=== PATIENT | female | born 1955 | race Caucasian/White ===

== ENCOUNTER → 2017-05-20 15:07 | Outpatient (CLI) | payer MEDICARE, MEDICAID, SELFPAY | PROVIDERS: PCP Family Medicine; Visit Provider Family Medicine | DX: R07.2 Precordial pain (principal) | CPT/HCPCS: 93005 ==

== ENCOUNTER → 2017-07-29 08:04 | Outpatient (CLI) | payer MEDICARE, SELFPAY ==
--- NOTE | 2017-07-29 10:20 | CT_ITS ---
CT abdomen pelvis w con CLINICAL INDICATION: Left flank pain with hematuria, burning with urination, history of right renal lesion ITS.REASON: HX RIGHT RENAL LESION, ACUTE CYSTITIS ORDERING PHYSICIAN: Petty Bass MD PATIENT AGE: 61 years COMPARISON: 12/30/2016 TECHNIQUE: Axial images obtained immediately and 10 minute delay following intravenous administration of IV contrast with sagittal and coronal reformats. All CT scans at the facility use one or more dose reduction, viz: automated exposure control; ma/kV adjustment per patient size (including targeted exams where dose is matched to indication; i.e. head); or iterative reconstruction technique. PROCEDURE: Oral Contrast: Redicat IV Contrast: 75 mL's of Isovue-370.. FINDINGS: The lung bases are clear. The liver has a somewhat nodular configuration consistent with cirrhosis. The spleen is enlarged at extending centimeters. The pancreas is unremarkable. The left adrenal gland is somewhat enlarged but maintains an adreniform shape and is not significantly changed dating back to 11/16/2014 There is an exophytic soft tissue and fat-containing lesion along the lower pole of the right kidney 2.7 cm. This contains some peripheral calcification superiorly. This is consistent with an angiomyolipoma and is not significantly changed. No evidence of acute hemorrhage into the lesion. There is a 2.8 x 2 cm left renal cyst. A nonobstructing 3 mm stone is present in the lower pole the left kidney. No hydronephrosis. Urinary bladder has an unremarkable appearance. There are a few retroperitoneal varices. The portal vein is prominent at 19 mm. There is a moderate amount retained colonic feces. No intestinal obstruction or free air is evident. No evidence of appendicitis or diverticulitis. There is been prior hysterectomy. No pelvic mass or focal inflammatory change evident. There is protrusion of the ventral abdominal wall with associated small hernia centrally containing fat area in No acute bony anomalies. IMPRESSION: 1. Cirrhosis with portal hypertension and splenomegaly with small retroperitoneal varices. 2. Right renal angiomyolipoma unchanged. 3. No change left renal cyst and nonobstructing 3 mm left renal stone 4. No new findings
== END ==
PROVIDERS: PCP Family Medicine; Visit Provider Family Medicine
DX: N30.00 Acute cystitis without hematuria (principal)
CPT/HCPCS: 74177; Q9967

== ENCOUNTER → 2017-12-14 15:07 | Outpatient (POV) | payer MEDICARE, MEDICAID, SELFPAY | PROVIDERS: Visit Provider Internal Medicine | DX: Z00.00 Encounter for general adult medical examination without abnormal findings (principal) ==

== ENCOUNTER → 2017-12-29 09:18 | Outpatient (CLI) | payer MEDICARE, MEDICAID, SELFPAY ==
[2017-12-29 09:57] LABS: Basophils % 0.3 % (0.1-2.0); Eosinophils # 0.2 K/mm3 (0.0-0.4); Eosinophils % 3.2 % (0.1-12.0); Hematocrit 42.1 % (37.0-47.0); Hemoglobin 12.7 g/dL (12.2-16.2); Lymphocytes % 18.2 K/mm3 (10-50); Mean Corpuscular HGB Conc 30.1 g/dL (31.8-35.4); Mean Corpuscular Hemoglobin 27.5 pg (27.0-31.2); Mean Corpuscular Volume 91.3 fl (81-99); Monocytes # 0.3 K/mm3 (0.1-1.0); Monocytes % 6.1 % (1.7-9.3); Neutrophils # 3.9 K/mm3 (1.8-7.8); Neutrophils % 72.3 % (37.0-80.0); Platelet Count 111 K/mm3 (142-424); Red Blood Count 4.61 M/mm3 (4.20-5.40); Red Cell Distribution Width 18.1 % (11.5-17.5); White Blood Count 5.4 K/mm3 (4.8-10.8)
[2017-12-29 10:59] LABS: Alanine Aminotransferase 12 U/L (12-78); Albumin/Globulin Ratio 0.9 (1.1-1.8); Alkaline Phosphatase 87 U/L (46-116); Aspartate Amino Transferase 11 U/L (15-37); Bilirubin,Total 0.3 mg/dL (0.2-1.0); Blood Urea Nitrogen 11 mg/dL (7-18); Calcium 9.1 mg/dL (8.5-10.1); Carbon Dioxide 37 mmol/L (21.0-32.0); Chloride 104 mmol/L (98-107); Creatinine,Serum 0.81 mg/dL (0.55-1.02); Estimated Glomerular Filt Rate 72 ml/min (>60); GFR (African American) 87 ML/MIN (>60); Globulin 3.2 gm/dl (1.3-3.2); Glucose 154 mg/dL (74-106); Sodium 144 mmol/L (136-145); Total Protein,Serum 6.2 gm/dL (6.4-8.2)
--- NOTE | 2017-12-29 10:59 | CT_ITS ---
CT chest wo con HISTORY: Emphysema, shortness of breath ITS.REASON: EMPHYSEMA, ABN WGT LOSS ORDERING PHYSICIAN: Ruiz Spears MD PATIENT AGE: 62 years COMPARISON: None Technique: Axial images obtained with sagittal and coronal reformats. All CT scans at the facility use one or more dose reduction, viz: automated exposure control, ma/kV adjustment per patient size (including targeted exams where dose is matched to indication, i.e. head), or iterative reconstruction technique. FINDINGS: There are a few small mediastinal lymph nodes. These are 1 cm or less in short axis. No mediastinal or hilar adenopathy or mass evident. There are coronary artery calcifications and/or stents are there some minimal thickening of the pericardium anteriorly nonspecific. No evidence of aortic aneurysm. There are mild centrilobular emphysematous changes. A 4 mm noncalcified nodule present in the region of the right minor fissure laterally. There is mild diffuse bronchial thickening perihilar regions and lung bases. No obvious bronchiectasis. Calcified nodes are present in the right hilum and there is calcified granuloma in the right lower lobe. There is an 7 mm nodule in the right upper lobe posteriorly. This is just anterior to the major fissure. The margins are somewhat irregular. This is noncalcified. No central lesions are evident. No lobar consolidation or collapse. No effusions. Upper abdominal images show mild splenomegaly at 15 cm. There is a partially calcified mass involving the right kidney posteriorly containing some fat and soft tissue density consistent with an angiomyolipoma. Calcification is present in the left kidney centrally at 3 mm and may be due to stone or arterial calcification. There is a left renal cyst and 2.4 cm. Small nodes are present in the retroperitoneum. Compressive changes have increased at L1 with loss of height anteriorly now of approximately 50% retropulsion of the posterior superior aspect of L1 x 7 mm greater on the right. Slight increased soft tissue density along the anterior aspect of the vertebral body at this region which was not present on the lumbar spine CT 10/27/2017. Gas is present within the disc space both above and below this level. IMPRESSION: 1. 7 mm right upper lobe nodule indeterminate. Six-month CT follow-up recommended 2. Centrilobular emphysema with mild bronchial thickening consistent with obstructive chronic bronchitis. 3. Increased wedge compression changes involving the L1 vertebral body now with retropulsion of the posterior superior aspect of L1 x 7 mm with lateral recess narrowing. There is some increased soft tissue density at the vertebral body anteriorly this level. The vertebral body itself has a heterogeneous appearance. There are decreased density centrally. One must consider the possibility of a pathologic fracture. Underlying osteomyelitis of the vertebral bodies considered. A metastatic lesion to L1 is also a consideration. MRI lumbar spine without and with contrast may be of further value. 4. No change partially calcified mass in the right kidney which contains fat and may be due to an angiomyolipoma
[2017-12-29 11:15] VITALS: BP 109/76; BP 122/79; PULSE 115; PULSE 97; RESP 18; RESP 23; O2SAT 86; O2SAT 97
[2017-12-29 11:18] VITALS: PULSE 101; PULSE 97
[2017-12-30 16:23] LABS: Alpha-1-Globulin 0.3 g/dL (0.0-0.4); Alpha-2-Globulin 0.8 g/dL (0.4-1.0); Gamma Globulin 1.1 g/dL (0.4-1.8); Protein, Total 6.1 g/dL (6.0-8.5)
[2018-01-03 15:16] LABS: Alpha-1-Antitrypsin 162 mg/dL (90-200)
== END ==
PROVIDERS: PCP Family Medicine; Visit Provider Internal Medicine
DX: J43.9 Emphysema, unspecified (principal); R63.4 Abnormal weight loss; R06.02 Shortness of breath
CPT/HCPCS: 36415; 71250; 80053; 82103; 82104; 84155; 84165; 85025; 94060; 94618; 94640; 94726; 94729

== ENCOUNTER → 2018-01-25 12:03 | Outpatient (POV) | payer MEDICARE, MEDICAID, SELFPAY | PROVIDERS: Visit Provider Internal Medicine | DX: Z00.00 Encounter for general adult medical examination without abnormal findings (principal) ==

== ENCOUNTER → 2018-01-27 13:42 | Outpatient (CLI) | payer MEDICARE, MEDICAID, SELFPAY ==
[2018-01-27 15:38] LABS: Anion Gap 8.1 mEq/L (5-15); Blood Urea Nitrogen 11 mg/dL (7-18); Calcium 9.1 mg/dL (8.5-10.1); Carbon Dioxide 37 mmol/L (21.0-32.0); Chloride 101 mmol/L (98-107); Creatinine,Serum 0.88 mg/dL (0.55-1.02); Estimated Glomerular Filt Rate 65 ml/min (>60); GFR (African American) 79 ML/MIN (>60); Glucose 177 mg/dL (74-106); Potassium 4.1 mmoL/L (3.5-5.1); Sodium 142 mmol/L (136-145)
== END ==
PROVIDERS: Visit Provider Internal Medicine
DX: S32.000A Wedge compression fracture of unspecified lumbar vertebra, initial encounter for closed fracture (principal); E11.40 Type 2 diabetes mellitus with diabetic neuropathy, unspecified
CPT/HCPCS: 36415; 80048

== ENCOUNTER → 2018-01-28 10:16 | Outpatient (CLI) | payer MEDICARE, MEDICAID, SELFPAY ==
--- NOTE | 2018-01-28 10:19 | MR_ITS ---
MR lumbar spine wo/w con, MR 3-d myelogram/MRCP HISTORY: Fell OCT 27 and has compression FX. LBP on LT side. HX kidney CA x7yrs. NO HX back surgery. ITS.REASON: FX LUMBAR VERTEBRA, COMPRESSION ORDERING PHYSICIAN: Ruiz Spears MD PATIENT AGE: 62 years Comparison: 10/27/2017, 12/29/2017 TECHNIQUE: Standard multiplanar multiecho sequences are performed without contrast. 3-D MIP and myelographic images are also rendered and reviewed FINDINGS: There is normal alignment. There is a compression fracture involving the L1 vertebral body with loss of height centrally of greater than 50%. There is disruption of the posterior vertebral body cortex superiorly with 6 mm retropulsion of the posterior superior aspect of L1 indicating a burst type compression fracture. The L1 vertebral body does not demonstrate any enhancement. The spinal cord ends at the L2 level. The retropulsed fragment does not cause any compression upon the lower aspect of the cord. The fracture shows some decrease signal on the T1-weighted images is increased intensity on T2-weighted images L2-L3: unremarkable appearance. L3-4: Minimal bulging disc L4-L5: Minimal bulging disc slightly eccentric towards the right with mild facet and ligamentous hypertrophy L5-S1: Mild facet hypertrophy. IMPRESSION: 1. Burst type compression fracture involves L1 as described above with 6 mm retropulsion of posterior vertebral body fragment superiorly without compression upon the cord. This does not appear pathologic. 2. Bulging disc at L3-L4 and L4-5 with mild facet hypertrophic change.
--- NOTE | 2018-01-28 11:30 | HMH.ITSHM ---
Current Home Medications as stated by this patient Cate Ramirez or accounting representative. []QUETIAPINE FUMARATE TRAZODONE POTASSIUM DILTIAZEM VENTAFAXINE ASPIRIN MYRBETRIQ AMLODIPINE ROSUVASTATIN CALCIUM CLOPIDOGREL FERROUS SULFATE DEXILANT ALPRAZOLAM HYDROCHLOROTHIAZIDE ISOSORBIDE NITROGLYCERIN HYDROCODONE LACTULOSE BASAGLAR NOVOLOG VICTOZA SYMBICORT
== END ==
PROVIDERS: PCP Family Medicine; Visit Provider Internal Medicine
DX: S32.000A Wedge compression fracture of unspecified lumbar vertebra, initial encounter for closed fracture (principal)
CPT/HCPCS: 72158; 76376; A9576

== ENCOUNTER 2018-02-16 13:45 | Inpatient (IN) ==
[2018-02-16 14:25] LABS: ABG Base Excess 13.2 mmol/L (-2.4-2.3); ABG HCO3 39.6 mmhg (22.0-26.0); ABG Oxygen Saturation 84 % (90-100); ABG PO2 50.2 mmhg (80-100); ABG TCO2 42.2 mmhg (23-27)
[2018-02-16 14:26] LABS: Oxygen 4L %
[2018-02-16 14:26] LABS: Basophils % 0.4 % (0.1-2.0); Eosinophils # 0.1 K/mm3 (0.0-0.4); Eosinophils % 1.3 % (0.1-12.0); Hematocrit 44.5 % (37.0-47.0); Hemoglobin 13.4 g/dL (12.2-16.2); Lymphocytes # 1.2 K/mm3 (0.7-4.5); Lymphocytes % 15.4 % (10-50); Mean Corpuscular HGB Conc 30.1 g/dL (31.8-35.4); Mean Corpuscular Hemoglobin 28.6 pg (27.0-31.2); Mean Corpuscular Volume 94.9 fl (81-99); Mean Platelet Volume 8.5 fl (7.4-10.4); Monocytes # 0.6 K/mm3 (0.1-1.0); Monocytes % 6.8 % (1.7-9.3); Neutrophils # 6.2 K/mm3 (1.8-7.8); Neutrophils % 76.1 % (37.0-80.0); Platelet Count 152 K/mm3 (142-424); Red Blood Count 4.69 M/mm3 (4.20-5.40); Red Cell Distribution Width 17.2 % (11.5-17.5); White Blood Count 8.1 K/mm3 (4.8-10.8)
[2018-02-16 14:27] LABS: Allen's Test Acceptable
[2018-02-16 14:28] LABS: ABG PCO2 82.4 mmhg (35.0-45.0)
--- NOTE | 2018-02-16 14:33 | Emergency Department Note ---
ED Disposition Clinical Impression: Acute respiratory failure with hypoxia and hypercapnia, COPD exacerbation Community acquired pneumonia Qualifiers: Laterality: left Lung location: lower lobe of lung Qualified Code(s): J18.1 - Lobar pneumonia, unspecified organism Disposition: Still a Patient Condition on Discharge: Serious - Critical Care Critical Care Time: Yes Attestation: On 02/16/18, the high probability of a clinically significant, sudden or life threatening deterioration of the following system(s) required my full and direct attention, intervention and personal management. The time I documented below is in addition to time spent performing reported procedures but includes the following listed in this critical care notation. Total Critical Care Time: 40 Vital system(s) involved:: Respiratory Failure My critical care processes included: Assessment & monitoring of V/S, Initial and Re-exams, Data Review/Interpretation, Coordinating Care, Medication Orders and management, Documentation Medical Decision Making - Zak Inquiry Pt receiving controlled substance: No Vital Signs: 02/16/18 13:57 02/16/18 14:40 02/16/18 14:41 Temperature 98.2 F Temperature Source Temporal Artery Scan Pulse Rate 104 H 106 H Pulse Rate [Right Brachial] 119 H Respiratory Rate 26 H Blood Pressure [Right Arm] 107/68 L Blood Pressure Mean [Right Arm] 81 Blood Pressure Source [Right Arm] Automatic Cuff Blood Pressure Position [Right Arm] Sitting 02 Sat by Pulse Oximetry 72 L Oxygen Delivery Method Room Air 02/16/18 14:49 02/16/18 16:35 Temperature Temperature Source Pulse Rate Pulse Rate [Right Brachial] 110 H 101 H Respiratory Rate Blood Pressure [Right Arm] 131/72 141/72 H Blood Pressure Mean [Right Arm] 91 95 Blood Pressure Source [Right Arm] Automatic Cuff Automatic Cuff Blood Pressure Position [Right Arm] Sitting Sitting 02 Sat by Pulse Oximetry 96 92 L Oxygen Delivery Method - Lab Data Lab Results 02/16/18 14:05: WBC 8.1, RBC 4.69, Hgb 13.4, Hct 44.5, MCV 94.9, MCH 28.6, MCHC 30.1 L, RDW 17.2, Plt Count 152, MPV 8.5, Neut % (Auto) 76.1, Lymph % (Auto) 15.4, Gregory % (Auto) 6.8, Eos % (Auto) 1.3, Baso % (Auto) 0.4, Neut # (Auto) 6.2, Lymph # (Auto) 1.2, Gregory # (Auto) 0.6, Eos # (Auto) 0.1, Baso # (Auto) 0.0 02/16/18 14:05: Sodium 141, Potassium 4.5, Chloride 96 L, Carbon Dioxide 43 H*, Anion Gap 6.5, BUN 14, Creatinine 0.95, Estimated Creat Clear 89, Estimated GFR 60, Est GFR ( Amer) 72, Glucose 256 H, Calcium 9.0, Total Bilirubin 0.4, AST 5 L, ALT 9 L, Alkaline Phosphatase 91, Total Protein 7.1, Albumin 2.6 L, Globulin 4.5 H, Albumin/Globulin Ratio 0.6 L 02/16/18 14:05: B-Natriuretic Peptide 101 H 02/16/18 14:05: Lactate 2.9 H 02/16/18 14:06: Specimen Source Right brachial, O2 % 4l, ABG pH 7.30 L, ABG pCO2 82.4 H, ABG pO2 50.2 L, ABG HCO3 39.6 H, ABG Total CO2 42.2 H, ABG O2 Saturation 84 L*, ABG Base Excess 13.2 H, Chandler Test Acceptable 02/16/18 14:55: Troponin I < 0.02 Result diagrams: 02/16/18 14:05 02/16/18 14:05 Orders (Tests/Meds): ED MEDICATIONS Generic Name Dose Route Start Last Admin Trade Name Freq PRN Reason Stop Dose Admin Albuterol/Ipratropium 3 ml 02/16/18 20:00 Duoneb 3ml Neb 03/18/18 19:59 QIDRT ARIANNE Alprazolam 0.25 mg 02/16/18 21:00 Xanax 0.25mg Tablet PO 03/18/18 20:59 TID ARIANNE Amlodipine Besylate 5 mg 02/16/18 17:32 Norvasc 5mg Tablet PO 03/18/18 17:31 ONCE ARIANNE Aspirin 81 mg 02/17/18 09:00 Aspirin 81mg Enteric Coated Tablet PO 03/19/18 08:59 DAILY [facility] Clopidogrel Bisulfate 75 mg 02/17/18 09:00 Plavix 75mg Tablet PO 03/19/18 08:59 DAILY [facility] Azithromycin 500 mg/ Sodium 250 mls @ 250 mls/hr 02/17/18 15:30 Chloride IV 03/02/18 15:29 Q24H ARIANNE Protocol Ceftriaxone Sodium 1 gm/ 50 mls @ 100 mls/hr 02/17/18 15:30 Sodium Chloride IV 03/02/18 15:29 Q24H ARIANNE Protocol Insulin Human Lispro 0 unit 02/16/18 21:00 Humalog 100 Units/Ml 3ml Vial (Ssi) SQ 03/18/18 20:59 ACHS ARIANNE Protocol Methylprednisolone Sodium Succinate 80 mg 02/16/18 17:32 Solu-Medrol 125mg/2ml Vial IV 03/18/18 17:31 Q8H ARIANNE Non-Formulary Medication 120 mg 02/17/18 09:00 Diltiazem Hcl [Tiazac] PO 03/19/18 08:59 DAILY ARIANNE Non-Formulary Medication 25 mg 02/17/18 09:00 Hydrochlorothiazide [Hydrochlorothiazide 50mg Tab] PO 03/19/18 08:59 DAILY ARIANNE Non-Formulary Medication 30 mg 02/16/18 17:32 Mirabegron [Myrbetriq] PO 03/18/18 17:31 Q24H ARIANNE Non-Formulary Medication 1,000 mg 02/16/18 17:32 [place]-3 Fatty Acids [Fish Oil Concentrate] PO 03/18/18 17:31 ONCE ARIANNE Non-Formulary Medication 30 meq 02/17/18 09:00 Potassium Chloride [Pot Chlor 20 Meq Packet] PO 03/19/18 08:59 DAILY ARIANNE Non-Formulary Medication 200 mg 02/16/18 17:32 Quetiapine Fumarate [Quetiapine Fumarate] PO 03/18/18 17:31 QHS ARIANNE Non-Formulary Medication 10 mg 02/16/18 17:32 Rosuvastatin Calcium [Rosuvastatin Calcium] PO 03/18/18 17:31 ONCE ARIANNE Non-Formulary Medication 100 mg 02/16/18 17:32 Trazodone Hcl [Trazodone Hcl] PO 03/18/18 17:31 QHS ARIANNE Non-Formulary Medication 50 mg 02/16/18 21:00 Venlafaxine Hcl [Venlafaxine Hcl] PO 03/18/18 20:59 BID ARIANNE Non-Formulary Medication 60 mg 02/17/18 09:00 Dexlansoprazole [Dexilant] PO 03/19/18 08:59 DAILY ARIANNE Tramadol/Acetaminophen 1 each 02/16/18 17:32 Ultracet 37.5/325mg Tablet PO 03/18/18 17:31 TID PRN Pain Discontinued Medications Generic Name Dose Route Start Last Admin Trade Name Nateq PRN Reason Stop Dose Admin Albuterol/Ipratropium 3 ml 02/16/18 14:05 Duoneb 3ml Neb 02/16/18 14:06 ONCE ONE Ceftriaxone Sodium 1 gm/ 50 mls @ 100 mls/hr 02/16/18 15:30 02/16/18 15:45 Sodium Chloride IV 03/02/18 15:29 100 mls/hr Q24H ARIANNE Administration Protocol Azithromycin 500 mg/ Sodium 250 mls @ 250 mls/hr 02/16/18 15:30 02/16/18 16:07 Chloride IV 03/02/18 15:29 250 mls/hr Q24H ARIANNE Administration Protocol Insulin Human Lispro 0 unit 02/16/18 21:00 Humalog 100 Units/Ml 3ml Vial (Ssi) SQ 03/18/18 20:59 ACHS ARIANNE Protocol Methylprednisolone Sodium Succinate 125 mg 02/16/18 14:05 02/16/18 14:15 Solu-Medrol 125mg/2ml Vial IV 02/16/18 14:06 125 mg ONCE ONE Administration Sodium Chloride 3 ml 02/16/18 14:44 Sodium Chloride 3% 15ml [facility] 03/18/18 14:43 ONCE PRN INDUCE SPUTUM COLLECTION ORDERS Category Date Time Status Blood Culture Stat Micro 02/16/18 14:05 Received Sputum Culture & Gram Stain Stat Micro 02/16/18 14:25 Ordered - Radiology Data #1 Image(s): Chest Image Reviewed: Yes I discussed the image results w/the radiologist Atelectasis versus infiltrate left base. Questionable congestive heart failure (patient's BNP is 101). - ECG Data Tracing #1 EKG interpreted by Mickey Stauffer MD: Rhythm: sinus tachycardia Rate: 109 [place]: normal Ectopy: none Conduction: normal ST Segment Changes: none T Wave Changes: none Q Waves: none No evidence of acute ischemia or injury Baseline artifact and wander present, but I consider the EKG adequate for accurate interpretation. Low voltage QRS - Physician Consults Physician Consulted: Kali Time: 15:20 Reason -: Admission Comment/Response: Agrees to admit the patient to the hospital. We discussed the patient's clinical information, including history, exam, laboratory and radiology results and ED course. Per hospital procedure, I will write temporary bridge inpatient orders on the patient. Specific orders requested by the admitting physician: Rocephin and Zithromax, Solu-Medrol, DuoNeb treatments, BiPAP General Adult HPI - General Chief complaint: Upper Respiratory Infection Stated complaint: SOA Time Seen by Provider: 02/16/18 14:33 Mode of Arrival: Ambulatory Limitations: No Limitations Description of Symptoms (Recalled from ER Triage Doc. by RN): pt went in to see her pcp dr gusman for medicine refills, and was sent immediately to ed once they saw her oxygen saturation at mid 60's; upon arrival to ed pt was found to continue to be hypoxic despite 4lpm per nc. pt further is extremely congested and coughing during triage. daughter states she has been building up to a pneumonia this past week, but refused to get evaluated since she had an appointment with dr gusman; pt continues to smoke 1 ppd - History of Present Illness HPI narrative: The patient is sent from Dr. Gusman's office. She has been sick for 1 week with productive cough and shortness of breath. Denies fever. Some slight chest pains. Also daughter thinks she probably has a urinary tract infection. Found to be hypoxic at Dr. Gusman's office. She is normally on 4 L nasal cannula oxygen. She uses nebulizer treatments at home, but has not had any today. She is not on steroids or antibiotics at this time. She does continue to smoke. She has a history of COPD and respiratory failure. - Related Data Home Medications Medication Instructions Recorded Confirmed albuterol sulfate HFA 90 1 puff INHALATION Q6H 06/14/17 02/16/18 mcg/actuation aerosol inhaler alprazolam 0.25 mg tablet 0.25 mg PO TID tab 06/14/17 02/16/18 budesonide-formoterol HFA 160 2 inh INHALATION Q12H 06/14/17 02/16/18 mcg-4.5 mcg/actuation aerosol inhaler dexlansoprazole 60 mg 60 mg PO DAILY cap 06/14/17 02/16/18 capsule,biphase delayed release insulin aspart U- 100 100 unit/mL 1 unit SUB-Q QPM ml 06/14/17 02/16/18 subcutaneous pen insulin glargine (U-100) 100 35 unit SUB-Q QHS ml 06/14/17 02/16/18 unit/mL (3 mL) subcutaneous pen liraglutide 0.6 mg/0.1 mL (18 mg/3 0.6 mg SUB-Q ONCE 06/14/17 02/16/18 mL) subcutaneous pen injector nitroglycerin 0.4 mg sublingual 0.4 mg SUBLINGUAL Q5M PRN 06/14/17 02/16/18 tablet omega-3 fatty acids 1,000 mg 1,000 mg PO ONCE 06/14/17 02/16/18 capsule rosuvastatin 10 mg tablet 10 mg PO ONCE 06/14/17 02/16/18 tramadol 37.5 mg-acetaminophen 325 1 tab PO TID PRN 20 Days #60 tab 08/31/17 02/16/18 mg tablet venlafaxine 50 mg tablet 50 mg PO BID 90 Days #180 tab 08/31/17 02/16/18 diltiazem ER 120 mg capsule,24 120 mg PO DAILY cap 09/14/17 02/16/18 hr,extended release mirabegron ER 50 mg 30 mg PO Q24H tab 09/14/17 02/16/18 tablet,extended release 24 hr potassium chloride 20 mEq oral 30 meq PO DAILY each 09/14/17 02/16/18 packet quetiapine 200 mg tablet 200 mg PO QHS tab 09/14/17 02/16/18 trazodone 100 mg tablet 100 mg PO QHS tab 09/14/17 02/16/18 Amlodipine Besylate [Norvasc 5mg 5 mg PO ONCE 10/27/17 02/16/18 tablet] Aspirin [Low Dose Aspirin EC] 81 mg PO DAILY 10/27/17 02/16/18 Clopidogrel Bisulfate [Plavix 75mg 75 mg PO DAILY 10/27/17 02/16/18 Tab] hydroCHLOROthiazide 25 mg PO DAILY 10/27/17 02/16/18 [Hydrochlorothiazide 50mg Tab] Clopidogrel Bisulfate [Plavix 75mg 75 mg PO QDAY 02/16/18 02/16/18 Tab] Allergies Allergy/AdvReac Type Severity Reaction Status Date / Time bacitracin Allergy Unknown Verified 10/27/17 07:56 [From NEOSPORIN ([id number])] doxycycline Allergy Unknown Verified 10/27/17 07:56 neomycin Allergy Unknown Verified 10/27/17 07:56 [From NEOSPORIN ([id number])] Penicillins Allergy Unknown Verified 10/27/17 07:56 polymyxin B Allergy Unknown Verified 10/27/17 07:56 [From NEOSPORIN ([id number])] prednisone [PREDNISONE] Allergy Unknown Verified 10/27/17 07:56 [facility] History I have reviewed the patient's past medical history: Yes Medical History: Reports:: Cancer (RIGHT KIDNEY CANCER), Congestive Heart Fa ilure, Chronic Obstructive Pulmonary Disease (COPD), Diabetes Mellitus Type 2, Gastroesophageal Reflux Disease(GERD), Hyperlipidemia, Hypertension Denies:: Diabetes Mellitus Type 1, MRSA Laterality Cases: Bilateral: Tonsillectomy Other Surgeries: Yes: Hysterectomy-Total, Other Amputation: No - Social History Educational Level: Completed High School Smoking Status: Current every day smoker Tobacco Type: cigarettes # Packs/Day (cigarettes): 1 Alcohol Intake: never Alcohol Intake Frequency:: other - Psychiatric History Expresses thoughts of harming self/others: None Suicide Plan Description: No Plan Family Hx:: Hypertension, Heart Attack, Diabetes, Hyperlipidemia, Kidney Disease ROS Obtained: Yes All systems reviewed & no additional complaints - Constitutional Constitutional: Denies fever(s) - Cardiovascular Cardiovascular: Reports chest pain - Respiratory Respiratory: Yes cough, Yes dyspnea, Yes excessive phlegm production - Gastrointestinal Gastrointestingal: Denies: diarrhea, vomiting - Genitourinary Female Genitourinary: Reports dysuria Physical Exam - General General appearance: alert, in distress - Head Head exam: atraumatic, normocephalic - Eye Eye exam: Present: normal appearance, PERRL, EOMI - ENT ENT exam: Present: mucous membranes moist - Neck Neck exam: Present: normal inspection, trachea midline - Respiratory Respiratory exam: Present: other (Crackles bilaterally) - Cardiovascular Cardiovascular exam: Present: normal rhythm, tachycardia, normal heart sounds - Abdominal Exam Abdominal exam: Present: soft. Absent: distention, tenderness - Extremities Exam Extremities exam: Present: other (Trace pitting edema of ankles) - Neurological Exam Neurological exam: Present: alert, oriented X3 - Psychiatric Psychiatric exam: Present: normal affect, normal mood - Skin Skin exam: Present: warm, dry
[2018-02-16 14:35] LABS: Albumin Level 2.6 gm/dL (3.4-5.0); Albumin/Globulin Ratio 0.6 (1.1-1.8); Anion Gap 6.5 mEq/L (5-15); Bilirubin,Total 0.4 mg/dL (0.2-1.0); Globulin 4.5 gm/dl (1.3-3.2); Potassium 4.5 mmoL/L (3.5-5.1); Total Protein,Serum 7.1 gm/dL (6.4-8.2)
--- NOTE | 2018-02-16 18:33 | History & Physical Report ---
*Admission Date: 02/16/18 *Chief complaint: Severe shortness of breath *History of present illness: This 62-year-old white female has severe respiratory disease. It has been worse over the past week. She presented in Dr. Bass's office today in respiratory distress. She was sent to the emergency room. You can see the report. She required BiPAP in the emergency room. She was started on antibiotics and steroids. She is admitted for further evaluation and treatment. At the time of exam this evening she is significant improved and breathing better. She is alert cogent and in no severe distress. She is off the BiPAP at the present time. Her arterial blood gases in the emergency room showed acidosis at 7.3 hypoxia and hypercapnia. The patient is a smoker. She has home oxygen. She is diabetic and is on insulin. [facility] History Medical History: Reports:: Cancer, Congestive Heart Failure, Chronic Obstructive Pulmonary Disease (COPD), Coronary Artery Disease (Cardiac stent January 26, 2017.), Diabetes Mellitus Type 2, Gastroesophageal Reflux Disease(GERD), Hyperlipidemia, Hypertension, Lung Disease, Peripheral Vascular Disease Denies:: Diabetes Mellitus Type 1, MRSA Laterality Cases: Right: Other (Right arm fracture), Bilateral: Tonsillectomy Other Surgeries: Yes: Cancer Surgery (Right kidney.), Cholecystectomy, Coronary Stent, Hysterectomy-Total, Other Amputation: No Fractures: Yes (fractured lt hip october 27 2017) - *Social History Educational Level: Attended College Smoking Status: Current every day smoker Tobacco Type: cigarettes # Packs/Day (cigarettes): 1 Alcohol Intake: never Alcohol Intake Frequency:: other Occupational Status: disabled Housing: house Household Members: family - Psychiatric History Expresses thoughts of harming self/others: None Suicide Plan Description: No Plan *Family Hx:: Hypertension, Heart Attack, Diabetes, Hyperlipidemia, Kidney Disease Review of Systems - Constitutional Denies body ache(s), Denies chills, Denies fever(s) - ENT Denies pain with swallowing Comments: Edentulous with dentures. - *Cardiovascular Reports shortness of breath, Reports shortness of breath with activity, Denies chest pain, Denies foot swelling - *Respiratory Reports chest congestion, Reports shortness of breath, Reports shortness of breath with activity, Reports wheezing - *Gastrointestinal Denies abdominal pain - *Genitourinary Reports dribbling after urination, Reports urinary incontinence, Reports urinary urgency - *Musculoskeletal Reports stiffness - Integumentary/Breasts Denies bleeding lesions, Denies lesions, Denies rash - *Neurologic Reports unsteadiness, Reports weakness Meds Home Medications Medication Instructions Recorded Confirmed Type albuterol sulfate HFA 90 1 puff INHALATION Q6H 06/14/17 02/16/18 History mcg/actuation aerosol inhaler alprazolam 0.25 mg tablet 0.25 mg PO TID tab 06/14/17 02/16/18 History budesonide-formoterol HFA 160 2 inh INHALATION Q12H 06/14/17 02/16/18 History mcg-4.5 mcg/actuation aerosol inhaler dexlansoprazole 60 mg 60 mg PO DAILY cap 06/14/17 02/16/18 History capsule,biphase delayed release insulin aspart U- 100 100 unit/mL 1 unit SUB-Q QPM ml 06/14/17 02/16/18 History subcutaneous pen insulin glargine (U-100) 100 35 unit SUB-Q QHS ml 06/14/17 02/16/18 History unit/mL (3 mL) subcutaneous pen liraglutide 0.6 mg/0.1 mL (18 mg/3 0.6 mg SUB-Q ONCE 06/14/17 02/16/18 History mL) subcutaneous pen injector nitroglycerin 0.4 mg sublingual 0.4 mg SUBLINGUAL Q5M PRN 06/14/17 02/16/18 History tablet omega-3 fatty acids 1,000 mg 1,000 mg PO ONCE 06/14/17 02/16/18 History capsule rosuvastatin 10 mg tablet 10 mg PO ONCE 06/14/17 02/16/18 History tramadol 37.5 mg-acetaminophen 325 1 tab PO TID PRN 20 Days #60 tab 08/31/17 02/16/18 History mg tablet venlafaxine 50 mg tablet 50 mg PO BID 90 Days #180 tab 08/31/17 02/16/18 History diltiazem ER 120 mg capsule,24 120 mg PO DAILY cap 09/14/17 02/16/18 History hr,extended release mirabegron ER 50 mg 30 mg PO Q24H tab 09/14/17 02/16/18 History tablet,extended release 24 hr potassium chloride 20 mEq oral 30 meq PO DAILY each 09/14/17 02/16/18 History packet quetiapine 200 mg tablet 200 mg PO QHS tab 09/14/17 02/16/18 History trazodone 100 mg tablet 100 mg PO QHS tab 09/14/17 02/16/18 History Amlodipine Besylate [Norvasc 5mg 5 mg PO ONCE 10/27/17 02/16/18 History tablet] Aspirin [Low Dose Aspirin EC] 81 mg PO DAILY 10/27/17 02/16/18 History Clopidogrel Bisulfate [Plavix 75mg 75 mg PO DAILY 10/27/17 02/16/18 History Tab] hydroCHLOROthiazide 25 mg PO DAILY 10/27/17 02/16/18 History [Hydrochlorothiazide 50mg Tab] Clopidogrel Bisulfate [Plavix 75mg 75 mg PO QDAY 02/16/18 02/16/18 History Tab] Allergies Allergy/AdvReac Type Severity Reaction Status Date / Time bacitracin Allergy Unknown Verified 10/27/17 07:56 [From NEOSPORIN ([id number])] doxycycline Allergy Unknown Verified 10/27/17 07:56 neomycin Allergy Unknown Verified 10/27/17 07:56 [From NEOSPORIN ([id number])] Penicillins Allergy Unknown Verified 10/27/17 07:56 polymyxin B Allergy Unknown Verified 10/27/17 07:56 [From NEOSPORIN ([id number])] prednisone [PREDNISONE] Allergy Unknown Verified 10/27/17 07:56 Exam Vital signs and Labs for Last 24 Hours: Temp Pulse Resp BP Pulse Ox 98.3 F 120 H 20 146/77 H 96 02/16/18 17:59 02/16/18 17:59 02/16/18 17:59 02/16/18 17:59 02/16/18 17:59 Laboratory Results - last 24 hr 02/16/18 14:05: WBC 8.1, RBC 4.69, Hgb 13.4, Hct 44.5, MCV 94.9, MCH 28.6, MCHC 30.1 L, RDW 17.2, Plt Count 152, MPV 8.5, Neut % (Auto) 76.1, Lymph % (Auto) 15.4, [place] % (Auto) 6.8, Eos % (Auto) 1.3, Baso % (Auto) 0.4, Neut # (Auto) 6.2, Lymph # (Auto) 1.2, [place] # (Auto) 0.6, Eos # (Auto) 0.1, Baso # (Auto) 0.0 02/16/18 14:05: Sodium 141, Potassium 4.5, Chloride 96 L, Carbon Dioxide 43 H*, Anion Gap 6.5, BUN 14, Creatinine 0.95, Estimated Creat Clear 89, Estimated GFR 60, Est GFR ( Amer) 72, Glucose 256 H, Calcium 9.0, Total Bilirubin 0.4, AST 5 L, ALT 9 L, Alkaline Phosphatase 91, Total Protein 7.1, Albumin 2.6 L, Globulin 4.5 H, Albumin/Globulin Ratio 0.6 L 02/16/18 14:05: B-Natriuretic Peptide 101 H 02/16/18 14:05: Lactate 2.9 H 02/16/18 14:06: Specimen Source Right brachial, O2 % 4l, ABG pH 7.30 L, ABG pCO2 82.4 H, ABG pO2 50.2 L, ABG HCO3 39.6 H, ABG Total CO2 42.2 H, ABG O2 Saturation 84 L*, ABG Base Excess 13.2 H, Chandler Test Acceptable 02/16/18 14:55: Troponin I < 0.02 I & O for Last 24 hours: Intake & Output 02/14/18 02/15/18 02/16/18 02/17/18 11:59 11:59 11:59 11:59 Intake Total 250 / 250 Balance 250 / 250 Weight 210 lb 8 oz Microbiology Reports for the Last 24 Hours: Microbiology 02/16/18 14:25 Sputum - Expectorated Sputum Gram Stain - Final - Constitutional severe distress, obese, chronically ill appearing - *Routine HEENT Exam Head: Present: normocephalic Eye: Present: PERRL. Absent: conjunctival icterus ENT: Present: mucous membranes moist. Absent: dentition normal - *Routine Neck Exam Present: supple. Absent: lymphadenopathy - Routine Chest/Breast/Axilla Exam Chest wall: Absent: tenderness - *Routine Respiratory Exam Present: accessory muscle use, decreased breath sounds, respiratory distress, wheezes, diminished air movement - *Routine Cardiovascular Exam Present: RRR Comments: Heart sounds are distant - *Routine Abdominal Exam Present: soft, normoactive bowel sounds. Absent: tenderness Comments: Obese - *Routine Extremities Exam Absent: cyanosis, clubbing, edema - Routine Back/Spine/Pelvis Exam Back/Spine: Present: kyphosis - *Routine Skin Exam Present: cyanosis, warm. Absent: rash - *Routine Neurological Exam Present: alert, oriented X3 Alert and oriented at the time of this exam. In the office she seemed somewhat obtunded, not alert. H&P: Result - Impressions Laboratory Tests 02/16/18 14:06 O2 % 4l ABG pH 7.30 L ABG pCO2 82.4 H ABG pO2 50.2 L ABG HCO3 39.6 H ABG Total CO2 42.2 H ABG O2 Saturation 84 L* ABG Base Excess 13.2 H - Imaging and Cardiology Chest x-ray Status: final report Assessment and Plan (1) Acute respiratory failure with hypoxia and hypercapnia Current visit: Yes Status: Acute Category: Medical Code(s): J96.01 - Acute respiratory failure with hypoxia; J96.02 - Acute respiratory failure with hypercapnia (2) COPD exacerbation Current visit: Yes Status: Acute Category: Medical Code(s): J44.1 - Chronic obstructive pulmonary disease with (acute) exacerbation (3) Diabetes mellitus Current visit: No Status: Chronic Qualifiers: Diabetes mellitus type: type 2 Diabetes mellitus correction insulin use: unspecified correction insulin use status Category: Medical Code(s): E11.9 - Type 2 diabetes mellitus without complications (4) HTN (hypertension) Current visit: No Status: Chronic Qualifiers: Hypertension type: essential hypertension Qualified Code(s): I10 - Essential (primary) hypertension Category: Medical Code(s): I10 - Essential (primary) hypertension (5) Stented coronary artery Current visit: No Status: Chronic Category: Surgical Code(s): Z95.5 - Presence of coronary angioplasty implant and graft (6) Tobacco abuse Current visit: Yes Status: Acute Category: Medical Code(s): Z72.0 - Tobacco use - Assessment and plan all Dx Assessment and Plan for all problems:: See orders. IV antibiotics, IV steroids, and BiPAP as needed.
--- NOTE | 2018-02-17 09:36 | Pharmacy Consult Notes ---
[facility] Pharmacy VTE Monitoring - Patient Demographics Admission date: 02/17/18 Report Date: 02/17/18 Time: 09:34 Allergies/Adverse Reactions: Patient Allergies bacitracin [From NEOSPORIN ([id number])] Allergy (Unknown, Verified 10/27/17 07:56) doxycycline Allergy (Unknown, Verified 10/27/17 07:56) neomycin [From NEOSPORIN (ACK-EXH-PWBMR)] Allergy (Unknown, Verified 10/27/17 07:56) Penicillins Allergy (Unknown, Verified 10/27/17 07:56) polymyxin B [From NEOSPORIN (CTW-[id number])] Allergy (Unknown, Verified 10/27/17 07:56) prednisone [PREDNISONE] Allergy (Unknown, Verified 10/27/17 07:56) Height: 1.68 m Weight: 95.481 kg Patient Problems: Current Active Problems COPD exacerbation (Acute) Community acquired pneumonia (Acute) Acute respiratory failure with hypoxia and hypercapnia (Acute) Tobacco abuse (Acute) - VTE Risk Labs: VTE Related Lab Results Hgb 13.4 g/dL (12.2-16.2) 02/16/18 14:05 Hct 44.5 % (37.0-47.0) 02/16/18 14:05 Plt Count 152 K/mm3 (142-424) 02/16/18 14:05 BUN 14 mg/dL (7-18) 02/16/18 14:05 Creatinine 0.95 mg/dL (0.55-1.02) 02/16/18 14:05 Estimated Creat Clear 89 mL/min (50-200) 02/16/18 14:05 Was VTE Risk Assessment Performed: Yes VTE Score: 4 VTE Risk Level: Low Risk Clinical Trial Participant: No - Prophylaxis Types of VTE Prophylaxis: TEDS Knee High Location of Applied Device: Bilateral Lower Extremeties
--- NOTE | 2018-02-17 09:46 | Progress Note ---
Internal Medicine - PN: Subj *Date: 02/17/18 *Time: 09:40 Interval history: The patient remained stable through the night. She did use BiPAP through the night. She is off BiPAP this morning and doing okay. She requests her hydrocodone which she takes regularly at home. She states the tramadol does not help her. Exam Vital signs and Labs for Last 24 Hours: Temp Pulse Resp BP Pulse Ox 98.1 F 106 H 28 H 129/75 89 L 02/17/18 08:00 02/17/18 08:00 02/17/18 08:00 02/17/18 08:00 02/17/18 08:00 Laboratory Results - last 24 hr 02/16/18 14:05: WBC 8.1, RBC 4.69, Hgb 13.4, Hct 44.5, MCV 94.9, MCH 28.6, MCHC 30.1 L, RDW 17.2, Plt Count 152, MPV 8.5, Neut % (Auto) 76.1, Lymph % (Auto) 15.4, [place] % (Auto) 6.8, Eos % (Auto) 1.3, Baso % (Auto) 0.4, Neut # (Auto) 6.2, Lymph # (Auto) 1.2, [place] # (Auto) 0.6, Eos # (Auto) 0.1, Baso # (Auto) 0.0 02/16/18 14:05: Sodium 141, Potassium 4.5, Chloride 96 L, Carbon Dioxide 43 H*, Anion Gap 6.5, BUN 14, Creatinine 0.95, Estimated Creat Clear 89, Estimated GFR 60, Est GFR ( Amer) 72, Glucose 256 H, Calcium 9.0, Total Bilirubin 0.4, AST 5 L, ALT 9 L, Alkaline Phosphatase 91, Total Protein 7.1, Albumin 2.6 L, Globulin 4.5 H, Albumin/Globulin Ratio 0.6 L 02/16/18 14:05: B-Natriuretic Peptide 101 H 02/16/18 14:05: Lactate 2.9 H 02/16/18 14:06: Specimen Source Right brachial, O2 % 4l, ABG pH 7.30 L, ABG pCO2 82.4 H, ABG pO2 50.2 L, ABG HCO3 39.6 H, ABG Total CO2 42.2 H, ABG O2 Saturation 84 L*, ABG Base Excess 13.2 H, Chandler Test Acceptable 02/16/18 14:55: Troponin I < 0.02 02/16/18 18:21: Lactate 1.0 02/16/18 20:40: POC Glucose 310 H* 02/17/18 05:41: POC Glucose 261 H I & O for Last 24 hours: Intake & Output 02/14/18 02/15/18 02/16/18 02/17/18 11:59 11:59 11:59 11:59 Intake Total 952 / 952 Output Total 700 / 700 Balance 252 / 252 Weight 210 lb 8 oz Microbiology Reports for the Last 24 Hours: Microbiology 02/16/18 14:25 Sputum - Expectorated Sputum Gram Stain - Final 02/16/18 14:25 Sputum - Expectorated Sputum Sputum Culture - Preliminary - Constitutional no acute distress - *Routine HEENT Exam Head: Present: normocephalic Eye: Present: EOMI, PERRL ENT: Present: mucous membranes moist - *Routine Respiratory Exam Present: decreased breath sounds, rhonchi, wheezes - *Routine Cardiovascular Exam Present: RRR, irregular rhythm - *Routine Abdominal Exam Present: soft, normoactive bowel sounds. Absent: tenderness - *Routine Extremities Exam Absent: cyanosis, clubbing, edema Comments: ANNELISE maier Assessment and Plan (1) Acute respiratory failure with hypoxia and hypercapnia Current visit: Yes Status: Acute Category: Medical Code(s): J96.01 - Acute respiratory failure with hypoxia; J96.02 - Acute respiratory failure with hypercapnia (2) COPD exacerbation Current visit: Yes Status: Acute Category: Medical Code(s): J44.1 - Chronic obstructive pulmonary disease with (acute) exacerbation (3) Diabetes mellitus Current visit: No Status: Chronic Qualifiers: Diabetes mellitus type: type 2 Diabetes mellitus longterm insulin use: unspecified longterm insulin use status Category: Medical Code(s): E11.9 - Type 2 diabetes mellitus without complications (4) HTN (hypertension) Current visit: No Status: Chronic Qualifiers: Hypertension type: essential hypertension Qualified Code(s): I10 - Essential (primary) hypertension Category: Medical Code(s): I10 - Essential (primary) hypertension (5) Stented coronary artery Current visit: No Status: Chronic Category: Surgical Code(s): Z95.5 - Presence of coronary angioplasty implant and graft (6) Tobacco abuse Current visit: Yes Status: Acute Category: Medical Code(s): Z72.0 - Tobacco use - Assessment and plan all Dx Assessment and Plan for all problems:: Continue care. Hydrocodone ordered.
[2018-02-18 05:54] LABS: Basophils % 0.2 % (0.1-2.0); Hemoglobin 11.7 g/dL (12.2-16.2); Lymphocytes # 0.5 K/mm3 (0.7-4.5); Lymphocytes % 6.4 % (10-50); Mean Corpuscular Hemoglobin 28.3 pg (27.0-31.2); Mean Corpuscular Volume 94.4 fl (81-99); Mean Platelet Volume 8.3 fl (7.4-10.4); Monocytes # 0.3 K/mm3 (0.1-1.0); Monocytes % 4.3 % (1.7-9.3); Neutrophils # 6.2 K/mm3 (1.8-7.8); Neutrophils % 89.1 % (37.0-80.0); Platelet Count 114 K/mm3 (142-424); Red Blood Count 4.13 M/mm3 (4.20-5.40); Red Cell Distribution Width 17.1 % (11.5-17.5); White Blood Count 6.9 K/mm3 (4.8-10.8)
[2018-02-18 06:00] LABS: Anion Gap 2.2 mEq/L (5-15); Calcium 8.5 mg/dL (8.5-10.1); Potassium 4.2 mmoL/L (3.5-5.1)
[2018-02-18 08:07] LABS: Lymphocytes % 4 % (10-50); Monocytes % 2 % (2-9); Neutrophils % 94 % (42-76); Total Cells Counted 100
--- NOTE | 2018-02-18 09:24 | Progress Note ---
Internal Medicine - PN: Subj *Date: 02/18/18 *Time: 08:35 Interval history: Pt is resting quietly in bed, arouses easily to voice. She is dyspneic with O2 in place per NC. She denies any pain, reports SOB is improving, has productive cough. Exam Vital signs and Labs for Last 24 Hours: Temp Pulse Resp BP Pulse Ox 97.6 F 71 22 127/76 95 02/18/18 04:00 02/18/18 05:47 02/18/18 04:00 02/18/18 04:00 02/18/18 04:00 Laboratory Results - last 24 hr 02/17/18 11:39: POC Glucose 443 H* 02/17/18 16:33: POC Glucose 418 H* 02/17/18 20:13: POC Glucose 369 H* 02/18/18 05:23: POC Glucose 367 H* 02/18/18 05:25: WBC 6.9, RBC 4.13 L, Hgb 11.7 L, Hct 39.0, MCV 94.4, MCH 28.3, MCHC 30.0 L, RDW 17.1, Plt Count 114 L, MPV 8.3, Neut % (Auto) 89.1 H, Lymph % (Auto) 6.4 L, [place] % (Auto) 4.3, Eos % (Auto) 0.0 L, Baso % (Auto) 0.2, Neut # (Auto) 6.2, Lymph # (Auto) 0.5 L, [place] # (Auto) 0.3, Eos # (Auto) 0.0, Baso # (Auto) 0.0, Total Counted 100, Neutrophils % (Manual) 94 H, Lymphocytes % (Manual) 4 L, Monocytes % (Manual) 2, Platelet Estimate Moderate decrease 02/18/18 05:25: Sodium 137, Potassium 4.2, Chloride 96 L, Carbon Dioxide 43 H*, Anion Gap 2.2 L, BUN 25 H D, Creatinine 0.90, Estimated Creat Clear 89, Estimated GFR 64, Est GFR ( Amer) 77, Glucose 390 H, Calcium 8.5 I & O for Last 24 hours: Intake & Output 02/15/18 02/16/18 02/17/18 02/18/18 11:59 11:59 11:59 11:59 Intake Total 952 / 952 1091 / 1091 Output Total 700 / 700 800 / 800 Balance 252 / 252 291 / 291 Weight 210 lb 8 oz Microbiology Reports for the Last 24 Hours: Microbiology 02/16/18 14:25 Sputum - Expectorated Sputum Gram Stain - Final 02/16/18 14:25 Sputum - Expectorated Sputum Sputum Culture - Preliminary Gram Negative Rods - Constitutional no acute distress Comments: dyspneic - *Routine HEENT Exam Head: Present: normocephalic, atraumatic ENT: Present: mucous membranes moist - *Routine Respiratory Exam Comments: generally diminished with rhonchi and wheezes throughout, no rales - *Routine Cardiovascular Exam Present: RRR - *Routine Abdominal Exam Present: soft, normoactive bowel sounds. Absent: tenderness, distended, rebound, guarding, rigid - *Routine Extremities Exam Present: full ROM, pulses intact. Absent: edema, calf tenderness - *Routine Neurological Exam Present: alert, oriented X3, moving all extremities, normal speech Assessment and Plan (1) Acute respiratory failure with hypoxia and hypercapnia Current visit: Yes Status: Acute Category: Medical Code(s): J96.01 - Acute respiratory failure with hypoxia; J96.02 - Acute respiratory failure with hypercapnia (2) COPD exacerbation Current visit: Yes Status: Acute Category: Medical Code(s): J44.1 - Chronic obstructive pulmonary disease with (acute) exacerbation (3) Diabetes mellitus Current visit: No Status: Chronic Qualifiers: Diabetes mellitus type: type 2 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 insulin use status Category: Medical Code(s): E11.9 - Type 2 diabetes mellitus without complications (4) HTN (hypertension) Current visit: No Status: Chronic Qualifiers: Hypertension type: essential hypertension Qualified Code(s): I10 - Essential (primary) hypertension Category: Medical Code(s): I10 - Essential (primary) hypertension (5) Stented coronary artery Current visit: No Status: Chronic Category: Surgical Code(s): Z95.5 - Presence of coronary angioplasty implant and graft (6) Tobacco abuse Current visit: Yes Status: Acute Category: Medical Code(s): Z72.0 - Tobacco use - Assessment and plan all Dx Assessment and Plan for all problems:: per Dr. Bass
--- NOTE | 2018-02-19 10:53 | Progress Note ---
Internal Medicine - PN: Subj *Date: 02/19/18 *Time: 10:51 Interval history: She is doing much better overall. She uses BiPAP at nighttime. She still has wheezing. Her color is really good. Exam Vital signs and Labs for Last 24 Hours: Temp Pulse Resp BP Pulse Ox 97.5 F L 91 H 16 121/70 90 L 02/19/18 08:00 02/19/18 09:35 02/19/18 08:00 02/19/18 08:00 02/19/18 08:00 Laboratory Results - last 24 hr 02/18/18 12:20: POC Glucose 483 H* 02/18/18 17:01: POC Glucose 503 H* 02/18/18 17:20: Random Glucose 502 H* 02/18/18 21:45: POC Glucose 344 H* 02/19/18 06:32: POC Glucose 432 H* I & O for Last 24 hours: Intake & Output 02/16/18 02/17/18 02/18/18 02/19/18 11:59 11:59 11:59 11:59 Intake Total 952 / 952 1571 / 1571 2400 / 2400 Output Total 700 / 700 800 / 800 Balance 252 / 252 771 / 771 2400 / 2400 Weight 210 lb 8 oz 210 lb 7.993 oz Microbiology Reports for the Last 24 Hours: Microbiology 02/16/18 14:25 Sputum - Expectorated Sputum Gram Stain - Final 02/16/18 14:25 Sputum - Expectorated Sputum Sputum Culture - Final Pseudomonas aeruginosa Haemophilus influenzae 02/16/18 14:05 Blood Blood Culture - Preliminary NO GROWTH AFTER 48 HOURS 02/16/18 14:05 Blood Blood Culture - Preliminary NO GROWTH AFTER 48 HOURS - Constitutional no acute distress - *Routine HEENT Exam Head: Present: normocephalic Eye: Present: PERRL ENT: Present: mucous membranes moist - *Routine Respiratory Exam Comments: Moving air okay. Bilateral rhonchi and wheezes. Not quite as clear as she was yesterday. - *Routine Cardiovascular Exam Comments: Controlled rate. - *Routine Abdominal Exam Present: soft. Absent: tenderness - *Routine Extremities Exam Absent: edema Assessment and Plan (1) Acute respiratory failure with hypoxia and hypercapnia Current visit: Yes Status: Acute Category: Medical Code(s): J96.01 - Acute respiratory failure with hypoxia; J96.02 - Acute respiratory failure with hypercapnia (2) COPD exacerbation Current visit: Yes Status: Acute Category: Medical Code(s): J44.1 - Chronic obstructive pulmonary disease with (acute) exacerbation (3) Diabetes mellitus Current visit: No Status: Chronic Qualifiers: Diabetes mellitus type: type 2 Diabetes mellitus intermediate project manager insulin use: unspecified care home insulin use status Category: Medical Code(s): E11.9 - Type 2 diabetes mellitus without complications (4) HTN (hypertension) Current visit: No Status: Chronic Qualifiers: Hypertension type: essential hypertension Qualified Code(s): I10 - Essential (primary) hypertension Category: Medical Code(s): I10 - Essential (primary) hypertension (5) Stented coronary artery Current visit: No Status: Chronic Category: Surgical Code(s): Z95.5 - Presence of coronary angioplasty implant and graft (6) Tobacco abuse Current visit: Yes Status: Acute Category: Medical Code(s): Z72.0 - Tobacco use - Assessment and plan all Dx Assessment and Plan for all problems:: Continue present regimen.
--- NOTE | 2018-02-20 12:47 | Progress Note ---
Internal Medicine - PN: Subj *Date: 02/20/18 *Time: 12:44 Interval history: She is much improved. She continues to use the BiPAP at nighttime. She is sitting up in her chair today when I enter the room. She is eating lunch. Her lungs are much clearer. She has bibasilar rales which improve after she coughs up some dark sputum. She has minimal leg edema. Exam Vital signs and Labs for Last 24 Hours: Temp Pulse Resp BP Pulse Ox 98.4 F 85 20 128/78 94 L 02/20/18 11:33 02/20/18 11:42 02/20/18 11:33 02/20/18 11:33 02/20/18 11:33 Laboratory Results - last 24 hr 02/19/18 16:08: POC Glucose 414 H* 02/19/18 21:37: POC Glucose 385 H* 02/20/18 06:26: POC Glucose 448 H* 02/20/18 11:37: POC Glucose 463 H* I & O for Last 24 hours: Intake & Output 02/18/18 02/19/18 02/20/18 02/21/18 11:59 11:59 11:59 11:59 Intake Total 1571 / 1571 2400 / 2400 1740 / 1740 Output Total 800 / 800 Balance 771 / 771 2400 / 2400 1740 / 1740 Weight 210 lb 7.993 oz Microbiology Reports for the Last 24 Hours: Microbiology 02/16/18 14:25 Sputum - Expectorated Sputum Gram Stain - Final 02/16/18 14:25 Sputum - Expectorated Sputum Sputum Culture - Final Pseudomonas aeruginosa Haemophilus influenzae - *Routine HEENT Exam Head: Present: normocephalic Eye: Present: PERRL ENT: Present: mucous membranes moist - *Routine Respiratory Exam Comments: Better air movement bilaterally. Bibasilar rales which improve after coughing up some dark sputum. - *Routine Cardiovascular Exam Present: RRR - *Routine Abdominal Exam Present: soft. Absent: tenderness - *Routine Extremities Exam Comments: Minimal edema - *Routine Neurological Exam Present: alert, oriented X3 Assessment and Plan (1) Acute respiratory failure with hypoxia and hypercapnia Current visit: Yes Status: Acute Category: Medical Code(s): J96.01 - Acute respiratory failure with hypoxia; J96.02 - Acute respiratory failure with hypercapnia (2) COPD exacerbation Current visit: Yes Status: Acute Category: Medical Code(s): J44.1 - Chronic obstructive pulmonary disease with (acute) exacerbation (3) Diabetes mellitus Current visit: No Status: Chronic Qualifiers: Diabetes mellitus type: type 2 Diabetes mellitus long-term insulin use: unspecified hand alterations seamstress insulin use status Category: Medical Code(s): E11.9 - Type 2 diabetes mellitus without complications (4) HTN (hypertension) Current visit: No Status: Chronic Qualifiers: Hypertension type: essential hypertension Qualified Code(s): I10 - Essential (primary) hypertension Category: Medical Code(s): I10 - Essential (primary) hypertension (5) Stented coronary artery Current visit: No Status: Chronic Category: Surgical Code(s): Z95.5 - Presence of coronary angioplasty implant and graft (6) Tobacco abuse Current visit: Yes Status: Acute Category: Medical Code(s): Z72.0 - Tobacco use - Assessment and plan all Dx Assessment and Plan for all problems:: Continue present regimen. I hope to discharge her tomorrow. She will need outpatient sleep apnea evaluation with the possibility of having CPAP for home use.
--- NOTE | 2018-02-20 15:33 | Progress Note ---
Internal Medicine - PN: Subj *Date: 02/20/18 *Time: 15:32 Exam Vital signs and Labs for Last 24 Hours: Temp Pulse Resp BP Pulse Ox 98.4 F 85 20 128/78 94 L 02/20/18 11:33 02/20/18 11:42 02/20/18 11:33 02/20/18 11:33 02/20/18 11:33 Laboratory Results - last 24 hr 02/19/18 16:08: POC Glucose 414 H* 02/19/18 21:37: POC Glucose 385 H* 02/20/18 06:26: POC Glucose 448 H* 02/20/18 11:37: POC Glucose 463 H* I & O for Last 24 hours: Intake & Output 02/17/18 02/18/18 02/19/18 02/20/18 23:59 23:59 23:59 23:59 Intake Total 1422 / 1422 2651 / 2651 1500 / 1500 720 / 720 Output Total 1500 / 1500 Balance -78 / -78 2651 / 2651 1500 / 1500 720 / 720 Weight 95.481 kg 95.481 kg Assessment and Plan (1) Acute respiratory failure with hypoxia and hypercapnia Current visit: Yes Status: Acute Category: Medical Code(s): J96.01 - Acute respiratory failure with hypoxia; J96.02 - Acute respiratory failure with hypercapnia (2) COPD exacerbation Current visit: Yes Status: Acute Category: Medical Code(s): J44.1 - Chronic obstructive pulmonary disease with (acute) exacerbation (3) Diabetes mellitus Current visit: No Status: Chronic Qualifiers: Diabetes mellitus type: 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 Category: Medical Code(s): E11.9 - Type 2 diabetes mellitus without com plications (4) HTN (hypertension) Current visit: No Status: Chronic Qualifiers: Hypertension type: essential hypertension Qualified Code(s): I10 - Essential (primary) hypertension Category: Medical Code(s): I10 - Essential (primary) hypertension (5) Stented coronary artery Current visit: No Status: Chronic Category: Surgical Code(s): Z95.5 - Presence of coronary angioplasty implant and graft (6) Tobacco abuse Current visit: Yes Status: Acute Category: Medical Code(s): Z72.0 - Tobacco use The patient's infection will respond to the chosen ABx?: Yes Is the patient receiving the right drug, dose, and route?: Yes Could a more targeted ABx be ordered?: No
--- NOTE | 2018-02-21 09:03 | Progress Note ---
Internal Medicine - PN: Subj *Date: 02/21/18 *Time: 09:00 Interval history: States she feels well and is ready to go home. She feels her breathing is doing fine. She denies chest pain. She is eating and drinking without difficulty. She has ambulated in the room without problems. Exam Vital signs and Labs for Last 24 Hours: Temp Pulse Resp BP Pulse Ox 97.0 F L 61 22 118/71 96 02/21/18 08:00 02/21/18 08:00 02/21/18 08:00 02/21/18 08:00 02/21/18 08:00 Laboratory Results - last 24 hr 02/20/18 11:37: POC Glucose 463 H* 02/20/18 16:52: POC Glucose 339 H* 02/20/18 20:00: POC Glucose 322 H* I & O for Last 24 hours: Intake & Output 02/18/18 02/19/18 02/20/18 02/21/18 11:59 11:59 11:59 11:59 Intake Total 1571 / 1571 2400 / 2400 1740 / 1740 1800 / 1800 Output Total 800 / 800 Balance 771 / 771 2400 / 2400 1740 / 1740 1800 / 1800 Weight 210 lb 7.993 oz - Constitutional no acute distress Comments: Appears comfortable and is breathing easily - *Routine Respiratory Exam Comments: Bilateral rhonchi anteriorly which clear with cough. Posteriorly she has a soft expiratory wheeze throughout. - *Routine Cardiovascular Exam Present: RRR - *Routine Abdominal Exam Present: soft, normoactive bowel sounds. Absent: tenderness - *Routine Extremities Exam Absent: edema - *Routine Neurological Exam Present: alert, oriented X3 Assessment and Plan (1) Acute respiratory failure with hypoxia and hypercapnia Current visit: Yes Status: Acute Category: Medical Code(s): J96.01 - Acute respiratory failure with hypoxia; J96.02 - Acute respiratory failure with hypercapnia (2) COPD exacerbation Current visit: Yes Status: Acute Category: Medical Code(s): J44.1 - Chronic obstructive pulmonary disease with (acute) exacerbation (3) Diabetes mellitus Current visit: No Status: Chronic Qualifiers: Diabetes mellitus type: type 2 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 insulin use status Category: Medical Code(s): E11.9 - Type 2 diabetes mellitus without complications (4) HTN (hypertension) Current visit: No Status: Chronic Qualifiers: Hypertension type: essential hypertension Qualified Code(s): I10 - Essential (primary) hypertension Category: Medical Code(s): I10 - Essential (primary) hypertension (5) Stented coronary artery Current visit: No Status: Chronic Category: Surgical Code(s): Z95.5 - Presence of coronary angioplasty implant and graft (6) Tobacco abuse Current visit: Yes Status: Acute Category: Medical Code(s): Z72.0 - Tobacco use - Assessment and plan all Dx Assessment and Plan for all problems:: Patient states she plans not to smoke. She is anxious for discharge. He does wear oxygen at 4 L continuously at home.
--- NOTE | 2018-02-21 22:06 | Discharge Summary ---
General - General Admission date:: 02/16/18 Discharge date: 02/21/18 HPI HPI: This 62-year-old white female has severe respiratory disease. It has been worse over the past week. She presented in Dr. Bass's office today in respiratory distress. She was sent to the emergency room. You can see the report. She required BiPAP in the emergency room. She was started on antibiotics and steroids. She is admitted for further evaluation and treatment. At the time of exam this evening she is significant improved and breathing better. She is alert cogent and in no severe distress. She is off the BiPAP at the present time. Her arterial blood gases in the emergency room showed acidosis at 7.3 hypoxia and hypercapnia. The patient is a smoker. She has home oxygen. She is diabetic and is on insulin. Hospital Course Hospital Course: She was started on IV abx, IV steroids, and BIPAP prn. She did improve and was able to be weaned off of the BIPAP except at night. She was able to get up and ambulate around the hallway. She normally wears 4L of oxygen at home and was stable on this in the hospital. She was stable to be discharged home. She will need an outpatient sleep apnea evaluation with the possibility of having CPAP for home use. Objective Vital signs: Temp Pulse Resp BP Pulse Ox 97.0 F L 77 22 118/71 98 02/21/18 08:00 02/21/18 09:57 02/21/18 08:00 02/21/18 08:00 02/21/18 08:00 Narrative: - Constitutional severe distress, obese, chronically ill appearing - *Routine HEENT Exam Head: Present: normocephalic Eye: Present: PERRL. Absent: conjunctival icterus ENT: Present: mucous membranes moist. Absent: dentition normal - *Routine Neck Exam Present: supple. Absent: lymphadenopathy - Routine Chest/Breast/Axilla Exam Chest wall: Absent: tenderness - *Routine Respiratory Exam Present: accessory muscle use, decreased breath sounds, respiratory distress, wheezes, diminished air movement - *Routine Cardiovascular Exam Present: RRR Comments: Heart sounds are distant - *Routine Abdominal Exam Present: soft, normoactive bowel sounds. Absent: tenderness Comments: Obese - *Routine Extremities Exam Absent: cyanosis, clubbing, edema - Routine Back/Spine/Pelvis Exam Back/Spine: Present: kyphosis - *Routine Skin Exam Present: cyanosis, warm. Absent: rash - *Routine Neurological Exam Present: alert, oriented X3 Alert and oriented at the time of this exam. In the office she seemed somewhat obtunded, not alert. Results Labs on day of discharge: Labs from last 24 hours 02/21/18 05:23 POC Glucose 392 H* DS: Diagnosis - Discharge Diagnosis (1) Acute respiratory failure with hypoxia and hypercapnia Status: Acute (2) COPD exacerbation Status: Acute (3) Diabetes mellitus Status: Chronic (4) HTN (hypertension) Status: Chronic (5) Stented coronary artery Status: Chronic (6) Tobacco abuse Status: Acute Discharge Plan - Patient Discharge Instructions ACTIVITY: Limited activity DIET: continue same diet Additional Instructions: Will arrange outpatient sleep apnea study. - Follow up Plan Follow up with: Petty Bass MD [Primary Care Provider] - 1 week Disposition: Home, Self-Snf Medications: Home Medications Medication Instructions Recorded Confirmed Type albuterol sulfate HFA 90 1 puff INHALATION Q6H 06/14/17 02/16/18 History mcg/actuation aerosol inhaler alprazolam 0.25 mg tablet 0.25 mg PO TID tab 06/14/17 02/16/18 History budesonide-formoterol HFA 160 2 inh INHALATION Q12H 06/14/17 02/16/18 History mcg-4.5 mcg/actuation aerosol inhaler insulin aspart U- 100 100 unit/mL 8 unit SUB-Q TID ml 06/14/17 02/17/18 History subcutaneous pen insulin glargine (U-100) 100 43 unit SUB-Q HS ml 06/14/17 02/17/18 History unit/mL (3 mL) subcutaneous pen liraglutide 0.6 mg/0.1 mL (18 mg/3 0.6 mg SUB-Q DAILY 06/14/17 02/17/18 History mL) subcutaneous pen injector nitroglycerin 0.4 mg sublingual 0.4 mg SUBLINGUAL Q5M PRN 06/14/17 02/16/18 History tablet omega-3 fatty acids 1,000 mg 1,000 mg PO DAILY 06/14/17 02/17/18 History capsule venlafaxine 50 mg tablet 50 mg PO BID 90 Days #180 tab 08/31/17 02/16/18 History diltiazem ER 120 mg capsule,24 120 mg PO DAILY cap 09/14/17 02/16/18 History hr,extended release mirabegron ER 50 mg 50 mg PO DAILY tab 09/14/17 02/17/18 History tablet,extended release 24 hr potassium chloride 20 mEq oral 20 meq PO DAILY each 09/14/17 02/17/18 History packet quetiapine 200 mg tablet 200 mg PO HS tab 09/14/17 02/17/18 History Amlodipine Besylate [Norvasc 5mg 5 mg PO DAILY 10/27/17 02/17/18 History tablet] Aspirin [Low Dose Aspirin EC] 81 mg PO DAILY 10/27/17 02/16/18 History Clopidogrel Bisulfate [Plavix 75mg 75 mg PO DAILY 10/27/17 02/16/18 History Tab] hydroCHLOROthiazide 25 mg PO DAILY 10/27/17 02/16/18 History [Hydrochlorothiazide 50mg Tab] Dexlansoprazole [Dexilant] 60 mg PO DAILY 02/17/18 02/17/18 History Ferrous Sulfate 325 mg PO BID 02/17/18 02/17/18 History Hydrocod/Acet 5/325 mg [[place] 1 tab PO TIDP PRN 02/17/18 02/17/18 History 5/325mg tablet] Insulin Glargine,Hum.rec.anlog 40 unit SQ DAILY 02/17/18 02/17/18 History [Basaglar Kwikpen U-100] Isosorbide Mononitrate [Imdur 30mg 30 mg PO DAILY 02/17/18 02/17/18 History ER tablet] Polyethylene Glycol 3350 [Miralax 17 gm PO DAILY 02/17/18 02/17/18 History 17gm Packet] Rosuvastatin Calcium 10 mg PO HS 02/17/18 02/17/18 History Trazodone HCl 100 mg PO HS 02/17/18 02/17/18 History Umeclidinium [place] [Incruse 1 puff IH DAILY 02/17/18 02/17/18 History Ellipta] Prescriptions/Medication Reconciliation: New predniSONE [Deltasone 10mg tablet] 10 mg PO DAILY 30 Days #30 tab Continue alprazolam 0.25 mg tablet 0.25 mg PO TID tab omega-3 fatty acids 1,000 mg capsule 1,000 mg PO DAILY insulin glargine (U-100) 100 unit/mL (3 mL) subcutaneous pen 43 unit SUB-Q HS ml insulin aspart U- 100 100 unit/mL subcutaneous pen 8 unit SUB-Q TID ml budesonide-formoterol HFA 160 mcg-4.5 mcg/actuation aerosol inhaler 2 inh INHALATION Q12H albuterol sulfate HFA 90 mcg/actuation aerosol inhaler 1 puff INHALATION Q6H liraglutide 0.6 mg/0.1 mL (18 mg/3 mL) subcutaneous pen injector 0.6 mg SUB-Q DAILY venlafaxine 50 mg tablet 50 mg PO BID 90 Days #180 tab quetiapine 200 mg tablet 200 mg PO HS tab potassium chloride 20 mEq oral packet 20 meq PO DAILY each mirabegron ER 50 mg tablet,extended release 24 hr 50 mg PO DAILY tab diltiazem ER 120 mg capsule,24 hr,extended release 120 mg PO DAILY cap nitroglycerin 0.4 mg sublingual tablet 0.4 mg SUBLINGUAL Q5M PRN PRN Reason: Chest Pain Aspirin [Low Dose Aspirin EC] 81 mg PO DAILY Clopidogrel Bisulfate [Plavix 75mg Tab] 75 mg PO DAILY hydroCHLOROthiazide [Hydrochlorothiazide 50mg Tab] 25 mg PO DAILY Rosuvastatin Calcium 10 mg PO HS Trazodone HCl 100 mg PO HS Insulin Glargine,Hum.rec.anlog [Basaglar Kwikpen U-100] 40 unit SQ DAILY Isosorbide Mononitrate [Imdur 30mg ER tablet] 30 mg PO DAILY Ferrous Sulfate 325 mg PO BID Umeclidinium [place] [Incruse Ellipta] 1 puff IH DAILY Hydrocod/Acet 5/325 mg [[place] 5/325mg tablet] 1 tab PO TIDP PRN PRN Reason: PAIN Amlodipine Besylate [Norvasc 5mg tablet] 5 mg PO DAILY Dexlansoprazole [Dexilant] 60 mg PO DAILY Polyethylene Glycol 3350 [Miralax 17gm Packet] 17 gm PO DAILY
== END 2018-02-21 12:27 | disposition home or self-care (01) ==
LOC: ER 13:45 → 2ND 15:46
PROVIDERS: ADMIT Family Medicine; ATTEND Family Medicine
CPT/HCPCS: 36415; 71010; 71045; 80048; 80053; 82803; 82947; 82962; 83605; 83880; 84484; 85007; 85025; 87040; 87070; 87077; 87184; 87186; 87205; 93005; 94640; 94660; 94761; 96365; 96367; 96375; 99285; J0456

== ENCOUNTER → 2018-02-25 09:11 | Outpatient (CLI) | payer SELFPAY ==
--- NOTE | 2018-02-25 09:19 | CT_ITS ---
CT abdomen pelvis wo/w con CLINICAL INDICATION: Follow-up right renal mass, left renal cyst ITS.REASON: LT RENAL CYST,RT RENAL MASS ORDERING PHYSICIAN: Eugenio Mcknight MD PATIENT AGE: 62 years COMPARISON: 07/29/2017, 12/30/2016 TECHNIQUE: Axial images obtained without and with contrast. Sagittal and coronal reformats. All CT scans at the facility use one or more dose reduction, viz: automated exposure control, ma/kV adjustment per patient size (including targeted exams where dose is matched to indication, i.e. head), or iterative reconstruction technique. PROCEDURE: Oral Contrast: None IV Contrast: 75 mL's of Isovue 370. FINDINGS: Lower thorax: There is a 4 mm noncalcified nodule in the right upper lobe anteriorly unchanged. Patchy density is present in the right lung base posteriorly consistent with an area of atelectasis or fibrosis. Irregularity of the surface of the liver is once again noted suggesting cirrhosis with mild prominence of the portal vein measuring up to 18 mm in AP dimension. On the immediate post enhanced images there is a subtle 7 mm isodensity in the posterior aspect of the spleen not significant changed. There is borderline splenomegaly at 14 cm. Small varices once again noted. These findings are consistent with cirrhosis and portal hypertension. There is a complex right renal nodule once again noted which measures 2.3 x 2.3 x 2.5 cm. This has some peripheral coarse calcification with mostly soft tissue density centrally and some fat density posteriorly and inferiorly. Overall, the size of the lesion has not significant changed since 11/16/2014. This is consistent with an angiomyolipoma. The soft tissue component may be slightly greater compared to the previous exams which could represent some internal hemorrhage. No retroperitoneal hemorrhage is evident. A 2.4 cm cyst is once again noted in the mid polar region of the left kidney. A nonobstructing 3 mm stone is present in the mid polar region and a 2 mm stone is present in the upper pole. No ureteral calculi. Unremarkable appendix. No intestinal obstruction or free air. There are postsurgical changes of the intra-abdominal wall with some minimal eventration in the supraumbilical region. There is a small umbilical hernia containing fat. No pelvic mass or abnormal fluid collection or focal inflammatory changes in the pelvis. There has been prior hysterectomy. There are wedge compression changes involving the L1 vertebral body which has developed since the previous exam with mild retropulsion of the posterior superior aspect of L1 by approximately 5 mm. This was present on previous MRI of 02-13. IMPRESSION: 1. 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 Some slight increased soft tissue density centrally which could be due to some mild hemorrhage. No acute retroperitoneal hemorrhage or perinephric hemorrhage evident. 2. No change left renal cyst. 3. There are findings consistent with cirrhosis/portal hypertension 4. New wedge compression changes of L1 with retropulsion of the posterior superior aspect of L1 as described on the previous MRI of 01-28-18
== END ==
PROVIDERS: PCP Family Medicine; Visit Provider Urology
DX: N28.1 Cyst of kidney, acquired (principal); N28.89 Other specified disorders of kidney and ureter
CPT/HCPCS: 74170; 74178; Q9967

== ENCOUNTER → 2018-03-08 15:38 | Outpatient (CLI) | payer MEDICARE, MEDICAID, SELFPAY ==
[2018-03-08 17:41] LABS: Anion Gap 6.8 mEq/L (5-15); Blood Urea Nitrogen 13 mg/dL (7-18); Calcium 8.9 mg/dL (8.5-10.1); Chloride 97 mmol/L (98-107); Creatinine,Serum 0.87 mg/dL (0.55-1.02); Estimated Glomerular Filt Rate 66 ml/min (>60); GFR (African American) 80 ML/MIN (>60); Glucose 375 mg/dL (74-106); Potassium 4.8 mmoL/L (3.5-5.1); Sodium 140 mmol/L (136-145)
[2018-03-08 17:51] LABS: Carbon Dioxide 41 mmol/L (21.0-32.0)
== END ==
PROVIDERS: Visit Provider Nurse Practitioner Acute Care
DX: R09.89 Other specified symptoms and signs involving the circulatory and respiratory systems (principal)
CPT/HCPCS: 36415; 80048

== ENCOUNTER → 2018-04-06 14:23 | Outpatient (POV) | payer MEDICARE, SELFPAY | DX: Z00.00 Encounter for general adult medical examination without abnormal findings (principal) ==

== ENCOUNTER → 2018-04-08 12:20 | Outpatient (CLI) | payer MEDICARE, SELFPAY ==
[2018-04-08 15:15] LABS: Anion Gap 9.8 mEq/L (5-15); Blood Urea Nitrogen 8 mg/dL (7-18); Calcium 8.7 mg/dL (8.5-10.1); Chloride 90 mmol/L (98-107); Creatinine,Serum 1.04 mg/dL (0.55-1.02); Estimated Glomerular Filt Rate 54 ml/min (>60); GFR (African American) 65 ML/MIN (>60); Glucose 298 mg/dL (74-106); Sodium 140 mmol/L (136-145)
[2018-04-08 15:31] LABS: Carbon Dioxide 43 mmol/L (21.0-32.0); Potassium 2.8 mmoL/L (3.5-5.1)
== END ==
PROVIDERS: Visit Provider Urology
DX: E78.5 Hyperlipidemia, unspecified (principal); F17.200 Nicotine dependence, unspecified, uncomplicated; I10 Essential (primary) hypertension; I25.10 Atherosclerotic heart disease of native coronary artery without angina pectoris; R06.00 Dyspnea, unspecified; R60.9 Edema, unspecified
CPT/HCPCS: 36415; 80048

== ENCOUNTER → 2018-04-13 15:17 | Outpatient (CLI) | payer MEDICARE, SELFPAY ==
[2018-04-13 18:34] LABS: Anion Gap 7.3 mEq/L (5-15); Blood Urea Nitrogen 11 mg/dL (7-18); Calcium 8.7 mg/dL (8.5-10.1); Chloride 96 mmol/L (98-107); Estimated Glomerular Filt Rate 73 ml/min (>60); GFR (African American) 88 ML/MIN (>60); Glucose 227 mg/dL (74-106); Potassium 4.3 mmoL/L (3.5-5.1); Sodium 140 mmol/L (136-145)
[2018-04-13 18:43] LABS: Carbon Dioxide 41 mmol/L (21.0-32.0)
== END ==
PROVIDERS: Visit Provider Nurse Practitioner Family
DX: E87.6 Hypokalemia (principal); I25.10 Atherosclerotic heart disease of native coronary artery without angina pectoris
CPT/HCPCS: 36415; 80048

== ENCOUNTER → 2018-05-03 09:45 | Outpatient (POV) | payer MEDICARE, SELFPAY | PROVIDERS: Visit Provider Internal Medicine | DX: Z00.00 Encounter for general adult medical examination without abnormal findings (principal) ==

== ENCOUNTER 2018-05-09 14:11 | Inpatient (IN) ==
[2018-05-09 17:48] LABS: Basophils % 0.7 % (0.1-2.0); Eosinophils # 0.1 K/mm3 (0.0-0.4); Eosinophils % 1.4 % (0.1-12.0); Hematocrit 39.6 % (37.0-47.0); Hemoglobin 12.3 g/dL (12.2-16.2); Lymphocytes # 0.9 K/mm3 (0.7-4.5); Lymphocytes % 18.9 % (10-50); Mean Corpuscular Hemoglobin 28.6 pg (27.0-31.2); Mean Corpuscular Volume 92.3 fl (81-99); Mean Platelet Volume 8.6 fl (7.4-10.4); Monocytes # 0.5 K/mm3 (0.1-1.0); Monocytes % 10.6 % (1.7-9.3); Neutrophils # 3.2 K/mm3 (1.8-7.8); Neutrophils % 68.4 % (37.0-80.0); Platelet Count 81 K/mm3 (142-424); Red Blood Count 4.29 M/mm3 (4.20-5.40); Red Cell Distribution Width 17.3 % (11.5-17.5); White Blood Count 4.7 K/mm3 (4.8-10.8)
--- NOTE | 2018-05-09 17:50 | Progress Note ---
Internal Medicine - PN: Subj *Date: 05/09/18 *Time: 17:49 Interval history: See H&P from [facility] Exam Vital signs and Labs for Last 24 Hours: Temp Pulse Resp BP Pulse Ox 98.1 F 106 H 24 120/73 84 L 05/09/18 14:36 05/09/18 17:12 05/09/18 14:36 05/09/18 14:36 05/09/18 17:12 I & O for Last 24 hours: Intake & Output 05/07/18 05/08/18 05/09/18 05/10/18 11:59 11:59 11:59 11:59 Weight 208 lb 1 oz
[2018-05-09 18:30] LABS: Albumin Level 2.8 gm/dL (3.4-5.0); Albumin/Globulin Ratio 0.8 (1.1-1.8); Anion Gap 3.2 mEq/L (5-15); Bilirubin,Total 0.4 mg/dL (0.2-1.0); Calcium 8.5 mg/dL (8.5-10.1); Globulin 3.5 gm/dl (1.3-3.2); Potassium 4.2 mmoL/L (3.5-5.1); Total Protein,Serum 6.3 gm/dL (6.4-8.2)
--- NOTE | 2018-05-09 20:50 | Pharmacy Consult Notes ---
[facility] Pharmacy VTE Monitoring - Patient Demographics Admission date: 05/09/18 Report Date: 05/09/18 Time: 20:50 Allergies/Adverse Reactions: Patient Allergies bacitracin [From NEOSPORIN ([id number])] Allergy (Intermediate, Verified 05/09/18 14:40) Rash doxycycline Allergy (Mild, Verified 05/09/18 14:40) Rash neomycin [From NEOSPORIN ([id number])] Allergy (Mild, Verified 05/09/18 14:40) Rash Penicillins Allergy (Mild, Verified 05/09/18 14:40) Rash polymyxin B [From NEOSPORIN ([id number])] Allergy (Mild, Verified 05/09/18 14:40) Rash sertraline [From Zoloft] Adverse Reaction (Severe, Verified 05/09/18 14:40) Hallucinating Height: 1.68 m Weight: 94.376 kg - VTE Risk Labs: VTE Related Lab Results Hgb 12.3 g/dL (12.2-16.2) 05/09/18 14:50 Hct 39.6 % (37.0-47.0) 05/09/18 14:50 Plt Count 81 K/mm3 (142-424) L 05/09/18 14:50 BUN 12 mg/dL (7-18) 05/09/18 14:50 Creatinine 0.90 mg/dL (0.55-1.02) 05/09/18 14:50 Estimated Creat Clear 88 mL/min (50-200) 05/09/18 14:50 Was VTE Risk Assessment Performed: Yes VTE Score: 6 VTE Risk Level: Moderate Risk Clinical Trial Participant: No - Prophylaxis VTE Prophylaxis Ordered?: Yes Types of VTE Prophylaxis: TEDS Knee High
[2018-05-09 21:47] LABS: ABG HCO3 42.5 mmhg (22.0-26.0); ABG Oxygen Saturation 90 % (90-100); ABG PH 7.36 mmol/L (7.35-7.45); ABG PO2 59.7 mmhg (80-100); ABG TCO2 44.9 mmhg (23-27)
[2018-05-09 21:49] LABS: Allen's Test Patient Unable
[2018-05-09 21:50] LABS: ABG PCO2 77.5 mmhg (35.0-45.0)
--- NOTE | 2018-05-10 09:13 | Progress Note ---
Internal Medicine - PN: Subj *Date: 05/10/18 *Time: 09:10 Interval history: Ms. Ramirez seems fairly stable at her level of respiratory failure and her sats are in the high 80s. Her blood gas showed compensated aspiratory acidosis. Her chest x-ray suggested component of bronchitis. She is admitted with the impression of a exacerbation of COPD. She is in no distress. She has bilateral rhonchi that seem worse on the left. The lingula did look worse than the right base on the chest x-ray report. She does not appear to be edematous. Exam Vital signs and Labs for Last 24 Hours: Temp Pulse Resp BP Pulse Ox 98.0 F 82 18 124/78 89 L 05/10/18 04:00 05/10/18 05:59 05/10/18 04:00 05/10/18 04:00 05/10/18 05:59 Laboratory Results - last 24 hr 05/09/18 14:50: WBC 4.7 L, RBC 4.29, Hgb 12.3, Hct 39.6, MCV 92.3, MCH 28.6, MCHC 31.0 L, RDW 17.3, Plt Count 81 L, MPV 8.6, Neut % (Auto) 68.4, Lymph % (Auto) 18.9, [place] % (Auto) 10.6 H, Eos % (Auto) 1.4, Baso % (Auto) 0.7, Neut # (Auto) 3.2, Lymph # (Auto) 0.9, [place] # (Auto) 0.5, Eos # (Auto) 0.1, Baso # (Auto) 0.0 05/09/18 14:50: Sodium 139, Potassium 4.2, Chloride 95 L, Carbon Dioxide 45 H*, Anion Gap 3.2 L, BUN 12, Creatinine 0.90, Estimated Creat Clear 88, Estimated GFR 64, Est GFR ( Amer) 77, Glucose 297 H, Calcium 8.5, Total Bilirubin 0.4, AST 8 L, ALT 15, Alkaline Phosphatase 73, Total Protein 6.3 L, Albumin 2.8 L, Globulin 3.5 H, Albumin/Globulin Ratio 0.8 L 05/09/18 19:35: O2 % 32%, 3 lpm nc, ABG pH 7.36, ABG pCO2 77.5 H, ABG pO2 59.7 L, ABG HCO3 42.5 H, ABG Total CO2 44.9 H, ABG O2 Saturation 90, ABG Base Excess 17.0 H, [place] Test Patient unable 05/09/18 20:41: POC Glucose 263 H 05/10/18 05:42: POC Glucose 333 H* I & O for Last 24 hours: Intake & Output 05/07/18 05/08/18 05/09/18 05/10/18 11:59 11:59 11:59 11:59 Intake Total 530 / 530 Output Total 500 / 500 Balance 30 / Weight 208 lb 1 oz Microbiology Reports for the Last 24 Hours: Microbiology 05/09/18 17:06 Sputum - Expectorated Sputum Gram Stain - Final - Constitutional no acute distress - *Routine HEENT Exam ENT: Present: mucous membranes dry Comments: Cyanosis of the lips - *Routine Respiratory Exam Present: decreased breath sounds, rhonchi - *Routine Cardiovascular Exam Present: RRR - *Routine Extremities Exam Present: edema (Trace) Assessment and Plan (1) Acute respiratory failure with hypoxia and hypercapnia Current visit: No Status: Acute Category: Medical Code(s): J96.01 - Acute respiratory failure with hypoxia; J96.02 - Acute respiratory failure with hypercapnia (2) COPD exacerbation Current visit: No Status: Acute Category: Medical Code(s): J44.1 - Chronic obstructive pulmonary disease with (acute) exacerbation - Assessment and plan all Dx Assessment and Plan for all problems:: Continue present regimen.
--- NOTE | 2018-05-11 08:36 | Progress Note ---
Internal Medicine - PN: Subj *Date: 05/11/18 *Time: 08:33 Interval history: Patient did well yesterday but had a bad night. She states she needs trazodone to sleep. Her breathing is at baseline. She feels her cough is less with less production. She is eating without difficulty. She ambulates up and down to the bathroom frequently without problems. Discussed smoking cessation. She wishes to try the patches long as her insurance pays for it. We discussed changes of behavior for this process. Exam Vital signs and Labs for Last 24 Hours: Temp Pulse Resp BP Pulse Ox 97.6 F 82 20 103/71 L 89 L 05/11/18 04:00 05/11/18 05:53 05/11/18 04:00 05/11/18 04:00 05/11/18 05:53 Laboratory Results - last 24 hr 05/10/18 11:49: POC Glucose 464 H* 05/10/18 16:20: Random Glucose 459 H 05/10/18 16:53: POC Glucose 517 H* 05/10/18 20:08: POC Glucose 438 H* 05/11/18 05:52: POC Glucose 348 H* I & O for Last 24 hours: Intake & Output 05/08/18 05/09/18 05/10/18 05/11/18 11:59 11:59 11:59 11:59 Intake Total 770 / 770 480 / 480 Output Total 500 / 500 2600 / 2600 Balance 270 / 270 -2120 / -2120 Weight 208 lb 1 oz 206 lb 9 oz Microbiology Reports for the Last 24 Hours: Microbiology 05/09/18 17:06 Sputum - Expectorated Sputum Gram Stain - Final 05/09/18 17:06 Sputum - Expectorated Sputum Sputum Culture - Preliminary Gram Negative Rods - Constitutional no acute distress Comments: Sitting up in bed eating her breakfast - *Routine Respiratory Exam Comments: Bilateral rhonchi. No wheezing heard at this a.m. - *Routine Cardiovascular Exam Present: RRR - *Routine Abdominal Exam Present: soft, normoactive bowel sounds. Absent: tenderness, distended - *Routine Extremities Exam Absent: edema, calf tenderness - *Routine Neurological Exam Present: alert, oriented X3 Assessment and Plan (1) Acute respiratory failure with hypoxia and hypercapnia Current visit: No Status: Acute Category: Medical Code(s): J96.01 - Acute respiratory failure with hypoxia; J96.02 - Acute respiratory failure with hypercapnia (2) COPD exacerbation Current visit: No Status: Acute Category: Medical Code(s): J44.1 - Chronic obstructive pulmonary disease with (acute) exacerbation - Assessment and plan all Dx Assessment and Plan for all problems:: Close to going home. Again patient is going to try to stop smoking. Continue with oxygen, antibiotics, and neb treatments.
[2018-05-11 09:04] LABS: Calcium 9.1 mg/dL (8.5-10.1); Potassium 4.4 mmoL/L (3.5-5.1)
[2018-05-11 09:08] LABS: Anion Gap 0.4 mEq/L (5-15)
[2018-05-12 06:57] LABS: Basophils % 0.2 % (0.1-2.0); Hematocrit 37.2 % (37.0-47.0); Hemoglobin 11.3 g/dL (12.2-16.2); Lymphocytes # 0.4 K/mm3 (0.7-4.5); Lymphocytes % 8.7 % (10-50); Mean Corpuscular HGB Conc 30.4 g/dL (31.8-35.4); Mean Corpuscular Volume 92.4 fl (81-99); Monocytes # 0.2 K/mm3 (0.1-1.0); Monocytes % 4.8 % (1.7-9.3); Neutrophils # 4.1 K/mm3 (1.8-7.8); Neutrophils % 86.3 % (37.0-80.0); Platelet Count 77 K/mm3 (142-424); Red Blood Count 4.03 M/mm3 (4.20-5.40); White Blood Count 4.8 K/mm3 (4.8-10.8)
[2018-05-12 07:04] LABS: Calcium 8.8 mg/dL (8.5-10.1); Potassium 3.8 mmoL/L (3.5-5.1)
[2018-05-12 07:11] LABS: Anion Gap 0.8 mEq/L (5-15)
--- NOTE | 2018-05-12 08:11 | Progress Note ---
Internal Medicine - PN: Subj *Date: 05/12/18 *Time: 08:08 Interval history: Patient states she is feeling much better this morning. Her shortness of breath is at baseline. Her coughing has improved. She states she slept well last night and ate a good breakfast this morning. She is anxious to go home today. Exam Vital signs and Labs for Last 24 Hours: Temp Pulse Resp BP Pulse Ox 98.0 F 87 18 139/78 89 L 05/12/18 06:00 05/12/18 06:39 05/12/18 06:00 05/12/18 06:00 05/12/18 06:39 Laboratory Results - last 24 hr 05/11/18 08:44: Sodium 136, Potassium 4.4, Chloride 94 L, Carbon Dioxide 46 H*, Anion Gap 0.4 L, BUN 25 H D, Creatinine 1.00, Estimated Creat Clear 87, Estimated GFR 56 L, Est GFR ( Amer) 68, Glucose 465 H*, Calcium 9.1 05/11/18 11:05: POC Glucose 497 H* 05/11/18 16:45: POC Glucose 379 H* 05/11/18 20:06: POC Glucose 409 H* 05/12/18 05:46: WBC 4.8, RBC 4.03 L, Hgb 11.3 L, Hct 37.2, MCV 92.4, MCH 28.0, MCHC 30.4 L, RDW 17.0, Plt Count 77 L, MPV 9.0, Neut % (Auto) 86.3 H, Lymph % (Auto) 8.7 L, [place] % (Auto) 4.8, Eos % (Auto) 0.0 L, Baso % (Auto) 0.2, Neut # (Auto) 4.1, Lymph # (Auto) 0.4 L, [place] # (Auto) 0.2, Eos # (Auto) 0.0, Baso # (Auto) 0.0 05/12/18 05:46: Sodium 139, Potassium 3.8, Chloride 96 L, Carbon Dioxide 46 H*, Anion Gap 0.8 L, BUN 31 H, Creatinine 0.86, Estimated Creat Clear 87, Estimated GFR 67, Est GFR ( Amer) 81, Glucose 367 H D, Calcium 8.8 05/12/18 05:54: POC Glucose 412 H* I & O for Last 24 hours: Intake & Output 05/09/18 05/10/18 05/11/18 05/12/18 11:59 11:59 11:59 11:59 Intake Total 770 / 770 720 / 720 840 / 840 Output Total 500 / 500 2600 / 2600 2600 / 2600 Balance 270 / 270 -1880 / -1880 -1760 / -1760 Weight 208 lb 1 oz 206 lb 206 lb 5 oz Microbiology Reports for the Last 24 Hours: Microbiology 05/09/18 19:55 Blood - Other Blood Culture - Preliminary NO GROWTH AFTER 48 HOURS 05/09/18 19:55 Blood - Other Blood Culture - Preliminary NO GROWTH AFTER 48 HOURS 05/09/18 17:06 Sputum - Expectorated Sputum Gram Stain - Final 05/09/18 17:06 Sputum - Expectorated Sputum Sputum Culture - Preliminary Gram Negative Rods - Constitutional no acute distress - *Routine Respiratory Exam Present: rhonchi, wheezes - *Routine Cardiovascular Exam Present: RRR - *Routine Abdominal Exam Present: soft, normoactive bowel sounds. Absent: tenderness - *Routine Extremities Exam Absent: cyanosis, clubbing, edema Assessment and Plan (1) Acute respiratory failure with hypoxia and hypercapnia Current visit: No Status: Acute Category: Medical Code(s): J96.01 - Acute respiratory failure with hypoxia; J96.02 - Acute respiratory failure with hypercapnia (2) COPD exacerbation Current visit: No Status: Acute Category: Medical Code(s): J44.1 - Chronic obstructive pulmonary disease with (acute) exacerbation (3) CAD (coronary artery disease) Current visit: No Status: Chronic Qualifiers: Coronary Disease-Associated Artery/Lesion type: [place] artery [place] vs. transplanted heart: [place] heart Associated angina: with other forms of angina Qualified Code(s): I25.118 - Atherosclerotic heart disease of [place] coronary artery with other forms of angina pectoris Category: Medical Code(s): I25.10 - Atherosclerotic heart disease of [place] coronary artery without angina pectoris (4) COPD (chronic obstructive pulmonary disease) Current visit: No Status: Chronic Qualifiers: COPD type: chronic bronchitis Chronic bronchitis type: unspecified Qualified Code(s): J42 - Unspecified chronic bronchitis Category: Medical Code(s): J44.9 - Chronic obstructive pulmonary disease, unspecified (5) Diabetes mellitus Current visit: No Status: Chronic Qualifiers: Diabetes mellitus type: type 2 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 Diabetes mellitus complication status: with neurologic complications Diabetes mellitus complication detail: with polyneuropathy Qualified Code(s): E11.42 - Type 2 diabetes mellitus with diabetic polyneuropathy; Z79.4 - moth exterminator (current) use of insulin Category: Medical Code(s): E11.9 - Type 2 diabetes mellitus without complications (6) HLD (hyperlipidemia) Current visit: No Status: Chronic Qualifiers: Hyperlipidemia type: other hyperlipidemia Category: Medical Code(s): E78.5 - Hyperlipidemia, unspecified (7) HTN (hypertension) Current visit: No Status: Chronic Qualifiers: Hypertension type: essential hypertension Qualified Code(s): I10 - Essential (primary) hypertension Category: Medical Code(s): I10 - Essential (primary) hypertension - Assessment and plan all Dx Assessment and Plan for all problems:: Sputum is growing gram-negative rods. Will await final culture results and continue antibiotics. Her glucose has been running high likely d/t high dose steroids. Will discuss further care with Dr. gusman.
[2018-05-12 08:56] LABS: Lymphocytes % 7 % (10-50); Monocytes % 3 % (2-9); Neutrophils % 90 % (42-76); Total Cells Counted 100
[2018-05-12 08:57] LABS: Hypochromasia 2+
--- NOTE | 2018-05-15 12:33 | Discharge Summary ---
General - General Admission date:: 05/09/18 Discharge date: 05/12/18 HPI HPI: Ms. Hein is a 62-year-old female with a history of oxygen dependent COPD who was in the office of [facility] on 05/09/18 for follow-up on her COPD. She had been short of breath for a few days but did not want to go to the emergency room. She had also been dizzy with a sensation of the room spinning. Her oxygen saturation in the office was 80% on 3 L. She was felt to be ion chronic respiratory failure with hypoxia and was admitted to [facility]. Hospital Course Hospital Course: The patient was started on oxygen, duo nebs, antibiotics, and steroids. She was also started back on her home medications. She had a blood gas that showed compensated respiratory acidosis. She had a chest x-ray suggesting bronchitis. She was felt to have had an exacerbation of her COPD. Her breathing did return to baseline with treatment and her cough had less production. She was able to ambulate around the room without problems. Smoking cessation was discussed with the patient and she wished to try the patches as long as her insurance would cover them. Her blood cultures were negative. Her sputum culture was growing gram-negative rods at the time of discharge therefore patient was stable to be discharged home on prednisone 20 mg daily and Levaquin 500 mg a day for 5 days. She will follow-up in the office of [facility]. Of note, the patient's sputum culture came back positive for Pseudomonas which was sensitive to Levaquin. Objective Vital signs: Temp Pulse Resp BP Pulse Ox 98.0 F 78 18 139/78 92 L 05/12/18 06:00 05/12/18 08:00 05/12/18 06:00 05/12/18 06:00 05/12/18 08:00 Narrative: General: ill, dyspneic, weight gain noted HEENT: Unremarkable Oral cavity: No lesions, mucosa moist within normal limits, no erythema, lips cyanotic Neck: Supple no lymphadenopathy Chest: Dorsal kyphosis, increased AP diameter Heart: Regular sinus rhythm Lungs: Decreased breath sounds, bilateral wheezes, bibasilar rales Abdomen: Soft and nontender Neurologic exam: Intact gait normal Skin: Normal, no rash Back: Dorsal kyphosis Extremities: 1+ leg edema DS: Diagnosis - Discharge Diagnosis (1) Acute respiratory failure with hypoxia and hypercapnia Status: Acute (2) COPD exacerbation Status: Acute (3) CAD (coronary artery disease) Status: Chronic (4) COPD (chronic obstructive pulmonary disease) Status: Chronic (5) Diabetes mellitus Status: Chronic (6) HLD (hyperlipidemia) Status: Chronic (7) HTN (hypertension) Status: Chronic Discharge Plan - Patient Discharge Instructions ACTIVITY: Continue current activity DIET: advance to your usual diet Patient Instructions: DI for Chronic Obstructive Pulmonary Disease, DI for Respiratory Failure - Follow up Plan Follow up with: Petty Bass MD [Primary Care Provider] - 05/18/18 2:45 pm Disposition: Home, Self-Nursing Home Medications: Home Medications Medication Instructions Recorded Confirmed Type alprazolam 0.25 mg tablet 0.25 mg PO TID tab 06/14/17 05/09/18 History insulin aspart U- 100 100 unit/mL 8 unit SUB-Q TID ml 06/14/17 05/09/18 History subcutaneous pen nitroglycerin 0.4 mg sublingual 0.4 mg SUBLINGUAL Q5MINP PRN 06/14/17 05/10/18 History tablet omega-3 fatty acids 1,000 mg 1,000 mg PO DAILY 06/14/17 05/09/18 History capsule venlafaxine 50 mg tablet 50 mg PO BID 90 Days #180 tab 08/31/17 05/09/18 History mirabegron ER 50 mg 50 mg PO DAILY tab 09/14/17 05/09/18 History tablet,extended release 24 hr Aspirin [Low Dose Aspirin EC] 81 mg PO DAILY 10/27/17 05/09/18 History Clopidogrel Bisulfate [Plavix 75mg 75 mg PO DAILY 10/27/17 05/09/18 History Tab] Dexlansoprazole [Dexilant] 60 mg PO DAILY 02/17/18 05/09/18 History Hydrocod/Acet 5/325 mg [[place] 1 tab PO TIDP PRN 02/17/18 05/09/18 History 5/325mg tablet] Insulin Glargine,Hum.rec.anlog 45 unit SQ DAILY 02/17/18 05/09/18 History [Basaglar Kwikpen U-100] Polyethylene Glycol 3350 [Miralax 17 gm PO DAILY 02/17/18 05/09/18 History 17gm Packet] Rosuvastatin Calcium 10 mg PO HS 02/17/18 05/09/18 History Trazodone HCl 100 mg PO HS 02/17/18 05/09/18 History quetiapine 200 mg tablet 100 mg PO HS tab 03/15/18 05/09/18 History Amlodipine Besylate 5 mg PO DAILY 05/09/18 05/09/18 History Furosemide [Furosemide 20mg Tab] 40 mg PO DAILY 05/09/18 05/09/18 History Insulin Detemir [Levemir 100 43 unit SQ DAILY 05/09/18 05/09/18 History units/mL 10mL vial] Lactulose [Lactulose 10gm/15ml 10 gm PO QID 05/09/18 05/10/18 History Oral Soln] Losartan Potassium 25 mg PO DAILY 05/09/18 05/09/18 History Metoprolol Succinate 50 mg PO DAILY 05/09/18 05/09/18 History Tiotropium Br/Olodaterol HCl 2 puffs IH DAILY 05/09/18 05/10/18 History [Stiolto Respimat Inhal Reading] Potassium Chloride [Klor-con 20 10 meq PO DAILY 05/10/18 05/10/18 History mEq tablet] Nicotine [Nicoderm 21mg/24hr 21 mg TD DAILY #30 patch.td24 05/12/18 Rx patch] levoFLOXacin [Levaquin 500mg 500 mg PO DAILY #5 tab 05/12/18 Rx tab] predniSONE [Deltasone 20mg 20 mg PO DAILY #30 tablet 05/12/18 Rx tablet] Prescriptions/Medication Reconciliation: New Nicotine [Nicoderm 21mg/24hr patch] 21 mg TD DAILY #30 patch.td24 levoFLOXacin [Levaquin 500mg tab] 500 mg PO DAILY #5 tab predniSONE [Deltasone 20mg tablet] 20 mg PO DAILY #30 tablet Continue alprazolam 0.25 mg tablet 0.25 mg PO TID tab omega-3 fatty acids 1,000 mg capsule 1,000 mg PO DAILY insulin aspart U- 100 100 unit/mL subcutaneous pen 8 unit SUB-Q TID ml venlafaxine 50 mg tablet 50 mg PO BID 90 Days #180 tab mirabegron ER 50 mg tablet,extended release 24 hr 50 mg PO DAILY tab quetiapine 200 mg tablet 100 mg PO HS tab nitroglycerin 0.4 mg sublingual tablet 0.4 mg SUBLINGUAL Q5MINP PRN PRN Reason: Chest Pain Aspirin [Low Dose Aspirin EC] 81 mg PO DAILY Clopidogrel Bisulfate [Plavix 75mg Tab] 75 mg PO DAILY Rosuvastatin Calcium 10 mg PO HS Trazodone HCl 100 mg PO HS Insulin Glargine,Hum.rec.anlog [Basaglar Kwikpen U-100] 45 unit SQ DAILY Hydrocod/Acet 5/325 mg [[place] 5/325mg tablet] 1 tab PO TIDP PRN PRN Reason: PAIN Furosemide [Furosemide 20mg Tab] 40 mg PO DAILY Losartan Potassium 25 mg PO DAILY Metoprolol Succinate 50 mg PO DAILY Lactulose [Lactulose 10gm/15ml Oral Soln] 10 gm PO QID Insulin Detemir [Levemir 100 units/mL 10mL vial] 43 unit SQ DAILY Amlodipine Besylate 5 mg PO DAILY Dexlansoprazole [Dexilant] 60 mg PO DAILY Polyethylene Glycol 3350 [Miralax 17gm Packet] 17 gm PO DAILY Tiotropium Br/Olodaterol HCl [Stiolto Respimat Inhal Reading] 2 puffs IH DAILY Potassium Chloride [Klor-con 20 mEq tablet] 10 meq PO DAILY Discontinued prednisone 1 mg tablet 2 mg PO DAILY
== END 2018-05-12 15:26 | disposition home or self-care (01) | DRG 189 ==
LOC: 2ND → OBSVTOIN 14:11
PROVIDERS: ADMIT Family Medicine; ATTEND Family Medicine

== ENCOUNTER → 2018-05-13 10:04 | Outpatient (CLI) | payer MEDICARE, MEDICAID, SELFPAY ==
--- NOTE | 2018-05-13 10:09 | XR_ITS ---
XR DEXA axial skeleton HISTORY: ITS.REASON: OSTEOPAROSIS ORDERING PHYSICIAN: Quirino Bullock PATIENT AGE: 62 years COMPARISON: None FINDINGS: The BMD measured at the Left Forearm radius 33% is 0.697 g/cm squared with a T score of -2.1. This is considered Osteopenic according to the World Health Organization criteria. Fracture risk is Moderate. Treatment is advised. L1 L4 density has a T score of -0.4. IMPRESSION: Osteopenia with moderate fracture risk. Treatment is advised. Recommend follow-up exam April 2020
== END ==
PROVIDERS: PCP Family Medicine; Visit Provider Internal Medicine Nephrology
DX: M81.0 Age-related osteoporosis without current pathological fracture (principal)
CPT/HCPCS: 77080

== ENCOUNTER 2018-05-17 14:28 | Inpatient (IN) ==
[2018-05-17 14:38] LABS: ABG Base Excess 19.4 mmol/L (-2.4-2.3); ABG HCO3 46.8 mmhg (22.0-26.0); ABG Oxygen Saturation 95 % (90-100); ABG PH 7.24 mmol/L (7.35-7.45); ABG PO2 81.4 mmhg (80-100); ABG TCO2 50.3 mmhg (23-27)
[2018-05-17 14:39] LABS: Allen's Test Acceptable; Oxygen 6L %
--- NOTE | 2018-05-17 14:40 | Emergency Department Note ---
ED Disposition Clinical Impression: Acute respiratory failure with hypoxia and hypercapnia, COPD exacerbation Disposition: Admitted As Inpatient Condition on Discharge: Serious - Critical Care Critical Care Time: Yes Attestation: On , the high probability of a clinically significant, sudden or life threatening deterioration of the following system(s) required my full and direct attention, intervention and personal management. The time I documented below is in addition to time spent performing reported procedures but includes the following listed in this critical care notation. Total Critical Care Time: 45 Vital system(s) involved:: Respiratory Failure My critical care processes included: Assessment & monitoring of V/S, Initial and Re-exams, Data Review/Interpretation, Coordinating Care, Medication Orders and management, Documentation Medical Decision Making - Zak Inquiry Pt receiving controlled substance: No Vital Signs: 05/17/18 14:28 05/17/18 15:00 05/17/18 15:22 Temperature 98.9 F Temperature Source Rectal Pulse Rate 111 H Pulse Rate [Left Radial] 113 H Respiratory Rate 24 Blood Pressure [Right Arm] 107/84 L Blood Pressure Mean [Right Arm] 91 Blood Pressure Source [Right Arm] Automatic Cuff Blood Pressure Position [Right Arm] Sitting 02 Sat by Pulse Oximetry 94 L Oxygen Delivery Method Nasal Cannula Oxygen Flow Rate (LPM) 2 05/17/18 16:43 Temperature Temperature Source Pulse Rate Pulse Rate [Left Radial] 88 Respiratory Rate Blood Pressure [Right Arm] 101/67 L Blood Pressure Mean [Right Arm] 78 Blood Pressure Source [Right Arm] Automatic Cuff Blood Pressure Position [Right Arm] Supine 02 Sat by Pulse Oximetry 96 Oxygen Delivery Method Room Air Oxygen Flow Rate (LPM) - Lab Data Lab Results 05/17/18 14:30: Specimen Source Right brachial, O2 % 6l, ABG pH 7.24 L*, ABG pCO2 112.8 H, ABG pO2 81.4, ABG HCO3 46.8 H, ABG Total CO2 50.3 H, ABG O2 Saturation 95, ABG Base Excess 19.4 H, [place] Test Acceptable 05/17/18 14:40: WBC 4.6 L, RBC 4.46, Hgb 12.6, Hct 41.8, MCV 93.6, MCH 28.1, MCHC 30.1 L, RDW 16.2, Plt Count 81 L, MPV 9.1, Neut % (Auto) 82.2 H, Lymph % (Auto) 8.1 L, [place] % (Auto) 9.2, Eos % (Auto) 0.1, Baso % (Auto) 0.4, Neut # (Auto) 3.7, Lymph # (Auto) 0.4 L, [place] # (Auto) 0.4, Eos # (Auto) 0.0, Baso # (Auto) 0.0 05/17/18 14:40: Sodium 138, Potassium 4.2, Chloride 96 L, Carbon Dioxide 43 H*, Anion Gap 3.2 L, BUN 18, Creatinine 1.17 H, Estimated Creat Clear 83, Estimated GFR 47 L, Est GFR ( Amer) 57 L, Glucose 363 H, Calcium 8.2 L, Total Bilirubin 0.3, AST 24, ALT 35, Alkaline Phosphatase 65, Troponin I 0.02, Total Protein 6.3 L, Albumin 2.7 L, Globulin 3.6 H, Albumin/Globulin Ratio 0.8 L 05/17/18 14:40: Lactate 1.2 05/17/18 15:40: Urine Color Yellow, Urine Appearance Clear, Urine pH 6.0, Ur Specific [place] >= 1.030, Urine Protein Trace, Urine Glucose (UA) 3+, Urine Ketones Negative, Urine Blood Negative, Urine Nitrate Negative, Urine Bilirubin Negative, Urine Urobilinogen 0.2, Ur Leukocyte Esterase Negative, Urine RBC None, Urine WBC Occasional, Ur Squamous Epith Cells Occasional, Urine Bacteria Trace 05/17/18 16:59: Specimen Source Left brachial, O2 % 50%,i 18 e 8, ABG pH 7.30 L, ABG pCO2 82.3 H, ABG pO2 96.1, ABG HCO3 39.8 H, ABG Total CO2 42.3 H, ABG O2 Saturation 97, ABG Base Excess 13.4 H, [place] Test Patient unable Result diagrams: 05/17/18 14:40 05/17/18 14:40 Orders (Tests/Meds): ED MEDICATIONS Discontinued Medications Generic Name Dose Route Start Last Admin Trade Name Freq PRN Reason Stop Dose Admin Albuterol/Ipratropium 3 ml 05/17/18 14:56 05/17/18 15:05 Duoneb 3ml Neb IH 05/17/18 14:57 3 ml ONCE ONE Administration Methylprednisolone Sodium Succinate 125 mg 05/17/18 14:56 05/17/18 15:03 Solu-Medrol 125mg/2ml Vial IV 05/17/18 14:57 125 mg ONCE ONE Administration Sodium Chloride 1,000 ml 05/17/18 16:31 Sod Chlor 0.9% 1000ml Bag IV 05/17/18 16:32 BOLUS ONE ORDERS Category Date Time Status Urinalysis and Microscopic Stat Lab 05/17/18 15:40 Ordered Blood Culture Stat Micro 05/17/18 14:40 Received - Radiology Data #1 Image(s): Chest Image Reviewed: Yes I reviewed the patient's radiology image Resolution of left basilar airspace disease, no acute process - ECG Data Tracing #1 EKG interpreted by Mickey Stauffer MD: Rhythm: sinus tachycardia Rate: 119 [place]: normal Ectopy: none Conduction: normal ST Segment Changes: none T Wave Changes: none Q Waves: Septal Low voltage QRS no evidence of acute ischemia or injury - Physician Consults Physician Consulted: Brian Bass Time: 17:19 Reason -: Admission Comment/Response: Agrees to admit the patient to the hospital. We discussed the patient's clinical information, including history, exam, laboratory and radiology results and ED course. Per hospital procedure, I will write temporary bridge inpatient orders on the patient. Specific orders requested by the admitting physician: Continue BiPAP, steroids, nebulizer treatments. ABGs in the morning. General Adult HPI - General Stated complaint: ams Time Seen by Provider: 05/17/18 14:29 - History of Present Illness HPI narrative: Brought in by ambulance for altered mental status. The patient is a poor historian. Arrives drowsy but answering questions. Given Narcan 1 mg IV during transport. The patient states she was admitted here 2 days ago for "a cold". States that she does feel short of breath. Denies any pain, including chest pain. Has a mild cough. Denies vomiting or diarrhea. Denies fever. The patient on oxygen at home. She arrives in the emergency department on 6 L by nasal cannula. - Related Data Home Medications Medication Instructions Recorded Confirmed alprazolam 0.25 mg tablet 0.25 mg PO TID tab 06/14/17 05/17/18 insulin aspart U- 100 100 unit/mL 8 unit SUB-Q TID ml 06/14/17 05/17/18 subcutaneous pen nitroglycerin 0.4 mg sublingual 0.4 mg SUBLINGUAL Q5MINP PRN 06/14/17 05/17/18 tablet omega-3 fatty acids 1,000 mg 1,000 mg PO DAILY 06/14/17 05/17/18 capsule venlafaxine 50 mg tablet 50 mg PO BID 90 Days #180 tab 08/31/17 05/17/18 mirabegron ER 50 mg 50 mg PO DAILY tab 09/14/17 05/17/18 tablet,extended release 24 hr Aspirin [Low Dose Aspirin EC] 81 mg PO DAILY 10/27/17 05/17/18 Clopidogrel Bisulfate [Plavix 75mg 75 mg PO DAILY 10/27/17 05/17/18 Tab] Dexlansoprazole [Dexilant] 60 mg PO DAILY 02/17/18 05/17/18 Hydrocod/Acet 5/325 mg [[place] 1 tab PO TIDP PRN 02/17/18 05/17/18 5/325mg tablet] Insulin Glargine,Hum.rec.anlog 45 unit SQ DAILY 02/17/18 05/17/18 [Basaglar Kwikpen U-100] Polyethylene Glycol 3350 [Miralax 17 gm PO DAILY 02/17/18 05/17/18 17gm Packet] Rosuvastatin Calcium 10 mg PO HS 02/17/18 05/17/18 Trazodone HCl 100 mg PO HS 02/17/18 05/17/18 quetiapine 200 mg tablet 100 mg PO HS tab 03/15/18 05/17/18 Amlodipine Besylate 5 mg PO DAILY 05/09/18 05/17/18 Furosemide [Furosemide 20mg Tab] 40 mg PO DAILY 05/09/18 05/17/18 Insulin Detemir [Levemir 100 43 unit SQ DAILY 05/09/18 05/17/18 units/mL 10mL vial] Lactulose [Lactulose 10gm/15ml 10 gm PO QID 05/09/18 05/17/18 Oral Soln] Losartan Potassium 25 mg PO DAILY 05/09/18 05/17/18 Metoprolol Succinate 50 mg PO DAILY 05/09/18 05/17/18 Tiotropium Br/Olodaterol HCl 2 puffs IH DAILY 05/09/18 05/17/18 [Stiolto Respimat Inhal [place]] Potassium Chloride [Klor-con 20 10 meq PO DAILY 05/10/18 05/17/18 mEq tablet] Nicotine [Nicoderm 21mg/24hr 21 mg TD DAILY 05/17/18 05/17/18 patch] levoFLOXacin [Levaquin 500mg 500 mg PO DAILY 05/17/18 05/17/18 tab] predniSONE [Deltasone 20mg 20 mg PO DAILY 05/17/18 05/17/18 tablet] Allergies Allergy/AdvReac Type Severity Reaction Status Date / Time bacitracin Allergy Intermediate Rash Verified 05/09/18 14:40 [From NEOSPORIN ([id number])] doxycycline Allergy Mild Rash Verified 05/09/18 14:40 neomycin Allergy Mild Rash Verified 05/09/18 14:40 [From NEOSPORIN ([id number])] Penicillins Allergy Mild Rash Verified 05/09/18 14:40 polymyxin B Allergy Mild Rash Verified 05/09/18 14:40 [From NEOSPORIN ([id number])] sertraline [From Zoloft] AdvReac Severe Hallucinati Verified 05/09/18 14:40 ng [facility] History - Hepatitis A Screen Attestation statement:: This patient has been screened for Hepatitis A risk factors. I have reviewed the patient's past medical history: Yes Medical History: Reports:: Cancer, Congestive Heart Failure, Chronic Obstructive Pulmonary Disease (COPD), Coronary Artery Disease, Diabetes Mellitus Type 2, Gastroesophageal Reflux Disease(GERD), Hyperlipidemia, Hypertension, Lung Disease, Peripheral Vascular Disease Denies:: Diabetes Mellitus Type 1, MRSA Other Medical History: Reports: Arthritis Laterality Cases: Right: Other, Bilateral: Tonsillectomy Other Surgeries: Yes: Cancer Surgery, Cholecystectomy, Coronary Stent, Hysterectomy-Total, Other Amputation: No Fractures: Yes (fractured lt hip october 27 2017) Comment: Lt hip surgery - Social History Smoking Status: Current every day smoker Tobacco Type: cigarettes # Packs/Day (cigarettes): 1 Alcohol Intake: never Alcohol Intake Frequency:: other Substance Use Type: denies use Occupational Status: disabled Housing: house Household Members: family Family Hx:: Hypertension, Heart Attack, Diabetes, Hyperlipidemia, Kidney Disease ROS Obtained: Yes unobtainable due to mental status Physical Exam - General General appearance: other (Drowsy. Awakens and answers questions, then falls asleep immediately) - Head Head exam: atraumatic, normocephalic - Eye Eye exam: Present: normal appearance, PERRL (3 mm), EOMI - ENT ENT exam: Present: mucous membranes moist - Neck Neck exam: Present: normal inspection, trachea midline. Absent: meningismus - Chest Chest inspection: Present: normal inspection, symmetric chest wall rise - Respiratory Respiratory exam: Present: normal lung sounds bilaterally. Absent: accessory muscle use - Cardiovascular Cardiovascular exam: Present: normal rhythm, tachycardia, normal heart sounds - Abdominal Exam Abdominal exam: Present: soft. Absent: distention, tenderness - Extremities Exam Extremities exam: Present: normal inspection - Neurological Exam Neurological exam: Present: oriented X3, CN II-XII intact, other (Drowsy). Absent: motor sensory deficit - Psychiatric Psychiatric exam: Present: flat affect - Skin Skin exam: Present: warm, dry
[2018-05-17 14:41] LABS: ABG PCO2 112.8 mmhg (35.0-45.0)
[2018-05-17 15:00] LABS: Basophils % 0.4 % (0.1-2.0); Eosinophils % 0.1 % (0.1-12.0); Hematocrit 41.8 % (37.0-47.0); Hemoglobin 12.6 g/dL (12.2-16.2); Lymphocytes # 0.4 K/mm3 (0.7-4.5); Lymphocytes % 8.1 % (10-50); Mean Corpuscular HGB Conc 30.1 g/dL (31.8-35.4); Mean Corpuscular Hemoglobin 28.1 pg (27.0-31.2); Mean Corpuscular Volume 93.6 fl (81-99); Mean Platelet Volume 9.1 fl (7.4-10.4); Monocytes # 0.4 K/mm3 (0.1-1.0); Monocytes % 9.2 % (1.7-9.3); Neutrophils # 3.7 K/mm3 (1.8-7.8); Neutrophils % 82.2 % (37.0-80.0); Platelet Count 81 K/mm3 (142-424); Red Blood Count 4.46 M/mm3 (4.20-5.40); Red Cell Distribution Width 16.2 % (11.5-17.5); White Blood Count 4.6 K/mm3 (4.8-10.8)
[2018-05-17 15:12] LABS: Albumin Level 2.7 gm/dL (3.4-5.0); Albumin/Globulin Ratio 0.8 (1.1-1.8); Anion Gap 3.2 mEq/L (5-15); Bilirubin,Total 0.3 mg/dL (0.2-1.0); Calcium 8.2 mg/dL (8.5-10.1); Globulin 3.6 gm/dl (1.3-3.2); Potassium 4.2 mmoL/L (3.5-5.1); Total Protein,Serum 6.3 gm/dL (6.4-8.2)
[2018-05-17 15:45] LABS: Microscopic, Urine URINE MICROSCOPIC (MICROSCOPIC)
[2018-05-17 15:46] LABS: Appearance,Urine CLEAR (Clear); Bilirubin,Urine Negative (Negative); Blood, Urine Negative (Negative); Color,Urine YELLOW (Yellow); Glucose,Urine (UA) 3+ (Negative); Ketones,Urine Negative (Negative); Leukocyte Esterase,Urine Negative (Negative); Protein,Urine TRACE (Negative); Specific Gravity, Urine >= 1.030 (1.005-1.030); Urobilinogen,Urine 0.2 EU/dl (0.2)
[2018-05-17 15:54] LABS: Bacteria,Urine Trace /lpf; Squamous Epithelial Cell,Urine Occasional #/hpf (0-5); WBC,Urine Occasional #/hpf (0-3)
[2018-05-17 17:05] LABS: ABG Base Excess 13.4 mmol/L (-2.4-2.3); ABG HCO3 39.8 mmhg (22.0-26.0); ABG Oxygen Saturation 97 % (90-100); ABG PO2 96.1 mmhg (80-100); ABG TCO2 42.3 mmhg (23-27)
[2018-05-17 17:07] LABS: Allen's Test Patient Unable
[2018-05-17 17:08] LABS: ABG PCO2 82.3 mmhg (35.0-45.0)
--- NOTE | 2018-05-17 17:32 | History & Physical Report ---
*Admission Date: 05/17/18 *Chief complaint: AMS; shortness of breath *History of present illness: Ms. Ramirez is a 62-year-old female with a history of oxygen dependent COPD, diabetes mellitus, hypertension, anxiety, bipolar disorder, tobacco use disorder, who was brought to [facility] emergency room ambulance for altered mental status. The patient is a poor historian. Upon arrival to the emergency room she was drowsy but answered questions. She was given Narcan 1 mg IV during transport. Upon arrival to the emergency room she was on oxygen at 6 L by nasal cannula. With initial exam patient does not recall exam what happened. She is alert at present. She states she is just been progressively more short of breath. She developed a cough last night. She states she did take Levaquin and her known as prescribed. Her daughter is present and states she has been eating and drinking normally. She did continue smoke when she went home. Patient at this time states that her heart is palpated at times and she has had some chest pain. She has not had a fever. o To note patient was hospitalized recently at [facility] from 05/09-05/12/2018. She was discharged on 20 mg of prednisone and Levaquin 500 mg daily. Her sputum culture After discharge revealed Pseudomonas which was sensitive to the Levaquin. With evaluation in the emergency room patient is placed on BiPAP for respiratory acidosis. Blood gas have improved. Patient became alert and was admitted for further evaluation and treatment with ongoing BiPAP. [facility] History Medical History: Reports:: Atherosclerotic Heart Disease, Cancer, Congestive Heart Failure, Chronic Obstructive Pulmonary Disease (COPD), Coronary Artery Disease, Diabetes Mellitus Type 2, Gastroesophageal Reflux Disease(GERD), Hyperlipidemia, Hypertension, Lung Disease, Peripheral Vascular Disease Denies:: Diabetes Mellitus Type 1, MRSA *Have you ever received a pneumonia vaccine?: No *Have you received a flu vaccine this season?: No Other Medical History: Reports: Arthritis Comment:: Tobacco use disorder Laterality Cases: Right: Other, Bilateral: Tonsillectomy Other Surgeries: Yes: Cancer Surgery, Cholecystectomy, Coronary Stent, Hysterectomy-Total, Other Amputation: No Fractures: Yes (fractured lt hip october 27 2017) Comment: left hip surgery - *Social History Smoking Status: Current every day smoker Tobacco Type: cigarettes # Packs/Day (cigarettes): 1 Alcohol Intake: never Alcohol Intake Frequency:: other Substance Use Type: denies use *Occupational Status:: disabled Housing: house Household Members: family *Travel in the last 8 weeks: None - Psychiatric History Expresses thoughts of harming self/others: None Suicide Plan Description: No Plan Family Hx:: Hypertension, Heart Attack, Diabetes, Hyperlipidemia, Kidney Disease Review of Systems - Constitutional Denies body ache(s), Denies headache(s) - ENT Denies ear pain, Denies sore throat - *Cardiovascular Reports chest pain, Reports shortness of breath Comments: Some palpations - *Respiratory Reports chest congestion, Reports cough, Reports shortness of breath - *Gastrointestinal Denies change in stools, Denies constipation, Denies nausea, Denies vomiting Comments: Has a ventral hernia which bothers her - *Genitourinary Denies difficulty urinating - *Musculoskeletal Reports joint pain - *Neurologic Reports frequent falls Comments: Altered mental status Meds Home Medications Medication Instructions Recorded Confirmed Type alprazolam 0.25 mg tablet 0.25 mg PO TID tab 06/14/17 05/17/18 History insulin aspart U- 100 100 unit/mL 8 unit SUB-Q TID ml 06/14/17 05/17/18 History subcutaneous pen nitroglycerin 0.4 mg sublingual 0.4 mg SUBLINGUAL Q5MINP PRN 06/14/17 05/17/18 History tablet omega-3 fatty acids 1,000 mg 1,000 mg PO DAILY 06/14/17 05/17/18 History capsule venlafaxine 50 mg tablet 50 mg PO BID 90 Days #180 tab 08/31/17 05/17/18 History mirabegron ER 50 mg 50 mg PO DAILY tab 09/14/17 05/17/18 History tablet,extended release 24 hr Aspirin [Low Dose Aspirin EC] 81 mg PO DAILY 10/27/17 05/17/18 History Clopidogrel Bisulfate [Plavix 75mg 75 mg PO DAILY 10/27/17 05/17/18 History Tab] Dexlansoprazole [Dexilant] 60 mg PO DAILY 02/17/18 05/17/18 History Hydrocod/Acet 5/325 mg [[place] 1 tab PO TIDP PRN 02/17/18 05/17/18 History 5/325mg tablet] Insulin Glargine,Hum.rec.anlog 45 unit SQ DAILY 02/17/18 05/17/18 History [Basaglar Kwikpen U-100] Polyethylene Glycol 3350 [Miralax 17 gm PO DAILY 02/17/18 05/17/18 History 17gm Packet] Rosuvastatin Calcium 10 mg PO HS 02/17/18 05/17/18 History Trazodone HCl 100 mg PO HS 02/17/18 05/17/18 History quetiapine 200 mg tablet 100 mg PO HS tab 03/15/18 05/17/18 History Amlodipine Besylate 5 mg PO DAILY 05/09/18 05/17/18 History Furosemide [Furosemide 20mg Tab] 40 mg PO DAILY 05/09/18 05/17/18 History Insulin Detemir [Levemir 100 43 unit SQ DAILY 05/09/18 05/17/18 History units/mL 10mL vial] Lactulose [Lactulose 10gm/15ml 10 gm PO QID 05/09/18 05/17/18 History Oral Soln] Losartan Potassium 25 mg PO DAILY 05/09/18 05/17/18 History Metoprolol Succinate 50 mg PO DAILY 05/09/18 05/17/18 History Tiotropium Br/Olodaterol HCl 2 puffs IH DAILY 05/09/18 05/17/18 History [Stiolto Respimat Inhal [place]] Potassium Chloride [Klor-con 20 10 meq PO DAILY 05/10/18 05/17/18 History mEq tablet] Nicotine [Nicoderm 21mg/24hr 21 mg TD DAILY 05/17/18 05/17/18 History patch] levoFLOXacin [Levaquin 500mg 500 mg PO DAILY 05/17/18 05/17/18 History tab] predniSONE [Deltasone 20mg 20 mg PO DAILY 05/17/18 05/17/18 History tablet] Allergies Allergy/AdvReac Type Severity Reaction Status Date / Time bacitracin Allergy Intermediate Rash Verified 05/09/18 14:40 [From NEOSPORIN ([id number])] doxycycline Allergy Mild Rash Verified 05/09/18 14:40 neomycin Allergy Mild Rash Verified 05/09/18 14:40 [From NEOSPORIN ([id number])] Penicillins Allergy Mild Rash Verified 05/09/18 14:40 polymyxin B Allergy Mild Rash Verified 05/09/18 14:40 [From NEOSPORIN ([id number])] sertraline [From Zoloft] AdvReac Severe Hallucinati Verified 05/09/18 14:40 ng Exam Vital signs and Labs for Last 24 Hours: Temp Pulse Resp BP Pulse Ox 98.9 F 88 24 101/67 L 96 05/17/18 15:22 05/17/18 16:43 05/17/18 14:28 05/17/18 16:43 05/17/18 16:43 Laboratory Results - last 24 hr 05/17/18 14:30: Specimen Source Right brachial, O2 % 6l, ABG pH 7.24 L*, ABG pCO2 112.8 H, ABG pO2 81.4, ABG HCO3 46.8 H, ABG Total CO2 50.3 H, ABG O2 Saturation 95, ABG Base Excess 19.4 H, [place] Test Acceptable 05/17/18 14:40: WBC 4.6 L, RBC 4.46, Hgb 12.6, Hct 41.8, MCV 93.6, MCH 28.1, MCHC 30.1 L, RDW 16.2, Plt Count 81 L, MPV 9.1, Neut % (Auto) 82.2 H, Lymph % (Auto) 8.1 L, [place] % (Auto) 9.2, Eos % (Auto) 0.1, Baso % (Auto) 0.4, Neut # (Auto) 3.7, Lymph # (Auto) 0.4 L, [place] # (Auto) 0.4, Eos # (Auto) 0.0, Baso # (Auto) 0.0 05/17/18 14:40: Sodium 138, Potassium 4.2, Chloride 96 L, Carbon Dioxide 43 H*, Anion Gap 3.2 L, BUN 18, Creatinine 1.17 H, Estimated Creat Clear 83, Estimated GFR 47 L, Est GFR ( Amer) 57 L, Glucose 363 H, Calcium 8.2 L, Total Bilirubin 0.3, AST 24, ALT 35, Alkaline Phosphatase 65, Troponin I 0.02, Total Protein 6.3 L, Albumin 2.7 L, Globulin 3.6 H, Albumin/Globulin Ratio 0.8 L 05/17/18 14:40: Lactate 1.2 05/17/18 15:40: Urine Color Yellow, Urine Appearance Clear, Urine pH 6.0, Ur Specific [place] >= 1.030, Urine Protein Trace, Urine Glucose (UA) 3+, Urine Ketones Negative, Urine Blood Negative, Urine Nitrate Negative, Urine Bilirubin Negative, Urine Urobilinogen 0.2, Ur Leukocyte Esterase Negative, Urine RBC None, Urine WBC Occasional, Ur Squamous Epith Cells Occasional, Urine Bacteria Trace 05/17/18 16:59: Specimen Source Left brachial, O2 % 50%,i 18 e 8, ABG pH 7.30 L, ABG pCO2 82.3 H, ABG pO2 96.1, ABG HCO3 39.8 H, ABG Total CO2 42.3 H, ABG O2 Saturation 97, ABG Base Excess 13.4 H, [place] Test Patient unable I & O for Last 24 hours: Intake & Output 05/15/18 05/16/18 05/17/18 05/18/18 11:59 11:59 11:59 11:59 Weight 230 lb Radiology Reports for the Last 24 Hours: 05/17/2018 chest x-ray IMPRESSION: Cardiomegaly, no acute finding - Constitutional Comments: Remains on BiPAP. Patient is alert. Respiratory effort is easy - *Routine HEENT Exam Head: Present: normocephalic, atraumatic Eye: Present: PERRL ENT: Present: mucous membranes moist - *Routine Respiratory Exam Comments: Very diminished sounds posteriorly with some soft expiratory wheezing - *Routine Cardiovascular Exam Present: RRR - *Routine Abdominal Exam Present: soft, normoactive bowel sounds. Absent: tenderness - *Routine Extremities Exam Comments: ANN[place] hose on bilaterally. No calf tenderness - *Routine Neurological Exam Present: alert, oriented X3 Assessment and Plan (1) Acute respiratory failure with hypoxia and hypercapnia Current visit: Yes Status: Acute Category: Medical Code(s): J96.01 - Acute respiratory failure with hypoxia; J96.02 - Acute respiratory failure with hypercapnia (2) COPD exacerbation Current visit: Yes Status: Acute Category: Medical Code(s): J44.1 - Chronic obstructive pulmonary disease with (acute) exacerbation (3) Tobacco abuse Current visit: No Status: Chronic Category: Medical Code(s): Z72.0 - Tobacco use (4) CAD (coronary artery disease) Current visit: No Status: Chronic Qualifiers: Coronary Disease-Associated Artery/Lesion type: [place] artery [place] vs. transplanted heart: [place] heart Associated angina: with other forms of angina Qualified Code(s): I25.118 - Atherosclerotic heart disease of [place] coronary artery with other forms of angina pectoris Category: Medical Code(s): I25.10 - Atherosclerotic heart disease of [place] coronary artery without angina pectoris (5) COPD (chronic obstructive pulmonary disease) Current visit: No Status: Chronic Qualifiers: COPD type: chronic bronchitis Chronic bronchitis type: unspecified Qualified Code(s): J42 - Unspecified chronic bronchitis Category: Medical Code(s): J44.9 - Chronic obstructive pulmonary disease, unspecified (6) Diabetes mellitus Current visit: No Status: Chronic Qualifiers: Diabetes mellitus type: type 2 Diabetes mellitus intermediate insulin use: with intermediate use Diabetes mellitus complication status: with neurologic complications Diabetes mellitus complication detail: with polyneuropathy Qualified Code(s): E11.42 - Type 2 diabetes mellitus with diabetic polyneuropathy; Z79.4 - intermediate teacher (current) use of insulin Category: Medical Code(s): E11.9 - Type 2 diabetes mellitus without complications (7) HTN (hypertension) Current visit: No Status: Chronic Qualifiers: Hypertension type: essential hypertension Qualified Code(s): I10 - Essential (primary) hypertension Category: Medical Code(s): I10 - Essential (primary) hypertension (8) Hypotension Current visit: Yes Status: Acute Category: Medical Code(s): I95.9 - Hypotension, unspecified - Assessment and plan all Dx Assessment and Plan for all problems:: Patient will remain on BiPAP during the night. Some meds have been discontinued due to previous altered mental status, respiratory acidosis, and hypotension. Will reevaluate in the a.m. Be on sliding scale insulin. She has complained of back pain and we will give her Tylenol for this.
[2018-05-18 06:13] LABS: ABG Base Excess 21.8 mmol/L (-2.4-2.3); ABG HCO3 49.2 mmhg (22.0-26.0); ABG Oxygen Saturation 97 % (90-100); ABG PH 7.24 mmol/L (7.35-7.45); ABG PO2 101.7 mmhg (80-100); ABG TCO2 52.8 mmhg (23-27)
[2018-05-18 06:17] LABS: Oxygen 50% %; Tidal Volume 18/8
[2018-05-18 06:18] LABS: ABG PCO2 117.1 mmhg (35.0-45.0)
--- NOTE | 2018-05-18 07:34 | Pharmacy Consult Notes ---
[facility] Pharmacy VTE Monitoring - Patient Demographics Admission date: 05/17/18 Report Date: 05/18/18 Time: 07:34 Allergies/Adverse Reactions: Patient Allergies bacitracin [From NEOSPORIN ([id number])] Allergy (Intermediate, Verified 05/09/18 14:40) Rash doxycycline Allergy (Mild, Verified 05/09/18 14:40) Rash neomycin [From NEOSPORIN ([id number])] Allergy (Mild, Verified 05/09/18 14:40) Rash Penicillins Allergy (Mild, Verified 05/09/18 14:40) Rash polymyxin B [From NEOSPORIN ([id number])] Allergy (Mild, Verified 05/09/18 14:40) Rash sertraline [From Zoloft] Adverse Reaction (Severe, Verified 05/09/18 14:40) Hallucinating Height: 1.68 m Weight: 92.136 kg Patient Problems: Current Active Problems COPD exacerbation (Acute) Acute respiratory failure with hypoxia and hypercapnia (Acute) Hypotension (Acute) - VTE Risk Labs: VTE Related Lab Results Hgb 12.6 g/dL (12.2-16.2) 05/17/18 14:40 Hct 41.8 % (37.0-47.0) 05/17/18 14:40 Plt Count 81 K/mm3 (142-424) L 05/17/18 14:40 BUN 18 mg/dL (7-18) 05/17/18 14:40 Creatinine 1.17 mg/dL (0.55-1.02) H 05/17/18 14:40 Estimated Creat Clear 83 mL/min (50-200) 05/17/18 14:40 VTE Score: 6 VTE Risk Level: Moderate Risk - Prophylaxis VTE Prophylaxis Ordered?: Yes Types of VTE Prophylaxis: TEDS Knee High Location of Applied Device: Bilateral Lower Extremeties - VTE Diagnosis Confirmed Treatment or plan recommended: Continue Current Treatment
--- NOTE | 2018-05-18 07:53 | Progress Note ---
Internal Medicine - PN: Subj Interval history: Per nursing: Patient rested during the night. She was easily awakened. She seemed oriented. ABGs this morning revealed respiratory acidosis. O2 was decreased on BiPAP with resultant decrease in O2 sats. Patient again on 50% via BiPAP. Patient stated she rested well during the night. She feels her breathing is better. She is complaining of epigastric discomfort. She does want to eat breakfast. Exam Vital signs and Labs for Last 24 Hours: Temp Pulse Resp BP Pulse Ox 97.5 F L 72 18 103/63 L 98 05/18/18 04:00 05/18/18 05:50 05/18/18 04:00 05/18/18 04:00 05/18/18 04:00 Laboratory Results - last 24 hr 05/17/18 14:30: Specimen Source Right brachial, O2 % 6l, ABG pH 7.24 L*, ABG pCO2 112.8 H, ABG pO2 81.4, ABG HCO3 46.8 H, ABG Total CO2 50.3 H, ABG O2 Saturation 95, ABG Base Excess 19.4 H, Chandler Test Acceptable 05/17/18 14:40: WBC 4.6 L, RBC 4.46, Hgb 12.6, Hct 41.8, MCV 93.6, MCH 28.1, MCHC 30.1 L, RDW 16.2, Plt Count 81 L, MPV 9.1, Neut % (Auto) 82.2 H, Lymph % (Auto) 8.1 L, [place] % (Auto) 9.2, Eos % (Auto) 0.1, Baso % (Auto) 0.4, Neut # (Auto) 3.7, Lymph # (Auto) 0.4 L, [place] # (Auto) 0.4, Eos # (Auto) 0.0, Baso # (Auto) 0.0 05/17/18 14:40: Sodium 138, Potassium 4.2, Chloride 96 L, Carbon Dioxide 43 H*, Anion Gap 3.2 L, BUN 18, Creatinine 1.17 H, Estimated Creat Clear 83, Estimated GFR 47 L, Est GFR ( Amer) 57 L, Glucose 363 H, Calcium 8.2 L, Total Bilirubin 0.3, AST 24, ALT 35, Alkaline Phosphatase 65, Troponin I 0.02, Total Protein 6.3 L, Albumin 2.7 L, Globulin 3.6 H, Albumin/Globulin Ratio 0.8 L 05/17/18 14:40: Lactate 1.2 05/17/18 15:40: Urine Color Yellow, Urine Appearance Clear, Urine pH 6.0, Ur Specific [place] >= 1.030, Urine Protein Trace, Urine Glucose (UA) 3+, Urine Ketones Negative, Urine Blood Negative, Urine Nitrate Negative, Urine Bilirubin Negative, Urine Urobilinogen 0.2, Ur Leukocyte Esterase Negative, Urine RBC None, Urine WBC Occasional, Ur Squamous Epith Cells Occasional, Urine Bacteria Trace 05/17/18 16:59: Specimen Source Left brachial, O2 % 50%,i 18 e 8, ABG pH 7.30 L, ABG pCO2 82.3 H, ABG pO2 96.1, ABG HCO3 39.8 H, ABG Total CO2 42.3 H, ABG O2 Saturation 97, ABG Base Excess 13.4 H, Chandler Test Patient unable 05/17/18 20:55: POC Glucose 332 H* 05/18/18 05:19: POC Glucose 297 H 05/18/18 06:00: Specimen Source R brachial, O2 % 50%, ABG pH 7.24 L*, ABG pCO2 117.1 H, ABG pO2 101.7 H, ABG HCO3 49.2 H, ABG Total CO2 52.8 H, ABG O2 Saturation 97, ABG Base Excess 21.8 H, Tidal Volume 18/8 I & O for Last 24 hours: Intake & Output 05/15/18 05/16/18 05/17/18 05/18/18 11:59 11:59 11:59 11:59 Output Total 800 / 800 Balance -800 / -800 Weight 203 lb 2 oz - Constitutional no acute distress Comments: Patient awakened easily. She appears comfortable. - *Routine Respiratory Exam Comments: Diminished breath sounds posteriorly - *Routine Cardiovascular Exam Present: RRR - *Routine Abdominal Exam Present: soft, normoactive bowel sounds, tenderness (Epigastrium) Comments: Patient with [place] catheter. - *Routine Extremities Exam Absent: edema, calf tenderness Comments: ANNELISE house on - *Routine Neurological Exam Present: alert Answering questions appropriately. Assessment and Plan (1) Acute respiratory failure with hypoxia and hypercapnia Current visit: Yes Status: Acute Category: Medical Code(s): J96.01 - Acute respiratory failure with hypoxia; J96.02 - Acute respiratory failure with hypercapnia (2) COPD exacerbation Current visit: Yes Status: Acute Category: Medical Code(s): J44.1 - Chronic obstructive pulmonary disease with (acute) exacerbation (3) Tobacco abuse Current visit: No Status: Chronic Category: Medical Code(s): Z72.0 - Tobacco use (4) CAD (coronary artery disease) Current visit: No Status: Chronic Qualifiers: Coronary Disease-Associated Artery/Lesion type: [place] artery [place] vs. transplanted heart: [place] heart Associated angina: with other forms of angina Qualified Code(s): I25.118 - Atherosclerotic heart disease of [place] coronary artery with other forms of angina pectoris Category: Medical Code(s): I25.10 - Atherosclerotic heart disease of [place] coronary artery without angina pectoris (5) COPD (chronic obstructive pulmonary disease) Current visit: No Status: Chronic Qualifiers: COPD type: chronic bronchitis Chronic bronchitis type: unspecified Qualified Code(s): J42 - Unspecified chronic bronchitis Category: Medical Code(s): J44.9 - Chronic obstructive pulmonary disease, unspecified (6) Diabetes mellitus Current visit: No Status: Chronic Qualifiers: Diabetes mellitus type: type 2 Diabetes mellitus oil heaterman insulin use: with correction use Diabetes mellitus complication status: with neurologic complications Diabetes mellitus complication detail: with polyneuropathy Qualified Code(s): E11.42 - Type 2 diabetes mellitus with diabetic polyneuropathy; Z79.4 - oil heaterman (current) use of insulin Category: Medical Code(s): E11.9 - Type 2 diabetes mellitus without complications (7) HTN (hypertension) Current visit: No Status: Chronic Qualifiers: Hypertension type: essential hypertension Qualified Code(s): I10 - Essential (primary) hypertension Category: Medical Code(s): I10 - Essential (primary) hypertension (8) Hypotension Current visit: Yes Status: Acute Category: Medical Code(s): I95.9 - Hypotension, unspecified (9) Pseudomonas respiratory infection Current visit: Yes Status: Acute Category: Medical Code(s): J98.8 - Other specified respiratory disorders; A49.8 - Other bacterial infections of unspecified site - Assessment and plan all Dx Assessment and Plan for all problems:: Discussed recent positive sputum cultures with Pseudomonas with [facility] pharmacist. Was on Levaquin at home. Will double coverage for now with tobramycin and Levaquin. We will try to wean from BiPAP as patient tolerates. Will continue to hold her trazodone, losartan, and amlodipine as well as her Lasix. Repeat labs ordered for this a.m. To consider CT of the chest.
[2018-05-18 08:16] LABS: Eosinophils % 0.2 % (0.1-12.0); Hematocrit 37.2 % (37.0-47.0); Hemoglobin 11.5 g/dL (12.2-16.2); Lymphocytes # 0.3 K/mm3 (0.7-4.5); Lymphocytes % 10.5 % (10-50); Mean Corpuscular HGB Conc 30.9 g/dL (31.8-35.4); Mean Corpuscular Hemoglobin 28.4 pg (27.0-31.2); Mean Corpuscular Volume 91.8 fl (81-99); Mean Platelet Volume 9.4 fl (7.4-10.4); Monocytes # 0.2 K/mm3 (0.1-1.0); Monocytes % 8.9 % (1.7-9.3); Neutrophils % 80.5 % (37.0-80.0); Platelet Count 69 K/mm3 (142-424); Red Blood Count 4.05 M/mm3 (4.20-5.40); Red Cell Distribution Width 16.3 % (11.5-17.5); White Blood Count 2.5 K/mm3 (4.8-10.8)
[2018-05-18 08:28] LABS: Anion Gap 2.9 mEq/L (5-15); Calcium 8.8 mg/dL (8.5-10.1); Potassium 4.9 mmoL/L (3.5-5.1)
--- NOTE | 2018-05-18 08:34 | Pharmacy Consult Notes ---
- Pharmacy Consult Date: 05/18/18 Time: 08:33 Referring provider: CORBY LEIVA APRN Reason for Consult:: TOBRAMYCIN DOSING Allergies and ADEs:: Allergies Allergy/AdvReac Type Severity Reaction Status Date / Time bacitracin Allergy Intermediate Rash Verified 05/09/18 14:40 [From NEOSPORIN ([id number])] doxycycline Allergy Mild Rash Verified 05/09/18 14:40 neomycin Allergy Mild Rash Verified 05/09/18 14:40 [From NEOSPORIN ([id number])] Penicillins Allergy Mild Rash Verified 05/09/18 14:40 polymyxin B Allergy Mild Rash Verified 05/09/18 14:40 [From NEOSPORIN ([id number])] sertraline [From Zoloft] AdvReac Severe Hallucinati Verified 05/09/18 14:40 ng Home Medications:: Home Medications Medication Instructions Recorded Confirmed Type alprazolam 0.25 mg tablet 0.25 mg PO TID tab 06/14/17 05/17/18 History insulin aspart U- 100 100 unit/mL 8 unit SUB-Q TID ml 06/14/17 05/17/18 History subcutaneous pen nitroglycerin 0.4 mg sublingual 0.4 mg SUBLINGUAL Q5MINP PRN 06/14/17 05/17/18 History tablet omega-3 fatty acids 1,000 mg 1,000 mg PO DAILY 06/14/17 05/17/18 History capsule venlafaxine 50 mg tablet 50 mg PO BID 90 Days #180 tab 08/31/17 05/17/18 History mirabegron ER 50 mg 50 mg PO DAILY tab 09/14/17 05/17/18 History tablet,extended release 24 hr Aspirin [Low Dose Aspirin EC] 81 mg PO DAILY 10/27/17 05/17/18 History Clopidogrel Bisulfate [Plavix 75mg 75 mg PO DAILY 10/27/17 05/17/18 History Tab] Dexlansoprazole [Dexilant] 60 mg PO DAILY 02/17/18 05/17/18 History Hydrocod/Acet 5/325 mg [[place] 1 tab PO TIDP PRN 02/17/18 05/17/18 History 5/325mg tablet] Insulin Glargine,Hum.rec.anlog 45 unit SQ DAILY 02/17/18 05/17/18 History [Basaglar Kwikpen U-100] Polyethylene Glycol 3350 [Miralax 17 gm PO DAILY 02/17/18 05/17/18 History 17gm Packet] Rosuvastatin Calcium 10 mg PO HS 02/17/18 05/17/18 History Trazodone HCl 100 mg PO HS 02/17/18 05/17/18 History quetiapine 200 mg tablet 200 mg PO HS tab 03/15/18 05/18/18 History Amlodipine Besylate 5 mg PO DAILY 05/09/18 05/17/18 History Furosemide [Furosemide 20mg Tab] 20 mg PO DAILY 05/09/18 05/18/18 History Insulin Detemir [Levemir 100 43 unit SQ DAILY 05/09/18 05/17/18 History units/mL 10mL vial] Lactulose [Lactulose 10gm/15ml 10 gm PO QID 05/09/18 05/17/18 History Oral Soln] Losartan Potassium 25 mg PO DAILY 05/09/18 05/17/18 History Metoprolol Succinate 50 mg PO DAILY 05/09/18 05/17/18 History Tiotropium Br/Olodaterol HCl 2 puffs IH DAILY 05/09/18 05/17/18 History [Stiolto Respimat Inhal [place]] Potassium Chloride [Klor-con 20 20 meq PO DAILY 05/10/18 05/18/18 History mEq tablet] Nicotine [Nicoderm 21mg/24hr 21 mg TD DAILY 05/17/18 05/17/18 History patch] dilTIAZem HCl [Diltiazem 240mg 240 mg PO DAILY 05/17/18 05/17/18 History 24Hr ER Cap] levoFLOXacin [Levaquin 500mg 500 mg PO DAILY 05/17/18 05/17/18 History tab] predniSONE [Deltasone 20mg 20 mg PO DAILY 05/17/18 05/17/18 History tablet] Height: 1.68 m Weight: 92.136 kg Laboratory Results:: Laboratory Results - last 24 hr 05/17/18 14:30: Specimen Source Right brachial, O2 % 6l, ABG pH 7.24 L*, ABG pCO2 112.8 H, ABG pO2 81.4, ABG HCO3 46.8 H, ABG Total CO2 50.3 H, ABG O2 Saturation 95, ABG Base Excess 19.4 H, Chandler Test Acceptable 05/17/18 14:40: WBC 4.6 L, RBC 4.46, Hgb 12.6, Hct 41.8, MCV 93.6, MCH 28.1, MCHC 30.1 L, RDW 16.2, Plt Count 81 L, MPV 9.1, Neut % (Auto) 82.2 H, Lymph % (Auto) 8.1 L, [place] % (Auto) 9.2, Eos % (Auto) 0.1, Baso % (Auto) 0.4, Neut # (Auto) 3.7, Lymph # (Auto) 0.4 L, [place] # (Auto) 0.4, Eos # (Auto) 0.0, Baso # (Auto) 0.0 05/17/18 14:40: Sodium 138, Potassium 4.2, Chloride 96 L, Carbon Dioxide 43 H*, Anion Gap 3.2 L, BUN 18, Creatinine 1.17 H, Estimated Creat Clear 83, Estimated GFR 47 L, Est GFR ( Amer) 57 L, Glucose 363 H, Calcium 8.2 L, Total Bilirubin 0.3, AST 24, ALT 35, Alkaline Phosphatase 65, Troponin I 0.02, Total Protein 6.3 L, Albumin 2.7 L, Globulin 3.6 H, Albumin/Globulin Ratio 0.8 L 05/17/18 14:40: Lactate 1.2 05/17/18 15:40: Urine Color Yellow, Urine Appearance Clear, Urine pH 6.0, Ur Specific [place] >= 1.030, Urine Protein Trace, Urine Glucose (UA) 3+, Urine Ketones Negative, Urine Blood Negative, Urine Nitrate Negative, Urine Bilirubin Negative, Urine Urobilinogen 0.2, Ur Leukocyte Esterase Negative, Urine RBC None, Urine WBC Occasional, Ur Squamous Epith Cells Occasional, Urine Bacteria Trace 05/17/18 16:59: Specimen Source Left brachial, O2 % 50%,i 18 e 8, ABG pH 7.30 L, ABG pCO2 82.3 H, ABG pO2 96.1, ABG HCO3 39.8 H, ABG Total CO2 42.3 H, ABG O2 Saturation 97, ABG Base Excess 13.4 H, Chandler Test Patient unable 05/17/18 20:55: POC Glucose 332 H* 05/18/18 05:19: POC Glucose 297 H 05/18/18 06:00: Specimen Source R brachial, O2 % 50%, ABG pH 7.24 L*, ABG pCO2 117.1 H, ABG pO2 101.7 H, ABG HCO3 49.2 H, ABG Total CO2 52.8 H, ABG O2 Saturation 97, ABG Base Excess 21.8 H, Tidal Volume 18/8 Medical History: Reports:: Atherosclerotic Heart Disease, Cancer, Congestive Heart Failure, Chronic Obstructive Pulmonary Disease (COPD), Coronary Artery Disease, Diabetes Mellitus Type 2, Gastroesophageal Reflux Disease(GERD), Hyperlipidemia, Hypertension, Lung Disease, Peripheral Vascular Disease Denies:: Diabetes Mellitus Type 1, MRSA Assessment and Plan (1) Acute respiratory failure with hypoxia and hypercapnia Current visit: Yes Status: Acute Category: Medical Code(s): J96.01 - Acute respiratory failure with hypoxia; J96.02 - Acute respiratory failure with hype rcapnia (2) COPD exacerbation Current visit: Yes Status: Acute Category: Medical Code(s): J44.1 - Chronic obstructive pulmonary disease with (acute) exacerbation (3) Tobacco abuse Current visit: No Status: Chronic Category: Medical Code(s): Z72.0 - Tobacco use (4) CAD (coronary artery disease) Current visit: No Status: Chronic Qualifiers: Coronary Disease-Associated Artery/Lesion type: [place] artery [place] vs. transplanted heart: [place] heart Associated angina: with other forms of angina Qualified Code(s): I25.118 - Atherosclerotic heart disease of [place] coronary artery with other forms of angina pectoris Category: Medical Code(s): I25.10 - Atherosclerotic heart disease of [place] coronary artery without angina pectoris (5) COPD (chronic obstructive pulmonary disease) Current visit: No Status: Chronic Qualifiers: COPD type: chronic bronchitis Chronic bronchitis type: unspecified Qualified Code(s): J42 - Unspecified chronic bronchitis Category: Medical Code(s): J44.9 - Chronic obstructive pulmonary disease, unspecified (6) Diabetes mellitus Current visit: No Status: Chronic Qualifiers: Diabetes mellitus type: type 2 Diabetes mellitus pediatrician/medical doctor insulin use: with pediatrician/medical doctor use Diabetes mellitus complication status: with neurologic complications Diabetes mellitus complication detail: with polyneuropathy Qualified Code(s): E11.42 - Type 2 diabetes mellitus with diabetic polyneuropathy; Z79.4 - MCC (current) use of insulin Category: Medical Code(s): E11.9 - Type 2 diabetes mellitus without complications (7) HTN (hypertension) Current visit: No Status: Chronic Qualifiers: Hypertension type: essential hypertension Qualified Code(s): I10 - Essential (primary) hypertension Category: Medical Code(s): I10 - Essential (primary) hypertension (8) Hypotension Current visit: Yes Status: Acute Category: Medical Code(s): I95.9 - Hypotension, unspecified (9) Pseudomonas respiratory infection Current visit: Yes Status: Acute Category: Medical Code(s): J98.8 - Other specified respiratory disorders; A49.8 - Other bacterial infections of unspecified site - Assessment and plan all Dx Assessment and Plan for all problems:: BASED ON PATIENT'S FACTORS, RECOMMEND STARTING WITH TOBRAMYCIN 300 MG Q24H AT THIS TIME. PHARMACY WILL FOLLOW DAILY AND ADJUST APPROPRIATE. BESS AGUAYO, PHARMD
--- NOTE | 2018-05-19 08:26 | Progress Note ---
Internal Medicine - PN: Subj *Date: 05/19/18 *Time: 08:22 Interval history: Pt states she is feeling a little better this am. She is still SOA with any exertion. She is currently on BIPAP and her sats drop with exertion and when it is removed and nasal oxygen is placed for her to eat. She is still coughing. She slept off and on last night and did eat breakfast this am. Exam Vital signs and Labs for Last 24 Hours: Temp Pulse Resp BP Pulse Ox 97.9 F 99 H 20 139/84 87 L 05/19/18 07:33 05/19/18 07:33 05/19/18 07:33 05/19/18 07:33 05/19/18 07:33 Laboratory Results - last 24 hr 05/18/18 08:05: WBC 2.5 L D, RBC 4.05 L, Hgb 11.5 L, Hct 37.2, MCV 91.8, MCH 28.4, MCHC 30.9 L, RDW 16.3, Plt Count 69 L, MPV 9.4, Neut % (Auto) 80.5 H, Lymph % (Auto) 10.5, [place] % (Auto) 8.9, Eos % (Auto) 0.2, Baso % (Auto) 0.0 L, Neut # (Auto) 2.0, Lymph # (Auto) 0.3 L, [place] # (Auto) 0.2, Eos # (Auto) 0.0, Baso # (Auto) 0.0 05/18/18 08:05: Sodium 139, Potassium 4.9, Chloride 99, Carbon Dioxide 42 H*, Anion Gap 2.9 L, BUN 21 H, Creatinine 0.85 D, Estimated Creat Clear 86, Estimated GFR 68, Est GFR ( Amer) 82 D, Glucose 281 H D, Calcium 8.8 05/18/18 09:55: Influenza Type A Ag Positive A, Influenza Type B Ag Negative 05/18/18 11:23: POC Glucose 366 H* 05/18/18 14:26: Random Tobramycin 5.6 05/18/18 16:26: POC Glucose 285 H 05/18/18 19:54: POC Glucose 325 H* 05/18/18 23:21: Random Tobramycin 1.8 05/19/18 06:05: POC Glucose 340 H* I & O for Last 24 hours: Intake & Output 05/16/18 05/17/18 05/18/18 05/19/18 11:59 11:59 11:59 11:59 Intake Total 0 / 0 840 / 840 Output Total 800 / 800 600 / 600 Balance -800 / -800 240 / 240 Weight 203 lb 2 oz 204 lb 5 oz Radiology Reports for the Last 24 Hours: Chest CT: 1. Stable right upper lobe nodule at 7 mm. 2. COPD/centrilobular emphysema with progressing bibasilar atelectatic changes. There are other smaller pulmonary nodules which for the most part appear stable. One nodular density is present in the right upper lobe at 7 mm and could be due to an area of subpleural atelectatic change. 3. No change severe wedge compression of L1 with retropulsion as previously described 4. Splenomegaly with slightly enlarged and irregular left lobe of liver consistent with cirrhosis 5. 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 Absent: tenderness - *Routine Extremities Exam Absent: cyanosis, clubbing, edema Assessment and Plan (1) Acute respiratory failure with hypoxia and hypercapnia Current visit: Yes Status: Acute Category: Medical Code(s): J96.01 - Acute respiratory failure with hypoxia; J96.02 - Acute respiratory failure with hypercapnia (2) COPD exacerbation Current visit: Yes Status: Acute Category: Medical Code(s): J44.1 - Chronic obstructive pulmonary disease with (acute) exacerbation (3) Tobacco abuse Current visit: No Status: Chronic Category: Medical Code(s): Z72.0 - Tobacco use (4) CAD (coronary artery disease) Current visit: No Status: Chronic Qualifiers: Coronary Disease-Associated Artery/Lesion type: [place] artery [place] vs. transplanted heart: [place] heart Associated angina: with other forms of angina Qualified Code(s): I25.118 - Atherosclerotic heart disease of [place] coronary artery with other forms of angina pectoris Category: Medical Code(s): I25.10 - Atherosclerotic heart disease of [place] coronary artery without angina pectoris (5) COPD (chronic obstructive pulmonary disease) Current visit: No Status: Chronic Qualifiers: COPD type: chronic bronchitis Chronic bronchitis type: unspecified Qualified Code(s): J42 - Unspecified chronic bronchitis Category: Medical Code(s): J44.9 - Chronic obstructive pulmonary disease, unspecified (6) Diabetes mellitus Current visit: No Status: Chronic Qualifiers: Diabetes mellitus type: type 2 Diabetes mellitus predatory animal exterminator insulin use: with predatory animal exterminator use Diabetes mellitus complication status: with neurologic complications Diabetes mellitus complication detail: with polyneuropathy Qualified Code(s): E11.42 - Type 2 diabetes mellitus with diabetic polyneuropathy; Z79.4 - correction (current) use of insulin Category: Medical Code(s): E11.9 - Type 2 diabetes mellitus without complications (7) HTN (hypertension) Current visit: No Status: Chronic Qualifiers: Hypertension type: essential hypertension Qualified Code(s): I10 - Essential (primary) hypertension Category: Medical Code(s): I10 - Essential (primary) hypertension (8) Hypotension Current visit: Yes Status: Acute Category: Medical Code(s): I95.9 - Hypotension, unspecified (9) Pseudomonas respiratory infection Current visit: Yes Status: Acute Category: Medical Code(s): J98.8 - Other specified respiratory disorders; A49.8 - Other bacterial infections of unspecified site (10) Influenza A Current visit: Yes Status: Acute Category: Medical Code(s): J10.1 - Influenza due to other identified influenza virus with other respiratory manifestations - Assessment and plan all Dx Assessment and Plan for all problems:: Will continue BIPAP, abx, nebs, steroids and will add tamiflu for Influenza A.
--- NOTE | 2018-05-19 09:30 | Pharmacy Consult Notes ---
- Pharmacy Consult Date: 05/19/18 Time: 09:27 Referring provider: DR. VALENCIA Reason for Consult:: TOBRAMYCIN LEVELS AND DOSE CHANGE Allergies and ADEs:: Allergies Allergy/AdvReac Type Severity Reaction Status Date / Time bacitracin Allergy Intermediate Rash Verified 05/09/18 14:40 [From NEOSPORIN ([id number])] doxycycline Allergy Mild Rash Verified 05/09/18 14:40 neomycin Allergy Mild Rash Verified 05/09/18 14:40 [From NEOSPORIN ([id number])] Penicillins Allergy Mild Rash Verified 05/09/18 14:40 polymyxin B Allergy Mild Rash Verified 05/09/18 14:40 [From NEOSPORIN ([id number])] sertraline [From Zoloft] AdvReac Severe Hallucinati Verified 05/09/18 14:40 ng tea tree AdvReac Severe Verified 05/18/18 15:00 Home Medications:: Home Medications Medication Instructions Recorded Confirmed Type alprazolam 0.25 mg tablet 0.25 mg PO TID tab 06/14/17 05/17/18 History insulin aspart U- 100 100 unit/mL 8 unit SUB-Q TID ml 06/14/17 05/17/18 History subcutaneous pen nitroglycerin 0.4 mg sublingual 0.4 mg SUBLINGUAL Q5MINP PRN 06/14/17 05/17/18 History tablet omega-3 fatty acids 1,000 mg 1,000 mg PO DAILY 06/14/17 05/17/18 History capsule venlafaxine 50 mg tablet 50 mg PO BID 90 Days #180 tab 08/31/17 05/17/18 History mirabegron ER 50 mg 50 mg PO DAILY tab 09/14/17 05/17/18 History tablet,extended release 24 hr Aspirin [Low Dose Aspirin EC] 81 mg PO DAILY 10/27/17 05/17/18 History Clopidogrel Bisulfate [Plavix 75mg 75 mg PO DAILY 10/27/17 05/17/18 History Tab] Dexlansoprazole [Dexilant] 60 mg PO DAILY 02/17/18 05/17/18 History Hydrocod/Acet 5/325 mg [[place] 1 tab PO TIDP PRN 02/17/18 05/17/18 History 5/325mg tablet] Insulin Glargine,Hum.rec.anlog 45 unit SQ DAILY 02/17/18 05/17/18 History [Basaglar Kwikpen U-100] Polyethylene Glycol 3350 [Miralax 17 gm PO DAILY 02/17/18 05/17/18 History 17gm Packet] Rosuvastatin Calcium 10 mg PO HS 02/17/18 05/17/18 History Trazodone HCl 100 mg PO HS 02/17/18 05/17/18 History quetiapine 200 mg tablet 200 mg PO HS tab 03/15/18 05/18/18 History Amlodipine Besylate 5 mg PO DAILY 05/09/18 05/17/18 History Furosemide [Furosemide 20mg Tab] 20 mg PO DAILY 05/09/18 05/18/18 History Insulin Detemir [Levemir 100 43 unit SQ DAILY 05/09/18 05/17/18 History units/mL 10mL vial] Lactulose [Lactulose 10gm/15ml 10 gm PO QID 05/09/18 05/17/18 History Oral Soln] Losartan Potassium 25 mg PO DAILY 05/09/18 05/17/18 History Metoprolol Succinate 50 mg PO DAILY 05/09/18 05/17/18 History Tiotropium Br/Olodaterol HCl 2 puffs IH DAILY 05/09/18 05/17/18 History [Stiolto Respimat Inhal [place]] Potassium Chloride [Klor-con 20 20 meq PO DAILY 05/10/18 05/18/18 History mEq tablet] Nicotine [Nicoderm 21mg/24hr 21 mg TD DAILY 05/17/18 05/17/18 History patch] dilTIAZem HCl [Diltiazem 240mg 240 mg PO DAILY 05/17/18 05/17/18 History 24Hr ER Cap] levoFLOXacin [Levaquin 500mg 500 mg PO DAILY 05/17/18 05/17/18 History tab] predniSONE [Deltasone 20mg 20 mg PO DAILY 05/17/18 05/17/18 History tablet] Height: 1.68 m Weight: 92.675 kg Laboratory Results:: Laboratory Results - last 24 hr 05/18/18 09:55: Influenza Type A Ag Positive A, Influenza Type B Ag Negative 05/18/18 11:23: POC Glucose 366 H* 05/18/18 14:26: Random Tobramycin 5.6 05/18/18 16:26: POC Glucose 285 H 05/18/18 19:54: POC Glucose 325 H* 05/18/18 23:21: Random Tobramycin 1.8 05/19/18 06:05: POC Glucose 340 H* Medical History: Reports:: Atherosclerotic Heart Disease, Cancer, Congestive Heart Failure, Chronic Obstructive Pulmonary Disease (COPD), Coronary Artery Disease, Diabetes Mellitus Type 2, Gastroesophageal Reflux Disease(GERD), Hyperlipidemia, Hypertension, Lung Disease, Peripheral Vascular Disease Denies:: Diabetes Mellitus Type 1, MRSA Assessment and Plan (1) Acute respiratory failure with hypoxia and hypercapnia Current visit: Yes Status: Acute Category: Medical Code(s): J96.01 - Acute respiratory failure with hypoxia; J96.02 - Acute respiratory failure with hypercapnia (2) COPD exacerbation Current visit: Yes Status: Acute Category: Medical Code(s): J44.1 - Chronic obstructive pulmonary disease with (acute) exacerbation (3) Tobacco abuse Current visit: No Status: Chronic Category: Medical Code(s): Z72.0 - Tobacco use (4) CAD (coronary artery disease) Current visit: No Status: Chronic Qualifiers: Coronary Disease-Associated Artery/Lesion type: [place] artery [place] vs. transplanted heart: [place] heart Associated angina: with other forms of angina Qualified Code(s): I25.118 - Atherosclerotic heart disease of [place] coronary artery with other forms of angina pectoris Category: Medical Code(s): I25.10 - Atherosclerotic heart disease of [place] coronary artery without angina pectoris (5) COPD (chronic obstructive pulmonary disease) Current visit: No Status: Chronic Qualifiers: COPD type: chronic bronchitis Chronic bronchitis type: unspecified Qualified Code(s): J42 - Unspecified chronic bronchitis Category: Medical Code(s): J44.9 - Chronic obstructive pulmonary disease, unspecified (6) Diabetes mellitus Current visit: No Status: Chronic Qualifiers: Diabetes mellitus type: type 2 Diabetes mellitus [facility] insulin use: with terminal system operator use Diabetes mellitus complication status: with neurologic complications Diabetes mellitus complication detail: with polyneuropathy Qualified Code(s): E11.42 - Type 2 diabetes mellitus with diabetic polyneuropathy; Z79.4 - detention (current) use of insulin Category: Medical Code(s): E11.9 - Type 2 diabetes mellitus without complications (7) HTN (hypertension) Current visit: No Status: Chronic Qualifiers: Hypertension type: essential hypertension Qualified Code(s): I10 - Essential (primary) hypertension Category: Medical Code(s): I10 - Essential (primary) hypertension (8) Hypotension Current visit: Yes Status: Acute Category: Medical Code(s): I95.9 - Hypotension, unspecified (9) Pseudomonas respiratory infection Current visit: Yes Status: Acute Category: Medical Code(s): J98.8 - Other specified respiratory disorders; A49.8 - Other bacterial infections of unspecified site (10) Influenza A Current visit: Yes Status: Acute Category: Medical Code(s): J10.1 - Influenza due to other identified influenza virus with other respiratory manifestations - Assessment and plan all Dx Assessment and Plan for all problems:: PATIENT TOBRAMYCIN LEVELS WERE 5.6 MCG/ML AND 1.8 MCG/ML AT 4 AND 12 HOUR, RESPECTIVELY. CALCULATED CMAX OF 8.57 MCG/ML AND CMIN OF 0.33 MCG/ML. RECOMMEND INCREASING DOSE TO TOBRAMYCIN 480 MG AND CHANGING DOSING INTERVAL TO Q36H AT THIS TIME. PHARMACY WILL FOLLOW DAILY AND ADJUST APPROPRIATE. BESS AGUAYO, PHARMD
--- NOTE | 2018-05-20 08:31 | Progress Note ---
Internal Medicine - PN: Subj *Date: 05/20/18 *Time: 08:26 Interval history: Patient states she is feeling better this morning. She is now on Vapotherm and is tolerating this better than the BiPAP. She states she was up in a chair yesterday for most of the day. She is coughing less and has less shortness of breath. Exam Vital signs and Labs for Last 24 Hours: Temp Pulse Resp BP Pulse Ox 98.0 F 65 18 120/85 91 L 05/20/18 08:00 05/20/18 08:00 05/20/18 08:00 05/20/18 08:00 05/20/18 08:00 Laboratory Results - last 24 hr 05/19/18 11:30: POC Glucose 455 H* 05/19/18 16:41: POC Glucose 445 H* 05/19/18 21:22: POC Glucose 357 H* 05/19/18 23:00: Random Tobramycin 2.8 I & O for Last 24 hours: Intake & Output 05/17/18 05/18/18 05/19/18 05/20/18 11:59 11:59 11:59 11:59 Intake Total 0 / 0 940 / 940 840 / 840 Output Total 800 / 800 1500 / 1500 2150 / 2150 Balance -800 / -800 -560 / -560 -1310 / -1310 Weight 203 lb 2 oz 204 lb 5 oz 204 lb 9 oz Microbiology Reports for the Last 24 Hours: Microbiology 05/17/18 14:40 Blood Blood Culture - Preliminary NO GROWTH AFTER 48 HOURS 05/17/18 14:40 Blood Blood Culture - Preliminary NO GROWTH AFTER 48 HOURS - Constitutional no acute distress - *Routine Respiratory Exam Present: rales, wheezes - *Routine Cardiovascular Exam Present: RRR - *Routine Abdominal Exam Present: soft, normoactive bowel sounds. Absent: tenderness - *Routine Extremities Exam Absent: cyanosis, clubbing, edema Assessment and Plan (1) Acute respiratory failure with hypoxia and hypercapnia Current visit: Yes Status: Acute Category: Medical Code(s): J96.01 - Acute respiratory failure with hypoxia; J96.02 - Acute respiratory failure with hypercapnia (2) COPD exacerbation Current visit: Yes Status: Acute Category: Medical Code(s): J44.1 - Chronic obstructive pulmonary disease with (acute) exacerbation (3) Tobacco abuse Current visit: No Status: Chronic Category: Medical Code(s): Z72.0 - Tobacco use (4) CAD (coronary artery disease) Current visit: No Status: Chronic Qualifiers: Coronary Disease-Associated Artery/Lesion type: [place] artery [place] vs. transplanted heart: [place] heart Associated angina: with other forms of angina Qualified Code(s): I25.118 - Atherosclerotic heart disease of [place] coronary artery with other forms of angina pectoris Category: Medical Code(s): I25.10 - Atherosclerotic heart disease of [place] coronary artery without angina pectoris (5) COPD (chronic obstructive pulmonary disease) Current visit: No Status: Chronic Qualifiers: COPD type: chronic bronchitis Chronic bronchitis type: unspecified Qualified Code(s): J42 - Unspecified chronic bronchitis Category: Medical Code(s): J44.9 - Chronic obstructive pulmonary disease, unspecified (6) Diabetes mellitus Current visit: No Status: Chronic Qualifiers: Diabetes mellitus type: type 2 Diabetes mellitus intermediate accountant insulin use: with intermediate accountant use Diabetes mellitus complication status: with neurologic complications Diabetes mellitus complication detail: with polyneuropathy Qualified Code(s): E11.42 - Type 2 diabetes mellitus with diabetic polyneuropathy; Z79.4 - long-term (current) use of insulin Category: Medical Code(s): E11.9 - Type 2 diabetes mellitus without complicati ons (7) HTN (hypertension) Current visit: No Status: Chronic Qualifiers: Hypertension type: essential hypertension Qualified Code(s): I10 - Essential (primary) hypertension Category: Medical Code(s): I10 - Essential (primary) hypertension (8) Hypotension Current visit: Yes Status: Acute Category: Medical Code(s): I95.9 - Hypotension, unspecified (9) Pseudomonas respiratory infection Current visit: Yes Status: Acute Category: Medical Code(s): J98.8 - Other specified respiratory disorders; A49.8 - Other bacterial infections of unspecified site (10) Influenza A Current visit: Yes Status: Acute Category: Medical Code(s): J10.1 - Influenza due to other identified influenza virus with other respiratory manifestations - Assessment and plan all Dx Assessment and Plan for all problems:: Will continue antibiotics and Tamiflu. Will try to wean Vapotherm as tolerated.
--- NOTE | 2018-05-20 13:03 | Pharmacy Consult Notes ---
- Pharmacy Consult Date: 05/20/18 Time: 09:16 Referring provider: DR. VAELNCIA Reason for Consult:: GENTAMICIN LEVEL Allergies and ADEs:: Allergies Allergy/AdvReac Type Severity Reaction Status Date / Time bacitracin Allergy Intermediate Rash Verified 05/09/18 14:40 [From NEOSPORIN ([id number])] doxycycline Allergy Mild Rash Verified 05/09/18 14:40 neomycin Allergy Mild Rash Verified 05/09/18 14:40 [From NEOSPORIN ([id number])] Penicillins Allergy Mild Rash Verified 05/09/18 14:40 polymyxin B Allergy Mild Rash Verified 05/09/18 14:40 [From NEOSPORIN ([id number])] sertraline [From Zoloft] AdvReac Severe Hallucinati Verified 05/09/18 14:40 ng tea tree AdvReac Severe Verified 05/18/18 15:00 green tea AdvReac Verified 05/19/18 14:30 Home Medications:: Home Medications Medication Instructions Recorded Confirmed Type alprazolam 0.25 mg tablet 0.25 mg PO TID tab 06/14/17 05/17/18 History insulin aspart U- 100 100 unit/mL 8 unit SUB-Q TID ml 06/14/17 05/17/18 History subcutaneous pen nitroglycerin 0.4 mg sublingual 0.4 mg SUBLINGUAL Q5MINP PRN 06/14/17 05/17/18 History tablet omega-3 fatty acids 1,000 mg 1,000 mg PO DAILY 06/14/17 05/17/18 History capsule venlafaxine 50 mg tablet 50 mg PO BID 90 Days #180 tab 08/31/17 05/17/18 History mirabegron ER 50 mg 50 mg PO DAILY tab 09/14/17 05/17/18 History tablet,extended release 24 hr Aspirin [Low Dose Aspirin EC] 81 mg PO DAILY 10/27/17 05/17/18 History Clopidogrel Bisulfate [Plavix 75mg 75 mg PO DAILY 10/27/17 05/17/18 History Tab] Dexlansoprazole [Dexilant] 60 mg PO DAILY 02/17/18 05/17/18 History Hydrocod/Acet 5/325 mg [[place] 1 tab PO TIDP PRN 02/17/18 05/17/18 History 5/325mg tablet] Insulin Glargine,Hum.rec.anlog 45 unit SQ DAILY 02/17/18 05/17/18 History [Basaglar Kwikpen U-100] Polyethylene Glycol 3350 [Miralax 17 gm PO DAILY 02/17/18 05/17/18 History 17gm Packet] Rosuvastatin Calcium 10 mg PO HS 02/17/18 05/17/18 History Trazodone HCl 100 mg PO HS 02/17/18 05/17/18 History quetiapine 200 mg tablet 200 mg PO HS tab 03/15/18 05/18/18 History Amlodipine Besylate 5 mg PO DAILY 05/09/18 05/17/18 History Furosemide [Furosemide 20mg Tab] 20 mg PO DAILY 05/09/18 05/18/18 History Insulin Detemir [Levemir 100 43 unit SQ DAILY 05/09/18 05/17/18 History units/mL 10mL vial] Lactulose [Lactulose 10gm/15ml 10 gm PO QID 05/09/18 05/17/18 History Oral Soln] Losartan Potassium 25 mg PO DAILY 05/09/18 05/17/18 History Metoprolol Succinate 50 mg PO DAILY 05/09/18 05/17/18 History Tiotropium Br/Olodaterol HCl 2 puffs IH DAILY 05/09/18 05/17/18 History [Stiolto Respimat Inhal [place]] Potassium Chloride [Klor-con 20 20 meq PO DAILY 05/10/18 05/18/18 History mEq tablet] Nicotine [Nicoderm 21mg/24hr 21 mg TD DAILY 05/17/18 05/17/18 History patch] dilTIAZem HCl [Diltiazem 240mg 240 mg PO DAILY 05/17/18 05/17/18 History 24Hr ER Cap] levoFLOXacin [Levaquin 500mg 500 mg PO DAILY 05/17/18 05/17/18 History tab] predniSONE [Deltasone 20mg 20 mg PO DAILY 05/17/18 05/17/18 History tablet] Height: 1.68 m Weight: 92.788 kg Laboratory Results:: Laboratory Results - last 24 hr 05/19/18 11:30: POC Glucose 455 H* 05/19/18 16:41: POC Glucose 445 H* 05/19/18 21:22: POC Glucose 357 H* 05/19/18 23:00: Random Tobramycin 2.8 Medical History: Reports:: Atherosclerotic Heart Disease, Cancer, Congestive Heart Failure, Chronic Obstructive Pulmonary Disease (COPD), Coronary Artery Disease, Diabetes Mellitus Type 2, Gastroesophageal Reflux Disease(GERD), Hyperlipidemia, Hypertension, Lung Disease, Peripheral Vascular Disease Denies:: Diabetes Mellitus Type 1, MRSA Assessment and Plan (1) Acute respiratory failure with hypoxia and hypercapnia Current visit: Yes Status: Acute Category: Medical Code(s): J96.01 - Acute respiratory failure with hypoxia; J96.02 - Acute respiratory failure with hypercapnia (2) COPD exacerbation Current visit: Yes Status: Acute Category: Medical Code(s): J44.1 - Chronic obstructive pulmonary disease with (acute) exacerbation (3) Tobacco abuse Current visit: No Status: Chronic Category: Medical Code(s): Z72.0 - Tobacco use (4) CAD (coronary artery disease) Current visit: No Status: Chronic Qualifiers: Coronary Disease-Associated Artery/Lesion type: [place] artery [place] vs. transplanted heart: [place] heart Associated angina: with other forms of angina Qualified Code(s): I25.118 - Atherosclerotic heart disease of [place] coronary artery with other forms of angina pectoris Category: Medical Code(s): I25.10 - Atherosclerotic heart disease of [place] coronary artery without angina pectoris (5) COPD (chronic obstructive pulmonary disease) Current visit: No Status: Chronic Qualifiers: COPD type: chronic bronchitis Chronic bronchitis type: unspecified Qualified Code(s): J42 - Unspecified chronic bronchitis Category: Medical Code(s): J44.9 - Chronic obstructive pulmonary disease, unspecified (6) Diabetes mellitus Current visit: No Status: Chronic Qualifiers: Diabetes mellitus type: type 2 Diabetes mellitus keno terminal operator insulin use: with group home use Diabetes mellitus complication status: with neurologic complications Diabetes mellitus complication detail: with polyneuropathy Qualified Code(s): E11.42 - Type 2 diabetes mellitus with diabetic polyneuropathy; Z79.4 - [facility] (current) use of insulin Category: Medical Code(s): E11.9 - Type 2 diabetes mellitus without complications (7) HTN (hypertension) Current visit: No Status: Chronic Qualifiers: Hypertension type: essential hypertension Qualified Code(s): I10 - Essential (primary) hypertension Category: Medical Code(s): I10 - Essential (primary) hypertension (8) Hypotension Current visit: Yes Status: Acute Category: Medical Code(s): I95.9 - Hypotension, unspecified (9) Pseudomonas respiratory infection Current visit: Yes Status: Acute Category: Medical Code(s): J98.8 - Other specified respiratory disorders; A49.8 - Other bacterial infections of unspecified site (10) Influenza A Current visit: Yes Status: Acute Category: Medical Code(s): J10.1 - Influenza due to other identified influenza virus with other respiratory manifestations - Assessment and plan all Dx Assessment and Plan for all problems:: PATIENT'S GENTAMICIN TROUGH LEVEL WAS 2.8 MCG/ML OVERNIGHT AT THE 12 HOUR POST INFUSION TIME. RECOMMEND CONTINUING WITH Q36H DOSING INTERVAL AT THIS TIME. PHARMACY WILL FOLLOW DAILY AND ADJUST APPROPRIATE. BESS AGUAYO, PHARMD
--- NOTE | 2018-05-21 09:46 | Progress Note ---
Internal Medicine - PN: Subj *Date: 05/21/18 *Time: 09:44 Interval history: She is remarkably stable on Vapotherm. She will be here through the weekend. The [facility] unit from [facility] may be an option. Exam Vital signs and Labs for Last 24 Hours: Temp Pulse Resp BP Pulse Ox 97.9 F 84 26 H 108/63 L 93 L 05/21/18 08:08 05/21/18 08:08 05/21/18 08:08 05/21/18 08:08 05/21/18 08:08 Laboratory Results - last 24 hr 05/20/18 06:18: POC Glucose 378 H* 05/20/18 11:04: POC Glucose 444 H* 05/20/18 16:44: POC Glucose 408 H* 05/20/18 20:13: POC Glucose 322 H* 05/21/18 06:22: POC Glucose 408 H* I & O for Last 24 hours: Intake & Output 05/18/18 05/19/18 05/20/18 05/21/18 11:59 11:59 11:59 11:59 Intake Total 0 / 0 940 / 940 940 / 940 600 / 600 Output Total 800 / 800 1500 / 1500 3050 / 3050 2800 / 2800 Balance -800 / -800 -560 / -560 -2110 / -2110 -2200 / -2200 Weight 203 lb 2 oz 204 lb 5 oz 204 lb 9 oz 203 lb 1 oz - Constitutional no acute distress - *Routine HEENT Exam Head: Present: normocephalic (Her color is definitely better.) - *Routine Respiratory Exam Comments: Good air movement. Bibasilar rales. - *Routine Cardiovascular Exam Present: RRR - *Routine Abdominal Exam Present: soft. Absent: tenderness - *Routine Extremities Exam Absent: edema (ANNELISE stockings) Assessment and Plan (1) Acute respiratory failure with hypoxia and hypercapnia Current visit: Yes Status: Acute Category: Medical Code(s): J96.01 - Acute respiratory failure with hypoxia; J96.02 - Acute respiratory failure with hypercapnia (2) COPD exacerbation Current visit: Yes Status: Acute Category: Medical Code(s): J44.1 - Chronic obstructive pulmonary disease with (acute) exacerbation (3) Tobacco abuse Current visit: No Status: Chronic Category: Medical Code(s): Z72.0 - Tobacco use (4) CAD (coronary artery disease) Current visit: No Status: Chronic Qualifiers: Coronary Disease-Associated Artery/Lesion type: [place] artery [place] vs. transplanted heart: [place] heart Associated angina: with other forms of angina Qualified Code(s): I25.118 - Atherosclerotic heart disease of [place] coronary artery with other forms of angina pectoris Category: Medical Code(s): I25.10 - Atherosclerotic heart disease of [place] coronary artery without angina pectoris (5) COPD (chronic obstructive pulmonary disease) Current visit: No Status: Chronic Qualifiers: COPD type: chronic bronchitis Chronic bronchitis type: unspecified Qualified Code(s): J42 - Unspecified chronic bronchitis Category: Medical Code(s): J44.9 - Chronic obstructive pulmonary disease, unspecified (6) Diabetes mellitus Current visit: No Status: Chronic Qualifiers: Diabetes mellitus type: type 2 Diabetes mellitus longterm insulin use: with longterm use Diabetes mellitus complication status: with neurologic complications Diabetes mellitus complication detail: with polyneuropathy Qualified Code(s): E11.42 - Type 2 diabetes mellitus with diabetic polyneuropathy; Z79.4 - assisted (current) use of insulin Category: Medical Code(s): E11.9 - Type 2 diabetes mellitus without complications (7) HTN (hypertension) Current visit: No Status: Chronic Qualifiers: Hypertension type: essential hypertension Qualified Code(s): I10 - Essential (primary) hypertension Category: Medical Code(s): I10 - Essential (primary) hypertension (8) Hypotension Current visit: Yes Status: Acute Category: Medical Code(s): I95.9 - Hypotension, unspecified (9) Pseudomonas respiratory infection Current visit: Yes Status: Acute Category: Medical Code(s): J98.8 - Other specified respiratory disorders; A49.8 - Other bacterial infections of unspecified site (10) Influenza A Current visit: Yes Status: Acute Category: Medical Code(s): J10.1 - Influenza due to other identified influenza virus with other respiratory manifestations - Assessment and plan all Dx Assessment and Plan for all problems:: Continue present course.
--- NOTE | 2018-05-21 10:20 | Progress Note ---
Internal Medicine - PN: Subj *Date: 05/21/18 *Time: 10:20 Exam Vital signs and Labs for Last 24 Hours: Temp Pulse Resp BP Pulse Ox 97.9 F 84 26 H 108/63 L 93 L 05/21/18 08:08 05/21/18 08:08 05/21/18 08:08 05/21/18 08:08 05/21/18 08:08 Laboratory Results - last 24 hr 05/20/18 06:18: POC Glucose 378 H* 05/20/18 11:04: POC Glucose 444 H* 05/20/18 16:44: POC Glucose 408 H* 05/20/18 20:13: POC Glucose 322 H* 05/21/18 06:22: POC Glucose 408 H* I & O for Last 24 hours: Intake & Output 05/18/18 05/19/18 05/20/18 05/21/18 23:59 23:59 23:59 23:59 Intake Total 580 / 580 1300 / 1300 600 / 600 Output Total 1400 / 1400 2200 / 2200 3650 / 3650 1800 / 1800 Balance -820 / -820 -900 / -900 -3650 / -3650 -1200 / -1200 Weight 92.079 kg 92.675 kg 92.788 kg 92.108 kg Assessment and Plan (1) Acute respiratory failure with hypoxia and hypercapnia Current visit: Yes Status: Acute Category: Medical Code(s): J96.01 - Acute respiratory failure with hypoxia; J96.02 - Acute respiratory failure with hypercapnia (2) COPD exacerbation Current visit: Yes Status: Acute Category: Medical Code(s): J44.1 - Chronic obstructive pulmonary disease with (acute) exacerbation (3) Tobacco abuse Current visit: No Status: Chronic Category: Medical Code(s): Z72.0 - Tobacco use (4) CAD (coronary artery disease) Current visit: No Status: Chronic Qualifiers: Coronary Disease-Associated Artery/Lesion type: [place] artery [place] vs. transplanted heart: [place] heart Associated angina: with other forms of angina Qualified Code(s): I25.118 - Atherosclerotic heart disease of [place] coronary artery with other forms of angina pectoris Category: Medical Code(s): I25.10 - Atherosclerotic heart disease of [place] coronary artery without angina pectoris (5) COPD (chronic obstructive pulmonary disease) Current visit: No Status: Chronic Qualifiers: COPD type: chronic bronchitis Chronic bronchitis type: unspecified Qualified Code(s): J42 - Unspecified chronic bronchitis Category: Medical Code(s): J44.9 - Chronic obstructive pulmonary disease, unspecified (6) Diabetes mellitus Current visit: No Status: Chronic Qualifiers: Diabetes mellitus type: type 2 Diabetes mellitus [facility] insulin use: with intermodal customer service use Diabetes mellitus complication status: with neurologic complications Diabetes mellitus complication detail: with polyneuropathy Qualified Code(s): E11.42 - Type 2 diabetes mellitus with diabetic polyneuropathy; Z79.4 - senior living (current) use of insulin Category: Medical Code(s): E11.9 - Type 2 diabetes mellitus without complications (7) HTN (hypertension) Current visit: No Status: Chronic Qualifiers: Hypertension type: essential hypertension Qualified Code(s): I10 - Essential (primary) hypertension Category: Medical Code(s): I10 - Essential (primary) hypertension (8) Hypotension Current visit: Yes Status: Acute Category: Medical Code(s): I95.9 - Hypotension, unspecified (9) Pseudomonas respiratory infection Current visit: Yes Status: Acute Category: Medical Code(s): J98.8 - Other specified respiratory disorders; A49.8 - Other bacterial infections of unspecified site (10) Influenza A Current visit: Yes Status: Acute Category: Medical Code(s): J10.1 - Influenza due to other identified influenza virus with other respiratory manifestations The patient's infection will respond to the chosen ABx?: Yes Is the patient receiving the right drug, dose, and route?: Yes Could a more targeted ABx be ordered?: No
[2018-05-22 06:49] LABS: Basophils % 0.2 % (0.1-2.0); Eosinophils % 0.1 % (0.1-12.0); Hematocrit 38.5 % (37.0-47.0); Hemoglobin 12.1 g/dL (12.2-16.2); Lymphocytes # 0.3 K/mm3 (0.7-4.5); Lymphocytes % 5.8 % (10-50); Mean Corpuscular HGB Conc 31.5 g/dL (31.8-35.4); Mean Corpuscular Hemoglobin 28.2 pg (27.0-31.2); Mean Corpuscular Volume 89.4 fl (81-99); Mean Platelet Volume 9.1 fl (7.4-10.4); Monocytes # 0.2 K/mm3 (0.1-1.0); Monocytes % 3.4 % (1.7-9.3); Neutrophils # 4.1 K/mm3 (1.8-7.8); Neutrophils % 90.5 % (37.0-80.0); Platelet Count 77 K/mm3 (142-424); Red Blood Count 4.31 M/mm3 (4.20-5.40); White Blood Count 4.5 K/mm3 (4.8-10.8)
[2018-05-22 07:10] LABS: Lymphocytes % 10 % (10-50); Monocytes % 1 % (2-9); Neutrophils % 78 % (42-76); Total Cells Counted 100
[2018-05-22 07:11] LABS: Anisocytosis 1+; Hypochromasia 3+; Polychromasia 2+
--- NOTE | 2018-05-22 16:31 | Progress Note ---
Internal Medicine - PN: Subj *Date: 05/22/18 *Time: 16:29 Interval history: She has really done well with the Vapotherm. She is anxious to go home. We will make those arrangements in the morning. Exam Vital signs and Labs for Last 24 Hours: Temp Pulse Resp BP Pulse Ox 98.2 F 76 20 117/71 94 L 05/22/18 16:00 05/22/18 16:00 05/22/18 16:00 05/22/18 16:00 05/22/18 16:00 Laboratory Results - last 24 hr 05/21/18 17:04: POC Glucose 274 H 05/21/18 19:57: POC Glucose 367 H* 05/22/18 06:14: WBC 4.5 L, RBC 4.31, Hgb 12.1 L, Hct 38.5, MCV 89.4, MCH 28.2, MCHC 31.5 L, RDW 16.0, Plt Count 77 L, MPV 9.1, Neut % (Auto) 90.5 H, Lymph % (Auto) 5.8 L, [place] % (Auto) 3.4, Eos % (Auto) 0.1, Baso % (Auto) 0.2, Neut # (Auto) 4.1, Lymph # (Auto) 0.3 L, Saunders # (Auto) 0.2, Eos # (Auto) 0.0, Baso # (Auto) 0.0, Total Counted 100, Neutrophils % (Manual) 78 H, Band Neutrophils % 11.0 H, Lymphocytes % (Manual) 10, Monocytes % (Manual) 1 L, Platelet Estimate Slight decrease, Polychromasia 2+, Hypochromasia 3+, Anisocytosis 1+ 05/22/18 06:19: POC Glucose 430 H* 05/22/18 11:02: POC Glucose 433 H* I & O for Last 24 hours: Intake & Output 05/20/18 05/21/18 05/22/18 05/23/18 11:59 11:59 11:59 11:59 Intake Total 940 / 940 700 / 700 1404 / 1404 480 / 480 Output Total 3050 / 3050 3700 / 3700 3150 / 3150 600 / 600 Balance -2110 / -2110 -3000 / -3000 -1746 / -1746 -120 / -120 Weight 204 lb 9 oz 203 lb 1 oz 203 lb 2 oz Microbiology Reports for the Last 24 Hours: Microbiology 05/17/18 14:40 Blood Blood Culture - Final NO GROWTH AFTER 5 DAYS 05/17/18 14:40 Blood Blood Culture - Final NO GROWTH AFTER 5 DAYS - Constitutional no acute distress - *Routine Respiratory Exam Comments: Air movement is good. Bibasilar fibrotic rales. Breath sounds are decreased. - *Routine Cardiovascular Exam Present: RRR - *Routine Abdominal Exam Present: soft. Absent: tenderness - *Routine Extremities Exam Absent: edema (ANNELISE stockings) Assessment and Plan (1) Acute respiratory failure with hypoxia and hypercapnia Current visit: Yes Status: Acute Category: Medical Code(s): J96.01 - Acute respiratory failure with hypoxia; J96.02 - Acute respiratory failure with hypercapnia (2) COPD exacerbation Current visit: Yes Status: Acute Category: Medical Code(s): J44.1 - Chronic obstructive pulmonary disease with (acute) exacerbation (3) Tobacco abuse Current visit: No Status: Chronic Category: Medical Code(s): Z72.0 - Tobacco use (4) CAD (coronary artery disease) Current visit: No Status: Chronic Qualifiers: Coronary Disease-Associated Artery/Lesion type: [place] artery [place] vs. transplanted heart: [place] heart Associated angina: with other forms of angina Qualified Code(s): I25.118 - Atherosclerotic heart disease of [place] coronary artery with other forms of angina pectoris Category: Medical Code(s): I25.10 - Atherosclerotic heart disease of [place] coronary artery without angina pectoris (5) COPD (chronic obstructive pulmonary disease) Current visit: No Status: Chronic Qualifiers: COPD type: chronic bronchitis Chronic bronchitis type: unspecified Qualified Code(s): J42 - Unspecified chronic bronchitis Category: Medical Code(s): J44.9 - Chronic obstructive pulmonary disease, unspecified (6) Diabetes mellitus Current visit: No Status: Chronic Qualifiers: Diabetes mellitus type: type 2 Diabetes mellitus shelter insulin use: with exterminator termite use Diabetes mellitus complication status: with neurologic complications Diabetes mellitus complication detail: with polyneuropathy Qualified Code(s): E11.42 - Type 2 diabetes mellitus with diabetic polyneuropathy; Z79.4 - terminal press operator (current) use of insulin Category: Medical Code(s): E11.9 - Type 2 diabetes mellitus without complications (7) HTN (hypertension) Current visit: No Status: Chronic Qualifiers: Hypertension type: essential hypertension Qualified Code(s): I10 - Essential (primary) hypertension Category: Medical Code(s): I10 - Essential (primary) hypertension (8) Hypotension Current visit: Yes Status: Acute Category: Medical Code(s): I95.9 - Hypotension, unspecified (9) Pseudomonas respiratory infection Current visit: Yes Status: Acute Category: Medical Code(s): J98.8 - Other specified respiratory disorders; A49.8 - Other bacterial infections of unspecified site (10) Influenza A Current visit: Yes Status: Acute Category: Medical Code(s): J10.1 - Influenza due to other identified influenza virus with other respiratory man ifestations - Assessment and plan all Dx Assessment and Plan for all problems:: Continue present regimen.
--- NOTE | 2018-05-23 08:31 | Progress Note ---
Addendum entered and electronically signed by Marce Lauren APRN 05/23/18 08:50: O2 sats at 93-95% on oxygen at 3 L/min. Patient continues to feel comfortable. Original Note: Internal Medicine - PN: Subj *Date: 05/23/18 *Time: 08:27 Interval history: Patient states feeling so much better. Her breathing has improved. She continues to have a cough at times. Her Vapotherm came out this morning and she was placed on oxygen per nasal cannula at 3 L/min By me. She is sitting on the side eating her breakfast. She is voiding without difficulty. Exam Vital signs and Labs for Last 24 Hours: Temp Pulse Resp BP Pulse Ox 98.1 F 83 21 155/77 H 88 L 05/23/18 07:31 05/23/18 07:31 05/23/18 07:31 05/23/18 07:31 05/23/18 08:07 Laboratory Results - last 24 hr 05/22/18 11:02: POC Glucose 433 H* 05/22/18 16:35: POC Glucose 288 H 05/22/18 20:27: POC Glucose 361 H* 05/23/18 06:07: POC Glucose 304 H* I & O for Last 24 hours: Intake & Output 05/20/18 05/21/18 05/22/18 05/23/18 11:59 11:59 11:59 11:59 Intake Total 940 / 940 700 / 700 1404 / 1404 988 / 988 Output Total 3050 / 3050 3700 / 3700 3150 / 3150 2500 / 2500 Balance -2110 / -2110 -3000 / -3000 -1746 / -1746 -1512 / -1512 Weight 204 lb 9 oz 203 lb 1 oz 203 lb 2 oz 202 lb 6 oz Microbiology Reports for the Last 24 Hours: Microbiology 05/17/18 14:40 Blood Blood Culture - Final NO GROWTH AFTER 5 DAYS 05/17/18 14:40 Blood Blood Culture - Final NO GROWTH AFTER 5 DAYS - Constitutional no acute distress Comments: Sitting on the bedside completing her breakfast. While in the room placed on nasal cannula at 3 L a minute. - *Routine Respiratory Exam Comments: Bilateral crackles and scattered wheezing posteriorly - *Routine Cardiovascular Exam Present: RRR - *Routine Abdominal Exam Present: soft, normoactive bowel sounds. Absent: tenderness, distended - *Routine Extremities Exam Comments: Teds on - *Routine Neurological Exam Present: alert, oriented X3 Assessment and Plan (1) Acute respiratory failure with hypoxia and hypercapnia Current visit: Yes Status: Acute Category: Medical Code(s): J96.01 - Acute respiratory failure with hypoxia; J96.02 - Acute respiratory failure with hypercapnia (2) COPD exacerbation Current visit: Yes Status: Acute Category: Medical Code(s): J44.1 - Chronic obstructive pulmonary disease with (acute) exacerbation (3) Tobacco abuse Current visit: No Status: Chronic Category: Medical Code(s): Z72.0 - Tobacco use (4) CAD (coronary artery disease) Current visit: No Status: Chronic Qualifiers: Coronary Disease-Associated Artery/Lesion type: [place] artery [place] vs. transplanted heart: [place] heart Associated angina: with other forms of angina Qualified Code(s): I25.118 - Atherosclerotic heart disease of [place] coronary artery with other forms of angina pectoris Category: Medical Code(s): I25.10 - Atherosclerotic heart disease of [place] coronary artery without angina pectoris (5) COPD (chronic obstructive pulmonary disease) Current visit: No Status: Chronic Qualifiers: COPD type: chronic bronchitis Chronic bronchitis type: unspecified Qualified Code(s): J42 - Unspecified chronic bronchitis Category: Medical Code(s): J44.9 - Chronic obstructive pulmonary disease, unspecified (6) Diabetes mellitus Current visit: No Status: Chronic Qualifiers: Diabetes mellitus type: type 2 Diabetes mellitus termite inspector insulin use: with termite inspector use Diabetes mellitus complication status: with neurologic complications Diabetes mellitus complication detail: with polyneuropathy Qualified Code(s): E11.42 - Type 2 diabetes mellitus with diabetic polyneuropathy; Z79.4 - termite inspector (current) use of insulin Category: Medical Code(s): E11.9 - Type 2 diabetes mellitus without complica tions (7) HTN (hypertension) Current visit: No Status: Chronic Qualifiers: Hypertension type: essential hypertension Qualified Code(s): I10 - Essential (primary) hypertension Category: Medical Code(s): I10 - Essential (primary) hypertension (8) Hypotension Current visit: Yes Status: Acute Category: Medical Code(s): I95.9 - Hypotension, unspecified (9) Pseudomonas respiratory infection Current visit: Yes Status: Acute Category: Medical Code(s): J98.8 - Other specified respiratory disorders; A49.8 - Other bacterial infections of unspecified site (10) Influenza A Current visit: Yes Status: Acute Category: Medical Code(s): J10.1 - Influenza due to other identified influenza virus with other respiratory manifestations - Assessment and plan all Dx Assessment and Plan for all problems:: We will see how she is on nasal oxygen. Continue with pulmonary hygiene. Patient states that when she goes home she will not smoke.
--- NOTE | 2018-05-23 13:38 | Progress Note ---
Internal Medicine - PN: Subj *Date: 05/23/18 *Time: 13:35 Interval history: She is able to get the Trilogy unit from [facility] With her diagnosis of respiratory failure due to COPD she will benefit from volume ventilation. This will be preferable to the high pressure BiPap for treatment at home. Exam Vital signs and Labs for Last 24 Hours: Temp Pulse Resp BP Pulse Ox 98.4 F 82 20 127/74 89 L 05/23/18 11:41 05/23/18 11:41 05/23/18 11:41 05/23/18 11:41 05/23/18 11:41 Laboratory Results - last 24 hr 05/22/18 16:35: POC Glucose 288 H 05/22/18 20:27: POC Glucose 361 H* 05/23/18 06:07: POC Glucose 304 H* 05/23/18 11:28: POC Glucose 298 H I & O for Last 24 hours: Intake & Output 05/21/18 05/22/18 05/23/18 05/24/18 11:59 11:59 11:59 11:59 Intake Total 700 / 700 1404 / 1404 1568 / 1568 Output Total 3700 / 3700 3150 / 3150 2500 / 2500 Balance -3000 / -3000 -1746 / -1746 -932 / -932 Weight 203 lb 1 oz 203 lb 2 oz 202 lb 6 oz Microbiology Reports for the Last 24 Hours: Microbiology 05/17/18 14:40 Blood Blood Culture - Final NO GROWTH AFTER 5 DAYS 05/17/18 14:40 Blood Blood Culture - Final NO GROWTH AFTER 5 DAYS Assessment and Plan (1) Acute respiratory failure with hypoxia and hypercapnia Current visit: Yes Status: Acute Category: Medical Code(s): J96.01 - Acute respiratory failure with hypoxia; J96.02 - Acute respiratory failure with hypercapnia (2) COPD exacerbation Current visit: Yes Status: Acute Category: Medical Code(s): J44.1 - Chronic obstructive pulmonary disease with (acute) exacerbation (3) Tobacco abuse Current visit: No Status: Chronic Category: Medical Code(s): Z72.0 - Tobacco use (4) CAD (coronary artery disease) Current visit: No Status: Chronic Qualifiers: Coronary Disease-Associated Artery/Lesion type: [place] artery [place] vs. transplanted heart: [place] heart Associated angina: with other forms of angina Qualified Code(s): I25.118 - Atherosclerotic heart disease of [place] coronary artery with other forms of angina pectoris Category: Medical Code(s): I25.10 - Atherosclerotic heart disease of [place] coronary artery without angina pectoris (5) COPD (chronic obstructive pulmonary disease) Current visit: No Status: Chronic Qualifiers: COPD type: chronic bronchitis Chronic bronchitis type: unspecified Qu alified Code(s): J42 - Unspecified chronic bronchitis Category: Medical Code(s): J44.9 - Chronic obstructive pulmonary disease, unspecified (6) Diabetes mellitus Current visit: No Status: Chronic Qualifiers: Diabetes mellitus type: type 2 Diabetes mellitus [facility] insulin use: with [facility] use Diabetes mellitus complication status: with neurologic complications Diabetes mellitus complication detail: with polyneuropathy Qualified Code(s): E11.42 - Type 2 diabetes mellitus with diabetic polyneuropathy; Z79.4 - half-way (current) use of insulin Category: Medical Code(s): E11.9 - Type 2 diabetes mellitus without complications (7) HTN (hypertension) Current visit: No Status: Chronic Qualifiers: Hypertension type: essential hypertension Qualified Code(s): I10 - Essential (primary) hypertension Category: Medical Code(s): I10 - Essential (primary) hypertension (8) Hypotension Current visit: Yes Status: Acute Category: Medical Code(s): I95.9 - Hypotension, unspecified (9) Pseudomonas respiratory infection Current visit: Yes Status: Acute Category: Medical Code(s): J98.8 - Other specified respiratory disorders; A49.8 - Other bacterial infections of unspecified site (10) Influenza A Current visit: Yes Status: Acute Category: Medical Code(s): J10.1 - Influenza due to other identified influenza virus with other respiratory manifestations - Assessment and plan all Dx Assessment and Plan for all problems:: Discharge with the Trilogy unit. Follow-up Wednesday in [facility] with Dr. Bass.
--- NOTE | 2018-05-23 15:49 | Discharge Summary ---
General - General Admission date:: 05/17/18 Discharge date: 05/23/18 HPI HPI: Ms. Ramirez is a 62-year-old female with a history of oxygen dependent COPD, diabetes mellitus, hypertension, anxiety, bipolar disorder, tobacco use disorder, who was brought to [facility] emergency room via ambulance for altered mental status. The patient was a poor historian. Upon arrival to the emergency room she was drowsy but answered questions. She was given Narcan 1 mg IV during transport. Upon arrival to the emergency room she was on oxygen at 6 L by nasal cannula. With initial exam patient does not recall exactly what happened. She was alert. She stated she had just been progressively more short of breath. She developed a cough last night. She states she did take Levaquin and her known as prescribed. Her daughter was present and stated she had been eating and drinking normally. She did continue to smoke when she went home. Patient at this time stated that her heart palpated at times and she had some chest pain. She had not had a fever. o To note patient was hospitalized recently at [facility] from 05/09-05/12/2018. She was discharged on 20 mg of prednisone and Levaquin 500 mg daily. Her sputum culture after discharge revealed Pseudomonas which was sensitive to the Levaquin. With evaluation in the emergency room patient was placed on BiPAP for respiratory acidosis. Blood gas did improve. Patient became alert and was admitted for further evaluation and treatment with ongoing BiPAP. Hospital Course Hospital Course: After admission patient was maintained on the BiPAP throughout the night. She did rest better with less respiratory distress but remained in respiratory acidosis the following morning. BiPAP was adjusted accordingly. She also had some hypotension and some of her home meds were held. Flu test was positive for influenza a and she was started on Tamiflu. She had some epigastric pain and was started on Protonix. Sputum culture at last discharge grew Pseudomonas and she was started on Levaquin and tobramycin IV for this in addition to steroids and duo nebs. She had a repeat CT of the chest which showed a 7 mm nodule and h er COPD. See report. Initial chest x-ray showed nothing acute. She was placed on Vapotherm and gradually did improve. Her respiratory status became more stable with less cough and shortness of breath. She was able to be out of bed and sit in the chair. On 05/23/2018 patient was placed on oxygen per nasal cannula at 3 L/min. O2 sats were remaining at 91-95%. Patient was anxious to be discharged and on this day she was discharged home. Patient discharged to home in stable and satisfactory condition. Meds as per medication sheet. She was to continue with Levaquin p.o. as well as 20 mg of prednisone daily. Smoking cessation was again discussed with the patient and she was adamant that she would not be smoking. She was cautioned also to not be exposed to any secondhand smoke. Objective Vital signs: Temp Pulse Resp BP Pulse Ox 98.4 F 86 20 127/74 89 L 05/23/18 11:41 05/23/18 13:41 05/23/18 11:41 05/23/18 11:41 05/23/18 11:41 Narrative: General: Patient was alert and oriented and in no acute distress. She was sitting on the bedside completing her breakfast. Heart: Regular rate and rhythm Lungs: Bilateral scattered wheezing and crackles. Abdomen: Soft nontender positive bowel sounds Extremities: ANNELISE hose on Neuro: Alert and oriented. Results Completed studies during hospitalization [Text1]: 05/17/2018 chest x-ray IMPRESSION: Cardiomegaly, no acute finding 05/18/2018 CT of the chest IMPRESSION: 1. Stable right upper lobe nodule at 7 mm. 2. COPD/centrilobular emphysema with progressing bibasilar atelectatic changes. There are other smaller pulmonary nodules which for the most part appear stable. One nodular density is present in the right upper lobe at 7 mm and could be due to an area of subpleural atelectatic change. 3. No change severe wedge compression of L1 with retropulsion as previously described 4. Splenomegaly with slightly enlarged and irregular left lobe of liver consistent with cirrhosis 5. No change right renal mass suggesting an angiomyolipoma Labs on day of discharge: Labs from last 24 hours 05/23/18 05/23/18 05/22/18 11:28 06:07 20:27 POC Glucose 298 H 304 H* 361 H* 05/22/18 16:35 POC Glucose 288 H Laboratory Tests 05/18/18 05/18/18 05/22/18 05:19 08:05 06:14 WBC 4.5 L RBC 4.31 Hgb 12.1 L Hct 38.5 MCV 89.4 MCH 28.2 MCHC 31.5 L RDW 16.0 Plt Count 77 L Neut % (Auto) 90.5 H Lymph % (Auto) 5.8 L [place] % (Auto) 3.4 Sodium 139 Potassium 4.9 Chloride 99 Carbon Dioxide 42 H* Anion Gap 2.9 L BUN 21 H Creatinine 0.85 D Glucose 281 H D POC Glucose 297 H DS: Diagnosis - Discharge Diagnosis (1) Acute respiratory failure with hypoxia and hypercapnia Status: Acute (2) COPD exacerbation Status: Acute (3) Tobacco abuse Status: Chronic (4) CAD (coronary artery disease) Status: Chronic (5) COPD (chronic obstructive pulmonary disease) Status: Chronic (6) Diabetes mellitus Status: Chronic (7) HTN (hypertension) Status: Chronic (8) Hypotension Status: Acute (9) Pseudomonas respiratory infection Status: Acute (10) Influenza A Status: Acute (11) Tobacco use disorder Status: Acute Discharge Plan - Patient Discharge Instructions ACTIVITY: Continue current activity DIET: continue same diet Patient Instructions: Influenza, Chronic Obstructive Pulmonary Disease, How to Quit Smoking, DI for Multiple Drug-resistant Organism (MDRO) Infection, Respiratory Failure - Follow up Plan Follow up with: Petty Bass MD [Primary Care Provider] - 05/27/18 2:15 pm Disposition: Home, Self-Longterm Medications: Home Medications Medication Instructions Recorded Confirmed Type alprazolam 0.25 mg tablet 0.25 mg PO TID tab 06/14/17 05/17/18 History insulin aspart U- 100 100 unit/mL 8 unit SUB-Q TID ml 06/14/17 05/17/18 History subcutaneous pen nitroglycerin 0.4 mg sublingual 0.4 mg SUBLINGUAL Q5MINP PRN 06/14/17 05/17/18 History tablet omega-3 fatty acids 1,000 mg 1,000 mg PO DAILY 06/14/17 05/17/18 History capsule venlafaxine 50 mg tablet 50 mg PO BID 90 Days #180 tab 08/31/17 05/17/18 History mirabegron ER 50 mg 50 mg PO DAILY tab 09/14/17 05/17/18 History tablet,extended release 24 hr Aspirin [Low Dose Aspirin EC] 81 mg PO DAILY 10/27/17 05/17/18 History Clopidogrel Bisulfate [Plavix 75mg 75 mg PO DAILY 10/27/17 05/17/18 History Tab] Dexlansoprazole [Dexilant] 60 mg PO DAILY 02/17/18 05/17/18 History Hydrocod/Acet 5/325 mg [[place] 1 tab PO TIDP PRN 02/17/18 05/17/18 History 5/325mg tablet] Insulin Glargine,Hum.rec.anlog 45 unit SQ DAILY 02/17/18 05/17/18 History [Basaglar Kwikpen U-100] Polyethylene Glycol 3350 [Miralax 17 gm PO DAILY 02/17/18 05/17/18 History 17gm Packet] Rosuvastatin Calcium 10 mg PO HS 02/17/18 05/17/18 History Trazodone HCl 100 mg PO HS 02/17/18 05/17/18 History quetiapine 200 mg tablet 200 mg PO HS tab 03/15/18 05/18/18 History Amlodipine Besylate [Amlodipine 5 mg PO DAILY 05/09/18 05/17/18 History 5mg tab] Furosemide [Furosemide 20mg Tab] 20 mg PO DAILY 05/09/18 05/18/18 History Insulin Detemir [Levemir 100 43 unit SQ DAILY 05/09/18 05/17/18 History units/mL 10mL vial] Lactulose [Lactulose 10gm/15ml 10 gm PO QID 05/09/18 05/17/18 History Oral Soln] Losartan Potassium 25 mg PO DAILY 05/09/18 05/17/18 History Metoprolol Succinate 50 mg PO DAILY 05/09/18 05/17/18 History Tiotropium Br/Olodaterol HCl 2 puffs IH DAILY 05/09/18 05/17/18 History [Stiolto Respimat Inhal [place]] Potassium Chloride [Klor-con 20 20 meq PO DAILY 05/10/18 05/18/18 History mEq tablet] Nicotine [Nicoderm 21mg/24hr 21 mg TD DAILY 05/17/18 05/17/18 History patch] dilTIAZem HCl [Diltiazem 240mg 240 mg PO DAILY 05/17/18 05/17/18 History 24Hr ER Cap] levoFLOXacin [Levaquin 500mg 500 mg PO DAILY 05/17/18 05/17/18 History tab] predniSONE [Deltasone 20mg 20 mg PO DAILY 05/17/18 05/17/18 History tablet] Prescriptions/Medication Reconciliation: Continue alprazolam 0.25 mg tablet 0.25 mg PO TID tab omega-3 fatty acids 1,000 mg capsule 1,000 mg PO DAILY insulin aspart U- 100 100 unit/mL subcutaneous pen 8 unit SUB-Q TID ml venlafaxine 50 mg tablet 50 mg PO BID 90 Days #180 tab mirabegron ER 50 mg tablet,extended release 24 hr 50 mg PO DAILY tab quetiapine 200 mg tablet 200 mg PO HS tab nitroglycerin 0.4 mg sublingual tablet 0.4 mg SUBLINGUAL Q5MINP PRN PRN Reason: Chest Pain Aspirin [Low Dose Aspirin EC] 81 mg PO DAILY Clopidogrel Bisulfate [Plavix 75mg Tab] 75 mg PO DAILY Rosuvastatin Calcium 10 mg PO HS Trazodone HCl 100 mg PO HS Insulin Glargine,Hum.rec.anlog [Basaglar Kwikpen U-100] 45 unit SQ DAILY Hydrocod/Acet 5/325 mg [[place] 5/325mg tablet] 1 tab PO TIDP PRN PRN Reason: PAIN Furosemide [Furosemide 20mg Tab] 20 mg PO DAILY Losartan Potassium 25 mg PO DAILY Metoprolol Succinate 50 mg PO DAILY Lactulose [Lactulose 10gm/15ml Oral Soln] 10 gm PO QID Insulin Detemir [Levemir 100 units/mL 10mL vial] 43 unit SQ DAILY Amlodipine Besylate [Amlodipine 5mg tab] 5 mg PO DAILY levoFLOXacin [Levaquin 500mg tab] 500 mg PO DAILY Dexlansoprazole [Dexilant] 60 mg PO DAILY Polyethylene Glycol 3350 [Miralax 17gm Packet] 17 gm PO DAILY Tiotropium Br/Olodaterol HCl [Stiolto Respimat Inhal [place]] 2 puffs IH DAILY Potassium Chloride [Klor-con 20 mEq tablet] 20 meq PO DAILY predniSONE [Deltasone 20mg tablet] 20 mg PO DAILY Nicotine [Nicoderm 21mg/24hr patch] 21 mg TD DAILY dilTIAZem HCl [Diltiazem 240mg 24Hr ER Cap] 240 mg PO DAILY
== END 2018-05-23 14:56 | disposition home or self-care (01) | DRG 193 ==
LOC: 2ND 14:28 → ER 14:28 → OBSVTOIN 19:06 → 2ND 19:07
PROVIDERS: ADMIT Family Medicine; ATTEND Family Medicine
CPT/HCPCS: 36415; 71010; 71045; 71270; 80048; 80053; 80200; 81001; 82803; 82962; 83605; 84484; 85007; 85025; 87040; 87275; 87276; 93005; 94640; 94660; 94761; 96374; 97110; 97116; 97162; 97165; 99285; J1956

== ENCOUNTER 2018-05-30 14:33 | Inpatient (IN) ==
[2018-05-30 14:57] LABS: Basophils % 0.4 % (0.1-2.0); Eosinophils % 0.1 % (0.1-12.0); Lymphocytes # 0.3 K/mm3 (0.7-4.5); Lymphocytes % 3.3 % (10-50); Mean Corpuscular HGB Conc 29.9 g/dL (31.8-35.4); Mean Corpuscular Hemoglobin 28.5 pg (27.0-31.2); Mean Corpuscular Volume 95.3 fl (81-99); Mean Platelet Volume 9.2 fl (7.4-10.4); Monocytes # 0.5 K/mm3 (0.1-1.0); Monocytes % 5.7 % (1.7-9.3); Neutrophils # 8.4 K/mm3 (1.8-7.8); Neutrophils % 90.4 % (37.0-80.0); Platelet Count 144 K/mm3 (142-424); Red Blood Count 3.88 M/mm3 (4.20-5.40); Red Cell Distribution Width 16.8 % (11.5-17.5); White Blood Count 9.3 K/mm3 (4.8-10.8)
[2018-05-30 15:01] LABS: ABG Base Excess -1.1 mmol/L (-2.4-2.3); ABG HCO3 25.6 mmhg (22.0-26.0); ABG Oxygen Saturation 81 % (90-100); ABG PH 7.28 mmol/L (7.35-7.45); ABG PO2 52.6 mmhg (80-100); ABG TCO2 27.3 mmhg (23-27)
[2018-05-30 15:03] LABS: Allen's Test Acceptable; Oxygen CPAP 15L %
[2018-05-30 15:04] LABS: ABG PCO2 55.8 mmhg (35.0-45.0)
[2018-05-30 15:19] LABS: Lymphocytes % 3 % (10-50); Monocytes % 6 % (2-9); Neutrophils % 85 % (42-76); Total Cells Counted 100
[2018-05-30 15:20] LABS: Hypochromasia 1+
--- NOTE | 2018-05-30 15:53 | Emergency Department Note ---
ED Disposition Clinical Impression: Pneumonia, Hyperglycemia Disposition: Admitted As Inpatient Condition on Discharge: Serious Time of Disposition: 17:10 - Critical Care Critical Care Time: No Attestation: On 05/30/18, the high probability of a clinically significant, sudden or life threatening deterioration of the following system(s) required my full and direct attention, intervention and personal management. The time I documented below is in addition to time spent performing reported procedures but includes the following listed in this critical care notation. Medical Decision Making - Zak Inquiry Pt receiving controlled substance: No Zak was queried for this patient: No Vital Signs: 05/30/18 14:54 05/30/18 15:28 05/30/18 15:30 Temperature 98 F Temperature Source Oral Pulse Rate Pulse Rate [Right Brachial] 83 107 H 101 H Respiratory Rate 39 H 20 24 Blood Pressure Blood Pressure [Right Arm] 128/95 H 132/94 H 115/69 Blood Pressure Mean [Right Arm] 106 106 84 Blood Pressure Source Blood Pressure Source [Right Arm] Automatic Cuff Automatic Cuff Blood Pressure Position Blood Pressure Position [Right Arm] Sitting Sitting 02 Sat by Pulse Oximetry 82 L 97 97 Oxygen Delivery Method Room Air BiPAP BiPAP 05/30/18 18:43 05/30/18 18:59 Temperature 98.9 F 98.2 F Temperature Source Axillary Oral Pulse Rate 60 Pulse Rate [Right Brachial] 104 H Respiratory Rate 21 22 Blood Pressure 132/66 Blood Pressure [Right Arm] 101/58 L Blood Pressure Mean [Right Arm] 72 Blood Pressure Source Automatic Cuff Blood Pressure Source [Right Arm] Automatic Cuff Blood Pressure Position Supine Blood Pressure Position [Right Arm] Sitting 02 Sat by Pulse Oximetry 92 L Oxygen Delivery Method BiPAP BiPAP - Lab Data Lab results reviewed: Yes: I reviewed the patient's lab results. Lab Results 05/30/18 14:35: WBC 9.3, RBC 3.88 L, Hgb 11.0 L, Hct 37.0, MCV 95.3, MCH 28.5, MCHC 29.9 L, RDW 16.8, Plt Count 144, MPV 9.2, Neut % (Auto) 90.4 H, Lymph % (Auto) 3.3 L, [place] % (Auto) 5.7, Eos % (Auto) 0.1, Baso % (Auto) 0.4, Neut # (Auto) 8.4 H, Lymph # (Auto) 0.3 L, [place] # (Auto) 0.5, Eos # (Auto) 0.0, Baso # (Auto) 0.0, Total Counted 100, Neutrophils % (Manual) 85 H, Band Neutrophils % 6.0, Lymphocytes % (Manual) 3 L, Monocytes % (Manual) 6, Platelet Estimate Normal, Hypochromasia 1+ 05/30/18 14:45: Sodium 129 L, Potassium 5.7 H, Chloride 91 L, Carbon Dioxide 28, Anion Gap 15.7 H, BUN 39 H, Creatinine 1.57 H, Estimated Creat Clear 32, Estimated GFR 33 L, Est GFR ( Amer) 41 L, Glucose 716 H*, Calcium 9.3, Troponin I < 0.02 05/30/18 14:45: B-Natriuretic Peptide 357 H 05/30/18 14:59: Specimen Source Right brachial, O2 % Cpap 15l, ABG pH 7.28 L, ABG pCO2 55.8 H, ABG pO2 52.6 L, ABG HCO3 25.6, ABG Total CO2 27.3 H, ABG O2 Sat uration 81 L*, ABG Base Excess -1.1, [place] Test Acceptable 05/30/18 15:21: Urine Color Yellow, Urine Appearance Cloudy, Urine pH 5.5, Ur Specific [place] 1.015, Urine Protein Negative, Urine Glucose (UA) 3+, Urine Ketones Trace, Urine Blood Negative, Urine Nitrate Negative, Urine Bilirubin Negative, Urine Urobilinogen 0.2, Ur Leukocyte Esterase Negative, Urine WBC 3-5, Ur Squamous Epith Cells Occasional, Urine Bacteria 1+, Urine Yeast 4+ 05/30/18 16:04: Lactate 1.7 05/30/18 16:06: Acetone Level Small 05/30/18 16:30: Specimen Source Left radial, O2 % 100, ABG pH 7.25 L, ABG pCO2 57.9 H, ABG pO2 104.4 H, ABG HCO3 24.9, ABG Total CO2 26.7, ABG O2 Saturation 96, ABG Base Excess -2.3, [place] Test Acceptable, Vent Rate 14, Tidal Volume Bipap 14/6 Result diagrams: 05/30/18 14:35 05/30/18 14:45 Orders (Tests/Meds): ED MEDICATIONS Generic Name Dose Route Start Last Admin Trade Name Freq PRN Reason Stop Dose Admin Acetaminophen 650 mg 05/30/18 18:35 Acetaminophen 325mg Tab PO 06/29/18 17:15 Q4HP PRN As Needed for Fever or Pain Albuterol/Ipratropium 3 ml 05/30/18 19:42 Duoneb 3ml Neb IH 06/29/18 19:41 Q6RT [facility] Alprazolam 0.25 mg 05/30/18 21:00 Xanax 0.25mg Tablet PO 06/29/18 20:59 TID [facility] Aspirin 81 mg 05/31/18 09:00 Aspirin 81mg Enteric Coated Tablet PO 06/30/18 08:59 DAILY [facility] Clopidogrel Bisulfate 75 mg 05/31/18 09:00 Plavix 75mg Tablet PO 06/30/18 08:59 DAILY [facility] Furosemide 20 mg 05/31/18 09:00 Lasix 20mg Tablet PO 06/30/18 08:59 DAILY [facility] Furosemide 20 mg 05/30/18 19:38 Lasix 20mg/2ml Vial IV 05/30/18 19:39 ONCE ONE Cefepime HCl 2 gm/ Sodium 100 mls @ 200 mls/hr 05/31/18 04:45 Chloride IV 06/13/18 16:44 Q12H [facility] Protocol Levofloxacin/Dextrose 750 mg in 150 mls @ 100 mls/hr 06/01/18 16:45 Levofloxacin 750mg/150ml Premix IV 06/13/18 16:44 Q48H [facility] Protocol Lactated Ringer's 1,000 mls @ 50 mls/hr 05/30/18 18:35 05/30/18 19:09 Lactated Ringer's 1000 Ml Bag IV 06/29/18 17:29 50 mls/hr .Q20H [facility] Administration Insulin Glargine 20 unit 05/30/18 19:59 Insulin Glargine 100 Units/Ml 3ml Flexpen SQ 05/30/18 20:00 ONCE ONE Insulin Human Lispro 0 unit 05/30/18 20:00 Humalog 100 Units/Ml 3ml Vial (Ssi) SQ 06/29/18 19:59 Q6H [facility] Protocol Methylprednisolone Sodium Succinate 80 mg 05/30/18 19:30 Methylprednisolone Sod Succinate 40mg Vial IV 06/29/18 19:29 Q8H [facility] Non-Formulary Medication 200 mg 05/30/18 21:00 Quetiapine Fumarate [Quetiapine Fumarate] PO 06/29/18 20:59 HS [facility] Non-Formulary Medication 10 mg 05/30/18 21:00 Rosuvastatin Calcium [Rosuvastatin Calcium] PO 06/29/18 20:59 HS [facility] Non-Formulary Medication 2 puffs 05/31/18 09:00 Tiotropium Br/Olodaterol Hcl [Stiolto Respimat Inhal [place]] IH 06/30/18 08:59 DAILY [facility] Non-Formulary Medication 50 mg 05/30/18 21:00 Venlafaxine Hcl [Venlafaxine Hcl] PO 06/29/18 20:59 BID [facility] Ondansetron HCl 4 mg 05/30/18 18:35 Zofran 4mg/2ml Vial IV 06/29/18 17:15 Q8HP PRN Nausea Discontinued Medications Generic Name Dose Route Start Last Admin Trade Name Freq PRN Reason Stop Dose Admin Acetaminophen 650 mg 05/30/18 17:16 Acetaminophen 325mg Tab PO 06/29/18 17:15 Q4HP PRN As Needed for Fever or Pain Albuterol/Ipratropium 3 ml 05/31/18 00:00 Duoneb 3ml Neb IH 06/30/18 00:00 Q6RT [facility] Cefepime HCl 2 gm/ Sodium 100 mls @ 200 mls/hr 05/30/18 16:45 05/30/18 17:06 Chloride IV 06/13/18 16:44 200 mls/hr Q12H [facility] Administration Protocol Levofloxacin/Dextrose 750 mg in 150 mls @ 100 mls/hr 05/30/18 16:45 05/30/18 19:08 Levofloxacin 750mg/150ml Premix IV 06/13/18 16:44 100 mls/hr Q48H [facility] Administration Protocol Lactated Ringer's 1,000 mls @ 50 mls/hr 05/30/18 17:30 05/30/18 19:09 Lactated Ringer's 1000 Ml Bag IV 06/29/18 17:29 Not Given .Q20H [facility] Insulin Human Lispro 0 unit 05/30/18 21:00 Humalog 100 Units/Ml 3ml Vial (Ssi) SQ 06/29/18 20:59 ACHS [facility] Protocol Insulin Human Lispro 15 unit 05/30/18 17:21 05/30/18 17:36 Humalog 100 Units/Ml 3ml Vial (Ssi) SQ 05/30/18 17:22 15 unit ONCE ONE Administration Insulin Human Lispro 0 unit 05/30/18 21:00 Humalog 100 Units/Ml 3ml Vial (Ssi) SQ 06/29/18 20:59 ACHS [facility] Protocol Ondansetron HCl 4 mg 05/30/18 17:16 Zofran 4mg/2ml Vial IV 06/29/18 17:15 Q8HP PRN Nausea ORDERS Category Date Time Status Blood Culture Stat Micro 05/30/18 14:45 Received - Physician Consults Physician Consulted: javad Time: 17:08 Reason -: Admission General Adult HPI - General Chief complaint: Shortness of Breath/Dyspnea Stated complaint: soa Time Seen by Provider: 05/30/18 15:15 Mode of Arrival: Ambulatory Limitations: Physical Limitations Description of Symptoms (Recalled from ER Triage Doc. by RN): shortness of air prog - History of Present Illness MD complaint: dAUGHTER STATES WORSENING DYSPNEA AND ALERTNESS OVER LAST 3 DAYS. - Related Data Home Medications Medication Instructions Recorded Confirmed alprazolam 0.25 mg tablet 0.25 mg PO TID tab 06/14/17 05/30/18 insulin aspart U- 100 100 unit/mL 8 unit SUB-Q TID ml 06/14/17 05/30/18 subcutaneous pen nitroglycerin 0.4 mg sublingual 0.4 mg SUBLINGUAL Q5MINP PRN 06/14/17 05/30/18 tablet omega-3 fatty acids 1,000 mg 1,000 mg PO DAILY 06/14/17 05/30/18 capsule venlafaxine 50 mg tablet 50 mg PO BID 90 Days #180 tab 08/31/17 05/30/18 mirabegron ER 50 mg 50 mg PO DAILY tab 09/14/17 05/30/18 tablet,extended release 24 hr RX: Aspirin [Low Dose Aspirin EC] 81 mg PO DAILY 10/27/17 05/30/18 RX: Clopidogrel Bisulfate [Plavix 75 mg PO DAILY 10/27/17 05/30/18 75mg Tab] RX: Dexlansoprazole [Dexilant] 60 mg PO DAILY 02/17/18 05/30/18 RX: Hydrocod/Acet 5/325 mg [[place] 1 tab PO TIDP PRN 02/17/18 05/30/18 5/325mg tablet] RX: Insulin Glargine,Hum.rec.anlog 45 unit SQ DAILY 02/17/18 05/30/18 [Basaglar Kwikpen U-100] RX: Polyethylene Glycol 3350 17 gm PO DAILY 02/17/18 05/30/18 [Miralax 17gm Packet] RX: Rosuvastatin Calcium 10 mg PO HS 02/17/18 05/30/18 RX: Trazodone HCl 100 mg PO HS 02/17/18 05/30/18 quetiapine 200 mg tablet 200 mg PO HS tab 03/15/18 05/30/18 RX: Amlodipine Besylate 5 mg PO DAILY 05/09/18 05/30/18 [Amlodipine 5mg tab] RX: Furosemide [Furosemide 20mg 20 mg PO DAILY 05/09/18 05/30/18 Tab] RX: Insulin Detemir [Levemir 100 43 unit SQ DAILY 05/09/18 05/30/18 units/mL 10mL vial] RX: Lactulose [Lactulose 10gm/15ml 10 gm PO QID 05/09/18 05/30/18 Oral Soln] RX: Losartan Potassium 25 mg PO DAILY 05/09/18 05/30/18 RX: Metoprolol Succinate 50 mg PO DAILY 05/09/18 05/30/18 RX: Tiotropium Br/Olodaterol HCl 2 puffs IH DAILY 05/09/18 05/30/18 [Stiolto Respimat Inhal [place]] RX: Potassium Chloride [Klor-con 20 meq PO DAILY 05/10/18 05/30/18 20 mEq tablet] RX: Nicotine [Nicoderm 21mg/24hr 21 mg TD DAILY 05/17/18 05/30/18 patch] RX: dilTIAZem HCl [Diltiazem 240mg 240 mg PO DAILY 05/17/18 05/30/18 24Hr ER Cap] RX: levoFLOXacin [Levaquin 500mg 500 mg PO DAILY 05/17/18 05/30/18 tab] RX: predniSONE [Deltasone 20mg 20 mg PO DAILY 05/17/18 05/30/18 tablet] Allergies Allergy/AdvReac Type Severity Reaction Status Date / Time bacitracin Allergy Intermediate Rash Verified 05/09/18 14:40 [From NEOSPORIN ([id number])] doxycycline Allergy Mild Rash Verified 05/09/18 14:40 neomycin Allergy Mild Rash Verified 05/09/18 14:40 [From NEOSPORIN ([id number])] Penicillins Allergy Mild Rash Verified 05/09/18 14:40 polymyxin B Allergy Mild Rash Verified 05/09/18 14:40 [From NEOSPORIN ([id number])] sertraline [From Zoloft] AdvReac Severe Hallucinati Verified 05/09/18 14:40 ng tea tree AdvReac Severe Verified 05/18/18 15:00 green tea AdvReac Verified 05/19/18 14:30 [facility] History - Hepatitis A Screen Drug use history?: No High risk sexual behaviors?: No History of sexually transmitted infection?: No Currently employed?: No Childcare worker?: No Do you have indoor plumbing?: Yes Do you have electricity?: Yes Attestation statement:: This patient has been screened for Hepatitis A risk factors. I have reviewed the patient's past medical history: Yes Medical History: Reports:: Atherosclerotic Heart Disease, Cancer, Congestive Heart Failure, Chronic Obstructive Pulmonary Disease (COPD), Coronary Artery Disease, Diabetes Mellitus Type 2, Gastroesophageal Reflux Disease(GERD), Hyperlipidemia, Hypertension, Lung Disease, Peripheral Vascular Disease Denies:: Diabetes Mellitus Type 1, MRSA Other Medical History: Reports: Arthritis Comment: Tobacco use disorder Laterality Cases: Right: Other, Bilateral: Tonsillectomy Other Surgeries: Yes: Cancer Surgery, Cholecystectomy, Coronary Stent, Hysterectomy-Total, Other Amputation: No Fractures: Yes (fractured lt hip october 27 2017) Comment: left hip surgery - Social History Educational Level: Completed High School Smoking Status: Unknown if ever smoked Tobacco Type: cigarettes # Packs/Day (cigarettes): 1 Alcohol Intake: never Alcohol Intake Frequency:: other Substance Use Type: denies use Occupational Status: disabled Housing: house Household Members: family, children - Psychiatric History Expresses thoughts of harming self/others: None Suicide Plan Description: No Plan Family Hx:: Hypertension, Heart Attack, Diabetes, Hyperlipidemia, Kidney Disease ROS Obtained: Yes All systems reviewed & no additional complaints, Yes unobtainable due to mental condition - Constitutional Constitutional: Reports system reviewed and no additional complaints, except as docu - Respiratory Respiratory: Yes dyspnea - Gastrointestinal Gastrointestingal: Denies: diarrhea, vomiting - Musculoskeletal Musculoskeletal: Denies joint stiffness, Denies joint swelling, Reports muscle weakness - Integumentary/Breasts Skin/Breast: Reports rash, Denies skin pain - Neurologic Neurologic: Reports behavioral changes, Denies syncope, Reports weakness - Hematologic/Lymphatic Henatologic/Lymphatic: Denies easy bleeding, Denies easy bruising Physical Exam - General General appearance: lethargic, in distress, obese, other (TACHYPNEIC BUT BIPAP LOOKS EFFECTIVE, GOOD CHEST RISE/FALL) - Head Head exam: atraumatic, normocephalic, normal inspection - Eye Eye exam: Present: normal appearance, PERRL, EOMI - ENT ENT exam: Present: normal exam, normal oropharynx, mucous membranes moist, TM's normal bilaterally, normal external ear exam - Respiratory Respiratory exam: Present: normal lung sounds bilaterally, wheezes - Cardiovascular Cardiovascular exam: Present: normal rhythm. Absent: JVD - Abdominal Exam Abdominal exam: Present: soft, distention. Absent: tenderness, guarding, rebound, rigidity - Extremities Exam Extremities exam: Present: normal capillary refill. Absent: normal inspection - Neurological Exam Neurological exam: Present: alert, CN II-XII intact, other (MARKED WEAKNESS, DYSPNEIC) - Psychiatric Psychiatric exam: Present: normal affect, other (FLAT AFFECT). Absent: d epressed - Skin Skin exam: Present: warm, dry, intact, normal color, erythema
[2018-05-30 16:18] LABS: Anion Gap 15.7 mEq/L (5-15); Blood Urea Nitrogen 39 mg/dL (7-18); Calcium 9.3 mg/dL (8.5-10.1); Carbon Dioxide 28 mmol/L (21.0-32.0); Chloride 91 mmol/L (98-107); Potassium 5.7 mmoL/L (3.5-5.1); Sodium 129 mmol/L (136-145)
[2018-05-30 16:20] LABS: Glucose 716 mg/dL (74-106)
[2018-05-30 16:42] LABS: ABG Base Excess -2.3 mmol/L (-2.4-2.3); ABG HCO3 24.9 mmhg (22.0-26.0); ABG Oxygen Saturation 96 % (90-100); ABG PH 7.25 mmol/L (7.35-7.45); ABG PO2 104.4 mmhg (80-100); ABG TCO2 26.7 mmhg (23-27)
[2018-05-30 16:43] LABS: Oxygen 100 %
[2018-05-30 16:44] LABS: ABG PCO2 57.9 mmhg (35.0-45.0); Allen's Test Acceptable
[2018-05-30 16:44] LABS: Microscopic, Urine URINE MICROSCOPIC (MICROSCOPIC)
[2018-05-30 16:45] LABS: Appearance,Urine CLOUDY (Clear); Bilirubin,Urine Negative (Negative); Blood, Urine Negative (Negative); Color,Urine YELLOW (Yellow); Glucose,Urine (UA) 3+ (Negative); Ketones,Urine TRACE (Negative); Leukocyte Esterase,Urine Negative (Negative); PH,Urine 5.5 (5.0-8.5); Protein,Urine Negative (Negative); Specific Gravity, Urine 1.015 (1.005-1.030); Urobilinogen,Urine 0.2 EU/dl (0.2)
[2018-05-30 17:01] LABS: Bacteria,Urine 1+ /lpf; Squamous Epithelial Cell,Urine Occasional #/hpf (0-5); Yeast,Urine 4+ /lpf
--- NOTE | 2018-05-30 19:48 | Progress Note ---
Internal Medicine - PN: Subj *Date: 05/30/18 *Time: 19:45 Interval history: This 62-year-old white female with chronic respiratory failure is readmitted in respiratory failure. She is currently on BiPAP. She was recently hospitalized with respiratory failure. She came around quite readily on the BiPAP and did very well on Vapotherm. She continues to smoke at home. At the time of my exam this evening she is not responsive to any degree. She is on BiPAP. She is getting 90% saturation. She looks more lethargic than usual however. Breath sounds are markedly decreased. She has trace to 1+ leg edema and I will give some Lasix. Her prognosis is guarded. Exam Vital signs and Labs for Last 24 Hours: Temp Pulse Resp BP Pulse Ox 98.2 F 60 22 132/66 92 L 05/30/18 18:59 05/30/18 18:59 05/30/18 18:59 05/30/18 18:59 05/30/18 18:43 Laboratory Results - last 24 hr 05/30/18 14:35: WBC 9.3, RBC 3.88 L, Hgb 11.0 L, Hct 37.0, MCV 95.3, MCH 28.5, MCHC 29.9 L, RDW 16.8, Plt Count 144, MPV 9.2, Neut % (Auto) 90.4 H, Lymph % (Auto) 3.3 L, [place] % (Auto) 5.7, Eos % (Auto) 0.1, Baso % (Auto) 0.4, Neut # (Auto) 8.4 H, Lymph # (Auto) 0.3 L, [place] # (Auto) 0.5, Eos # (Auto) 0.0, Baso # (Auto) 0.0, Total Counted 100, Neutrophils % (Manual) 85 H, Band Neutrophils % 6.0, Lymphocytes % (Manual) 3 L, Monocytes % (Manual) 6, Platelet Estimate Normal, Hypochromasia 1+ 05/30/18 14:45: Sodium 129 L, Potassium 5.7 H, Chloride 91 L, Carbon Dioxide 28, Anion Gap 15.7 H, BUN 39 H, Creatinine 1.57 H, Estimated Creat Clear 32, Estimated GFR 33 L, Est GFR ( Amer) 41 L, Glucose 716 H*, Calcium 9.3, Troponin I < 0.02 05/30/18 14:45: B-Natriuretic Peptide 357 H 05/30/18 14:59: Specimen Source Right brachial, O2 % Cpap 15l, ABG pH 7.28 L, ABG pCO2 55.8 H, ABG pO2 52.6 L, ABG HCO3 25.6, ABG Total CO2 27.3 H, ABG O2 S aturation 81 L*, ABG Base Excess -1.1, Chandler Test Acceptable 05/30/18 15:21: Urine Color Yellow, Urine Appearance Cloudy, Urine pH 5.5, Ur Specific [place] 1.015, Urine Protein Negative, Urine Glucose (UA) 3+, Urine Ketones Trace, Urine Blood Negative, Urine Nitrate Negative, Urine Bilirubin Negative, Urine Urobilinogen 0.2, Ur Leukocyte Esterase Negative, Urine WBC 3-5, Ur Squamous Epith Cells Occasional, Urine Bacteria 1+, Urine Yeast 4+ 05/30/18 16:04: Lactate 1.7 05/30/18 16:06: Acetone Level Small 05/30/18 16:30: Specimen Source Left radial, O2 % 100, ABG pH 7.25 L, ABG pCO2 57.9 H, ABG pO2 104.4 H, ABG HCO3 24.9, ABG Total CO2 26.7, ABG O2 Saturation 96, ABG Base Excess -2.3, Chandler Test Acceptable, Vent Rate 14, Tidal Volume Bipap 14/6 I & O for Last 24 hours: Intake & Output 05/28/18 05/29/18 05/30/18 05/31/18 11:59 11:59 11:59 11:59 Weight 200 lb 5 oz - Constitutional severe distress - Routine Chest/Breast/Axilla Exam Chest wall: Absent: tenderness - *Routine Respiratory Exam Present: decreased breath sounds - *Routine Cardiovascular Exam Present: RRR - *Routine Abdominal Exam Present: soft. Absent: tenderness - *Routine Extremities Exam Present: edema (1+) - *Routine Neurological Exam Decreased responsiveness Assessment and Plan (1) Acute respiratory failure with hypoxia and hypercapnia Current visit: No Status: Acute Category: Medical Code(s): J96.01 - Acute respiratory failure with hypoxia; J96.02 - Acute respiratory failure with hypercapnia (2) COPD exacerbation Current visit: No Status: Acute Category: Medical Code(s): J44.1 - Chronic obstructive pulmonary disease with (acute) exacerbation - Assessment and plan all Dx Assessment and Plan for all problems:: Respiratory support with BiPAP. Prognosis is guarded.
[2018-05-31 06:41] LABS: Albumin Level 1.6 gm/dL (3.4-5.0); Albumin/Globulin Ratio 0.4 (1.1-1.8); Anion Gap 8.2 mEq/L (5-15); Bilirubin,Total 0.4 mg/dL (0.2-1.0); Globulin 4.2 gm/dl (1.3-3.2); Potassium 4.2 mmoL/L (3.5-5.1); Total Protein,Serum 5.8 gm/dL (6.4-8.2)
--- NOTE | 2018-05-31 07:31 | Pharmacy Consult Notes ---
[facility] [place] Pharmacy VTE Monitoring - Patient Demographics Admission date: 05/30/18 Report Date: 05/31/18 Time: 07:30 Allergies/Adverse Reactions: Patient Allergies bacitracin [From NEOSPORIN ([id number])] Allergy (Intermediate, Verified 05/09/18 14:40) Rash doxycycline Allergy (Mild, Verified 05/09/18 14:40) Rash neomycin [From NEOSPORIN ([id number])] Allergy (Mild, Verified 05/09/18 14:40) Rash Penicillins Allergy (Mild, Verified 05/09/18 14:40) Rash polymyxin B [From NEOSPORIN ([id number])] Allergy (Mild, Verified 05/09/18 14:40) Rash sertraline [From Zoloft] Adverse Reaction (Severe, Verified 05/09/18 14:40) Hallucinating tea tree Adverse Reaction (Severe, Verified 05/18/18 15:00) green tea Adverse Reaction (Verified 05/19/18 14:30) Height: 1.68 m Weight: 91.881 kg Patient Problems: Current Active Problems Pneumonia (Acute) Hyperglycemia (Acute) - VTE Risk Labs: VTE Related Lab Results Hgb 11.0 g/dL (12.2-16.2) L 05/30/18 14:35 Hct 37.0 % (37.0-47.0) 05/30/18 14:35 Plt Count 144 K/mm3 (142-424) 05/30/18 14:35 BUN 35 mg/dL (7-18) H 05/31/18 05:46 Creatinine 1.10 mg/dL (0.55-1.02) H D 05/31/18 05:46 Estimated Creat Clear 78 mL/min (50-200) 05/31/18 05:46 Clinical Trial Participant: No - Prophylaxis VTE Prophylaxis Ordered?: Yes Types of VTE Prophylaxis: TEDS Knee High
--- NOTE | 2018-05-31 08:41 | History & Physical Report ---
*Admission Date: 05/30/18 *Chief complaint: AMS; respiratory failure *History of present illness: Ms. Ramirez is a 62-year-old female with a history of oxygen dependent COPD, diabetes mellitus, hypertension, anxiety, bipolar disorder, tobacco use disorder, who was brought to [facility] emergency room for altered mental status. With evaluation in the emergency room she was felt to have a pneumonia. ABGs revealed respiratory acidosis. She was periodically awake. She was started on BiPAP and admitted. Blood sugars were quite elevated, greater than 700 Spoke with her daughter this a.m. She states that her mother did well for a couple of days after discharge from [facility] on 05/23/2018. Then she began to get short of breath and with a cough. She was not eating and would only drink supplemental protein drinks. She had 2 falls. The last one was yesterday when she rolled out of bed. Daughter. could not awaken her at which time she decided to bring her to the emergency room. This a.m. patient is able to answer questions. She states she just progressively got more short of breath with a cough. She was not eating and was only drinking supplemental drinks. She adamantly states that she was taking her insulin as usual. She denies smoking although her daughter states she smokes 7- 10 cigarettes since being home from the hospital. There has been no secondary smoke exposure. To note patient was hospitalized at [facility] 05/09 through 05/12/2018 and then again 05/17 through 05/23/2018 with pneumonia. [facility] History Medical History: Reports:: Atherosclerotic Heart Disease, Cancer, Congestive Heart Failure, Chronic Obstructive Pulmonary Disease (COPD), Coronary Artery Disease, Diabetes Mellitus Type 2, Gastroesophageal Reflux Disease(GERD), Hyperlipidemia, Hypertension, Lung Disease, Peripheral Vascular Disease, Renal Insufficiency Denies:: Diabetes Mellitus Type 1, MRSA *Have you ever received a pneumonia vaccine?: No (unknown) *Have you received a flu vaccine this season?: No (unknown) Other Medical History: Reports: Arthritis Laterality Cases: Left: Total Hip Replacement, Right: Other, Bilateral: Tonsillectomy Other Surgeries: Yes: Cancer Surgery, Cholecystectomy, Coronary Stent, Hysterectomy-Total, Other Amputation: No Fractures: Yes (fractured lt hip october 27 2017) - *Social History Educational Level: Completed High School Smoking Status: Unknown if ever smoked Tobacco Type: cigarettes # Packs/Day (cigarettes): 1 Alcohol Intake: never Alcohol Intake Frequency:: other Substance Use Type: denies use *Occupational Status:: disabled Housing: house Household Members: family, children *Travel in the last 8 weeks: None - Psychiatric History Expresses thoughts of harming self/others: None Suicide Plan Description: No Plan Family Hx:: Hypertension, Heart Attack, Diabetes, Hyperlipidemia, Kidney Disease Review of Systems - Constitutional Reports anorexia, Reports headache(s), Reports weakness - ENT Reports sore throat, Denies ear pain - *Cardiovascular Reports chest pain (Epigastrium ) - *Respiratory Reports change in phlegm color, Reports chest congestion, Reports cough, Reports shortness of breath - *Gastrointestinal Reports abdominal pain (Epigastrium) - *Genitourinary Denies difficulty urinating - *Musculoskeletal Reports muscle weakness (Has had 2 falls) - *Neurologic Reports behavioral changes, Reports weakness, Denies fainting - Psychiatric Reports behavioral changes Meds Home Medications Medication Instructions Recorded Confirmed Type alprazolam 0.25 mg tablet 0.25 mg PO TID tab 06/14/17 05/30/18 History insulin aspart U- 100 100 unit/mL 8 unit SUB-Q TID ml 06/14/17 05/30/18 History subcutaneous pen nitroglycerin 0.4 mg sublingual 0.4 mg SUBLINGUAL Q5MINP PRN 06/14/17 05/30/18 History tablet omega-3 fatty acids 1,000 mg 1,000 mg PO DAILY 06/14/17 05/30/18 History capsule venlafaxine 50 mg tablet 50 mg PO BID 90 Days #180 tab 08/31/17 05/30/18 History mirabegron ER 50 mg 50 mg PO DAILY tab 09/14/17 05/30/18 History tablet,extended release 24 hr Aspirin [Low Dose Aspirin EC] 81 mg PO DAILY 10/27/17 05/30/18 History Clopidogrel Bisulfate [Plavix 75mg 75 mg PO DAILY 10/27/17 05/30/18 History Tab] Dexlansoprazole [Dexilant] 60 mg PO DAILY 02/17/18 05/30/18 History Hydrocod/Acet 5/325 mg [[place] 1 tab PO TIDP PRN 02/17/18 05/30/18 History 5/325mg tablet] Insulin Glargine,Hum.rec.anlog 45 unit SQ DAILY 02/17/18 05/30/18 History [Basaglar Kwikpen U-100] Polyethylene Glycol 3350 [Miralax 17 gm PO DAILY 02/17/18 05/30/18 History 17gm Packet] Rosuvastatin Calcium 10 mg PO HS 02/17/18 05/30/18 History Trazodone HCl 100 mg PO HS 02/17/18 05/30/18 History quetiapine 200 mg tablet 200 mg PO HS tab 03/15/18 05/30/18 History Amlodipine Besylate [Amlodipine 5 mg PO DAILY 05/09/18 05/30/18 History 5mg tab] Furosemide [Furosemide 20mg Tab] 20 mg PO DAILY 05/09/18 05/30/18 History Insulin Detemir [Levemir 100 43 unit SQ DAILY 05/09/18 05/30/18 History units/mL 10mL vial] Lactulose [Lactulose 10gm/15ml 10 gm PO QID 05/09/18 05/30/18 History Oral Soln] Losartan Potassium 25 mg PO DAILY 05/09/18 05/30/18 History Metoprolol Succinate 50 mg PO DAILY 05/09/18 05/30/18 History Tiotropium Br/Olodaterol HCl 2 puffs IH DAILY 05/09/18 05/30/18 History [Stiolto Respimat Inhal [place]] Potassium Chloride [Klor-con 20 20 meq PO DAILY 05/10/18 05/30/18 History mEq tablet] Nicotine [Nicoderm 21mg/24hr 21 mg TD DAILY 05/17/18 05/30/18 History patch] dilTIAZem HCl [Diltiazem 240mg 240 mg PO DAILY 05/17/18 05/30/18 History 24Hr ER Cap] levoFLOXacin [Levaquin 500mg 500 mg PO DAILY 05/17/18 05/30/18 History tab] predniSONE [Deltasone 20mg 20 mg PO DAILY 05/17/18 05/30/18 History tablet] Allergies Allergy/AdvReac Type Severity Reaction Status Date / Time bacitracin Allergy Intermediate Rash Verified 05/09/18 14:40 [From NEOSPORIN ([id number])] doxycycline Allergy Mild Rash Verified 05/09/18 14:40 neomycin Allergy Mild Rash Verified 05/09/18 14:40 [From NEOSPORIN ([id number])] Penicillins Allergy Mild Rash Verified 05/09/18 14:40 polymyxin B Allergy Mild Rash Verified 05/09/18 14:40 [From NEOSPORIN ([id number])] sertraline [From Zoloft] AdvReac Severe Hallucinati Verified 05/09/18 14:40 ng tea tree AdvReac Severe Verified 05/18/18 15:00 green tea AdvReac Verified 05/19/18 14:30 Exam Vital signs and Labs for Last 24 Hours: Temp Pulse Resp BP Pulse Ox 98.2 F 107 H 20 103/65 L 95 05/31/18 07:41 05/31/18 07:41 05/31/18 07:41 05/31/18 07:41 05/31/18 07:41 Laboratory Results - last 24 hr 05/30/18 14:35: WBC 9.3, RBC 3.88 L, Hgb 11.0 L, Hct 37.0, MCV 95.3, MCH 28.5, MCHC 29.9 L, RDW 16.8, Plt Count 144, MPV 9.2, Neut % (Auto) 90.4 H, Lymph % (Auto) 3.3 L, [place] % (Auto) 5.7, Eos % (Auto) 0.1, Baso % (Auto) 0.4, Neut # (Auto) 8.4 H, Lymph # (Auto) 0.3 L, [place] # (Auto) 0.5, Eos # (Auto) 0.0, Baso # (Auto) 0.0, Total Counted 100, Neutrophils % (Manual) 85 H, Band Neutrophils % 6.0, Lymphocytes % (Manual) 3 L, Monocytes % (Manual) 6, Platelet Estimate Normal, Hypochromasia 1+ 05/30/18 14:45: Sodium 129 L, Potassium 5.7 H, Chloride 91 L, Carbon Dioxide 28, Anion Gap 15.7 H, BUN 39 H, Creatinine 1.57 H, Estimated Creat Clear 32, Estimated GFR 33 L, Est GFR ( Amer) 41 L, Glucose 716 H*, Calcium 9.3, Troponin I < 0.02 03/04/19 14:45: B-Natriuretic Peptide 357 H 05/30/18 14:59: Specimen Source Right brachial, O2 % Cpap 15l, ABG pH 7.28 L, ABG pCO2 55.8 H, ABG pO2 52.6 L, ABG HCO3 25.6, ABG Total CO2 27.3 H, ABG O2 Saturation 81 L*, ABG Base Excess -1.1, Chandler Test Acceptable 05/30/18 15:21: Urine Color Yellow, Urine Appearance Cloudy, Urine pH 5.5, Ur Specific [place] 1.015, Urine Protein Negative, Urine Glucose (UA) 3+, Urine Ketones Trace, Urine Blood Negative, Urine Nitrate Negative, Urine Bilirubin Negative, Urine Urobilinogen 0.2, Ur Leukocyte Esterase Negative, Urine WBC 3-5, Ur Squamous Epith Cells Occasional, Urine Bacteria 1+, Urine Yeast 4+ 05/30/18 16:04: Lactate 1.7 05/30/18 16:06: Acetone Level Small 05/30/18 16:30: Specimen Source Left radial, O2 % 100, ABG pH 7.25 L, ABG pCO2 57.9 H, ABG pO2 104.4 H, ABG HCO3 24.9, ABG Total CO2 26.7, ABG O2 Saturation 96, ABG Base Excess -2.3, Chandler Test Acceptable, Vent Rate 14, Tidal Volume Bipap 14/6 05/30/18 20:00: Random Glucose 669 H* D 05/30/18 22:21: POC Glucose 571 H* 05/30/18 22:30: Random Glucose 572 H* 05/31/18 02:14: POC Glucose 435 H* 05/31/18 05:46: Sodium 137, Potassium 4.2 D, Chloride 98, Carbon Dioxide 35 H D , Anion Gap 8.2, BUN 35 H, Creatinine 1.10 H D, Estimated Creat Clear 78, Estimated GFR 50 L, Est GFR ( Amer) 61 D, Glucose 412 H* D, Calcium 9.0, Total Bilirubin 0.4, AST 8 L, ALT 16, Alkaline Phosphatase 61, Total Protein 5.8 L, Albumin 1.6 L, Globulin 4.2 H, Albumin/Globulin Ratio 0.4 L 05/31/18 05:46: Acetone Level None detected 05/31/18 07:34: POC Glucose 373 H* I & O for Last 24 hours: Intake & Output 05/28/18 05/29/18 05/30/18 05/31/18 11:59 11:59 11:59 11:59 Intake Total 240 / 240 Output Total 1500 / 1500 Balance -1260 / -1260 Weight 202 lb 9 oz Radiology Reports for the Last 24 Hours: 05/30/2018 chest x-ray. IMPRESSION: Right lower lobe pneumonia with small effusion - Constitutional no acute distress Comments: Remains on BiPAP - *Routine HEENT Exam Head: Present: normocephalic, atraumatic Eye: Absent: conjunctival icterus, scleral injection ENT: Present: mucous membranes moist - *Routine Respiratory Exam Comments: Bilateral crackles with wheezing. Decreased breath sounds on the right - *Routine Cardiovascular Exam Present: RRR - *Routine Abdominal Exam Present: soft, normoactive bowel sounds, tenderness (Epigastrium ) - *Routine Extremities Exam Absent: edema, calf tenderness - *Routine Skin Exam Comments: Left knee abrasion - *Routine Neurological Exam Present: alert, oriented X3 Assessment and Plan (1) Acute respiratory failure with hypoxia and hypercapnia Current visit: No Status: Acute Category: Medical Code(s): J96.01 - Acute respiratory failure with hypoxia; J96.02 - Acute respiratory failure with hypercapnia (2) COPD exacerbation Current visit: No Status: Acute Category: Medical Code(s): J44.1 - Chronic obstructive pulmonary disease with (acute) exacerbation (3) Hyperglycemia Current visit: Yes Status: Acute Category: Medical Code(s): R73.9 - Hyperglycemia, unspecified (4) Pneumonia Current visit: Yes Status: Acute Category: Medical Code(s): J18.9 - Pneumonia, unspecified organism (5) Tobacco use disorder Current visit: No Status: Acute Category: Medical Code(s): F17.200 - Nicotine dependence, unspecified, uncomplicated (6) COPD (chronic obstructive pulmonary disease) Current visit: No Status: Chronic Qualifiers: COPD type: chronic bronchitis Chronic bronchitis type: unspecified Qualified Code(s): J42 - Unspecified chronic bronchitis Category: Medical Code(s): J44.9 - Chronic obstructive pulmonary disease, unspecified (7) Diabetes mellitus Current visit: No Status: Chronic Qualifiers: Diabetes mellitus type: type 2 Diabetes mellitus termite treater insulin use: with alf use Diabetes mellitus complication status: with neurologic complications Diabetes mellitus complication detail: with polyneuropathy Qualified Code(s): E11.42 - Type 2 diabetes mellitus with diabetic polyneuropathy; Z79.4 - manager terminal (current) use of insulin Category: Medical Code(s): E11.9 - Type 2 diabetes mellitus without complications (8) Renal insufficiency Current visit: Yes Status: Acute Category: Medical Code(s): N28.9 - Disorder of kidney and ureter, unspecified - Assessment and plan all Dx Assessment and Plan for all problems:: Obtain an echo. We will try to wean from BiPAP today. Will place on Protonix. We will continue treatment for pneumonia.
[2018-05-31 19:38] LABS: ABG Base Excess 12.2 mmol/L (-2.4-2.3); ABG HCO3 37.9 mmhg (22.0-26.0); ABG Oxygen Saturation 95 % (90-100); ABG PH 7.34 mmol/L (7.35-7.45); ABG PO2 84.3 mmhg (80-100); ABG TCO2 40.1 mmhg (23-27)
[2018-05-31 19:39] LABS: Allen's Test Y; Oxygen 65 %
[2018-05-31 19:40] LABS: ABG PCO2 71.2 mmhg (35.0-45.0)
--- NOTE | 2018-06-01 05:54 | Cardiology Report ---
PROCEDURE: 2-D M-mode and color Doppler study INDICATIONS FOR THE TEST: Chest pain COPDX Heart Murmur Tobacco SmokingX Palpitations Fatigue Syncope Edema Hypertension Diabetes MellitusX Rheumatic Fever SOBXDOEXObesityXHyperlipidemia Family History HD Additional History AMS,CAD,CHF,PVD,OXYGEN DEPENDENT PATIENT INFORMATION HEIGHT: 67 WEIGHT:202 GENDER: Female B/P:103/65 2-D/M-MODE INTERPRETATION: 2-D MEASUREMENTS OBSERVED VALUES IN CMS Right Ventricular Dimension (RVDd) 1.7 Interventricular Septum (Thickness)(IVsd) .8 Left Ventricular Internal Dimensions(LVIDd) 5.0 Left Ventricular Posterior Wall (Thickness)(LVPWd) 1.1 Aortic Root 3.8 Aortic Cusp Separation 2.0 Left Atrial Dimensions (LAD) 3.2 2D 1. Left atrium is mildly enlarged, left ventricle is normal size, mild concentric left ventricular hypertrophy, hyperdynamic left ventricle is visually estimated ejection fraction over 65% with no regional wall motion abnormality. 2. The right atrium and right ventricle are normal size and contractility. 3. The aortic valve is minimally thickened and fibrosed. 4. The mitral and tricuspid valve leaflets are minimally thickened. 5.The pulmonic valve is poorly visualized. 6. No significant pericardial effusion noted. DOPPLER INTERROGATION: Doppler interrogation of the aortic, mitral and tricuspid valvular presence of mild mitral and tricuspid regurgitation, tricuspid regurgitation jet velocity is inadequate for calculation of the right ventricular systolic pressure, grade 1 diastolic dysfunction seen without tissue Doppler evidence of raised left atrial pressure. CONCLUSION: 1. Normal left ventricular size, mild concentric left ventricular hypertrophy, hyperdynamic left ventricular systolic function, visually estimated ejection fraction over 65% with no regional wall motion abnormality, grade 1 diastolic dysfunction seen without tissue Doppler evidence of raised left atrial pressure. 2. Mild mitral and tricuspid regurgitation 3. Pericardial effusion noted.
[2018-06-01 06:42] LABS: Anion Gap 4.5 mEq/L (5-15); Calcium 8.9 mg/dL (8.5-10.1); Potassium 4.5 mmoL/L (3.5-5.1)
--- NOTE | 2018-06-01 08:23 | Pharmacy Consult Notes ---
- Pharmacy Consult Date: 06/01/18 Time: 08:22 Referring provider: DR. VALENCIA Reason for Consult:: VANCOMYCIN DOSING Allergies and ADEs:: Allergies Allergy/AdvReac Type Severity Reaction Status Date / Time bacitracin Allergy Intermediate Rash Verified 05/09/18 14:40 [From NEOSPORIN ([id number])] doxycycline Allergy Mild Rash Verified 05/09/18 14:40 neomycin Allergy Mild Rash Verified 05/09/18 14:40 [From NEOSPORIN ([id number])] Penicillins Allergy Mild Rash Verified 05/09/18 14:40 polymyxin B Allergy Mild Rash Verified 05/09/18 14:40 [From NEOSPORIN ([id number])] sertraline [From Zoloft] AdvReac Severe Hallucinati Verified 05/09/18 14:40 ng tea tree AdvReac Severe Verified 05/18/18 15:00 green tea AdvReac Verified 05/19/18 14:30 Home Medications:: Home Medications Medication Instructions Recorded Confirmed Type alprazolam 0.25 mg tablet 0.25 mg PO TID tab 06/14/17 05/30/18 History insulin aspart U- 100 100 unit/mL 8 unit SUB-Q TID ml 06/14/17 05/31/18 History subcutaneous pen nitroglycerin 0.4 mg sublingual 0.4 mg SUBLINGUAL Q5MINP PRN 06/14/17 05/31/18 History tablet omega-3 fatty acids 1,000 mg 1,000 mg PO DAILY 06/14/17 05/31/18 History capsule venlafaxine 50 mg tablet 50 mg PO BID 90 Days #180 tab 08/31/17 05/31/18 History mirabegron ER 50 mg 50 mg PO DAILY tab 09/14/17 05/31/18 History tablet,extended release 24 hr Aspirin [Low Dose Aspirin EC] 81 mg PO DAILY 10/27/17 05/31/18 History Clopidogrel Bisulfate [Plavix 75mg 75 mg PO DAILY 10/27/17 05/31/18 History Tab] Dexlansoprazole [Dexilant] 60 mg PO DAILY 02/17/18 05/30/18 History Hydrocod/Acet 5/325 mg [[place]yer 1 tab PO TIDP PRN 02/17/18 05/30/18 History 5/325mg tablet] Insulin Glargine,Hum.rec.anlog 45 unit SQ DAILY 02/17/18 05/31/18 History [L[place] U-100] Rosuvastatin Calcium 10 mg PO HS 02/17/18 05/31/18 History Trazodone HCl 100 mg PO HS 02/17/18 05/31/18 History quetiapine 200 mg tablet 200 mg PO HS tab 03/15/18 05/31/18 History Amlodipine Besylate [Amlodipine 5 mg PO DAILY 05/09/18 05/30/18 History 5mg tab] Furosemide [Furosemide 20mg Tab] 20 mg PO DAILY 05/09/18 05/31/18 History Losartan Potassium 25 mg PO DAILY 05/09/18 05/31/18 History Metoprolol Succinate 50 mg PO DAILY 05/09/18 05/31/18 History Tiotropium Br/Olodaterol HCl 2 puffs IH DAILY 05/09/18 05/31/18 History [Stiolto Respimat Inhal [facility]] Potassium Chloride [Klor-con 20 20 meq PO DAILY 05/10/18 05/31/18 History mEq tablet] Nicotine [Nicoderm 21mg/24hr 21 mg TD DAILY 05/17/18 05/31/18 History patch] dilTIAZem HCl [Diltiazem 240mg 240 mg PO DAILY 05/17/18 05/31/18 History 24Hr ER Cap] levoFLOXacin [Levaquin 500mg 500 mg PO DAILY 05/17/18 05/31/18 History tab] predniSONE [Deltasone 20mg 20 mg PO DAILY 05/17/18 05/31/18 History tablet] Height: 1.68 m Weight: 91.881 kg Laboratory Results:: Laboratory Results - last 24 hr 05/30/18 19:53: POC Glucose > 600 H* 05/31/18 13:25: POC Glucose 555 H* 05/31/18 13:30: Random Glucose 527 H* 05/31/18 19:37: Specimen Source L/r, O2 % 65, ABG pH 7.34 L, ABG pCO2 71.2 H, ABG pO2 84.3, ABG HCO3 37.9 H, ABG Total CO2 40.1 H, ABG O2 Saturation 95, ABG Base Excess 12.2 H, Chandler Test Y, Vent Rate 30 05/31/18 20:04: POC Glucose 532 H* 05/31/18 20:20: Random Glucose 515 H* 06/01/18 02:12: POC Glucose 485 H* 06/01/18 05:50: Sodium 138, Potassium 4.5, Chloride 100, Carbon Dioxide 38 H, Anion Gap 4.5 L, BUN 30 H, Creatinine 0.83 D, Estimated Creat Clear 86, Estimated GFR 70, Est GFR ( Amer) 85 D, Glucose 403 H*, Calcium 8.9 Medical History: Reports:: Atherosclerotic Heart Disease, Cancer, Congestive Heart Failure, Chronic Obstructive Pulmonary Disease (COPD), Coronary Artery Disease, Diabetes Mellitus Type 2, Gastroesophageal Reflux Disease(GERD), Hyperlipidemia, Hypertension, Lung Disease, Peripheral Vascular Disease, Renal Insufficiency Denies:: Diabetes Mellitus Type 1, MRSA Assessment and Plan (1) Acute respiratory failure with hypoxia and hypercapnia Current visit: No Status: Acute Category: Medical Code(s): J96.01 - Acute respiratory failure with hypoxia; J96.02 - Acute respiratory failure with hypercapnia (2) COPD exacerbation Current visit: No Status: Acute Category: Medical Code(s): J44.1 - Chronic obstructive pulmonary disease with (acute) exacerbation (3) Hyperglycemia Current visit: Yes Status: Acute Category: Medical Code(s): R73.9 - Hyperglycemia, unspecified (4) Pneumonia Current visit: Yes Status: Acute Category: Medical Code(s): J18.9 - Pneumonia, unspecified organism (5) Tobacco use disorder Current visit: No Status: Acute Category: Medical Code(s): F17.200 - Nicotine dependence, unspecified, uncomplicated (6) COPD (chronic obstructive pulmonary disease) Current visit: No Status: Chronic Qualifiers: COPD type: chronic bronchitis Chronic bronchitis type: unspecified Qualified Code(s): J42 - Unspecified chronic bronchitis Category: Medical Code(s): J44.9 - Chronic obstructive pulmonary disease, unspecified (7) Diabetes mellitus Current visit: No Status: Chronic Qualifiers: Diabetes mellitus type: type 2 Diabetes mellitus termination clerk insulin use: with termination clerk use Diabetes mellitus complication status: with neurologic complications Diabetes mellitus complication detail: with polyneuropathy Qualified Code(s): E11.42 - Type 2 diabetes mellitus with diabetic polyneuropathy; Z79.4 - [employer] (current) use of insulin Category: Medical Code(s): E11.9 - Type 2 diabetes mellitus without complications (8) Renal insufficiency Current visit: Yes Status: Acute Category: Medical Code(s): N28.9 - Disorder of kidney and ureter, unspecified - Assessment and plan all Dx Assessment and Plan for all problems:: BASED ON PATIENT'S FACTORS, RECOMMEND CONTINUING WITH VANCOMYCIN 2000 MG Q18H AT THIS TIME. PHARMACY WILL FOLLOW DAILY AND ADJUST APPROPRIATE. BESS AGUAYO, PHARMD
--- NOTE | 2018-06-01 08:32 | Progress Note ---
Internal Medicine - PN: Subj *Date: 06/01/18 *Time: 08:30 Interval history: Patient states she is feeling much better today. She is no longer lethargic. She wore BiPAP during the night but has had nasal oxygen on at 3 L this morning. She states her sats have been around 88-89%. She does not want to put the BiPAP back on. She states she ate breakfast this morning and did not sleep well last night. Nursing is concerned with her elevated blood sugars. Exam Vital signs and Labs for Last 24 Hours: Temp Pulse Resp BP Pulse Ox 98.4 F 67 20 132/74 88 L 06/01/18 08:00 06/01/18 08:00 06/01/18 08:00 06/01/18 08:00 06/01/18 08:00 Laboratory Results - last 24 hr 05/30/18 19:53: POC Glucose > 600 H* 05/31/18 13:25: POC Glucose 555 H* 05/31/18 13:30: Random Glucose 527 H* 05/31/18 19:37: Specimen Source L/r, O2 % 65, ABG pH 7.34 L, ABG pCO2 71.2 H, ABG pO2 84.3, ABG HCO3 37.9 H, ABG Total CO2 40.1 H, ABG O2 Saturation 95, ABG Base Excess 12.2 H, Chandler Test Y, Vent Rate 30 05/31/18 20:04: POC Glucose 532 H* 05/31/18 20:20: Random Glucose 515 H* 06/01/18 02:12: POC Glucose 485 H* 06/01/18 05:50: Sodium 138, Potassium 4.5, Chloride 100, Carbon Dioxide 38 H, Anion Gap 4.5 L, BUN 30 H, Creatinine 0.83 D, Estimated Creat Clear 86, Estimated GFR 70, Est GFR ( Amer) 85 D, Glucose 403 H*, Calcium 8.9 I & O for Last 24 hours: Intake & Output 05/29/18 05/30/18 05/31/18 06/01/18 11:59 11:59 11:59 11:59 Intake Total 240 / 240 2233 / 2233 Output Total 1500 / 1500 1825 / 1825 Balance -1260 / -1260 408 / 408 Weight 202 lb 9 oz 202 lb 9 oz Microbiology Reports for the Last 24 Hours: Microbiology 05/30/18 14:45 Blood Blood Culture - Preliminary Gram Positive Cocci 05/31/18 13:10 Sputum - Expectorated Sputum Gram Stain - Final - Constitutional no acute distress - *Routine Respiratory Exam Present: rales, rhonchi, wheezes - *Routine Cardiovascular Exam Present: RRR - *Routine Abdominal Exam Present: soft, normoactive bowel sounds. Absent: tenderness - *Routine Extremities Exam Absent: cyanosis, clubbing, edema - *Routine Neurological Exam Present: alert, oriented X3 Assessment and Plan (1) Acute respiratory failure with hypoxia and hypercapnia Current visit: No Status: Acute Category: Medical Code(s): J96.01 - Acute respiratory failure with hypoxia; J96.02 - Acute respiratory failure with hypercapnia (2) COPD exacerbation Current visit: No Status: Acute Category: Medical Code(s): J44.1 - Chronic obstructive pulmonary disease with (acute) exacerbation (3) Hyperglycemia Current visit: Yes Status: Acute Category: Medical Code(s): R73.9 - Hyperglycemia, unspecified (4) Pneumonia Current visit: Yes Status: Acute Category: Medical Code(s): J18.9 - Pneumonia, unspecified organism (5) Tobacco use disorder Current visit: No Status: Acute Category: Medical Code(s): F17.200 - Nicotine dependence, unspecified, uncomplicated (6) COPD (chronic obstructive pulmonary disease) Current visit: No Status: Chronic Qualifiers: COPD type: chronic bronchitis Chronic bronchitis type: unspecified Qualified Code(s): J42 - Unspecified chronic bronchitis Category: Medical Code(s): J44.9 - Chronic obstructive pulmonary disease, u nspecified (7) Diabetes mellitus Current visit: No Status: Chronic Qualifiers: Diabetes mellitus type: type 2 Diabetes mellitus snf insulin use: with snf use Diabetes mellitus complication status: with neurologic complications Diabetes mellitus complication detail: with polyneuropathy Qualified Code(s): E11.42 - Type 2 diabetes mellitus with diabetic polyneuropathy; Z79.4 - care home (current) use of insulin Category: Medical Code(s): E11.9 - Type 2 diabetes mellitus without complications (8) Renal insufficiency Current visit: Yes Status: Acute Category: Medical Code(s): N28.9 - Disorder of kidney and ureter, unspecified (9) Bacteremia due to methicillin resistant Staphylococcus aureus Current visit: Yes Status: Acute Category: Medical Code(s): R78.81 - Bacteremia - Assessment and plan all Dx Assessment and Plan for all problems:: Patient's blood cultures are growing MRSA. She has been started on vancomycin. She is already on the highest intensity sliding scale regimen and her sugars are still in the 400s and 500s likely due to high-dose steroids. Will discuss further care with Dr. gusman.
--- NOTE | 2018-06-02 08:26 | Progress Note ---
Internal Medicine - PN: Subj *Date: 06/02/18 *Time: 08:23 Interval history: Patient states she is feeling well this morning. She is eating breakfast and states she slept well last night. She has been on Vapotherm since last night and her sats have been stable. She denies any pain. Exam Vital signs and Labs for Last 24 Hours: Temp Pulse Resp BP Pulse Ox 97.8 F 104 H 20 132/93 H 93 L 06/02/18 07:57 06/02/18 07:57 06/02/18 07:57 06/02/18 07:57 06/02/18 07:57 Laboratory Results - last 24 hr 06/01/18 08:05: POC Glucose 424 H* 06/01/18 14:11: POC Glucose 588 H* 06/01/18 14:23: Random Glucose 549 H* 06/01/18 21:25: POC Glucose 591 H* 06/01/18 21:36: Random Glucose 612 H* 06/02/18 03:25: POC Glucose 485 H* I & O for Last 24 hours: Intake & Output 05/30/18 05/31/18 06/01/18 06/02/18 11:59 11:59 11:59 11:59 Intake Total 240 / 240 2233 / 2233 3396 / 3396 Output Total 1500 / 1500 1825 / 1825 3475 / 3475 Balance -1260 / -1260 408 / 408 -79 / -79 Weight 202 lb 9 oz 202 lb 9 oz 215 lb 1 oz Microbiology Reports for the Last 24 Hours: Microbiology 05/30/18 14:45 Blood Blood Culture - Preliminary Staphylococcus aureus 05/31/18 13:10 Sputum - Expectorated Sputum Gram Stain - Final 05/31/18 13:10 Sputum - Expectorated Sputum Sputum Culture - Final Staphylococcus aureus 05/30/18 14:45 Blood Blood Culture - Preliminary NO GROWTH AFTER 48 HOURS - Constitutional no acute distress - *Routine Respiratory Exam Present: rhonchi, wheezes, crackles (right) - *Routine Cardiovascular Exam Present: RRR - *Routine Abdominal Exam Present: soft, normoactive bowel sounds. Absent: tenderness - *Routine Extremities Exam Absent: cyanosis, clubbing, edema Assessment and Plan (1) Acute respiratory failure with hypoxia and hypercapnia Current visit: No Status: Acute Category: Medical Code(s): J96.01 - Acute respiratory failure with hypoxia; J96.02 - Acute respiratory failure with hypercapnia (2) COPD exacerbation Current visit: No Status: Acute Category: Medical Code(s): J44.1 - Chronic obstructive pulmonary disease with (acute) exacerbation (3) Hyperglycemia Current visit: Yes Status: Acute Category: Medical Code(s): R73.9 - Hyperglycemia, unspecified (4) Pneumonia Current visit: Yes Status: Acute Category: Medical Code(s): J18.9 - Pneumonia, unspecified organism (5) Tobacco use disorder Current visit: No Status: Acute Category: Medical Code(s): F17.200 - Nicotine dependence, unspecified, uncomplicated (6) COPD (chronic obstructive pulmonary disease) Current visit: No Status: Chronic Qualifiers: COPD type: chronic bronchitis Chronic bronchitis type: unspecified Qualified Code(s): J42 - Unspecified chronic bronchitis Category: Medical Code(s): J44.9 - Chronic obstructive pulmonary disease, unspecified (7) Diabetes mellitus Current visit: No Status: Chronic Qualifiers: Diabetes mellitus type: type 2 Diabetes mellitus dedicated intermodal truck driver insulin use: with dedicated intermodal truck driver use Diabetes mellitus complication status: with neurologic complications Diabetes mellitus complication detail: with polyneuropathy Qualified Code(s): E11.42 - Type 2 diabetes mellitus with diabetic polyneuropathy; Z79.4 - buttermaker continuous [employer] (current) use of insulin Category: Medical Code(s): E11.9 - Type 2 diabetes mellitus without complications (8) Renal insufficiency Current visit: Yes Status: Acute Category: Medical Code(s): N28.9 - Disorder of kidney and ureter, unspecified (9) Bacteremia due to methicillin resistant Staphylococcus aureus Current visit: Yes Status: Acute Category: Medical Code(s): R78.81 - Bacteremia (10) MRSA pneumonia Current visit: Yes Status: Acute Category: Medical Code(s): J15.212 - Pneumonia due to Methicillin resistant Staphylococcus aureus - Assessment and plan all Dx Assessment and Plan for all problems:: Sputum and blood cultures are positive for MRSA. Patient is improving slowly. We will continue IV antibiotics. Blood sugars remain high. Steroids will be decreased shortly.
[2018-06-02 09:52] LABS: Albumin Level 1.7 gm/dL (3.4-5.0); Albumin/Globulin Ratio 0.4 (1.1-1.8); Anion Gap 5.7 mEq/L (5-15); Bilirubin,Total 0.3 mg/dL (0.2-1.0); Calcium 8.7 mg/dL (8.5-10.1); Globulin 3.8 gm/dl (1.3-3.2); Potassium 4.7 mmoL/L (3.5-5.1); Total Protein,Serum 5.5 gm/dL (6.4-8.2)
[2018-06-02 11:01] LABS: Basophils % 0.5 % (0.1-2.0); Eosinophils % 0.1 % (0.1-12.0); Hematocrit 33.2 % (37.0-47.0); Hemoglobin 10.5 g/dL (12.2-16.2); Lymphocytes # 0.3 K/mm3 (0.7-4.5); Lymphocytes % 4.8 % (10-50); Mean Corpuscular HGB Conc 31.5 g/dL (31.8-35.4); Mean Corpuscular Hemoglobin 28.6 pg (27.0-31.2); Mean Platelet Volume 8.6 fl (7.4-10.4); Monocytes # 0.4 K/mm3 (0.1-1.0); Neutrophils # 5.3 K/mm3 (1.8-7.8); Neutrophils % 88.7 % (37.0-80.0); Platelet Count 71 K/mm3 (142-424); Red Blood Count 3.65 M/mm3 (4.20-5.40); Red Cell Distribution Width 17.2 % (11.5-17.5)
[2018-06-02 11:23] LABS: Lymphocytes % 4 % (10-50); Monocytes % 5 % (2-9); Neutrophils % 91 % (42-76); Total Cells Counted 100
--- NOTE | 2018-06-03 08:21 | Progress Note ---
Internal Medicine - PN: Subj *Date: 06/03/18 *Time: 08:21 Exam Vital signs and Labs for Last 24 Hours: Temp Pulse Resp BP Pulse Ox 98.4 F 103 H 20 132/74 89 L 06/03/18 04:00 06/03/18 04:00 06/03/18 04:00 06/03/18 04:00 06/03/18 06:54 Laboratory Results - last 24 hr 06/02/18 09:00: POC Glucose 444 H* 06/02/18 09:30: Sodium 133 L, Potassium 4.7, Chloride 97 L, Carbon Dioxide 35 H, Anion Gap 5.7, BUN 29 H, Creatinine 0.82, Estimated Creat Clear 91, Estimated GFR 71, Est GFR ( Amer) 86, Glucose 464 H*, Calcium 8.7, Total Bilirubin 0.3, AST 6 L, ALT 19, Alkaline Phosphatase 66, Total Protein 5.5 L, Albumin 1.7 L, Globulin 3.8 H, Albumin/Globulin Ratio 0.4 L 06/02/18 10:40: WBC 6.0 D, RBC 3.65 L, Hgb 10.5 L, Hct 33.2 L, MCV 91.0, MCH 28.6, MCHC 31.5 L, RDW 17.2, Plt Count 71 L D, MPV 8.6, Neut % (Auto) 88.7 H, Lymph % (Auto) 4.8 L, [place] % (Auto) 6.0, Eos % (Auto) 0.1, Baso % (Auto) 0.5, Neut # (Auto) 5.3, Lymph # (Auto) 0.3 L, [place] # (Auto) 0.4, Eos # (Auto) 0.0, Baso # (Auto) 0.0, Total Counted 100, Neutrophils % (Manual) 91 H, Lymphocytes % (Manual) 4 L, Monocytes % (Manual) 5, Platelet Estimate Moderate decrease 06/02/18 14:02: POC Glucose 438 H* 06/02/18 20:28: POC Glucose 415 H* 06/03/18 02:15: POC Glucose 290 H I & O for Last 24 hours: Intake & Output 05/31/18 06/01/18 06/02/18 06/03/18 23:59 23:59 23:59 23:59 Intake Total 1992 3247 / 3247 2185 / 2185 1007 / 1007 Output Total 3325 / 3325 2500 / 2500 1974 3050 / 3050 Balance -1332 / -1332 747 / 747 210 / 210 -2042 / -2042 Weight 91.881 kg 91.881 kg 97.551 kg 96.36 kg Microbiology Reports for the Last 24 Hours: Microbiology 05/30/18 14:45 Blood Blood Culture - Preliminary Staphylococcus aureus 05/31/18 13:10 Sputum - Expectorated Sputum Gram Stain - Final 05/31/18 13:10 Sputum - Expectorated Sputum Sputum Culture - Final Staphylococcus aureus Assessment and Plan (1) Acute respiratory failure with hypoxia and hypercapnia Current visit: No Status: Acute Category: Medical Code(s): J96.01 - Acute respiratory failure with hypoxia; J96.02 - Acute respiratory failure with hypercapnia (2) COPD exacerbation Current visit: No Status: Acute Category: Medical Code(s): J44.1 - Chronic obstructive pulmonary disease with (acute) exacerbation (3) Hyperglycemia Current visit: Yes Status: Acute Category: Medical Code(s): R73.9 - Hyperglycemia, unspecified (4) Pneumonia Current visit: Yes Status: Acute Category: Medical Code(s): J18.9 - Pneumonia, unspecified organism (5) Tobacco use disorder Current visit: No Status: Acute Category: Medical Code(s): F17.200 - Nicotine dependence, unspecified, uncomplicated (6) COPD (chronic obstructive pulmonary disease) Current visit: No Status: Chronic Qualifiers: COPD type: chronic bronchitis Chronic bronchitis type: unspecified Qualified Code(s): J42 - Unspecified chronic bronchitis Category: Medical Code(s): J44.9 - Chronic obstructive pulmonary disease, u nspecified (7) Diabetes mellitus Current visit: No Status: Chronic Qualifiers: Diabetes mellitus type: type 2 Diabetes mellitus intermediate insulin use: with intermediate use Diabetes mellitus complication status: with neurologic complications Diabetes mellitus complication detail: with polyneuropathy Qualified Code(s): E11.42 - Type 2 diabetes mellitus with diabetic polyneuropathy; Z79.4 - local company intermodal truck driver (current) use of insulin Category: Medical Code(s): E11.9 - Type 2 diabetes mellitus without complications (8) Renal insufficiency Current visit: Yes Status: Acute Category: Medical Code(s): N28.9 - Disorder of kidney and ureter, unspecified (9) Bacteremia due to methicillin resistant Staphylococcus aureus Current visit: Yes Status: Acute Category: Medical Code(s): R78.81 - Bacteremia (10) MRSA pneumonia Current visit: Yes Status: Acute Category: Medical Code(s): J15.212 - Pneumonia due to Methicillin resistant Staphylococcus aureus The patient's infection will respond to the chosen ABx?: Yes Is the patient receiving the right drug, dose, and route?: Yes Could a more targeted ABx be ordered?: No
--- NOTE | 2018-06-03 08:25 | Progress Note ---
Addendum entered and electronically signed by EVERETT Ruiz 06/03/18 08:26: Of note, the patient's blood culture came back positive for vancomycin resistant staph aureus therefore her antibiotics were changed to Zyvox. Original Note: Internal Medicine - PN: Subj *Date: 06/03/18 *Time: 08:23 Interval history: Patient states she feels well this morning. She denies any pain. She states she slept throughout the night and is eating breakfast this morning. She does however appear more confused this morning. Exam Vital signs and Labs for Last 24 Hours: Temp Pulse Resp BP Pulse Ox 98.4 F 103 H 20 132/74 89 L 06/03/18 04:00 06/03/18 04:00 06/03/18 04:00 06/03/18 04:00 06/03/18 06:54 Laboratory Results - last 24 hr 06/02/18 09:00: POC Glucose 444 H* 06/02/18 09:30: Sodium 133 L, Potassium 4.7, Chloride 97 L, Carbon Dioxide 35 H, Anion Gap 5.7, BUN 29 H, Creatinine 0.82, Estimated Creat Clear 91, Estimated GFR 71, Est GFR ( Amer) 86, Glucose 464 H*, Calcium 8.7, Total Bilirubin 0.3, AST 6 L, ALT 19, Alkaline Phosphatase 66, Total Protein 5.5 L, Albumin 1.7 L, Globulin 3.8 H, Albumin/Globulin Ratio 0.4 L 06/02/18 10:40: WBC 6.0 D, RBC 3.65 L, Hgb 10.5 L, Hct 33.2 L, MCV 91.0, MCH 28.6, MCHC 31.5 L, RDW 17.2, Plt Count 71 L D, MPV 8.6, Neut % (Auto) 88.7 H, Lymph % (Auto) 4.8 L, [place] % (Auto) 6.0, Eos % (Auto) 0.1, Baso % (Auto) 0.5, Neut # (Auto) 5.3, Lymph # (Auto) 0.3 L, [place] # (Auto) 0.4, Eos # (Auto) 0.0, Baso # (Auto) 0.0, Total Counted 100, Neutrophils % (Manual) 91 H, Lymphocytes % (Manual) 4 L, Monocytes % (Manual) 5, Platelet Estimate Moderate decrease 06/02/18 14:02: POC Glucose 438 H* 06/02/18 20:28: POC Glucose 415 H* 06/03/18 02:15: POC Glucose 290 H I & O for Last 24 hours: Intake & Output 05/31/18 06/01/18 06/02/18 06/03/18 11:59 11:59 11:59 11:59 Intake Total 240 / 240 2233 / 2233 3696 / 3696 2263 / 2263 Output Total 1500 / 1500 1825 / 1825 3475 / 3475 4050 / 4050 Balance -1260 / -1260 408 / 408 221 / 221 -1787 / -1787 Weight 202 lb 9 oz 202 lb 9 oz 215 lb 1 oz 212 lb 7 oz Microbiology Reports for the Last 24 Hours: Microbiology 05/30/18 14:45 Blood Blood Culture - Preliminary Staphylococcus aureus 05/31/18 13:10 Sputum - Expectorated Sputum Gram Stain - Final 05/31/18 13:10 Sputum - Expectorated Sputum Sputum Culture - Final Staphylococcus aureus - Constitutional Comments: Answers questions but appears fatigued and slightly confused. - *Routine Respiratory Exam Present: rales, rhonchi, wheezes - *Routine Cardiovascular Exam Present: RRR - *Routine Abdominal Exam Present: soft, normoactive bowel sounds. Absent: tenderness - *Routine Extremities Exam Absent: cyanosis, clubbing, edema Assessment and Plan (1) Acute respiratory failure with hypoxia and hypercapnia Current visit: No Status: Acute Category: Medical Code(s): J96.01 - Acute respiratory failure with hypoxia; J96.02 - Acute respiratory failure with hypercapnia (2) COPD exacerbation Current visit: No Status: Acute Category: Medical Code(s): J44.1 - Chronic obstructive pulmonary disease with (acute) exacerbation (3) Hyperglycemia Current visit: Yes Status: Acute Category: Medical Code(s): R73.9 - Hyperglycemia, unspecified (4) Pneumonia Current visit: Yes Status: Acute Category: Medical Code(s): J18.9 - Pneumonia, unspecified organism (5) Tobacco use disorder Current visit: No Status: Acute Category: Medical Code(s): F17.200 - Nicotine dependence, unspecified, uncomplicated (6) COPD (chronic obstructive pulmonary disease) Current visit: No Status: Chronic Qualifiers: COPD type: chronic bronchitis Chronic bronchitis type: unspecified Qualified Code(s): J42 - Unspecified chronic bronchitis Category: Medical Code(s): J44.9 - Chronic obstructive pulmonary disease, unspecified (7) Diabetes mellitus Current visit: No Status: Chronic Qualifiers: Diabetes mellitus type: type 2 Diabetes mellitus parts counterman insulin use: with parts counterman use Diabetes mellitus complication status: with neurologic co mplications Diabetes mellitus complication detail: with polyneuropathy Qualified Code(s): E11.42 - Type 2 diabetes mellitus with diabetic polyneur opathy; Z79.4 - shelter (current) use of insulin Category: Medical Code(s): E11.9 - Type 2 diabetes mellitus without complications (8) Renal insufficiency Current visit: Yes Status: Acute Category: Medical Code(s): N28.9 - Disorder of kidney and ureter, unspecified (9) Bacteremia due to methicillin resistant Staphylococcus aureus Current visit: Yes Status: Acute Category: Medical Code(s): R78.81 - Bacteremia (10) MRSA pneumonia Current visit: Yes Status: Acute Category: Medical Code(s): J15.212 - Pneumonia due to Methicillin resistant Staphylococcus aureus - Assessment and plan all Dx Assessment and Plan for all problems:: Will get a repeat chest x-ray this morning as well as stat labs. Patient does seem more confused. She remains on Vapotherm.
[2018-06-03 09:01] LABS: Basophils % 0.5 % (0.1-2.0); Eosinophils % 0.2 % (0.1-12.0); Hematocrit 34.2 % (37.0-47.0); Lymphocytes # 0.4 K/mm3 (0.7-4.5); Lymphocytes % 6.6 % (10-50); Mean Corpuscular HGB Conc 32.3 g/dL (31.8-35.4); Mean Corpuscular Volume 89.8 fl (81-99); Mean Platelet Volume 8.9 fl (7.4-10.4); Monocytes # 0.4 K/mm3 (0.1-1.0); Monocytes % 6.6 % (1.7-9.3); Neutrophils # 4.6 K/mm3 (1.8-7.8); Neutrophils % 86.2 % (37.0-80.0); Platelet Count 62 K/mm3 (142-424); Red Blood Count 3.81 M/mm3 (4.20-5.40); Red Cell Distribution Width 17.1 % (11.5-17.5); White Blood Count 5.4 K/mm3 (4.8-10.8)
[2018-06-03 09:12] LABS: Albumin Level 1.7 gm/dL (3.4-5.0); Albumin/Globulin Ratio 0.4 (1.1-1.8); Anion Gap 2.7 mEq/L (5-15); Bilirubin,Total 0.3 mg/dL (0.2-1.0); Calcium 8.8 mg/dL (8.5-10.1); Globulin 3.8 gm/dl (1.3-3.2); Potassium 4.7 mmoL/L (3.5-5.1); Total Protein,Serum 5.5 gm/dL (6.4-8.2)
[2018-06-03 09:30] LABS: Hypochromasia 1+; Lymphocytes % 9 % (10-50); Monocytes % 3 % (2-9); Neutrophils % 88 % (42-76); Total Cells Counted 100
--- NOTE | 2018-06-04 09:04 | Progress Note ---
Internal Medicine - PN: Subj *Date: 06/04/18 *Time: 09:02 Interval history: She remained stable through the night. Her oxygen saturations are between 80 and 90. Currently she is at 87%. She still coughing up some brown tinged sputum. She still has lots of rhonchi. Exam Vital signs and Labs for Last 24 Hours: Temp Pulse Resp BP Pulse Ox 97.4 F L 120 H 22 121/73 89 L 06/04/18 04:00 06/04/18 08:00 06/04/18 04:00 06/04/18 04:00 06/04/18 08:00 Laboratory Results - last 24 hr 06/03/18 08:48: WBC 5.4, RBC 3.81 L, Hgb 11.0 L, Hct 34.2 L, MCV 89.8, MCH 29.0, MCHC 32.3, RDW 17.1, Plt Count 62 L, MPV 8.9, Neut % (Auto) 86.2 H, Lymph % (Auto) 6.6 L, [place] % (Auto) 6.6, Eos % (Auto) 0.2, Baso % (Auto) 0.5, Neut # (Auto) 4.6, Lymph # (Auto) 0.4 L, [place] # (Auto) 0.4, Eos # (Auto) 0.0, Baso # (Auto) 0.0, Total Counted 100, Neutrophils % (Manual) 88 H, Lymphocytes % (Manual) 9 L, Monocytes % (Manual) 3, Platelet Estimate Moderate decrease, Hypochromasia 1+ 06/03/18 08:48: Sodium 135 L, Potassium 4.7, Chloride 97 L, Carbon Dioxide 40 H, Anion Gap 2.7 L, BUN 24 H, Creatinine 0.67, Estimated Creat Clear 90, Estimated GFR 89, Est GFR ( Amer) 108 D, Glucose 318 H D, Calcium 8.8, Total Bilirubin 0.3, AST 12 L D, ALT 23, Alkaline Phosphatase 67, Total Protein 5.5 L, Albumin 1.7 L, Globulin 3.8 H, Albumin/Globulin Ratio 0.4 L 06/03/18 09:03: POC Glucose 332 H* 06/03/18 14:33: POC Glucose 380 H* 06/03/18 20:05: POC Glucose 335 H* 06/04/18 01:57: POC Glucose 327 H* 06/04/18 08:24: POC Glucose 259 H I & O for Last 24 hours: Intake & Output 06/01/18 06/02/18 06/03/18 06/04/18 11:59 11:59 11:59 11:59 Intake Total 2233 / 2233 3696 / 3696 3043 / 3043 1800 / 1800 Output Total 1825 / 1825 3475 / 3475 4050 / 4050 1600 / 1600 Balance 408 / 408 221 / 221 -1007 / -1007 200 / 200 Weight 202 lb 9 oz 215 lb 1 oz 212 lb 7 oz 213 lb 7 oz - Constitutional no acute distress - *Routine HEENT Exam Eye: Present: PERRL Comments: Sallow - *Routine Neck Exam Present: JVD (Perhaps slight) - *Routine Respiratory Exam Present: decreased breath sounds, rhonchi - *Routine Cardiovascular Exam Present: RRR - *Routine Abdominal Exam Present: soft. Absent: tenderness - *Routine Extremities Exam Present: edema (Trace) - *Routine Neurological Exam Present: alert, oriented X3 Assessment and Plan (1) Acute respiratory failure with hypoxia and hypercapnia Current visit: No Status: Acute Category: Medical Code(s): J96.01 - Acute respiratory failure with hypoxia; J96.02 - Acute respiratory failure with hypercapnia (2) COPD exacerbation Current visit: No Status: Acute Category: Medical Code(s): J44.1 - Chronic obstructive pulmonary disease with (acute) exacerbation (3) Hyperglycemia Current visit: Yes Status: Acute Category: Medical Code(s): R73.9 - Hyperglycemia, unspecified (4) Pneumonia Current visit: Yes Status: Acute Category: Medical Code(s): J18.9 - Pn eumonia, unspecified organism (5) Tobacco use disorder Current visit: No Status: Acute Category: Medical Code(s): F17.200 - Nicotine dependence, unspecified, uncomplicated (6) COPD (chronic obstructive pulmonary disease) Current visit: No Status: Chronic Qualifiers: COPD type: chronic bronchitis Chronic bronchitis type: unspecified Qualified Code(s): J42 - Unspecified chronic bronchitis Category: Medical Code(s): J44.9 - Chronic obstructive pulmonary disease, uns pecified (7) Diabetes mellitus Current visit: No Status: Chronic Qualifiers: Diabetes mellitus type: type 2 Diabetes mellitus intermediate project manager insulin use: with intermediate project manager use Diabetes mellitus complication status: with neurologic complications Diabetes mellitus complication detail: with polyneuropathy Qualified Code(s): E11.42 - Type 2 diabetes mellitus with diabetic polyneuropathy; Z79.4 - group home (current) use of insulin Category: Medical Code(s): E11.9 - Type 2 diabetes mellitus without complications (8) Renal insufficiency Current visit: Yes Status: Acute Category: Medical Code(s): N28.9 - Disorder of kidney and ureter, unspecified (9) Bacteremia due to methicillin resistant Staphylococcus aureus Current visit: Yes Status: Acute Category: Medical Code(s): R78.81 - Bacteremia (10) MRSA pneumonia Current visit: Yes Status: Acute Category: Medical Code(s): J15.212 - Pneumonia due to Methicillin resistant Staphylococcus aureus - Assessment and plan all Dx Assessment and Plan for all problems:: Incentive spirometry and chest physiotherapy. Continue antibiotics.
[2018-06-05 06:31] LABS: Albumin Level 1.6 gm/dL (3.4-5.0); Albumin/Globulin Ratio 0.4 (1.1-1.8); Anion Gap 5.8 mEq/L (5-15); Bilirubin,Total 0.3 mg/dL (0.2-1.0); Calcium 8.5 mg/dL (8.5-10.1); Globulin 3.8 gm/dl (1.3-3.2); Potassium 3.8 mmoL/L (3.5-5.1); Total Protein,Serum 5.4 gm/dL (6.4-8.2)
--- NOTE | 2018-06-05 09:52 | Progress Note ---
Internal Medicine - PN: Subj *Date: 06/05/18 *Time: 09:51 Interval history: The patient is in no acute distress. She is still bringing up large amounts of ramos sputum. Her exam is similar. Exam Vital signs and Labs for Last 24 Hours: Temp Pulse Resp BP Pulse Ox 98.2 F 103 H 20 110/76 90 L 06/05/18 04:00 06/05/18 07:22 06/05/18 04:00 06/05/18 04:00 06/05/18 07:22 Laboratory Results - last 24 hr 06/04/18 13:41: POC Glucose 354 H* 06/04/18 20:43: POC Glucose 209 H 06/05/18 03:00: POC Glucose 328 H* 06/05/18 05:35: Sodium 141, Potassium 3.8, Chloride 98, Carbon Dioxide 41 H*, Anion Gap 5.8, BUN 14 D, Creatinine 0.71, Estimated Creat Clear 89, Estimated GFR 84, Est GFR ( Amer) 101, Glucose 171 H, Calcium 8.5, Total Bilirubin 0.3, AST 22 D, ALT 33 D, Alkaline Phosphatase 74, Total Protein 5.4 L, Albumin 1.6 L, Globulin 3.8 H, Albumin/Globulin Ratio 0.4 L 06/05/18 08:55: POC Glucose 190 H I & O for Last 24 hours: Intake & Output 06/02/18 06/03/18 06/04/18 06/05/18 11:59 11:59 11:59 12:59 Intake Total 3696 / 3696 3043 / 3043 2100 / 2100 1020 / 1020 Output Total 3475 / 3475 4050 / 4050 1600 / 1600 1700 / 1700 Balance 221 / 221 -1007 / -1007 500 / 500 -680 / -680 Weight 215 lb 1 oz 212 lb 7 oz 213 lb 7 oz 211 lb 1 oz Microbiology Reports for the Last 24 Hours: Microbiology 05/30/18 14:45 Blood Blood Culture - Final NO GROWTH AFTER 5 DAYS - Constitutional no acute distress - *Routine Respiratory Exam Present: decreased breath sounds, rhonchi - *Routine Cardiovascular Exam Present: RRR - *Routine Extremities Exam Present: edema (Trace) Assessment and Plan (1) Acute respiratory failure with hypoxia and hypercapnia Current visit: No Status: Acute Category: Medical Code(s): J96.01 - Acute respiratory failure with hypoxia; J96.02 - Acute respiratory failure with hypercapnia (2) COPD exacerbation Current visit: No Status: Acute Category: Medical Code(s): J44.1 - Chronic obstructive pulmonary disease with (acute) exacerbation (3) Hyperglycemia Current visit: Yes Status: Acute Category: Medical Code(s): R73.9 - Hyperglycemia, unspecified (4) Pneumonia Current visit: Yes Status: Acute Category: Medical Code(s): J18.9 - Pneumonia, unspecified organism (5) Tobacco use disorder Current visit: No Status: Acute Category: Medical Code(s): F17.200 - Nicotine dependence, unspecified, uncomplicated (6) COPD (chronic obstructive pulmonary disease) Current visit: No Status: Chronic Qualifiers: COPD type: chronic bronchitis Chronic bronchitis type: unspecified Qualified Code(s): J42 - Unspecified chronic bronchitis Category: Medical Code(s): J44.9 - Chronic obstructive pulmonary disease, unspecified (7) Diabetes mellitus Current visit: No Status: Chronic Qualifiers: Diabetes mellitus type: type 2 Diabetes mellitus custodial insulin use: with adjunct faculty for medical terminology use Diabetes mellitus complication status: with neurologic complications Diabetes mellitus complication detail: with polyneuropathy Qualified Code(s): E11.42 - Type 2 diabetes mellitus with diabetic polyneuropathy; Z79.4 - halfway (current) use of insulin Category: Medical Code(s): E11.9 - Type 2 diabetes mellitus without complications (8) Renal insufficiency Current visit: Yes Status: Acute Category: Medical Code(s): N28.9 - Disorder of kidney and ureter, unspecified (9) Bacteremia due to methicillin resistant Staphylococcus aureus Current visit: Yes Status: Acute Category: Medical Code(s): R78.81 - Bacteremia (10) MRSA pneumonia Current visit: Yes Status: Acute Category: Medical Code(s): J15.212 - Pneumonia due to Methicillin resistant Staphylococcus aureus - Assessment and plan all Dx Assessment and Plan for all problems:: Continue present care. She does have a prison bed available.
--- NOTE | 2018-06-05 11:58 | Progress Note ---
Internal Medicine - PN: Subj *Date: 06/05/18 *Time: 11:58 Exam Vital signs and Labs for Last 24 Hours: Temp Pulse Resp BP Pulse Ox 97.5 F L 111 H 18 121/76 93 L 06/05/18 08:00 06/05/18 08:00 06/05/18 08:00 06/05/18 08:00 06/05/18 10:00 Laboratory Results - last 24 hr 06/04/18 13:41: POC Glucose 354 H* 06/04/18 20:43: POC Glucose 209 H 06/05/18 03:00: POC Glucose 328 H* 06/05/18 05:35: Sodium 141, Potassium 3.8, Chloride 98, Carbon Dioxide 41 H*, Anion Gap 5.8, BUN 14 D, Creatinine 0.71, Estimated Creat Clear 89, Estimated GFR 84, Est GFR ( Amer) 101, Glucose 171 H, Calcium 8.5, Total Bilirubin 0.3, AST 22 D, ALT 33 D, Alkaline Phosphatase 74, Total Protein 5.4 L, Albumin 1.6 L, Globulin 3.8 H, Albumin/Globulin Ratio 0.4 L 06/05/18 08:55: POC Glucose 190 H I & O for Last 24 hours: Intake & Output 06/02/18 06/03/18 06/04/18 06/06/18 23:59 23:59 23:59 00:59 Intake Total 2485 / 2485 3287 / 3287 1320 / 1320 600 / 600 Output Total 1974 / 1974 3050 / 3050 1600 / 1600 1700 / 1700 Balance 510 / 510 237 / 237 -280 / -280 -1100 / -1100 Weight 97.551 kg 96.36 kg 96.814 kg 95.736 kg Microbiology Reports for the Last 24 Hours: Microbiology 05/30/18 14:45 Blood Blood Culture - Final NO GROWTH AFTER 5 DAYS Assessment and Plan (1) Acute respiratory failure with hypoxia and hypercapnia Current visit: No Status: Acute Category: Medical Code(s): J96.01 - Acute respiratory failure with hypoxia; J96.02 - Acute respiratory failure with hypercapnia (2) COPD exacerbation Current visit: No Status: Acute Category: Medical Code(s): J44.1 - Chronic obstructive pulmonary disease with (acute) exacerbation (3) Hyperglycemia Current visit: Yes Status: Acute Category: Medical Code(s): R73.9 - Hyperglycemia, unspecified (4) Pneumonia Current visit: Yes Status: Acute Category: Medical Code(s): J18.9 - Pneumonia, unspecified organism (5) Tobacco use disorder Current visit: No Status: Acute Category: Medical Code(s): F17.200 - Nicotine dependence, unspecified, uncomplicated (6) COPD (chronic obstructive pulmonary disease) Current visit: No Status: Chronic Qualifiers: COPD type: chronic bronchitis Chronic bronchitis type: unspecified Qualified Code(s): J42 - Unspecified chronic bronchitis Category: Medical Code(s): J44.9 - Chronic obstructive pulmonary disease, unspecified (7) Diabetes mellitus Current visit: No Status: Chronic Qualifiers: Diabetes mellitus type: type 2 Diabetes mellitus termite control representative insulin use: with termite control representative use Diabetes mellitus complication status: with neurologic complications Diabetes mellitus complication detail: with polyneuropathy Qualified Code(s): E11.42 - Type 2 diabetes mellitus with diabetic polyneuropathy; Z79.4 - termite control representative (current) use of insulin Category: Medical Code(s): E11.9 - Type 2 diabetes mellitus without complications (8) Renal insufficiency Current visit: Yes Status: Acute Category: Medical Code(s): N28.9 - Disorder of kidney and ureter, unspecified (9) Bacteremia due to methicillin resistant Staphylococcus aureus Current visit: Yes Status: Acute Category: Medical Code(s): R78.81 - Bacteremia (10) MRSA pneumonia Current visit: Yes Status: Acute Category: Medical Code(s): J15.212 - Pneumonia due to Methicillin resistant Staphylococcus aureus The patient's infection will respond to the chosen ABx?: Yes Is the patient receiving the right drug, dose, and route?: Yes Could a more targeted ABx be ordered?: No (PATIENT ON LINEZOLID FOR VANCO RESISTANT STAPH.)
--- NOTE | 2018-06-06 09:01 | Progress Note ---
Internal Medicine - PN: Subj *Date: 06/06/18 *Time: 08:58 Interval history: Patient states she is feeling better. States her breathing is fine. She remains on Vapotherm at 50%. She set up in a chair for about 4 hours and tolerated well. She is eating without difficulty. Exam Vital signs and Labs for Last 24 Hours: Temp Pulse Resp BP Pulse Ox 98.3 F 119 H 18 139/78 93 L 06/06/18 08:00 06/06/18 08:00 06/06/18 08:00 06/06/18 08:00 06/06/18 08:00 Laboratory Results - last 24 hr 06/05/18 08:55: POC Glucose 190 H 06/05/18 16:28: POC Glucose 288 H 06/05/18 21:30: POC Glucose 256 H 06/06/18 02:55: POC Glucose 197 H 06/06/18 08:41: POC Glucose 200 H I & O for Last 24 hours: Intake & Output 06/03/18 06/04/18 06/05/18 06/06/18 10:59 10:59 11:59 11:59 Intake Total 660 / 660 Output Total 1200 / 1200 Balance -540 / -540 Weight 206 lb 9 oz Microbiology Reports for the Last 24 Hours: Microbiology 05/30/18 14:45 Blood Blood Culture - Final Staphylococcus aureus - Constitutional no acute distress Comments: Sitting up in the bed watching TV - *Routine Respiratory Exam Comments: Bilateral rhonchi, wheezes, and basilar crackles. - *Routine Cardiovascular Exam Present: RRR - *Routine Abdominal Exam Present: soft, normoactive bowel sounds. Absent: tenderness, distended - *Routine Extremities Exam Absent: edema, calf tenderness - *Routine Neurological Exam Present: alert, oriented X3 Assessment and Plan (1) Acute respiratory failure with hypoxia and hypercapnia Current visit: No Status: Acute Category: Medical Code(s): J96.01 - Acute respiratory failure with hypoxia; J96.02 - Acute respiratory failure with hypercapnia (2) COPD exacerbation Current visit: No Status: Acute Category: Medical Code(s): J44.1 - Chronic obstructive pulmonary disease with (acute) exacerbation (3) Hyperglycemia Current visit: Yes Status: Acute Category: Medical Code(s): R73.9 - Hyperglycemia, unspecified (4) Pneumonia Current visit: Yes Status: Acute Category: Medical Code(s): J18.9 - Pneumonia, unspecified organism (5) Tobacco use disorder Current visit: No Status: Acute Category: Medical Code(s): F17.200 - Nicotine dependence, unspecified, uncomplicated (6) COPD (chronic obstructive pulmonary disease) Current visit: No Status: Chronic Qualifiers: COPD type: chronic bronchitis Chronic bronchitis type: unspecified Qualified Code(s): J42 - Unspecified chronic bronchitis Category: Medical Code(s): J44.9 - Chronic obstructive pulmonary disease, unspecified (7) Diabetes mellitus Current visit: No Status: Chronic Qualifiers: Diabetes mellitus type: type 2 Diabetes mellitus jail insulin use: with truck terminal manager use Diabetes mellitus complication status: with neurologic complications Diabetes mellitus complication detail: with polyneuropathy Qualified Code(s): E11.42 - Type 2 diabetes mellitus with diabetic polyneuropathy; Z79.4 - termite control servicer (current) use of insulin Category: Medical Code(s): E11.9 - Type 2 diabetes mellitus without complications (8) Renal insufficiency Current visit: Yes Status: Acute Category: Medical Code(s): N28.9 - Disorder of kidney and ureter, unspecified (9) Bacteremia due to methicillin resistant Staphylococcus aureus Current visit: Yes Status: Acute Category: Medical Code(s): R78.81 - Bacteremia (10) MRSA pneumonia Current visit: Yes Status: Acute Category: Medical Code(s): J15.212 - Pneumonia due to Methicillin resistant Staphylococcus aureus - Assessment and plan all Dx Assessment and Plan for all problems:: Wean from Vapotherm. Continue with current pulmonary hygiene and pneumonia antibiotics and nebs
--- NOTE | 2018-06-07 08:57 | Progress Note ---
Internal Medicine - PN: Subj *Date: 06/07/18 *Time: 08:54 Interval history: Patient states that she is feeling great. Slept well. She is eating well. She is off Vapotherm and on oxygen at 4 L/min per nasal cannula. She is voiding QS. Bowels have moved. She set up in the chair yesterday without problems. She states she continues to wheeze and she does have a cough. Exam Vital signs and Labs for Last 24 Hours: Temp Pulse Resp BP Pulse Ox 97.7 F 111 H 19 129/71 92 L 06/07/18 08:00 06/07/18 08:00 06/07/18 08:00 06/07/18 08:00 06/07/18 08:00 Laboratory Results - last 24 hr 06/06/18 16:52: POC Glucose 354 H* 06/06/18 21:26: POC Glucose 265 H 06/07/18 02:07: POC Glucose 243 H I & O for Last 24 hours: Intake & Output 06/04/18 06/05/18 06/06/18 06/07/18 10:59 11:59 11:59 11:59 Intake Total 960 / 960 960 / 960 Output Total 1200 / 1200 600 / 600 Balance -240 / -240 360 / 360 Weight 206 lb 9 oz 205 lb 7 oz Microbiology Reports for the Last 24 Hours: Microbiology 05/30/18 14:45 Blood Blood Culture - Final Staphylococcus aureus - Constitutional no acute distress Comments: Sitting up in the bed and appears comfortable - *Routine Respiratory Exam Present: wheezes (Bilateral rhonchi and wheezes anteriorly and posteriorly) - *Routine Cardiovascular Exam Present: RRR - *Routine Abdominal Exam Present: soft, normoactive bowel sounds. Absent: tenderness - *Routine Extremities Exam Absent: edema, calf tenderness - *Routine Neurological Exam Present: alert, oriented X3 Assessment and Plan (1) Acute respiratory failure with hypoxia and hypercapnia Current visit: No Status: Acute Category: Medical Code(s): J96.01 - Acute respiratory failure with hypoxia; J96.02 - Acute respiratory failure with hypercapnia (2) COPD exacerbation Current visit: No Status: Acute Category: Medical Code(s): J44.1 - Chronic obstructive pulmonary disease with (acute) exacerbation (3) Hyperglycemia Current visit: Yes Status: Acute Category: Medical Code(s): R73.9 - Hyperglycemia, unspecified (4) Pneumonia Current visit: Yes Status: Acute Category: Medical Code(s): J18.9 - Pneumonia, unspecified organism (5) Tobacco use disorder Current visit: No Status: Acute Category: Medical Code(s): F17.200 - Nicotine dependence, unspecified, uncomplicated (6) COPD (chronic obstructive pulmonary disease) Current visit: No Status: Chronic Qualifiers: COPD type: chronic bronchitis Chronic bronchitis type: unspecified Qualified Code(s): J42 - Unspecified chronic bronchitis Category: Medical Code(s): J44.9 - Chronic obstructive pulmonary disease, unspecified (7) Diabetes mellitus Current visit: No Status: Chronic Qualifiers: Diabetes mellitus type: type 2 Diabetes mellitus meterman insulin use: with meterman use Diabetes mellitus complication status: with neurologic complications Diabetes mellitus complication detail: with polyneuropathy Qualified Code(s): E11.42 - Type 2 diabetes mellitus with diabetic polyneuropathy; Z79.4 - correction (current) use of insulin Category: Medical Code(s): E11.9 - Type 2 diabetes mellitus without complications (8) Renal insufficiency Current visit: Yes Status: Acute Category: Medical Code(s): N28.9 - Disorder of kidney and ureter, unspecified (9) Bacteremia due to methicillin resistant Staphylococcus aureus Current visit: Yes Status: Acute Category: Medical Code(s): R78.81 - Bacteremia (10) MRSA pneumonia Current visit: Yes Status: Acute Category: Medical Code(s): J15.212 - Pneumonia due to Methicillin resistant Staphylococcus aureus - Assessment and plan all Dx Assessment and Plan for all problems:: Patient has improved. She is on oxygen per nasal cannula at 4 hours/min. Possibly ready for discharge. Awaiting disposition for bed availability in a intermediate.
--- NOTE | 2018-06-07 10:34 | Discharge Summary ---
General - General Admission date:: 05/30/18 Discharge date: 06/07/18 HPI HPI: Ms. Ramirez is a 62-year-old female with a history of oxygen dependent COPD, diabetes mellitus, hypertension, anxiety, bipolar disorder, tobacco use disorder, who was brought to [facility] emergency room for altered mental status. With evaluation in the emergency room she was felt to have a pneumonia. ABGs revealed respiratory acidosis. She was periodically awake. She was started on BiPAP and admitted. Blood sugars were quite elevated, greater than 700. Spoke with her daughter who stated that her mother did well for a couple of days after discharge from [facility] on 05/23/2018. Then she began to get short of breath and with a cough. She was not eating and would only drink supplemental protein drinks. She had 2 falls. The last fall was the day before admission when she rolled out of bed. Daughter could not awaken her this AM at which time she decided to bring her to the emergency room. Initially the patient was unable to answer questions. She stated she just progressively got more short of breath with a cough. She was not eating and was only drinking supplemental drinks. She adamantly stated that she was taking her insulin as usual. She denied smoking although her daughter stated that she smoked 7-10 cigarettes since being home from the hospital. There was no secondary smoke exposure. To note patient was hospitalized at [facility] 05/09 through 05/12/2018 and then again 05/17 through 05/23/2018 with pneumonia. Hospital Course Hospital Course: On admission patient was in acute respiratory distress with a respiratory acidosis. She was placed on BiPAP and then Vapotherm. She was given IV Lasix. Sliding scale was changed to high intensity due to her elevated blood sugars. She gradually improved and was on and off Vapotherm. Blood cultures showed vancomycin resistant staph aureus and sputum cultures also showed staph aureus. IV antibiotics were changed to cefepime and Zyvox IV. She did have a PICC line inserted. O2 sats ranged from the high 80s to low 90s and Vapotherm O2 was gradually decreased to 50%. She was also taught use of incentive spirometer and had chest physiotherapy along with monicao nebs. She continued with a productive cough with color change to ramos. Chest remained noisy throughout her stay with noted rhonchi and wheezing. She did remain on steroids. Patient always ate well. The latter part of her stay she was able to get up in a chair. She could only walk short distances because she did not have her walke r. 06/06/2018 she was weaned from Vapotherm to O2 per nasal cannula at 4 L/min. In the a.m. of 06/07/2018 she remained stable on nasal oxygen. Care management obtained a bed at [facility]. On 06/07/2018 she was stable to be discharged to the Center for additional care with monicao nebs, oxygen, pulmonary hygiene, continued antibiotic and steroid therapy. Also she requires close monitoring of blood sugars. She will need physical therapy as well. To note patient is a known smoker and has smoked for years. She has not smoked during her last 3 hospitalizations but has continued to smoke when going home. She has agreed several times to smoking cessation. Objective Vital signs: Temp Pulse Resp BP Pulse Ox 97.7 F 111 H 19 129/71 92 L 06/07/18 08:00 06/07/18 08:00 06/07/18 08:00 06/07/18 08:00 06/07/18 08:00 Narrative: The patient was lying in bed and appeared very comfortable. She was breathing easily. Heart was regular rate and rhythm lungs had expiratory wheezing throughout. She was on oxygen per nasal cannula at 4 L/min. Abdomen was large, soft nontender, nondistended with positive bowel sounds. Extremities revealed no edema and no calf tenderness. She was alert and oriented and conversant. Results Completed studies during hospitalization [Text1]: Laboratory Tests 05/30/18 05/31/18 06/03/18 16:06 05:46 08:48 WBC 5.4 RBC 3.81 L Hgb 11.0 L Hct 34.2 L MCV 89.8 MCH 29.0 MCHC 32.3 RDW 17.1 Plt Count 62 L MPV 8.9 Neut % (Auto) 86.2 H Lymph % (Auto) 6.6 L Neutrophils % (Manual) 88 H Lymphocytes % (Manual) 9 L Sodium Potassium Chloride Carbon Dioxide Anion Gap BUN Creatinine Estimated Creat Clear Estimated GFR Est GFR ( Amer) Glucose Calcium Total Bilirubin AST ALT Alkaline Phosphatase Total Protein Albumin Globulin Albumin/Globulin Ratio Acetone Level Small None detected 06/05/18 05:35 WBC RBC Hgb Hct MCV MCH MCHC RDW Plt Count MPV Neut % (Auto) Lymph % (Auto) Neutrophils % (Manual) Lymphocytes % (Manual) Sodium 141 Potassium 3.8 Chloride 98 Carbon Dioxide 41 H* Anion Gap 5.8 BUN 14 D Creatinine 0.71 Estimated Creat Clear 89 Estimated GFR 84 Est GFR ( Amer) 101 Glucose 171 H Calcium 8.5 Total Bilirubin 0.3 AST 22 D ALT 33 D Alkaline Phosphatase 74 Total Protein 5.4 L Albumin 1.6 L Globulin 3.8 H Albumin/Globulin Ratio 0.4 L Acetone Level Labs on day of discharge: Labs from last 24 hours 06/07/18 06/07/18 06/06/18 09:02 02:07 21:26 POC Glucose 184 H 243 H 265 H 06/06/18 16:52 POC Glucose 354 H* - Additional Comments Chest x-ray 05/30/2018 IMPRESSION: Right lower lobe pneumonia with small effusion Echocardiogram 05/31/2018 CONCLUSION: 1. Normal left ventricular size, mild concentric left ventricular hypertrophy, hyperdynamic left ventricular systolic function, visually estimated ejection fraction over 65% with no regional wall motion abnormality, grade 1 diastolic dysfunction seen without tissue Doppler evidence of raised left atrial pressure. 2. Mild mitral and tricuspid regurgitation 3. Pericardial effusion noted. Chest x-ray 06/03/2018 IMPRESSION: Improving bilateral lower lobe pneumonia New consolidation in the left upper lobe medially consistent with a new area of infiltrate or atelectasis DS: Diagnosis - Discharge Diagnosis (1) Acute respiratory failure with hypoxia and hypercapnia Status: Acute (2) COPD exacerbation Status: Acute (3) Hyperglycemia Status: Acute (4) Pneumonia Status: Acute (5) Tobacco use disorder Status: Acute (6) COPD (chronic obstructive pulmonary disease) Status: Chronic (7) Diabetes mellitus Status: Chronic (8) Renal insufficiency Status: Acute (9) Bacteremia due to methicillin resistant Staphylococcus aureus Status: Acute (10) MRSA pneumonia Status: Acute (11) Anxiety Status: Chronic (12) Bipolar disorder Status: Chronic Discharge Plan - Patient Discharge Instructions ACTIVITY: Continue current activity, Ambulate as tolerated, Up in chair, Up with assistance, Other DIET: continue same diet, diabetic diet Patient Instructions: Pneumonia-Adult, DI for Methicillin-Resistant Staph Infection (MRSA), DI for Hyperglycemia -- Adult, DI for Bacteremia--Child - Follow up Plan Disposition: [facility] Home Medications: Home Medications Medication Instructions Recorded Confirmed Type alprazolam 0.25 mg tablet 0.25 mg PO TID tab 06/14/17 05/30/18 History insulin aspart U- 100 100 unit/mL 8 unit SUB-Q TID ml 06/14/17 05/31/18 History subcutaneous pen nitroglycerin 0.4 mg sublingual 0.4 mg SUBLINGUAL Q5MINP PRN 06/14/17 05/31/18 History tablet omega-3 fatty acids 1,000 mg 1,000 mg PO DAILY 06/14/17 05/31/18 History capsule venlafaxine 50 mg tablet 50 mg PO BID 90 Days #180 tab 08/31/17 05/31/18 History mirabegron ER 50 mg 50 mg PO DAILY tab 09/14/17 05/31/18 History tablet,extended release 24 hr Aspirin [Low Dose Aspirin EC] 81 mg PO DAILY 10/27/17 05/31/18 History Clopidogrel Bisulfate [Plavix 75mg 75 mg PO DAILY 10/27/17 05/31/18 History Tab] Dexlansoprazole [Dexilant] 60 mg PO DAILY 02/17/18 05/30/18 History Hydrocod/Acet 5/325 mg [[place] 1 tab PO TIDP PRN 02/17/18 05/30/18 History 5/325mg tablet] Insulin Glargine,Hum.rec.anlog 45 unit SQ DAILY 02/17/18 05/31/18 History [Basaglar Kwikpen U-100] Rosuvastatin Calcium 10 mg PO HS 02/17/18 05/31/18 History Trazodone HCl 100 mg PO HS 02/17/18 05/31/18 History quetiapine 200 mg tablet 200 mg PO HS tab 03/15/18 05/31/18 History Amlodipine Besylate [Amlodipine 5 mg PO DAILY 05/09/18 05/30/18 History 5mg tab] Furosemide [Furosemide 20mg Tab] 20 mg PO DAILY 05/09/18 05/31/18 History Losartan Potassium 25 mg PO DAILY 05/09/18 05/31/18 History Metoprolol Succinate 50 mg PO DAILY 05/09/18 05/31/18 History Tiotropium Br/Olodaterol HCl 2 puffs IH DAILY 05/09/18 05/31/18 History [Stiolto Respimat Inhal [place]] Potassium Chloride [Klor-con 20 20 meq PO DAILY 05/10/18 05/31/18 History mEq tablet] Nicotine [Nicoderm 21mg/24hr 21 mg TD DAILY 05/17/18 05/31/18 History patch] dilTIAZem HCl [Diltiazem 240mg 240 mg PO DAILY 05/17/18 05/31/18 History 24Hr ER Cap] levoFLOXacin [Levaquin 500mg 500 mg PO DAILY 05/17/18 05/31/18 History tab] predniSONE [Deltasone 20mg 20 mg PO DAILY 05/17/18 05/31/18 History tablet] Insulin Glargine,Hum.rec.anlog 50 unit SQ HS #30 insuln.pen 06/07/18 Rx [Insulin Glargine 100 Units/mL 3mL flexpen] Linezolid [Zyvox 600mg/300mL 600 mg IV Q12H 7 Days iv.soln 06/07/18 Rx Premix Bag] Prescriptions/Medication Reconciliation: New Linezolid [Zyvox 600mg/300mL Premix Bag] 600 mg IV Q12H 7 Days iv.soln Ipratropium/Albuterol Sulfate [Duoneb 3mL neb] 3 ml IH Q6RT ampul.neb Insulin Glargine,Hum.rec.anlog [Insulin Glargine 100 Units/mL 3mL flexpen] 50 unit SQ HS #30 insuln.pen Continue alprazolam 0.25 mg tablet 0.25 mg PO TID tab omega-3 fatty acids 1,000 mg capsule 1,000 mg PO DAILY insulin aspart U- 100 100 unit/mL subcutaneous pen 8 unit SUB-Q TID ml venlafaxine 50 mg tablet 50 mg PO BID 90 Days #180 tab quetiapine 200 mg tablet 200 mg PO HS tab nitroglycerin 0.4 mg sublingual tablet 0.4 mg SUBLINGUAL Q5MINP PRN PRN Reason: Chest Pain Aspirin [Low Dose Aspirin EC] 81 mg PO DAILY Clopidogrel Bisulfate [Plavix 75mg Tab] 75 mg PO DAILY Rosuvastatin Calcium 10 mg PO HS Trazodone HCl 100 mg PO HS Hydrocod/Acet 5/325 mg [[place] 5/325mg tablet] 1 tab PO TIDP PRN PRN Reason: PAIN Furosemide [Furosemide 20mg Tab] 20 mg PO DAILY Losartan Potassium 25 mg PO DAILY Metoprolol Succinate 50 mg PO DAILY Dexlansoprazole [Dexilant] 60 mg PO DAILY Tiotropium Br/Olodaterol HCl [Stiolto Respimat Inhal [place]] 2 puffs IH DAILY Potassium Chloride [Klor-con 20 mEq tablet] 20 meq PO DAILY predniSONE [Deltasone 20mg tablet] 20 mg PO DAILY Nicotine [Nicoderm 21mg/24hr patch] 21 mg TD DAILY dilTIAZem HCl [Diltiazem 240mg 24Hr ER Cap] 240 mg PO DAILY Discontinued mirabegron ER 50 mg tablet,extended release 24 hr 50 mg PO DAILY tab Insulin Glargine,Hum.rec.anlog [Lux Igles[place] U-100] 45 unit SQ DAILY Amlodipine Besylate [Amlodipine 5mg tab] 5 mg PO DAILY levoFLOXacin [Levaquin 500mg tab] 500 mg PO DAILY
== END 2018-06-07 14:00 | DRG 189 ==
LOC: ER 14:33 → 2ND 17:50
PROVIDERS: ADMIT Family Medicine; ATTEND Family Medicine
CPT/HCPCS: 36415; 36569; 71010; 71045; 80048; 80053; 81001; 82009; 82803; 82947; 82962; 83605; 83880; 84484; 85007; 85025; 87040; 87070; 87077; 87186; 87205; 93005; 93306; 94640; 94660; 94761; 96365; 97110; 97162; 97530; 99285; C1751; J1956; J2020; J2405; J3370

== ENCOUNTER → 2018-07-19 13:01 | Outpatient (POV) | payer MEDICARE, MEDICAID, SELFPAY | PROVIDERS: Visit Provider Internal Medicine | DX: Z00.00 Encounter for general adult medical examination without abnormal findings (principal) ==

== ENCOUNTER 2018-07-19 13:38 | Inpatient (IN) ==
[2018-07-19 14:16] LABS: Basophils # 0.1 K/mm3 (0-0.2); Basophils % 0.3 % (0.1-2.0); Eosinophils % 0.1 % (0.1-12.0); Hematocrit 35.8 % (37.0-47.0); Hemoglobin 10.7 g/dL (12.2-16.2); Lymphocytes # 0.6 K/mm3 (0.7-4.5); Lymphocytes % 4.2 % (10-50); Mean Corpuscular HGB Conc 29.9 g/dL (31.8-35.4); Mean Corpuscular Hemoglobin 27.1 pg (27.0-31.2); Mean Corpuscular Volume 90.8 fl (81-99); Mean Platelet Volume 9.1 fl (7.4-10.4); Monocytes # 0.6 K/mm3 (0.1-1.0); Monocytes % 3.9 % (1.7-9.3); Neutrophils # 13.3 K/mm3 (1.8-7.8); Neutrophils % 91.4 % (37.0-80.0); Platelet Count 164 K/mm3 (142-424); Red Blood Count 3.94 M/mm3 (4.20-5.40); Red Cell Distribution Width 18.8 % (11.5-17.5); White Blood Count 14.5 K/mm3 (4.8-10.8)
[2018-07-19 14:18] LABS: ABG Base Excess 11.2 mmol/L (-2.4-2.3); ABG HCO3 36.6 mmhg (22.0-26.0); ABG Oxygen Saturation 82 % (90-100); ABG PH 7.36 mmol/L (7.35-7.45); ABG TCO2 38.7 mmhg (23-27)
[2018-07-19 14:20] LABS: Allen's Test Acceptable; Oxygen 28% NC %
[2018-07-19 14:21] LABS: ABG PCO2 65.9 mmhg (35.0-45.0); ABG PO2 47.5 mmhg (80-100)
[2018-07-19 14:32] LABS: Anion Gap 5.5 mEq/L (5-15); Blood Urea Nitrogen 24 mg/dL (7-18); Calcium 9.2 mg/dL (8.5-10.1); Carbon Dioxide 39 mmol/L (21.0-32.0); Chloride 99 mmol/L (98-107); Glucose 271 mg/dL (74-106); Potassium 5.5 mmoL/L (3.5-5.1); Sodium 138 mmol/L (136-145)
--- NOTE | 2018-07-19 14:41 | Emergency Department Note ---
ED Disposition Clinical Impression: Acute respiratory failure with hypoxia and hypercapnia, Acute exacerbation of chronic obstructive airways disease, Diabetes mellitus Disposition: Admitted as Observation Condition on Discharge: Fair Referrals: Petty Bass MD [Primary Care Provider] - Time of Disposition: 15:31 - Critical Care Critical Care Time: No Attestation: On 07/19/18, the high probability of a clinically significant, sudden or life threatening deterioration of the following system(s) required my full and direct attention, intervention and personal management. The time I documented below is in addition to time spent performing reported procedures but includes the following listed in this critical care notation. Medical Decision Making - Medical Records Medical records reviewed: Yes: I reviewed the patient's medical records. - Zak Inquiry Pt receiving controlled substance: No Zak was queried for this patient: No Vital Signs: 07/19/18 13:47 07/19/18 13:59 07/19/18 15:01 Temperature 98.5 F Temperature Source Oral Pulse Rate [Left Radial] 107 H 93 H Respiratory Rate 28 H 26 H Blood Pressure [Right Arm] 104/62 L 97/67 L Blood Pressure Mean [Right Arm] 76 77 Blood Pressure Source [Right Arm] Automatic Cuff Automatic Cuff Blood Pressure Position [Right Arm] Sitting Sitting 02 Sat by Pulse Oximetry 78 L 83 L 92 L Oxygen Delivery Method Nasal Cannula Nasal Cannula BiPAP Oxygen Flow Rate (LPM) 3 3 - Lab Data Lab results reviewed: Yes: I reviewed the patient's lab results. Lab Results 07/19/18 13:50: WBC 14.5 H, RBC 3.94 L, Hgb 10.7 L, Hct 35.8 L, MCV 90.8, MCH 27.1, MCHC 29.9 L, RDW 18.8 H, Plt Count 164, MPV 9.1, Neut % (Auto) 91.4 H, Lymph % (Auto) 4.2 L, [place] % (Auto) 3.9, Eos % (Auto) 0.1, Baso % (Auto) 0.3, Neut # (Auto) 13.3 H, Lymph # (Auto) 0.6 L, [place] # (Auto) 0.6, Eos # (Auto) 0.0, Baso # (Auto) 0.1, Total Counted 100, Neutrophils % (Manual) 93 H, Lymphocytes % (Manual) 4 L, Monocytes % (Manual) 3, Platelet Estimate Normal, Hypochromasia 1+ 07/19/18 13:50: Sodium 138, Potassium 5.5 H, Chloride 99, Carbon Dioxide 39 H, Anion Gap 5.5, BUN 24 H, Creatinine 0.94, Estimated Creat Clear 87, Estimated GFR 61, Est GFR ( Amer) 73, Glucose 271 H, Calcium 9.2, Troponin I < 0.02 07/19/18 13:50: B-Natriuretic Peptide 135 H 07/19/18 13:50: Lactate 1.0 07/19/18 14:12: Specimen Source Right radial, O2 % 28% nc, ABG pH 7.36, ABG pCO2 65.9 H, ABG pO2 47.5 L, ABG HCO3 36.6 H, ABG Total CO2 38.7 H, ABG O2 Saturation 82 L*, ABG Base Excess 11.2 H, Chandler Test Acceptable Result diagrams: 07/19/18 13:50 07/19/18 13:50 Orders (Tests/Meds): ED MEDICATIONS Discontinued Medications Generic Name Dose Route Start Last Admin Trade Name Freq PRN Reason Stop Dose Admin Albuterol/Ipratropium 3 ml 07/19/18 13:53 07/19/18 13:54 Duoneb 3ml Neb IH 07/19/18 13:54 3 ml ONCE ONE Administration Furosemide 40 mg 07/19/18 15:16 07/19/18 15:27 Lasix 40mg/4ml Vial IV 07/19/18 15:17 40 mg ONCE ONE Administration Methylprednisolone Sodium Succinate 125 mg 07/19/18 14:24 07/19/18 14:53 Solu-Medrol 125mg/2ml Vial IV 07/19/18 14:25 125 mg ONCE ONE Administration ORDERS Category Date Time Status Blood Culture Stat Micro 07/19/18 14:30 Received 12-lead EKG Request [ECG Request by /Pat] Stat Y 07/19/18 13:54 Stop Req - Physician Consults Physician Consulted: javad Time: 15:29 Reason -: Admission Comment/Response: admit for chf treatment, cards consult Additional Consult: Marco, Time: 15:30 Additional Consult: "gone for the day" General Adult HPI - General Chief complaint: Shortness of Breath/Dyspnea Stated complaint: SOA Time Seen by Provider: 07/19/18 14:00 Mode of Arrival: Wheelchair Source of Information: Patient, Relative Limitations: No Limitations Description of Symptoms (Recalled from ER Triage Doc. by RN): to ed per pvt car pt sent from specialty clinic due to sob and hypoxia. pt wears o2 3L 19/10 pt c/o sob x 3 days with productive cough green yellow sputum. pt c/o lt side rib pain. - History of Present Illness HPI narrative: end stage steroid and home O2 dependent copd - Related Data Home Medications Medication Instructions Recorded Confirmed alprazolam 0.25 mg tablet 0.25 mg PO TID tab 06/14/17 07/19/18 insulin aspart (U-100) 100 unit/mL 8 unit SUB-Q TID ml 06/14/17 07/19/18 (3 mL) subcutaneous pen nitroglycerin 0.4 mg sublingual 0.4 mg SUBLINGUAL Q5MINP PRN 06/14/17 07/19/18 tablet omega-3 fatty acids 1,000 mg 1,000 mg PO DAILY 06/14/17 07/19/18 capsule venlafaxine 50 mg tablet 50 mg PO BID 90 Days #180 tab 08/31/17 07/19/18 Aspirin [Low Dose Aspirin EC] 81 mg PO DAILY 10/27/17 07/19/18 Clopidogrel Bisulfate [Plavix 75mg 75 mg PO DAILY 10/27/17 07/19/18 Tab] Dexlansoprazole [Dexilant] 60 mg PO DAILY 02/17/18 07/19/18 Hydrocod/Acet 5/325 mg [[place] 1 tab PO TIDP PRN 02/17/18 07/19/18 5/325mg tablet] Rosuvastatin Calcium 10 mg PO HS 02/17/18 07/19/18 Trazodone HCl 100 mg PO HS 02/17/18 07/19/18 quetiapine 200 mg tablet 200 mg PO HS tab 03/15/18 07/19/18 Furosemide [Furosemide 20mg Tab] 20 mg PO DAILY 05/09/18 07/19/18 Losartan Potassium 25 mg PO DAILY 05/09/18 07/19/18 Metoprolol Succinate 50 mg PO DAILY 05/09/18 07/19/18 Tiotropium Br/Olodaterol HCl 2 puffs IH DAILY 05/09/18 07/19/18 [Stiolto Respimat Inhal [place]] Potassium Chloride [Klor-con 20 20 meq PO DAILY 05/10/18 07/19/18 mEq tablet] Nicotine [Nicoderm 21mg/24hr 21 mg TD DAILY 05/17/18 07/19/18 patch] dilTIAZem HCl [Diltiazem 240mg 240 mg PO DAILY 05/17/18 07/19/18 24Hr ER Cap] predniSONE [Deltasone 20mg 20 mg PO DAILY 05/17/18 07/19/18 tablet] Insulin Glargine,Hum.rec.anlog 50 unit SQ HS 07/19/18 07/19/18 [Insulin Glargine 100 Units/mL 3mL flexpen] Ipratropium/Albuterol Sulfate 3 ml IH Q6RT 07/19/18 07/19/18 [Duoneb 3mL neb] Allergies Allergy/AdvReac Type Severity Reaction Status Date / Time bacitracin Allergy Intermediate Rash Verified 05/09/18 14:40 [From NEOSPORIN ([id number])] doxycycline Allergy Mild Rash Verified 05/09/18 14:40 neomycin Allergy Mild Rash Verified 05/09/18 14:40 [From NEOSPORIN ([id number])] Penicillins Allergy Mild Rash Verified 05/09/18 14:40 polymyxin B Allergy Mild Rash Verified 05/09/18 14:40 [From NEOSPORIN ([id number])] sertraline [From Zoloft] AdvReac Severe Hallucinati Verified 05/09/18 14:40 ng tea tree AdvReac Severe Verified 05/18/18 15:00 green tea AdvReac Verified 05/19/18 14:30 [facility] History - Hepatitis A Screen Drug use history?: No High risk sexual behaviors?: No History of sexually transmitted infection?: No Currently employed?: No Childcare worker?: No Do you have indoor plumbing?: Yes Do you have electricity?: Yes Attestation statement:: This patient has been screened for Hepatitis A risk factors. I have reviewed the patient's past medical history: Yes Medical History: Reports:: Atherosclerotic Heart Disease, Cancer, Congestive Heart Failure, Chronic Obstructive Pulmonary Disease (COPD), Coronary Artery Disease, Diabetes Mellitus Type 2, Gastroesophageal Reflux Disease(GERD), Hyperlipidemia, Hypertension, Lung Disease, Peripheral Vascular Disease, Renal Insufficiency Denies:: Diabetes Mellitus Type 1, MRSA Other Medical History: Reports: Arthritis Comment: Tobacco use disorder Laterality Cases: Left: Total Hip Replacement, Right: Other, Bilateral: Tonsillectomy Other Surgeries: Yes: Cancer Surgery, Cholecystectomy, Coronary Stent, Hysterectomy-Total, Other Amputation: No Fractures: Yes (fractured lt hip october 27 2017) Comment: left hip surgery - Social History Smoking Status: Current every day smoker Tobacco Type: cigarettes # Packs/Day (cigarettes): 1 Alcohol Intake: never Alcohol Intake Frequency:: other Substance Use Type: denies use Occupational Status: disabled Housing: house Household Members: family, children - Psychiatric History Expresses thoughts of harming self/others: None Suicide Plan Description: No Plan Family Hx:: Hypertension, Heart Attack, Diabetes, Hyperlipidemia, Kidney Disease ROS Obtained: Yes All systems reviewed & no additional complaints - Constitutional Constitutional: Denies fever(s), Reports lethargy - Eyes Eyes: Denies change in vision - ENT Ears, Nose, Mouth, and Throat: Denies sore throat - Cardiovascular Cardiovascular: Reports chest pain, Reports chest pain at rest, Reports other (left costal margin, s/p fall ) - Respiratory Respiratory: Yes chest congestion, Yes cough, Yes dyspnea - Gastrointestinal Gastrointestingal: Denies: abdominal pain - Musculoskeletal Musculoskeletal: Denies joint pain, Denies joint swelling, Reports muscle weakness - Integumentary/Breasts Skin/Breast: Denies rash - Neurologic Neurologic: Denies syncope, Denies weakness Physical Exam - General General appearance: alert, in no apparent distress - Eye Eye exam: Present: normal appearance, PERRL, EOMI - ENT ENT exam: Present: normal exam, normal oropharynx, mucous membranes moist, TM's normal bilaterally, normal external ear exam - Chest Chest inspection: Present: normal inspection, symmetric chest wall rise. Absent: tenderness - Respiratory Respiratory exam: Present: respiratory distress, wheezes, other (rhonchi). Absent: normal lung sounds bilaterally - Cardiovascular Cardiovascular exam: Present: regular rate, normal rhythm - Abdominal Exam Abdominal exam: Present: soft, normal bowel sounds. Absent: distention, tenderness, guarding - Extremities Exam Extremities exam: Present: normal inspection, pedal edema (trace) - Back Exam Back exam: Present: normal inspection. Absent: tenderness - Neurological Exam Neurological exam: Present: alert, oriented X3 - Psychiatric Psychiatric exam: Present: normal affect, normal mood - Skin Skin exam: Present: warm, dry, intact, normal color
[2018-07-19 14:58] LABS: Hypochromasia 1+; Lymphocytes % 4 % (10-50); Monocytes % 3 % (2-9); Neutrophils % 93 % (42-76); Total Cells Counted 100
--- NOTE | 2018-07-19 16:10 | History & Physical Report ---
*Admission Date: 07/19/18 <Marce Lauren - 07/19/18 17:16> *Chief complaint: shortness of breath <Marce Lauren - 07/19/18 16:24> *History of present illness: Patient is a 62-year-old female with a history of severe COPD requiring continuous oxygen, anxiety, depression, bipolar disorder, CHF, hypertension, diabetes mellitus with hyperglycemia, coronary artery disease, and renal cancer who was seen in the specialty clinic by Dr. Spears today. He felt she did not look very well and thus sent her to [facility] emergency room for further evaluation. Patient states she has been coughing more for the last couple of days. She was not able to eat yesterday. She has been unable to ambulate and is been up in a wheelchair at the most. She is smoking 1/2 packs of cigarettes a day. She denies fever. She has some chest discomfort all night last night and was gone this morning. To note patient was in [facility] with bacteremia due to staph, acute respiratory failure, COPD exacerbation and pneumonia from 05/30/2018 to 06/07/2018. She was on Pap BiPAP for several days and then placed on Vapotherm. When weaned to nasal oxygen, she did go to [facility] but only stayed 2 weeks and returned home. She was on trelegy at home. She states she was able to sleep well with this. She has continued to smoke since then. She was seen in the office of [facility] on 07/11/2018 for a follow-up visit. With evaluation in the emergency room chest x-ray showed CHF. White blood cell count was elevated. She was given a DuoNeb neb treatment, 40 mg of Lasix IV, Solu-Medrol 125 mg IV. She was placed on BiPAP. She was then admitted for further evaluation and treatment. <Marce Lauren - 07/19/18 17:16> [facility] History Medical History: Reports:: Atherosclerotic Heart Disease, Cancer, Congestive Heart Failure, Chronic Obstructive Pulmonary Disease (COPD), Coronary Artery Disease, Diabetes Mellitus Type 2, Gastroesophageal Reflux Disease(GERD), Hyperlipidemia, Hypertension, Lung Disease, Peripheral Vascular Disease, Renal Insufficiency Denies:: Diabetes Mellitus Type 1, MRSA <Marce Lauren - 07/19/18 16:24> *Have you ever received a pneumonia vaccine?: No <Marce Lauren Koby 07/19/18 16:24> *Have you received a flu vaccine this season?: No <Marce Lauren 07/19/18 16:24> Other Medical History: Reports: Anemia, Arthritis <XinMarce 07/19/18 16:24> Comment:: bipolar disorder <LaurenMarce 07/19/18 16:24> Laterality Cases: Left: Total Hip Replacement, Right: Other, Bilateral: Tonsillectomy <XinMarce 07/19/18 16:24> Other Surgeries: Yes: Cancer Surgery, Cholecystectomy, Coronary Stent, Hysterectomy-Total, Other <XinMarce 07/19/18 16:24> Amputation: No <LaurenMarce 07/19/18 16:24> Fractures: Yes (fractured lt hip october 27 2017) <LaurenMarce 07/19/18 16:24> - *Social History Smoking Status: Current every day smoker <LaurenMarce 07/19/18 16:24> Tobacco Type: cigarettes <XinMarce 07/19/18 16:24> # Packs/Day (cigarettes): 1 <XinMarce 07/19/18 16:24> Alcohol Intake: never <LaurenMarce 07/19/18 16:24> Alcohol Intake Frequency:: other <LaurenMarce 07/19/18 16:24> Substance Use Type: denies use <LaurenMarce 07/19/18 16:24> *Occupational Status:: disabled <LaurenMarce 07/19/18 16:24> Housing: house <XinMarce 07/19/18 16:24> Household Members: family, children <Lauren,Marce 07/19/18 16:24> *Travel in the last 8 weeks: None <XinMarce 07/19/18 16:24> - Psychiatric History Expresses thoughts of harming self/others: None <XinMarce 07/19/18 16:24> Suicide Plan Description: No Plan <XinMarce 07/19/18 16:24> Pschychiatric History:: Reports:: Anxiety, Bipolar Disorder <Marce Lauren Koby 07/19/18 16:24> Family Hx:: Hypertension, Heart Attack, Diabetes, Hyperlipidemia, Kidney Disease <LaurenMarce Koby 07/19/18 16:24> Review of Systems - *Cardiovascular Denies chest pain, Denies irregular heart rhythm <LaurenMarce Koby 07/19/18 16:24> - *Respiratory Reports change in phlegm color, Reports chest congestion, Reports cough, Reports shortness of breath <XinMarce - 07/19/18 16:24> - *Neurologic Denies fainting, Denies weakness <LaurenMarce Koby 07/19/18 16:24> Meds Home Medications Medication Instructions Recorded Confirmed Type alprazolam 0.25 mg tablet 0.25 mg PO TID tab 06/14/17 07/19/18 History insulin aspart (U-100) 100 unit/mL 8 unit SUB-Q TID ml 06/14/17 07/19/18 History (3 mL) subcutaneous pen nitroglycerin 0.4 mg sublingual 0.4 mg SUBLINGUAL Q5MINP PRN 06/14/17 07/19/18 History tablet omega-3 fatty acids 1,000 mg 1,000 mg PO DAILY 06/14/17 07/19/18 History capsule venlafaxine 50 mg tablet 50 mg PO BID 90 Days #180 tab 08/31/17 07/19/18 History Aspirin [Low Dose Aspirin EC] 81 mg PO DAILY 10/27/17 07/19/18 History Clopidogrel Bisulfate [Plavix 75mg 75 mg PO DAILY 10/27/17 07/19/18 History Tab] Dexlansoprazole [Dexilant] 60 mg PO DAILY 02/17/18 07/19/18 History Hydrocod/Acet 5/325 mg [[place] 1 tab PO TIDP PRN 02/17/18 07/19/18 History 5/325mg tablet] Rosuvastatin Calcium 10 mg PO HS 02/17/18 07/19/18 History Trazodone HCl 100 mg PO HS 02/17/18 07/19/18 History quetiapine 200 mg tablet 200 mg PO HS tab 03/15/18 07/19/18 History Furosemide [Furosemide 20mg Tab] 20 mg PO DAILY 05/09/18 07/19/18 History Losartan Potassium 25 mg PO DAILY 05/09/18 07/19/18 History Metoprolol Succinate 50 mg PO DAILY 05/09/18 07/19/18 History Tiotropium Br/Olodaterol HCl 2 puffs IH DAILY 05/09/18 07/19/18 History [Stiolto Respimat Inhal [place]] Potassium Chloride [Klor-con 20 20 meq PO DAILY 05/10/18 07/19/18 History mEq tablet] Nicotine [Nicoderm 21mg/24hr 21 mg TD DAILY 05/17/18 07/19/18 History patch] dilTIAZem HCl [Diltiazem 240mg 240 mg PO DAILY 05/17/18 07/19/18 History 24Hr ER Cap] predniSONE [Deltasone 20mg 20 mg PO DAILY 05/17/18 07/19/18 History tablet] Insulin Glargine,Hum.rec.anlog 50 unit SQ HS 07/19/18 07/19/18 History [Insulin Glargine 100 Units/mL 3mL flexpen] Ipratropium/Albuterol Sulfate 3 ml IH Q6RT 07/19/18 07/19/18 History [Duoneb 3mL neb] <Stuart Torres - 07/19/18 17:27> Allergies Allergy/AdvReac Type Severity Reaction Status Date / Time bacitracin Allergy Intermediate Rash Verified 05/09/18 14:40 [From NEOSPORIN ([id number])] doxycycline Allergy Mild Rash Verified 05/09/18 14:40 neomycin Allergy Mild Rash Verified 05/09/18 14:40 [From NEOSPORIN ([id number])] Penicillins Allergy Mild Rash Verified 05/09/18 14:40 polymyxin B Allergy Mild Rash Verified 05/09/18 14:40 [From NEOSPORIN ([id number])] sertraline [From Zoloft] AdvReac Severe Hallucinati Verified 05/09/18 14:40 ng tea tree AdvReac Severe Verified 05/18/18 15:00 green tea AdvReac Verified 05/19/18 14:30 <Stuart Torres - 07/19/18 17:27> Exam Vital signs and Labs for Last 24 Hours: Temp Pulse Resp BP Pulse Ox 98 F 87 24 114/67 96 07/19/18 16:46 07/19/18 16:46 07/19/18 16:46 07/19/18 16:46 07/19/18 16:00 Laboratory Results - last 24 hr 07/19/18 13:50: WBC 14.5 H, RBC 3.94 L, Hgb 10.7 L, Hct 35.8 L, MCV 90.8, MCH 27.1, MCHC 29.9 L, RDW 18.8 H, Plt Count 164, MPV 9.1, Neut % (Auto) 91.4 H, Lymph % (Auto) 4.2 L, [place] % (Auto) 3.9, Eos % (Auto) 0.1, Baso % (Auto) 0.3, Neut # (Auto) 13.3 H, Lymph # (Auto) 0.6 L, [place] # (Auto) 0.6, Eos # (Auto) 0.0, Baso # (Auto) 0.1, Total Counted 100, Neutrophils % (Manual) 93 H, Lymphocytes % (Manual) 4 L, Monocytes % (Manual) 3, Platelet Estimate Normal, Hypochromasia 1+ 07/19/18 13:50: Sodium 138, Potassium 5.5 H, Chloride 99, Carbon Dioxide 39 H, Anion Gap 5.5, BUN 24 H, Creatinine 0.94, Estimated Creat Clear 87, Estimated GFR 61, Est GFR ( Amer) 73, Glucose 271 H, Calcium 9.2, Troponin I < 0.02 07/19/18 13:50: B-Natriuretic Peptide 135 H 07/19/18 13:50: Lactate 1.0 07/19/18 14:12: Specimen Source Right radial, O2 % 28% nc, ABG pH 7.36, ABG pCO2 65.9 H, ABG pO2 47.5 L, ABG HCO3 36.6 H, ABG Total CO2 38.7 H, ABG O2 Saturation 82 L*, ABG Base Excess 11.2 H, [place] Test Acceptable 07/19/18 15:57: Urine Color Yellow, Urine Appearance Clear, Urine pH 5.0, Ur Specific [place] 1.015, Urine Protein Negative, Urine Glucose (UA) Negative, Urine Ketones Negative, Urine Blood 3+, Urine Nitrate Positive, Urine Bilirubin Negative, Urine Urobilinogen 0.2, Ur Leukocyte Esterase Negative, Urine WBC 5- 10, Urine Bacteria 3+ <Stuart Torres - 07/19/18 17:27> Temp Pulse Resp BP Pulse Ox 98.5 F 83 24 98/63 L 95 07/19/18 13:47 07/19/18 15:30 07/19/18 15:30 07/19/18 15:30 07/19/18 15:30 Laboratory Results - last 24 hr 07/19/18 13:50: WBC 14.5 H, RBC 3.94 L, Hgb 10.7 L, Hct 35.8 L, MCV 90.8, MCH 27.1, MCHC 29.9 L, RDW 18.8 H, Plt Count 164, MPV 9.1, Neut % (Auto) 91.4 H, Lymph % (Auto) 4.2 L, [place] % (Auto) 3.9, Eos % (Auto) 0.1, Baso % (Auto) 0.3, Neut # (Auto) 13.3 H, Lymph # (Auto) 0.6 L, [place] # (Auto) 0.6, Eos # (Auto) 0.0, Baso # (Auto) 0.1, Total Counted 100, Neutrophils % (Manual) 93 H, Lymphocytes % (Manual) 4 L, Monocytes % (Manual) 3, Platelet Estimate Normal, Hypochromasia 1+ 07/19/18 13:50: Sodium 138, Potassium 5.5 H, Chloride 99, Carbon Dioxide 39 H, Anion Gap 5.5, BUN 24 H, Creatinine 0.94, Estimated Creat Clear 87, Estimated GFR 61, Est GFR ( Amer) 73, Glucose 271 H, Calcium 9.2, Troponin I < 0.02 07/19/18 13:50: B-Natriuretic Peptide 135 H 07/19/18 13:50: Lactate 1.0 07/19/18 14:12: Specimen Source Right radial, O2 % 28% nc, ABG pH 7.36, ABG pCO2 65.9 H, ABG pO2 47.5 L, ABG HCO3 36.6 H, ABG Total CO2 38.7 H, ABG O2 Saturation 82 L*, ABG Base Excess 11.2 H, [place] Test Acceptable <Lauren,Marce 07/19/18 16:24> I & O for Last 24 hours: Intake & Output 07/17/18 07/18/18 07/19/18 07/20/18 11:59 11:59 11:59 11:59 Weight 205 lb <Stuart Torres - 07/19/18 17:27> Intake & Output 07/17/18 07/18/18 07/19/18 07/20/18 11:59 11:59 11:59 11:59 Weight 205 lb <Marce Lauren 07/19/18 16:24> Radiology Reports for the Last 24 Hours: CXR 07/19/18 IMPRESSION: CHF with chronic bilateral lower lobe airspace disease <Marce Lauren 07/19/18 16:24> - Constitutional no acute distress <Marce Lauren 07/19/18 17:16> Comments: Lying in bed and does appear comfortable although she feels like she is very short of breath.. Unlabored respiratory effort. Is able to answer questions in full sentences. Even laughed and smiles. Assisted with sitting up in the bed as well. <Marce Lauren 07/19/18 17:16> - *Routine HEENT Exam Head: Present: normocephalic, atraumatic <Marce Lauren 07/19/18 17:16> Eye: Absent: conjunctival icterus, scleral injection <Marce Lauren 07/19/18 17:16> ENT: Present: mucous membranes moist, oropharynx clear <Marce Lauren 07/19/18 17:16> - *Routine Neck Exam Present: supple. Absent: lymphadenopathy, thyromegaly, tenderness <Marce Lauren 07/19/18 17:16> - *Routine Respiratory Exam Present: crackles (Coarse crackles throughout) <Marce Lauren 07/19/18 17:16> - *Routine Cardiovascular Exam Present: RRR [facility] 17:16> - *Routine Abdominal Exam Present: soft, normoactive bowel sounds. Absent: tenderness, guarding <LaurenMarce 07/19/18 17:16> - *Routine Extremities Exam Absent: edema, calf tenderness <Marce Lauren - 07/19/18 17:16> - *Routine Neurological Exam Present: alert, oriented X3 <Marce Lauren - 07/19/18 17:16> Assessment and Plan (1) Acute exacerbation of chronic obstructive airways disease Current visit: Yes Status: Acute Category: Medical Code(s): J44.1 - Chronic obstructive pulmonary disease with (acute) exacerbation (2) Acute respiratory failure with hypoxia and hypercapnia Current visit: Yes Status: Acute Category: Medical Code(s): J96.01 - Acute respiratory failure with hypoxia; J96.02 - Acute respiratory failure with hypercapnia (3) Diabetes mellitus Current visit: Yes Status: Chronic Qualifiers: Category: Medical Code(s): E11.9 - Type 2 diabetes mellitus without complicati ons (4) Renal insufficiency Current visit: No Status: Acute Category: Medical Code(s): N28.9 - Disorder of kidney and ureter, unspecified (5) Tobacco use disorder Current visit: No Status: Chronic Category: Medical Code(s): F17.200 - Nicotine dependence, unspecified, uncomplicated (6) Anxiety Current visit: No Status: Chronic Category: Medical Code(s): F41.9 - Anxiety disorder, unspecified (7) Bipolar disorder Current visit: No Status: Chronic Category: Medical Code(s): F31.9 - Bipolar disorder, unspecified (8) CAD (coronary artery disease) Current visit: No Status: Chronic Qualifiers: Coronary Disease-Associated Artery/Lesion type: [place] artery [place] vs. transplanted heart: [place] heart Associated angina: with other forms of angina Qualified Code(s): I25.118 - Atherosclerotic heart disease of [place] coronary artery with other forms of angina pectoris Category: Medical Code(s): I25.10 - Atherosclerotic heart disease of [place] coronary artery without angina pectoris <BrianStuart Robin - 07/19/18 17:27> (1) Acute exacerbation of chronic obstructive airways disease Current visit: Yes Status: Acute Category: Medical Code(s): J44.1 - Chronic obstructive pulmonary disease with (acute) exacerbation (2) Acute respiratory failure with hypoxia and hypercapnia Current visit: Yes Status: Acute Category: Medical Code(s): J96.01 - Acute respiratory failure with hypoxia; J96.02 - Acute respiratory failure with hypercapnia (3) Diabetes mellitus Current visit: Yes Status: Chronic Category: Medical Code(s): E11.9 - Type 2 diabetes mellitus without complications (4) Renal insufficiency Current visit: No Status: Acute Category: Medical Code(s): N28.9 - Disorder of kidney and ureter, unspecified (5) Tobacco use disorder Current visit: No Status: Chronic Category: Medical Code(s): F17.200 - Nicotine dependence, unspecified, uncomplicated (6) Anxiety Current visit: No Status: Chronic Category: Medical Code(s): F41.9 - Anxiety disorder, unspecified (7) Bipolar disorder Current visit: No Status: Chronic Category: Medical Code(s): F31.9 - Bipolar disorder, unspecified (8) CAD (coronary artery disease) Current visit: No Status: Chronic Qualifiers: Coronary Disease-Associated Artery/Lesion type: [place] artery [place] vs. transplanted heart: [place] heart Associated angina: with other forms of angina Qualified Code(s): I25.118 - Atherosclerotic heart disease of [place] coronary artery with other forms of angina pectoris Category: Medical Code(s): I25.10 - Atherosclerotic heart disease of [place] coronary artery without angina pectoris <Marce Lauren - 07/19/18 16:37> - Assessment and plan all Dx Assessment and Plan for all problems:: Patient seen and examined. SHe is comfortable on the BiPAP. Concur with above assessment and plan. <Stuart Torres - 07/19/18 17:27> Patient is on Levaquin IV, duo nebs, and will use BiPAP as needed. Will also add scheduled IV steroids. Home meds have been ordered. <Marce Lauren - 07/19/18 17:16>
[2018-07-19 16:53] LABS: Microscopic, Urine URINE MICROSCOPIC (MICROSCOPIC)
[2018-07-19 16:56] LABS: Appearance,Urine CLEAR (Clear); Bilirubin,Urine Negative (Negative); Blood, Urine 3+ (Negative); Color,Urine YELLOW (Yellow); Glucose,Urine (UA) Negative (Negative); Ketones,Urine Negative (Negative); Leukocyte Esterase,Urine Negative (Negative); Protein,Urine Negative (Negative); Specific Gravity, Urine 1.015 (1.005-1.030); Urobilinogen,Urine 0.2 EU/dl (0.2)
[2018-07-19 17:16] LABS: Bacteria,Urine 3+ /lpf
[2018-07-19 18:39] LABS: ABG Base Excess 15.9 mmol/L (-2.4-2.3); ABG HCO3 41.1 mmhg (22.0-26.0); ABG Oxygen Saturation 93 % (90-100); ABG PH 7.38 mmol/L (7.35-7.45); ABG TCO2 43.3 mmhg (23-27)
[2018-07-20 06:30] LABS: Allen's Test ACCEPTABLE; Oxygen 45 %; Tidal Volume BIPAP 14/8
[2018-07-20 06:32] LABS: ABG PCO2 71.6 mmhg (35.0-45.0)
--- NOTE | 2018-07-20 07:17 | Pharmacy Consult Notes ---
[facility] Pharmacy VTE Monitoring - Patient Demographics Admission date: 07/19/18 Report Date: 07/20/18 Time: 07:17 Allergies/Adverse Reactions: Patient Allergies bacitracin [From NEOSPORIN ([id number])] Allergy (Intermediate, Verified 05/09/18 14:40) Rash doxycycline Allergy (Mild, Verified 05/09/18 14:40) Rash neomycin [From NEOSPORIN ([id number])] Allergy (Mild, Verified 05/09/18 14:40) Rash Penicillins Allergy (Mild, Verified 05/09/18 14:40) Rash polymyxin B [From NEOSPORIN ([id number])] Allergy (Mild, Verified 05/09/18 14:40) Rash sertraline [From Zoloft] Adverse Reaction (Severe, Verified 05/09/18 14:40) Hallucinating tea tree Adverse Reaction (Severe, Verified 05/18/18 15:00) green tea Adverse Reaction (Verified 05/19/18 14:30) Height: 1.68 m Weight: 90.889 kg Patient Problems: Current Active Problems (Updated 07/19/18 @ 16:24 by Marce Lauren APRN) Acute respiratory failure with hypoxia and hypercapnia (Acute) Acute exacerbation of chronic obstructive airways disease (Acute) Diabetes mellitus (Chronic) - VTE Risk Labs: VTE Related Lab Results Hgb 10.7 g/dL (12.2-16.2) L 07/19/18 13:50 Hct 35.8 % (37.0-47.0) L 07/19/18 13:50 Plt Count 164 K/mm3 (142-424) 07/19/18 13:50 BUN 24 mg/dL (7-18) H 07/19/18 13:50 Creatinine 0.94 mg/dL (0.55-1.02) 07/19/18 13:50 Estimated Creat Clear 87 mL/min (50-200) 07/19/18 13:50 Was VTE Risk Assessment Performed: Yes VTE Score: 12 VTE Risk Level: Moderate Risk Clinical Trial Participant: No - Prophylaxis Types of VTE Prophylaxis: TEDS Knee High Location of Applied Device: Bilateral Lower Extremeties
[2018-07-20 07:51] LABS: Basophils % 0.2 % (0.1-2.0); Eosinophils % 0.1 % (0.1-12.0); Hematocrit 31.1 % (37.0-47.0); Lymphocytes # 0.4 K/mm3 (0.7-4.5); Lymphocytes % 8.9 % (10-50); Mean Corpuscular HGB Conc 30.7 g/dL (31.8-35.4); Mean Corpuscular Hemoglobin 27.5 pg (27.0-31.2); Mean Corpuscular Volume 89.7 fl (81-99); Mean Platelet Volume 8.5 fl (7.4-10.4); Monocytes # 0.3 K/mm3 (0.1-1.0); Monocytes % 6.4 % (1.7-9.3); Neutrophils % 84.4 % (37.0-80.0); Platelet Count 114 K/mm3 (142-424); Red Blood Count 3.47 M/mm3 (4.20-5.40); Red Cell Distribution Width 18.6 % (11.5-17.5); White Blood Count 4.7 K/mm3 (4.8-10.8)
--- NOTE | 2018-07-20 07:52 | Progress Note ---
Internal Medicine - PN: Subj *Date: 07/20/18 *Time: 07:49 Interval history: Patient awakened for assessment. States she is breathing well on the BiPAP. Wishes to eat breakfast in a little bit. Denies chest pain. Received Lasix in the emergency room. Urinary output not recorded. Prior nursing: Patient was on BiPAP all night. Periodically slightly agitated. Exam Vital signs and Labs for Last 24 Hours: Temp Pulse Resp BP Pulse Ox 97.9 F 82 21 96/47 L 96 07/20/18 00:00 07/20/18 05:49 07/20/18 00:00 07/20/18 00:00 07/20/18 00:00 Laboratory Results - last 24 hr 07/19/18 13:50: WBC 14.5 H, RBC 3.94 L, Hgb 10.7 L, Hct 35.8 L, MCV 90.8, MCH 27.1, MCHC 29.9 L, RDW 18.8 H, Plt Count 164, MPV 9.1, Neut % (Auto) 91.4 H, Lymph % (Auto) 4.2 L, [place] % (Auto) 3.9, Eos % (Auto) 0.1, Baso % (Auto) 0.3, Neut # (Auto) 13.3 H, Lymph # (Auto) 0.6 L, [place] # (Auto) 0.6, Eos # (Auto) 0.0, Baso # (Auto) 0.1, Total Counted 100, Neutrophils % (Manual) 93 H, Lymphocytes % (Manual) 4 L, Monocytes % (Manual) 3, Platelet Estimate Normal, Hypochromasia 1+ 07/19/18 13:50: Sodium 138, Potassium 5.5 H, Chloride 99, Carbon Dioxide 39 H, Anion Gap 5.5, BUN 24 H, Creatinine 0.94, Estimated Creat Clear 87, Estimated GFR 61, Est GFR ( Amer) 73, Glucose 271 H, Calcium 9.2, Troponin I < 0.02 07/19/18 13:50: B-Natriuretic Peptide 135 H 07/19/18 13:50: Lactate 1.0 07/19/18 14:12: Specimen Source Right radial, O2 % 28% nc, ABG pH 7.36, ABG pCO2 65.9 H, ABG pO2 47.5 L, ABG HCO3 36.6 H, ABG Total CO2 38.7 H, ABG O2 Saturation 82 L*, ABG Base Excess 11.2 H, [place] Test Acceptable 07/19/18 15:57: Urine Color Yellow, Urine Appearance Clear, Urine pH 5.0, Ur Specific [place] 1.015, Urine Protein Negative, Urine Glucose (UA) Negative, Urine Ketones Negative, Urine Blood 3+, Urine Nitrate Positive, Urine Bilirubin Negative, Urine Urobilinogen 0.2, Ur Leukocyte Esterase Negative, Urine WBC 5- 10, Urine Bacteria 3+ 07/19/18 17:32: POC Glucose 323 H* 07/19/18 18:38: Specimen Source R radial, O2 % 45, ABG pH 7.38, ABG pCO2 71.6 H, ABG pO2 70.0 L, ABG HCO3 41.1 H, ABG Total CO2 43.3 H, ABG O2 Saturation 93, ABG Base Excess 15.9 H, [place] Test Acceptable, [place] Volume Bipap 14/8 07/19/18 20:23: POC Glucose 321 H* 07/20/18 06:22: POC Glucose 302 H* I & O for Last 24 hours: Intake & Output 07/17/18 07/18/18 07/19/18 07/20/18 11:59 11:59 11:59 11:59 Intake Total 718 / 718 Balance 718 / 718 Weight 200 lb 6 oz Microbiology Reports for the Last 24 Hours: Microbiology 07/19/18 15:57 Urine,Random Urine Culture - Preliminary - Constitutional no acute distress Comments: Awakened for assessment. Smiles and answers questions appropriately. - *Routine Respiratory Exam Comments: Diminished breath sounds bilaterally posteriorly. Distant scattered wheezing. Few scattered rhonchi. Chest is much less noisy today. - *Routine Cardiovascular Exam Present: RRR - *Routine Abdominal Exam Present: soft, normoactive bowel sounds. Absent: tenderness - *Routine Extremities Exam Absent: edema, calf tenderness (This morning) - *Routine Skin Exam Comments: Excoriated rash in the right inguinal area; less so in left inguinal area - *Routine Neurological Exam Present: alert, oriented X3 Assessment and Plan (1) Acute exacerbation of chronic obstructive airways disease Current visit: Yes Status: Acute Category: Medical Code(s): J44.1 - Chronic obstructive pulmonary disease with (acute) exacerbation (2) Acute respiratory failure with hypoxia and hypercapnia Current visit: Yes Status: Acute Category: Medical Code(s): J96.01 - Acute respiratory failure with hypoxia; J96.02 - Acute respiratory failure with hypercapnia (3) Diabetes mellitus Current visit: Yes Status: Chronic Qualifiers: Category: Medical Code(s): E11.9 - Type 2 diabetes mellitus without complications (4) Renal insufficiency Current visit: No Status: Acute Category: Medical Code(s): N28.9 - Disorder of kidney and ureter, unspecified (5) Tobacco use disorder Current visit: No Status: Chronic Category: Medical Code(s): F17.200 - Nicotine dependence, unspecified, uncomplicated (6) Anxiety Current visit: No Status: Chronic Category: Medical Code(s): F41.9 - Anxiety disorder, unspecified (7) Bipolar disorder Current visit: No Status: Chronic Category: Medical Code(s): F31.9 - Bipolar disorder, unspecified (8) CAD (coronary artery disease) Current visit: No Status: Chronic Qualifiers: Coronary Disease-Associated Artery/Lesion type: [place] artery [place] vs. transplanted heart: [place] heart Associated angina: with other forms of angina Qualified Code(s): I25.118 - Atherosclerotic heart disease of [place] coronary artery with other forms of angina pectoris Category: Medical Code(s): I25.10 - Atherosclerotic heart disease of [place] coronary artery without angina pectoris (9) Skin candidiasis Current visit: Yes Status: Acute Category: Medical Code(s): B37.2 - Candidiasis of skin and nail - Assessment and plan all Dx Assessment and Plan for all problems:: We will change from BiPAP to Vapotherm and continue as tolerated. We will add nystatin cream for excoriated fungal rash in the groin. Continue to monitor respiratory status. Continue with Levaquin, steroids and duo nebs. A.m. labs are pending
[2018-07-20 08:01] LABS: Anion Gap 5.7 mEq/L (5-15); Calcium 8.5 mg/dL (8.5-10.1); Hemoglobin 9.6 g/dL (12.2-16.2); Potassium 4.7 mmoL/L (3.5-5.1)
--- NOTE | 2018-07-20 09:58 | Consult Report ---
History of Present Illness Consult date: 07/20/18 Requesting physician: Petty Bass Consult reason: chest pain, congestive heart failure, shortness of breath Chief complaint: Shortness of breath Additional Medical History:: 1. End-stage COPD 2. Coronary artery disease 3. Hypertension 4. Hyperlipidemia 5. Congestive heart failure 6. Diabetes mellitus History of present illness: This is a 62-year-old female who was admitted to the hospital with shortness of breath. The patient states that she has been progressively more short of breath. She does have end-stage COPD which does require oxygen at home. The p atient does have a trilogy machine at home. She does have a history of congestive heart failure, coronary artery disease, hypertension and hyperlipidemia. The patient was seen by Dr. Spears yesterday and referred to the emergency department here at [facility] because of her worsening symptoms. She states that her shortness of breath is associated with pressure and tightness in the chest. She states that it does radiate to her back. This pain has been severe. She is short of breath and nauseated. The patient states that she just has not felt very well. She does also have a cough the last couple of days. She was unable to eat and has done very little ambulation because of her profound symptoms. She is still smoking half a pack of cigarettes a day. She is currently on BiPAP and tolerating this well. In the emergency department she was found to have congestive heart failure on chest x-ray. She has had one troponin which was negative. The patient did not have serial troponins. We will get another troponin this morning. She states that her symptoms have only minimally improved since being in the hospital. She is still having chest tightness and shortness of breath while I am speaking with her this morning. She does report that she has a trilogy machine at home but it does not sound like she has been using this. She denies any fever, chills, vomiting, diarrhea. She does have orthopnea associated with her shortness of breath and chest tightness. [facility] History I have reviewed the patient's past medical history: Yes Medical History: Reports:: Anxiety, Atherosclerotic Heart Disease, Cancer, Congestive Heart Failure, Chronic Obstructive Pulmonary Disease (COPD), Coronary Artery Disease, Diabetes Mellitus Type 2, Gastroesophageal Reflux Disease(GERD), Hyperlipidemia, Hypertension, Lung Disease, MRSA, Peripheral Vascular Disease, Renal Insufficiency Denies:: Diabetes Mellitus Type 1 *Have you ever received a pneumonia vaccine?: Yes *Have you received a flu vaccine this season?: Yes Other Medical History: Reports: Anemia, Arthritis Laterality Cases: Left: Total Hip Replacement, Right: Other, Bilateral: Tonsillectomy Other Surgeries: Yes: Cancer Surgery, Cholecystectomy, Coronary Stent, Hysterectomy-Total, Other Amputation: No Fractures: Yes (fractured lt hip october 27 2017) - *Social History Educational Level: Attended College Smoking Status: Current every day smoker Tobacco Type: cigarettes # Packs/Day (cigarettes): 1 Alcohol Intake: never Alcohol Intake Frequency:: other Substance Use Type: denies use *Occupational Status:: disabled Housing: house Household Members: family, children *Travel in the last 8 weeks: None - Psychiatric History Expresses thoughts of harming self/others: None Suicide Plan Description: No Plan Pschychiatric History:: Reports:: Anxiety, Bipolar Disorder Family Hx:: Hypertension, Heart Attack, Diabetes, Hyperlipidemia, Kidney Disease Meds Home Medications Medication Instructions Recorded Confirmed Type alprazolam 0.25 mg tablet 0.25 mg PO TID tab 06/14/17 07/19/18 History insulin aspart (U-100) 100 unit/mL 8 unit SUB-Q TID ml 06/14/17 07/19/18 History (3 mL) subcutaneous pen nitroglycerin 0.4 mg sublingual 0.4 mg SUBLINGUAL Q5MINP PRN 06/14/17 07/19/18 History tablet omega-3 fatty acids 1,000 mg 1,000 mg PO DAILY 06/14/17 07/19/18 History capsule venlafaxine 50 mg tablet 50 mg PO BID 90 Days #180 tab 08/31/17 07/19/18 History Aspirin [Low Dose Aspirin EC] 81 mg PO DAILY 10/27/17 07/19/18 History Clopidogrel Bisulfate [Plavix 75mg 75 mg PO DAILY 10/27/17 07/19/18 History Tab] Dexlansoprazole [Dexilant] 60 mg PO DAILY 02/17/18 07/19/18 History Hydrocod/Acet 5/325 mg [[place] 1 tab PO TIDP PRN 02/17/18 07/19/18 History 5/325mg tablet] Rosuvastatin Calcium 10 mg PO HS 02/17/18 07/19/18 History Trazodone HCl 100 mg PO HS 02/17/18 07/19/18 History quetiapine 200 mg tablet 200 mg PO HS tab 03/15/18 07/19/18 History Furosemide [Furosemide 20mg Tab] 20 mg PO DAILY 05/09/18 07/19/18 History Losartan Potassium 25 mg PO DAILY 05/09/18 07/19/18 History Metoprolol Succinate 50 mg PO DAILY 05/09/18 07/19/18 History Potassium Chloride [Klor-con 20 20 meq PO DAILY 05/10/18 07/19/18 History mEq tablet] Nicotine [Nicoderm 21mg/24hr 21 mg TD DAILY 05/17/18 07/19/18 History patch] dilTIAZem HCl [Diltiazem 240mg 240 mg PO DAILY 05/17/18 07/19/18 History 24Hr ER Cap] Insulin Glargine,Hum.rec.anlog 45 unit SQ HS 07/19/18 07/20/18 History [Insulin Glargine 100 Units/mL 3mL flexpen] Ipratropium/Albuterol Sulfate 3 ml IH QID 07/19/18 07/20/18 History [Duoneb 3mL neb] Gabapentin [Gabapentin 100mg Cap] 100 mg PO TID 07/20/18 07/20/18 History Mirabegron [Myrbetriq] 50 mg PO DAILY 07/20/18 07/20/18 History predniSONE [Deltasone 10mg 10 mg PO DAILY 07/20/18 07/20/18 History tablet] Allergies Allergy/AdvReac Type Severity Reaction Status Date / Time bacitracin Allergy Intermediate Rash Verified 05/09/18 14:40 [From NEOSPORIN ([id number])] doxycycline Allergy Mild Rash Verified 05/09/18 14:40 neomycin Allergy Mild Rash Verified 05/09/18 14:40 [From NEOSPORIN ([id number])] Penicillins Allergy Mild Rash Verified 05/09/18 14:40 polymyxin B Allergy Mild Rash Verified 05/09/18 14:40 [From NEOSPORIN ([id number])] sertraline [From Zoloft] AdvReac Severe Hallucinati Verified 05/09/18 14:40 ng tea tree AdvReac Severe Verified 05/18/18 15:00 green tea AdvReac Verified 05/19/18 14:30 Review of Systems - Review of Systems Review of systems:: pertinent systems reviewed and negative unless documented below - Constitutional Reports fatigue, Reports lack of energy - *Cardiovascular Reports chest pain, Reports chest pain at rest, Reports chest pain with activity, Reports shortness of breath, Reports shortness of breath with activity - *Respiratory Reports cough, Reports shortness of breath, Reports shortness of breath with activity, Reports wheezing - *Gastrointestinal Reports nausea - *Neurologic Denies fainting, Denies weakness Exam Vital signs and Labs for Last 24 Hours: Temp Pulse Resp BP Pulse Ox 98.3 F 84 21 119/61 90 L 07/20/18 08:00 07/20/18 08:00 07/20/18 08:00 07/20/18 08:00 07/20/18 08:00 Laboratory Results - last 24 hr 07/19/18 13:50: WBC 14.5 H, RBC 3.94 L, Hgb 10.7 L, Hct 35.8 L, MCV 90.8, MCH 27.1, MCHC 29.9 L, RDW 18.8 H, Plt Count 164, MPV 9.1, Neut % (Auto) 91.4 H, Lymph % (Auto) 4.2 L, [place] % (Auto) 3.9, Eos % (Auto) 0.1, Baso % (Auto) 0.3, Neut # (Auto) 13.3 H, Lymph # (Auto) 0.6 L, [place] # (Auto) 0.6, Eos # (Auto) 0.0, Baso # (Auto) 0.1, Total Counted 100, Neutrophils % (Manual) 93 H, Lymphocytes % (Manual) 4 L, Monocytes % (Manual) 3, Platelet Estimate Normal, Hypochromasia 1+ 07/19/18 13:50: Sodium 138, Potassium 5.5 H, Chloride 99, Carbon Dioxide 39 H, Anion Gap 5.5, BUN 24 H, Creatinine 0.94, Estimated Creat Clear 87, Estimated GFR 61, Est GFR ( Amer) 73, Glucose 271 H, Calcium 9.2, Troponin I < 0.02 07/19/18 13:50: B-Natriuretic Peptide 135 H 07/19/18 13:50: Lactate 1.0 07/19/18 14:12: Specimen Source Right radial, O2 % 28% nc, ABG pH 7.36, ABG pCO2 65.9 H, ABG pO2 47.5 L, ABG HCO3 36.6 H, ABG Total CO2 38.7 H, ABG O2 Saturation 82 L*, ABG Base Excess 11.2 H, [place] Test Acceptable 07/19/18 15:57: Urine Color Yellow, Urine Appearance Clear, Urine pH 5.0, Ur Specific [place] 1.015, Urine Protein Negative, Urine Glucose (UA) Negative, Urine Ketones Negative, Urine Blood 3+, Urine Nitrate Positive, Urine Bilirubin Negative, Urine Urobilinogen 0.2, Ur Leukocyte Esterase Negative, Urine WBC 5- 10, Urine Bacteria 3+ 07/19/18 17:32: POC Glucose 323 H* 07/19/18 18:38: Specimen Source R radial, O2 % 45, ABG pH 7.38, ABG pCO2 71.6 H, ABG pO2 70.0 L, ABG HCO3 41.1 H, ABG Total CO2 43.3 H, ABG O2 Saturation 93, ABG Base Excess 15.9 H, [place] Test Acceptable, Tidal Volume Bipap 14/8 07/19/18 20:23: POC Glucose 321 H* 07/20/18 06:22: POC Glucose 302 H* 07/20/18 06:58: WBC 4.7 L D, RBC 3.47 L, Hgb 9.6 L D, Hct 31.1 L, MCV 89.7, MCH 27.5, MCHC 30.7 L, RDW 18.6 H, Plt Count 114 L D, MPV 8.5, Neut % (Auto) 84.4 H, Lymph % (Auto) 8.9 L, [place] % (Auto) 6.4, Eos % (Auto) 0.1, Baso % (Auto) 0.2, Neut # (Auto) 4.0, Lymph # (Auto) 0.4 L, [place] # (Auto) 0.3, Eos # (Auto) 0.0, Baso # (Auto) 0.0 07/20/18 06:58: Sodium 139, Potassium 4.7, Chloride 100, Carbon Dioxide 38 H, Anion Gap 5.7, BUN 27 H, Creatinine 0.94, Estimated Creat Clear 85, Estimated GFR 61, Est GFR ( Amer) 73, Glucose 306 H, Calcium 8.5 I & O for Last 24 hours: Intake & Output 07/17/18 07/18/18 07/19/18 07/20/18 23:59 23:59 23:59 23:59 Intake Total 958 / 958 Output Total 1750 / 1750 Balance -792 / -792 Weight 200 lb 6 oz 206 lb 2 oz Microbiology Reports for the Last 24 Hours: Microbiology 07/19/18 15:57 Urine,Random Urine Culture - Preliminary Narrative: Her EKG shows sinus rhythm with low voltage and a rate of 91. - Constitutional no acute distress, obese, chronically ill appearing - *Routine HEENT Exam Head: Present: normocephalic, atraumatic Eye: Present: EOMI, PERRL ENT: Present: mucous membranes moist - *Routine Neck Exam Present: supple, full ROM, JVD, normal carotid upstroke. Absent: carotid bruit, lymphadenopathy - *Routine Respiratory Exam Present: decreased breath sounds, rhonchi (Throughout), wheezes (Expiratory and inspiratory) - *Routine Cardiovascular Exam Present: RRR, Normal S1, Normal S2. Absent: murmur, gallop - *Routine Abdominal Exam Present: soft, normoactive bowel sounds. Absent: tenderness, distended - *Routine Extremities Exam Present: full ROM, pulses intact, normal capillary refill. Absent: cyanosis, clubbing, edema - *Routine Skin Exam Present: intact, warm. Absent: erythema, rash - *Routine Neurological Exam Present: alert, oriented X3, CN II-XII intact. Absent: sensory deficit, motor deficit - Routine Psychiatric Exam Present: normal affect, normal thought process - Detailed Eye Exam Eyelids: Left normal inspection Assessment and Plan (1) Angina pectoris Current visit: Yes Status: Acute Category: Medical Code(s): I20.9 - Angina pectoris, unspecified (2) Acute on chronic diastolic (congestive) heart failure Current visit: Yes Status: Acute Category: Medical Code(s): I50.33 - Acute on chronic diastolic (congestive) heart failure (3) CAD (coronary artery disease) Current visit: No Status: Chronic Qualifiers: Coronary Disease-Associated Artery/Lesion type: [place] artery [place] vs. transplanted heart: [place] heart Associated angina: with other forms of angina Qualified Code(s): I25.118 - Atherosclerotic heart disease of [place] coronary artery with other forms of angina pectoris Category: Medical Code(s): I25.10 - Atherosclerotic heart disease of [place] coronary artery without angina pectoris (4) Acute exacerbation of chronic obstructive airways disease Current visit: Yes Status: Acute Category: Medical Code(s): J44.1 - Chronic obstructive pulmonary disease with (acute) exacerbation (5) Acute respiratory failure with hypoxia and hypercapnia Current visit: Yes Status: Acute Category: Medical Code(s): J96.01 - Acute respiratory failure with hypoxia; J96.02 - Acute respiratory failure with hypercapnia (6) Diabetes mellitus Current visit: Yes Status: Chronic Qualifiers: Category: Medical Code(s): E11.9 - Type 2 diabetes mellitus without complications (7) Renal insufficiency Current visit: No Status: Acute Category: Medical Code(s): N28.9 - Disorder of kidney and ureter, unspecified (8) Tobacco use disorder Current visit: No Status: Chronic Category: Medical Code(s): F17.200 - Nicotine dependence, unspecified, uncomplicated (9) Anxiety Current visit: No Status: Chronic Category: Medical Code(s): F41.9 - Anxiety disorder, unspecified (10) Bipolar disorder Current visit: No Status: Chronic Category: Medical Code(s): F31.9 - Bipolar disorder, unspecified (11) Skin candidiasis Current visit: Yes Status: Acute Category: Medical Code(s): B37.2 - Candidiasis of skin and nail (12) HLD (hyperlipidemia) Current visit: No Status: Chronic Qualifiers: Hyperlipidemia type: other hyperlipidemia Category: Medical Code(s): E78.5 - Hyperlipidemia, unspecified (13) HTN (hypertension) Current visit: No Status: Chronic Qualifiers: Hypertension type: essential hypertension Qualified Code(s): I10 - Essential (primary) hypertension Category: Medical Code(s): I10 - Essential (primary) hypertension - Assessment and plan all Dx Assessment and Plan for all problems:: Plan: 1. The patient was admitted to the hospital with shortness of breath and pressure in her chest. The patient's first troponin was negative. She has had no additional troponin since that time. We will go ahead and repeat a troponin at this time. The patient does have known coronary artery disease and diastolic congestive heart failure. The patient did have CHF noted on chest x-ray. She is having an acute exacerbation of her diastolic congestive heart failure. It has been 2 years since she has had an evaluation of her coronary artery disease. She states that her chest pain has been progressively worsening at rest and with exertion. The patient states that she has associated shortness of breath and nausea. This is a severe pain. The patient is having class IV angina/typical angina. We will plan to proceed with left cardiac catheterization at this time to evaluate her coronary artery disease. 2. The patient does have an acute exacerbation of her diastolic congestive heart failure. She has known pulmonary hypertension. At the time of her left cardiac catheterization we will also complete a right cardiac catheterization to evaluate her intracardiac pressures. 3. The patient has been educated on the risks and benefits of proceeding with left and right cardiac catheterization. The patient verbalizes understanding and is agreeable in proceeding with the procedure. 4. Coronary artery disease is present. 5. Her blood pressure is stable. 6. Her LDL goal is less than 55. will get a lipid panel. 7. The patient is having a COPD exacerbation. This is being managed by Dr. Bass. She is on duo nebs and Solu-Medrol as well as a BiPAP machine. 8. The patient is diabetic. This does place her at high risk for coronary artery disease progression. She does need aggressive control of her diabetes. This is managed by her primary care provider. 9. She does have a history of renal insufficiency however her renal function is normal today. 10. Tobacco cessation is highly advised and counseled. 11. Recent echocardiogram shows an ejection fraction of 65% with diastolic dysfunction. 12. Further recommendations will be made pending the patient's response to treatment and the results of her left and right cardiac catheterization later today. Thank you for the opportunity to help participate in the care of this patient.
[2018-07-20 10:25] LABS: Chol/HDL Ratio 3.6 (1-3.5)
[2018-07-21 07:19] LABS: Basophils % 0.1 % (0.1-2.0); Eosinophils % 0.3 % (0.1-12.0); Hematocrit 34.7 % (37.0-47.0); Hemoglobin 10.5 g/dL (12.2-16.2); Lymphocytes # 0.4 K/mm3 (0.7-4.5); Lymphocytes % 5.2 % (10-50); Mean Corpuscular HGB Conc 30.2 g/dL (31.8-35.4); Mean Corpuscular Hemoglobin 27.2 pg (27.0-31.2); Mean Corpuscular Volume 90.2 fl (81-99); Mean Platelet Volume 8.9 fl (7.4-10.4); Monocytes # 0.3 K/mm3 (0.1-1.0); Monocytes % 4.5 % (1.7-9.3); Neutrophils # 6.6 K/mm3 (1.8-7.8); Neutrophils % 89.8 % (37.0-80.0); Platelet Count 129 K/mm3 (142-424); Red Blood Count 3.84 M/mm3 (4.20-5.40); Red Cell Distribution Width 18.6 % (11.5-17.5); White Blood Count 7.3 K/mm3 (4.8-10.8)
[2018-07-21 07:35] LABS: Anion Gap 6.6 mEq/L (5-15); Calcium 8.7 mg/dL (8.5-10.1); Potassium 4.6 mmoL/L (3.5-5.1)
[2018-07-21 07:53] LABS: Lymphocytes % 4 % (10-50); Monocytes % 5 % (2-9); Neutrophils % 88 % (42-76); Total Cells Counted 100
--- NOTE | 2018-07-21 10:00 | Progress Note ---
Subjective Date: 07/21/18 Time: 09:57 Principal diagnosis: SOA Interval history: 62-year-old white female sitting at bedside in no acute distress. Frequent cough noted. Patient states her breathing is slightly better than on admission. She is on Vapotherm oxygen at this time. Cardiac catheter results yesterday showed [id number] coronary disease with hyperdynamic left ventricular ejection fraction. Recommendation for medical therapy including combination of beta-derick and verapamil was started. If needed patient should use steroids to help tolerate the beta-derick until her hyperdynamic heart function can be adequately treated. Exam Vital signs and Labs for Last 24 Hours: Temp Pulse Resp BP Pulse Ox 97.5 F L 79 20 103/57 L 94 L 07/21/18 08:00 07/21/18 08:00 07/21/18 08:00 07/21/18 08:00 07/21/18 08:00 Laboratory Results - last 24 hr 07/19/18 15:57: Urine Color Yellow, Urine Appearance Clear, Urine pH 5.0, Ur Specific [place] 1.015, Urine Protein Negative, Urine Glucose (UA) Negative, Urine Ketones Negative, Urine Blood 3+, Urine Nitrate Positive, Urine Bilirubin Negative, Urine Urobilinogen 0.2, Ur Leukocyte Esterase Negative, Urine WBC 5- 10, Urine Bacteria 3+ 07/20/18 09:32: Troponin I < 0.02 07/20/18 09:32: Triglycerides 117, Cholesterol 108 L, LDL Cholesterol 55, VLDL Cholesterol 23, HDL Cholesterol 30, Cholesterol/HDL Ratio 3.6 H 07/20/18 11:55: POC Glucose 570 H* 07/20/18 12:05: Random Glucose 541 H* 07/20/18 13:30: ABG O2 Sat (Measured) 52 L, POC VBG O2 Sat (Lisa) 49 L 07/20/18 17:13: POC Glucose 363 H* 07/20/18 21:58: POC Glucose 432 H* 07/21/18 05:07: POC Glucose 395 H* 07/21/18 06:34: Sodium 140, Potassium 4.6, Chloride 97 L, Carbon Dioxide 41 H*, Anion Gap 6.6, BUN 33 H, Creatinine 0.95, Estimated Creat Clear 88, Estimated G FR 60, Est GFR ( Amer) 72, Glucose 416 H* D, Calcium 8.7 04/25/19 06:53: WBC 7.3 D, RBC 3.84 L, Hgb 10.5 L, Hct 34.7 L, MCV 90.2, MCH 27.2, MCHC 30.2 L, RDW 18.6 H, Plt Count 129 L, MPV 8.9, Neut % (Auto) 89.8 H, Lymph % (Auto) 5.2 L, [place] % (Auto) 4.5, Eos % (Auto) 0.3, Baso % (Auto) 0.1, Neut # (Auto) 6.6, Lymph # (Auto) 0.4 L, [place] # (Auto) 0.3, Eos # (Auto) 0.0, Baso # (Auto) 0.0, Total Counted 100, Neutrophils % (Manual) 88 H, Band Neutrophils % 3.0, Lymphocytes % (Manual) 4 L, Monocytes % (Manual) 5, Platelet Estimate Slight decrease I & O for Last 24 hours: Intake & Output 07/18/18 07/19/18 07/20/18 07/21/18 11:59 11:59 11:59 11:59 Intake Total 958 / 958 540 / 540 Output Total 1750 / 1750 900 / 900 Balance -792 / -792 -360 / -360 Weight 206 lb 2 oz 207 lb 3 oz Microbiology Reports for the Last 24 Hours: Microbiology 07/20/18 09:16 Sputum - Expectorated Sputum Gram Stain - Final 07/20/18 09:16 Sputum - Expectorated Sputum Sputum Culture - Preliminary Gram Positive Cocci 07/19/18 15:57 Urine,Random Urine Culture - Preliminary Gram Negative Rods Gram Negative Rods#2 - *Routine HEENT Exam Head: Present: normocephalic Eye: Present: EOMI, PERRL ENT: Present: mucous membranes moist - *Routine Respiratory Exam Present: wheezes. Absent: accessory muscle use, rales, rhonchi - *Routine Cardiovascular Exam Present: RRR. Absent: murmur, gallop, rubs - *Routine Abdominal Exam Present: soft. Absent: tenderness, distended, guarding - *Routine Neurological Exam Present: alert, oriented X3, moving all extremities Progress Note: A&P (1) Angina pectoris Status: Acute Current Visit: Yes (2) Acute on chronic diastolic (congestive) heart failure Status: Acute Current Visit: Yes (3) CAD (coronary artery disease) Status: Chronic Current Visit: No (4) Acute exacerbation of chronic obstructive airways disease Status: Acute Current Visit: Yes (5) Acute respiratory failure with hypoxia and hypercapnia Status: Acute Current Visit: Yes (6) Diabetes mellitus Status: Chronic Current Visit: Yes (7) Renal insufficiency Status: Acute Current Visit: No (8) Tobacco use disorder Status: Chronic Current Visit: No (9) Anxiety Status: Chronic Current Visit: No (10) Bipolar disorder Status: Chronic Current Visit: No (11) Skin candidiasis Status: Acute Current Visit: Yes (12) HLD (hyperlipidemia) Status: Chronic Current Visit: No (13) HTN (hypertension) Status: Chronic Current Visit: No Assessment and Plan for All Diagnoses:: 1. Continue combination of beta-derick and verapamil for hyperdynamic left ventricular ejection fraction. 2. Patient has [id number] coronary artery disease for which continuation of aspirin and Plavix therapy recommended. 3. Severe pulmonary hypertension with judicious use of diuretics recommended with close monitoring of renal function. 4. From a cardiac standpoint patient is stable and can be discharged home with follow-up in 1 to 2 weeks. At that time we will discuss timing of an echocardiogram to follow-up on left ventricular ejection fraction and right ventricular systolic pressure measurements.
--- NOTE | 2018-07-21 10:31 | Progress Note ---
Internal Medicine - PN: Subj *Date: 07/21/18 *Time: 10:28 Interval history: The patient is sitting up on the side of the bed and reports she is feeling somewhat better. She feels SOB has improved from yesterday. She continues with productive cough. She is up to the [facility] with assistance. She is tolerating meals well. Exam Vital signs and Labs for Last 24 Hours: Temp Pulse Resp BP Pulse Ox 97.5 F L 79 20 103/57 L 94 L 07/21/18 08:00 07/21/18 08:00 07/21/18 08:00 07/21/18 08:00 07/21/18 08:00 Laboratory Results - last 24 hr 07/19/18 15:57: Urine Color Yellow, Urine Appearance Clear, Urine pH 5.0, Ur Specific [place] 1.015, Urine Protein Negative, Urine Glucose (UA) Negative, Urine Ketones Negative, Urine Blood 3+, Urine Nitrate Positive, Urine Bilirubin Negative, Urine Urobilinogen 0.2, Ur Leukocyte Esterase Negative, Urine WBC 5- 10, Urine Bacteria 3+ 07/20/18 09:32: Triglycerides 117, Cholesterol 108 L, LDL Cholesterol 55, VLDL Cholesterol 23, HDL Cholesterol 30, Cholesterol/HDL Ratio 3.6 H 07/20/18 11:55: POC Glucose 570 H* 07/20/18 12:05: Random Glucose 541 H* 07/20/18 13:30: ABG O2 Sat (Measured) 52 L, POC VBG O2 Sat (Lisa) 49 L 07/20/18 17:13: POC Glucose 363 H* 07/20/18 21:58: POC Glucose 432 H* 07/21/18 05:07: POC Glucose 395 H* 07/21/18 06:34: Sodium 140, Potassium 4.6, Chloride 97 L, Carbon Dioxide 41 H*, Anion Gap 6.6, BUN 33 H, Creatinine 0.95, Estimated Creat Clear 88, Estimated GFR 60, Est GFR ( Amer) 72, Glucose 416 H* D, Calcium 8.7 07/21/18 06:53: WBC 7.3 D, RBC 3.84 L, Hgb 10.5 L, Hct 34.7 L, MCV 90.2, MCH 27.2, MCHC 30.2 L, RDW 18.6 H, Plt Count 129 L, MPV 8.9, Neut % (Auto) 89.8 H, Lymph % (Auto) 5.2 L, [place] % (Auto) 4.5, Eos % (Auto) 0.3, Baso % (Auto) 0.1, Neut # (Auto) 6.6, Lymph # (Auto) 0.4 L, [place] # (Auto) 0.3, Eos # (Auto) 0.0, Baso # (Auto) 0.0, Total Counted 100, Neutrophils % (Manual) 88 H, Band Neutrophils % 3.0, Lymphocytes % (Manual) 4 L, Monocytes % (Manual) 5, Platelet Estimate Slight decrease I & O for Last 24 hours: Intake & Output 07/18/18 07/19/18 07/20/18 07/21/18 11:59 11:59 11:59 11:59 Intake Total 958 / 958 540 / 540 Output Total 1750 / 1750 900 / 900 Balance -792 / -792 -360 / -360 Weight 206 lb 2 oz 207 lb 3 oz Microbiology Reports for the Last 24 Hours: Microbiology 07/20/18 09:16 Sputum - Expectorated Sputum Gram Stain - Final 07/20/18 09:16 Sputum - Expectorated Sputum Sputum Culture - Preliminary Gram Positive Cocci 07/19/18 15:57 Urine,Random Urine Culture - Preliminary Gram Negative Rods Gram Negative Rods#2 - Constitutional no acute distress - *Routine HEENT Exam Head: Present: normocephalic ENT: Present: mucous membranes moist - *Routine Respiratory Exam Comments: good air movement with rhonchi and wheezes throughout - *Routine Cardiovascular Exam Present: RRR - *Routine Abdominal Exam Present: soft, normoactive bowel sounds. Absent: tenderness, distended, guarding, rigid, organomegaly, mass - *Routine Extremities Exam Present: edema, full ROM Comments: bilateral ANNELISE hose in place - *Routine Neurological Exam Present: alert, oriented X3, normal speech Assessment and Plan (1) Angina pectoris Current visit: Yes Status: Acute Category: Medical Code(s): I20.9 - Angina pectoris, unspecified (2) Acute on chronic diastolic (congestive) heart failure Current visit: Yes Status: Acute Category: Medical Code(s): I50.33 - Acute on chronic diastolic (congestive) heart failure (3) CAD (coronary artery disease) Current visit: No Status: Chronic Qualifiers: Coronary Disease-Associated Artery/Lesion type: [place] artery [place] vs. transplanted heart: [place] heart Associated angina: with other forms of angina Qualified Code(s): I25.118 - Atherosclerotic heart disease of [place] coronary artery with other forms of angina pectoris Category: Medical Code(s): I25.10 - Atherosclerotic heart disease of [place] coronary artery without angina pectoris (4) Acute exacerbation of chronic obstructive airways disease Current visit: Yes Status: Acute Category: Medical Code(s): J44.1 - Chronic obstructive pulmonary disease with (acute) exacerbation (5) Acute respiratory failure with hypoxia and hypercapnia Current visit: Yes Status: Acute Category: Medical Code(s): J96.01 - Acute respiratory failure with hypoxia; J96.02 - Acute respiratory failure with hypercapnia (6) Diabetes mellitus Current visit: Yes Status: Chronic Qualifiers: Category: Medical Code(s): E11.9 - Type 2 diabetes mellitus without complications (7) Renal insufficiency Current visit: No Status: Acute Category: Medical Code(s): N28.9 - Disorder of kidney and ureter, unspecified (8) Tobacco use disorder Current visit: No Status: Chronic Category: Medical Code(s): F17.200 - Nicotine dependence, unspecified, uncomplicated (9) Anxiety Current visit: No Status: Chronic Category: Medical Code(s): F41.9 - Anxiety disorder, unspecified (10) Bipolar disorder Current visit: No Status: Chronic Category: Medical Code(s): F31.9 - Bipolar disorder, unspecified (11) Skin candidiasis Current visit: Yes Status: Acute Category: Medical Code(s): B37.2 - Candidiasis of skin and nail (12) HLD (hyperlipidemia) Current visit: No Status: Chronic Qualifiers: Hyperlipidemia type: other hyperlipidemia Category: Medical Code(s): E78.5 - Hyperlipidemia, unspecified (13) HTN (hypertension) Current visit: No Status: Chronic Qualifiers: Hypertension type: essential hypertension Qualified Code(s): I10 - Essential (primary) hypertension Category: Medical Code(s): I10 - Essential (primary) hypertension - Assessment and plan all Dx Assessment and Plan for all problems:: Further per Dr. Bass
--- NOTE | 2018-07-22 08:34 | Progress Note ---
Internal Medicine - PN: Subj *Date: 07/22/18 *Time: 08:31 Interval history: Patient states she is feeling a little bit better today. She states her shortness of breath is almost back to baseline. She rested off and on throughout the night and denies any pain other than in her hips. She did eat some breakfast this morning. She is adamant that upon discharge she does not want to go to a penitentiary. Exam Vital signs and Labs for Last 24 Hours: Temp Pulse Resp BP Pulse Ox 94 F L 88 19 123/81 93 L 07/22/18 08:00 07/22/18 08:00 07/22/18 08:00 07/22/18 08:00 07/22/18 08:05 Laboratory Results - last 24 hr 07/21/18 12:06: POC Glucose 586 H* 07/21/18 12:15: Random Glucose 570 H* 07/21/18 16:46: POC Glucose 581 H* 07/21/18 16:59: Random Glucose 551 H* 07/21/18 21:10: POC Glucose 349 H* 07/22/18 06:12: POC Glucose 528 H* 07/22/18 06:32: Random Glucose 500 H I & O for Last 24 hours: Intake & Output 07/19/18 07/20/18 07/21/18 07/22/18 11:59 11:59 11:59 11:59 Intake Total 958 / 958 690 / 690 1080 / 1080 Output Total 1750 / 1750 1800 / 1800 2400 / 2400 Balance -792 / -792 -1110 / -1110 -1320 / -1320 Weight 206 lb 2 oz 207 lb 3 oz 204 lb 3 oz Microbiology Reports for the Last 24 Hours: Microbiology 07/19/18 14:30 Blood Blood Culture - Preliminary NO GROWTH AFTER 48 HOURS 07/19/18 14:30 Blood Blood Culture - Preliminary NO GROWTH AFTER 48 HOURS 07/20/18 09:16 Sputum - Expectorated Sputum Gram Stain - Final 07/20/18 09:16 Sputum - Expectorated Sputum Sputum Culture - Preliminary Gram Positive Cocci 07/19/18 15:57 Urine,Random Urine Culture - Preliminary Gram Negative Rods Gram Negative Rods#2 - Constitutional no acute distress - *Routine Respiratory Exam Present: decreased breath sounds, rhonchi, wheezes - *Routine Cardiovascular Exam Present: RRR - *Routine Abdominal Exam Present: soft, normoactive bowel sounds. Absent: tenderness - *Routine Extremities Exam Absent: cyanosis, clubbing, edema - *Routine Skin Exam Present: warm. Absent: rash - *Routine Neurological Exam Present: alert, oriented X3 Assessment and Plan (1) Angina pectoris Current visit: Yes Status: Acute Category: Medical Code(s): I20.9 - Angina pectoris, unspecified (2) Acute on chronic diastolic (congestive) heart failure Current visit: Yes Status: Acute Category: Medical Code(s): I50.33 - Acute on chronic diastolic (congestive) heart failure (3) CAD (coronary artery disease) Current visit: No Status: Chronic Qualifiers: Coronary Disease-Associated Artery/Lesion type: [place] artery [place] vs. transplanted heart: [place] heart Associated angina: with other forms of angina Qualified Code(s): I25.118 - Atherosclerotic heart disease of [place] coronary artery with other forms of angina pectoris Category: Medical Code(s): I25.10 - Atherosclerotic heart disease of [place] coronary artery without angina pectoris (4) Acute exacerbation of chronic obstructive airways disease Current visit: Yes Status: Acute Category: Medical Code(s): J44.1 - Chronic obstructive pulmonary disease with (acute) exacerbation (5) Acute respiratory failure with hypoxia and hypercapnia Current visit: Yes Status: Acute Category: Medical Code(s): J96.01 - Acute respiratory failure with hypoxia; J96.02 - Acute respiratory failure with hypercapnia (6) Diabetes mellitus Current visit: Yes Status: Chronic Qualifiers: Category: Medical Code(s): E11.9 - Type 2 diabetes mellitus without complications (7) Renal insufficiency Current visit: No Status: Acute Category: Medical Code(s): N28.9 - Disorder of kidney and ureter, unspecified (8) Tobacco use disorder Current visit: No Status: Chronic Category: Medical Code(s): F17.200 - Nicotine dependence, unspecified, uncomplicated (9) Anxiety Current visit: No Status: Chronic Category: Medical Code(s): F41.9 - Anxiety disorder, unspecified (10) Bipolar disorder Current visit: No Status: Chronic Category: Medical Code(s): F31.9 - Bipolar disorder, unspecified (11) Skin candidiasis Current visit: Yes Status: Acute Category: Medical Code(s): B37.2 - Candidiasis of skin and nail (12) HLD (hyperlipidemia) Current visit: No Status: Chronic Qualifiers: Hyperlipidemia type: other hyperlipidemia Category: Medical Code(s): E78.5 - Hyperlipidemia, unspecified (13) HTN (hypertension) Current visit: No Status: Chronic Qualifiers: Hypertension type: essential hypertension Qualified Code(s): I10 - Essential (primary) hypertension Category: Medical Code(s): I10 - Essential (primary) hypertension - Assessment and plan all Dx Assessment and Plan for all problems:: We will continue current treatment. Patient will likely be here through the weekend. Still awaiting his final sputum culture. Will discuss further care with Dr. Bass.
--- NOTE | 2018-07-22 09:17 | Pharmacy Consult Notes ---
- Pharmacy Consult Date: 07/22/18 Time: 09:15 Referring provider: DR. VALENCIA Reason for Consult:: VANCOMYCIN DOSING Allergies and ADEs:: Allergies Allergy/AdvReac Type Severity Reaction Status Date / Time bacitracin Allergy Intermediate Rash Verified 05/09/18 14:40 [From NEOSPORIN ([id number])] doxycycline Allergy Mild Rash Verified 05/09/18 14:40 neomycin Allergy Mild Rash Verified 05/09/18 14:40 [From NEOSPORIN ([id number])] Penicillins Allergy Mild Rash Verified 05/09/18 14:40 polymyxin B Allergy Mild Rash Verified 05/09/18 14:40 [From NEOSPORIN ([id number])] sertraline [From Zoloft] AdvReac Severe Hallucinati Verified 05/09/18 14:40 ng tea tree AdvReac Severe Verified 05/18/18 15:00 gabapentin AdvReac Verified 07/20/18 10:35 green tea AdvReac Verified 05/19/18 14:30 Home Medications:: Home Medications Medication Instructions Recorded Confirmed Type alprazolam 0.25 mg tablet 0.25 mg PO TID tab 06/14/17 07/19/18 History insulin aspart (U-100) 100 unit/mL 8 unit SUB-Q TID ml 06/14/17 07/19/18 History (3 mL) subcutaneous pen nitroglycerin 0.4 mg sublingual 0.4 mg SUBLINGUAL Q5MINP PRN 06/14/17 07/19/18 History tablet omega-3 fatty acids 1,000 mg 1,000 mg PO DAILY 06/14/17 07/19/18 History capsule venlafaxine 50 mg tablet 50 mg PO BID 90 Days #180 tab 08/31/17 07/19/18 History Aspirin [Low Dose Aspirin EC] 81 mg PO DAILY 10/27/17 07/19/18 History Clopidogrel Bisulfate [Plavix 75mg 75 mg PO DAILY 10/27/17 07/19/18 History Tab] Dexlansoprazole [Dexilant] 60 mg PO DAILY 02/17/18 07/19/18 History Hydrocod/Acet 5/325 mg [[place] 1 tab PO TIDP PRN 02/17/18 07/19/18 History 5/325mg tablet] Rosuvastatin Calcium 10 mg PO HS 02/17/18 07/19/18 History Trazodone HCl 100 mg PO HS 02/17/18 07/19/18 History quetiapine 200 mg tablet 100 mg PO HS tab 03/15/18 07/20/18 History Furosemide [Furosemide 20mg Tab] 20 mg PO DAILY 05/09/18 07/19/18 History Losartan Potassium 25 mg PO DAILY 05/09/18 07/19/18 History Metoprolol Succinate 50 mg PO DAILY 05/09/18 07/19/18 History Potassium Chloride [Klor-con 20 20 meq PO DAILY 05/10/18 07/19/18 History mEq tablet] Nicotine [Nicoderm 21mg/24hr 21 mg TD DAILY 05/17/18 07/19/18 History patch] dilTIAZem HCl [Diltiazem 240mg 240 mg PO DAILY 05/17/18 07/19/18 History 24Hr ER Cap] Insulin Glargine,Hum.rec.anlog 45 unit SQ HS 07/19/18 07/20/18 History [Insulin Glargine 100 Units/mL 3mL flexpen] Ipratropium/Albuterol Sulfate 3 ml IH QID 07/19/18 07/20/18 History [Duoneb 3mL neb] Amlodipine Besylate [Amlodipine 10 mg PO DAILY 07/20/18 07/20/18 History 10mg Tab] Gabapentin [Gabapentin 100mg Cap] 100 mg PO TID 07/20/18 07/20/18 History Isosorbide Mononitrate [Imdur 30mg 30 mg PO DAILY 07/20/18 07/20/18 History ER tablet] Lactulose [Lactulose 10gm/15ml 10 gm PO QID 07/20/18 07/20/18 History Oral Soln] Mirabegron [Myrbetriq] 50 mg PO DAILY 07/20/18 07/20/18 History Polyethylene Glycol 3350 [Miralax 17 gm PO DAILY 07/20/18 07/20/18 History Powder] predniSONE [Deltasone 10mg 10 mg PO DAILY 07/20/18 07/20/18 History tablet] Height: 1.68 m Weight: 92.618 kg Laboratory Results:: Laboratory Results - last hr 07/21/18 12:06: POC Glucose 586 H* 07/21/18 12:15: Random Glucose 570 H* 07/21/18 16:46: POC Glucose 581 H* 07/21/18 16:59: Random Glucose 551 H* 07/21/18 21:10: POC Glucose 349 H* 07/22/18 06:12: POC Glucose 528 H* 07/22/18 06:32: Random Glucose 500 H Medical History: Reports:: Anxiety, Atherosclerotic Heart Disease, Cancer, Congestive Heart Failure, Chronic Obstructive Pulmonary Disease (COPD), Coronary Artery Disease, Diabetes Mellitus Type 2, Gastroesophageal Reflux Disease(GERD), Hyperlipidemia, Hypertension, Lung Disease, MRSA, Peripheral Vascular Disease, Renal Insufficiency Denies:: Diabetes Mellitus Type 1 Assessment and Plan (1) Angina pectoris Current visit: Yes Status: Acute Category: Medical Code(s): I20.9 - Angina pectoris, unspecified (2) Acute on chronic diastolic (congestive) heart failure Current visit: Yes Status: Acute Category: Medical Code(s): I50.33 - Acute on chronic diastolic (congestive) heart failure (3) CAD (coronary artery disease) Current visit: No Status: Chronic Qualifiers: Coronary Disease-Associated Artery/Lesion type: [place] artery [place] vs. transplanted heart: [place] heart Associated angina: with other forms of angina Qualified Code(s): I25.118 - Atherosclerotic heart disease of [place] coronary artery with other forms of angina pectoris Category: Medical Code(s): I25.10 - Atherosclerotic heart disease of [place] coronary artery without angina pectoris (4) Acute exacerbation of chronic obstructive airways disease Current visit: Yes Status: Acute Category: Medical Code(s): J44.1 - Chronic obstructive pulmonary disease with (acute) exacerbation (5) Acute respiratory failure with hypoxia and hypercapnia Current visit: Yes Status: Acute Category: Medical Code(s): J96.01 - Acute respiratory failure with hypoxia; J96.02 - Acute respiratory failure with hypercapnia (6) Diabetes mellitus Current visit: Yes Status: Chronic Qualifiers: Category: Medical Code(s): E11.9 - Type 2 diabetes mellitus without complications (7) Renal insufficiency Current visit: No Status: Acute Category: Medical Code(s): N28.9 - Disorder of kidney and ureter, unspecified (8) Tobacco use disorder Current visit: No Status: Chronic Category: Medical Code(s): F17.200 - Nicotine dependence, unspecified, uncomplicated (9) Anxiety Current visit: No Status: Chronic Category: Medical Code(s): F41.9 - Anxiety disorder, unspecified (10) Bipolar disorder Current visit: No Status: Chronic Category: Medical Code(s): F31.9 - Bipolar disorder, unspecified (11) Skin candidiasis Current visit: Yes Status: Acute Category: Medical Code(s): B37.2 - Candidiasis of skin and nail (12) HLD (hyperlipidemia) Current visit: No Status: Chronic Qualifiers: Hyperlipidemia type: other hyperlipidemia Category: Medical Code(s): E78.5 - Hyperlipidemia, unspecified (13) HTN (hypertension) Current visit: No Status: Chronic Qualifiers: Hypertension type: essential hypertension Qualified Code(s): I10 - Essential (primary) hypertension Category: Medical Code(s): I10 - Essential (primary) hypertension - Assessment and plan all Dx Assessment and Plan for all problems:: BASED ON PATIENT FACTORS, RECOMMEND INITIATING VANCOMYCIN IV AT 1,750MG EVERY 18 HOURS. PHARMACY WILL MONITOR AND ADJUST DOSE APPROPRIATE BASED ON TROUGH LEVEL. -RODOLFO CASTELLANOS, CARRILLOD
--- NOTE | 2018-07-23 10:49 | Progress Note ---
Internal Medicine - PN: Subj *Date: 07/23/18 *Time: 10:48 Exam Vital signs and Labs for Last 24 Hours: Temp Pulse Resp BP Pulse Ox 98.3 F 80 20 105/51 L 92 L 07/23/18 08:00 07/23/18 08:00 07/23/18 08:00 07/23/18 08:00 07/23/18 09:55 Laboratory Results - last 24 hr 07/22/18 11:37: Random Glucose 542 H* 07/22/18 16:18: POC Glucose 474 H* 07/22/18 20:38: POC Glucose 288 H 07/23/18 06:28: POC Glucose 258 H I & O for Last 24 hours: Intake & Output 07/20/18 07/21/18 07/22/18 07/23/18 23:59 23:59 23:59 23:59 Intake Total 1348 / 1348 1170 / 1170 1240 / 1240 750 / 750 Output Total 2650 / 2650 1700 / 1700 2500 / 2500 Balance -1302 / -1302 -530 / -530 -1260 / -1260 750 / 750 Weight 93.497 kg 93.979 kg 92.618 kg 93.3 kg Microbiology Reports for the Last 24 Hours: Microbiology 07/20/18 09:16 Sputum - Expectorated Sputum Gram Stain - Final 07/20/18 09:16 Sputum - Expectorated Sputum Sputum Culture - Final Staphylococcus aureus 07/19/18 15:57 Urine,Random Urine Culture - Final Escherichia coli#2 Escherichia coli Assessment and Plan (1) Angina pectoris Current visit: Yes Status: Acute Category: Medical Code(s): I20.9 - Angina pectoris, unspecified (2) Acute on chronic diastolic (congestive) heart failure Current visit: Yes Status: Acute Category: Medical Code(s): I50.33 - Acute on chronic diastolic (congestive) heart failure (3) CAD (coronary artery disease) Current visit: No Status: Chronic Qualifiers: Coronary Disease-Associated Artery/Lesion type: [place] artery [place] vs. transplanted heart: [place] heart Associated angina: with other forms of angina Qualified Code(s): I25.118 - Atherosclerotic heart disease of [place] coronary artery with other forms of angina pectoris Category: Medical Code(s): I25.10 - Atherosclerotic heart disease of [place] coronary artery without angina pectoris (4) Acute exacerbation of chronic obstructive airways disease Current visit: Yes Status: Acute Category: Medical Code(s): J44.1 - Chronic obstructive pulmonary disease with (acute) exacerbation (5) Acute respiratory failure with hypoxia and hypercapnia Current visit: Yes Status: Acute Category: Medical Code(s): J96.01 - Acute respiratory failure with hypoxia; J96.02 - Acute respiratory failure with hypercapnia (6) Diabetes mellitus Current visit: Yes Status: Chronic Qualifiers: Category: Medical Code(s): E11.9 - Type 2 diabetes mellitus without complications (7) Renal insufficiency Current visit: No Status: Acute Category: Medical Code(s): N28.9 - Disorder of kidney and ureter, unspecified (8) Tobacco use disorder Current visit: No Status: Chronic Category: Medical Code(s): F17.200 - Nicotine dependence, unspecified, uncomplicated (9) Anxiety Current visit: No Status: Chronic Category: Medical Code(s): F41.9 - Anxiety disorder, unspecified (10) Bipolar disorder Current visit: No Status: Chronic Category: Medical Code(s): F31.9 - B ipolar disorder, unspecified (11) Skin candidiasis Current visit: Yes Status: Acute Category: Medical Code(s): B37.2 - Candidiasis of skin and nail (12) HLD (hyperlipidemia) Current visit: No Status: Chronic Qualifiers: Hyperlipidemia type: other hyperlipidemia Category: Medical Code(s): E78.5 - Hyperlipidemia, unspecified (13) HTN (hypertension) Current visit: No Status: Chronic Qualifiers: Hypertension type: essential hypertension Qualified Code(s): I10 - Essential (primary) hypertension Category: Medical Code(s): I10 - Essential (primary) hypertension The patient's infection will respond to the chosen ABx?: Yes Is the patient receiving the right drug, dose, and route?: Yes Could a more targeted ABx be ordered?: No (CULTURES SENSITIVE TO ABX PATIENT IS RECEIVING)
--- NOTE | 2018-07-23 11:20 | Progress Note ---
Internal Medicine - PN: Subj *Date: 07/23/18 *Time: 11:17 Interval history: She remained stable at this time. Her weight has come down with diuresis. A large component of her problem is the congestive heart failure and diuresis will need to be maintained. She will get an additional 20 mg of Lasix this morning IV. She remains on Vapotherm. We hope to keep her stable through the weekend. [facility] Cultures and microbiology are reviewed. Exam Vital signs and Labs for Last 24 Hours: Temp Pulse Resp BP Pulse Ox 98.3 F 80 20 105/51 L 92 L 07/23/18 08:00 07/23/18 08:00 07/23/18 08:00 07/23/18 08:00 07/23/18 09:55 Laboratory Results - last 24 hr 07/22/18 11:37: Random Glucose 542 H* 07/22/18 16:18: POC Glucose 474 H* 07/22/18 20:38: POC Glucose 288 H 07/23/18 06:28: POC Glucose 258 H I & O for Last 24 hours: Intake & Output 07/20/18 07/21/18 07/22/18 07/23/18 11:59 11:59 11:59 11:59 Intake Total 958 / 958 690 / 690 1230 / 1230 1630 / 1630 Output Total 1750 / 1750 1800 / 1800 3300 / 3300 Balance -792 / -792 -1110 / -1110 -2070 / -2070 1630 / 1630 Weight 206 lb 2 oz 207 lb 3 oz 204 lb 3 oz 205 lb 11.06 oz Microbiology Reports for the Last 24 Hours: Microbiology 07/20/18 09:16 Sputum - Expectorated Sputum Gram Stain - Final 07/20/18 09:16 Sputum - Expectorated Sputum Sputum Culture - Final Staphylococcus aureus 07/19/18 15:57 Urine,Random Urine Culture - Final Escherichia coli#2 Escherichia coli - Constitutional no acute distress - *Routine HEENT Exam Head: Present: normocephalic Eye: Present: PERRL ENT: Present: mucous membranes moist - *Routine Respiratory Exam Comments: Decreased breath sounds with rhonchi. - *Routine Cardiovascular Exam Present: RRR - *Routine Abdominal Exam Present: soft. Absent: tenderness - *Routine Extremities Exam Present: edema (2+) - *Routine Neurological Exam Present: alert, oriented X3 Assessment and Plan (1) Angina pectoris Current visit: Yes Status: Acute Category: Medical Code(s): I20.9 - Angina pectoris, unspecified (2) Acute on chronic diastolic (congestive) heart failure Current visit: Yes Status: Acute Category: Medical Code(s): I50.33 - Acute on chronic diastolic (congestive) heart failure (3) CAD (coronary artery disease) Current visit: No Status: Chronic Qualifiers: Coronary Disease-Associated Artery/Lesion type: [place] artery [place] vs. transplanted heart: [place] heart Associated angina: with other forms of angina Qualified Code(s): I25.118 - Atherosclerotic heart disease of [place] coronary artery with other forms of angina pectoris Category: Medical Code(s): I25.10 - Atherosclerotic heart disease of [place] coronary artery without angina pectoris (4) Acute exacerbation of chronic obstructive airways disease Current visit: Yes Status: Acute Category: Medical Code(s): J44.1 - Chronic obstructive pulmonary disease with (acute) exacerbation (5) Acute respiratory failure with hypoxia and hypercapnia Current visit: Yes Status: Acute Category: Medical Code(s): J96.01 - Acute respiratory failure with hypoxia; J96.02 - Acute respiratory failure with hypercapnia (6) Diabetes mellitus Current visit: Yes Status: Chronic Qualifiers: Category: Medical Code(s): E11.9 - Type 2 diabetes mellitus without complications (7) Renal insufficiency Current visit: No Status: Acute Category: Medical Code(s): N28.9 - Disorder of kidney and ureter, unspecified (8) Tobacco use disorder Current visit: No Status: Chronic Category: Medical Code(s): F17.200 - Nicotine dependence, unspecified, uncomplicated (9) Anxiety Current visit: No Status: Chronic Category: Medical Code(s): F41.9 - Anxiety disorder, unspecified (10) Bipolar disorder Current visit: No Status: Chronic Category: Medical Code(s): F31.9 - Bipolar disorder, unspecified (11) Skin candidiasis Current visit: Yes Status: Acute Category: Medical Code(s): B37.2 - Candidiasis of skin and nail (12) HLD (hyperlipidemia) Current visit: No Status: Chronic Qualifiers: Hyperlipidemia type: other hyperlipidemia Category: Medical Code(s): E78.5 - Hyperlipidemia, unspecified (13) HTN (hypertension) Current visit: No Status: Chronic Qualifiers: Hypertension type: essential hypertension Qualified Code(s): I10 - Essential (primary) hypertension Category: Medical Code(s): I10 - Essential (primary) hypertension - Assessment and plan all Dx Assessment and Plan for all problems:: Continue present regimen. Watch weight carefully and adjust diuretics accordingly.
[2018-07-23 11:47] LABS: Basophils % 0.1 % (0.1-2.0); Eosinophils % 0.1 % (0.1-12.0); Hematocrit 33.2 % (37.0-47.0); Lymphocytes # 0.3 K/mm3 (0.7-4.5); Lymphocytes % 4.3 % (10-50); Mean Corpuscular Volume 90.2 fl (81-99); Monocytes # 0.3 K/mm3 (0.1-1.0); Monocytes % 4.5 % (1.7-9.3); Neutrophils # 5.6 K/mm3 (1.8-7.8); Platelet Count 97 K/mm3 (142-424); Red Blood Count 3.68 M/mm3 (4.20-5.40); Red Cell Distribution Width 17.5 % (11.5-17.5); White Blood Count 6.2 K/mm3 (4.8-10.8)
[2018-07-23 12:02] LABS: Calcium 8.8 mg/dL (8.5-10.1); Potassium 4.4 mmoL/L (3.5-5.1)
[2018-07-23 12:09] LABS: Anion Gap 3.4 mEq/L (5-15)
[2018-07-23 12:39] LABS: Lymphocytes % 4 % (10-50); Monocytes % 2 % (2-9); Neutrophils % 94 % (42-76); Total Cells Counted 100
[2018-07-23 12:40] LABS: Tear Drop Cells 1+
--- NOTE | 2018-07-24 11:11 | Progress Note ---
Internal Medicine - PN: Subj *Date: 07/24/18 *Time: 11:07 Interval history: Patient states she has a sore spot on her right ankle. He breathing is unchanged Exam Vital signs and Labs for Last 24 Hours: Temp Pulse Resp BP Pulse Ox 97.6 F 72 22 117/55 L 93 L 07/24/18 08:00 07/24/18 08:00 07/24/18 08:00 07/24/18 08:00 07/24/18 08:00 Laboratory Results - last 24 hr 07/23/18 11:28: POC Glucose 470 H* 07/23/18 11:35: WBC 6.2, RBC 3.68 L, Hgb 10.0 L, Hct 33.2 L, MCV 90.2, MCH 27.0, MCHC 30.0 L, RDW 17.5, Plt Count 97 L, MPV 10.0, Neut % (Auto) 91.0 H, Lymph % (Auto) 4.3 L, [place] % (Auto) 4.5, Eos % (Auto) 0.1, Baso % (Auto) 0.1, Neut # (Auto) 5.6, Lymph # (Auto) 0.3 L, [place] # (Auto) 0.3, Eos # (Auto) 0.0, Baso # (Auto) 0.0, Total Counted 100, Neutrophils % (Manual) 94 H, Lymphocytes % (Manual) 4 L, Monocytes % (Manual) 2, Platelet Estimate Moderate decrease, Tear Drop Cells 1+, Acanthocytes (Spur) 1+ 07/23/18 11:35: Sodium 137, Potassium 4.4, Chloride 94 L, Carbon Dioxide 44 H*, Anion Gap 3.4 L, BUN 38 H, Creatinine 1.21 H D, Estimated Creat Clear 72, Estimated GFR 45 L, Est GFR ( Amer) 55 L D, Glucose 482 H*, Calcium 8.8 07/23/18 16:27: POC Glucose 395 H* 07/23/18 21:28: POC Glucose 265 H 07/24/18 05:38: POC Glucose 426 H* I & O for Last 24 hours: Intake & Output 07/21/18 07/22/18 07/23/18 07/24/18 23:59 23:59 23:59 23:59 Intake Total 1170 / 1170 1390 / 1390 1710 / 1710 860 / 860 Output Total 1700 / 1700 2500 / 2500 875 / 875 500 / 500 Balance -530 / -530 -1110 / -1110 835 / 835 360 / 360 Weight 207 lb 3 oz 204 lb 3 oz 205 lb 11.06 oz 209 lb 3.499 oz - Constitutional no acute distress - *Routine HEENT Exam Head: Present: normocephalic Eye: Present: EOMI ENT: Present: mucous membranes moist - *Routine Neck Exam Present: supple. Absent: lymphadenopathy - *Routine Respiratory Exam Present: decreased breath sounds, rhonchi - *Routine Cardiovascular Exam Present: RRR - *Routine Abdominal Exam Present: soft, normoactive bowel sounds. Absent: tenderness - *Routine Extremities Exam Absent: cyanosis, clubbing, edema - *Routine Skin Exam Present: warm. Absent: rash Comments: 7 mm wide superficial skin ulceration on the right lateral malleolus, no drainage or surrounding skin erythema - *Routine Neurological Exam Present: alert Assessment and Plan (1) Angina pectoris Current visit: Yes Status: Acute Category: Medical Code(s): I20.9 - Angina pectoris, unspecified (2) Acute on chronic diastolic (congestive) heart failure Current visit: Yes Status: Acute Category: Medical Code(s): I50.33 - Acute on chronic diastolic (congestive) heart failure (3) CAD (coronary artery disease) Current visit: No Status: Chronic Qualifiers: Coronary Disease-Associated Artery/Lesion type: [place] artery [place] vs. transplanted heart: [place] heart Associated angina: with other forms of angina Qualified Code(s): I25.118 - Atherosclerotic heart disease of [place] coronary artery with other forms of angina pectoris Category: Medical Code(s): I25.10 - Atherosclerotic heart disease of [place] coronary artery without angina pectoris (4) Acute exacerbation of chronic obstructive airways disease Current visit: Yes Status: Acute Category: Medical Code(s): J44.1 - Chronic obstructive pulmonary disease with (acute) exacerbation (5) Acute respiratory failure with hypoxia and hypercapnia Current visit: Yes Status: Acute Category: Medical Code(s): J96.01 - Acute respiratory failure with hypoxia; J96.02 - Acute respiratory failure with hypercapnia (6) Diabetes mellitus Current visit: Yes Status: Chronic Qualifiers: Category: Medical Code(s): E11.9 - Type 2 diabetes mellitus without complications (7) Renal insufficiency Current visit: No Status: Acute Category: Medical Code(s): N28.9 - Disorder of kidney and ureter, unspecified (8) Tobacco use disorder Current visit: No Status: Chronic Category: Medical Code(s): F17.200 - Nicotine dependence, unspecified, uncomplicated (9) Anxiety Current visit: No Status: Chronic Category: Medical Code(s): F41.9 - Anxiety disorder, unspecified (10) Bipolar disorder Current visit: No Status: Chronic Category: Medical Code(s): F31.9 - Bipolar disorder, unspecified (11) Skin candidiasis Current visit: Yes Status: Acute Category: Medical Code(s): B37.2 - Candidiasis of skin and nail (12) HLD (hyperlipidemia) Current visit: No Status: Chronic Qualifiers: Hyperlipidemia type: other hyperlipidemia Category: Medical Code(s): E78.5 - Hyperlipidemia, unspecified (13) HTN (hypertension) Current visit: No Status: Chronic Qualifiers: Hypertension type: essential hypertension Qualified Code(s): I10 - Essential (primary) hypertension Category: Medical Code(s): I10 - Essential (primary) hypertension - Assessment and plan all Dx Assessment and Plan for all problems:: Wound discussed with nurse. She will place a dressing over wound. Increase insulin due to hyperglycemia.
--- NOTE | 2018-07-25 08:40 | Progress Note ---
Internal Medicine - PN: Subj *Date: 07/25/18 *Time: 08:37 Interval history: Patient is feeling much better. She states her breathing is going well with the Vapotherm. She states this is very similar to her trilogy that she has at home. She has a periodic cough. She is eating well. Blood sugars are running high. Exam Vital signs and Labs for Last 24 Hours: Temp Pulse Resp BP Pulse Ox 98.1 F 64 20 106/68 L 92 L 07/25/18 08:00 07/25/18 08:00 07/25/18 08:00 07/25/18 08:00 07/25/18 08:00 Laboratory Results - last 24 hr 07/24/18 12:05: POC Glucose 468 H* 07/24/18 16:57: POC Glucose 521 H* 07/24/18 17:20: Random Glucose 513 H* 07/24/18 21:54: POC Glucose 477 H* I & O for Last 24 hours: Intake & Output 07/22/18 07/23/18 07/24/18 07/25/18 11:59 11:59 11:59 11:59 Intake Total 1230 / 1230 1780 / 1780 1970 / 1970 1940 / 1940 Output Total 3300 / 3300 1375 / 1375 1200 / 1200 Balance -2070 / -2070 1780 / 1780 595 / 595 740 / 740 Weight 204 lb 3 oz 205 lb 11.06 oz 209 lb 3.499 oz 202 lb 2.622 oz Microbiology Reports for the Last 24 Hours: Microbiology 07/19/18 14:30 Blood Blood Culture - Final NO GROWTH AFTER 5 DAYS 07/19/18 14:30 Blood Blood Culture - Final NO GROWTH AFTER 5 DAYS - Constitutional no acute distress Comments: Sitting on the bedside and has completed her breakfast. Appears comfortable. Breathing is easy. - *Routine Respiratory Exam Comments: Coarse crackles heard on the right. Scattered soft wheezing. - *Routine Cardiovascular Exam Present: RRR - *Routine Abdominal Exam Present: soft, normoactive bowel sounds. Absent: tenderness - *Routine Extremities Exam Absent: edema, calf tenderness - *Routine Neurological Exam Present: alert, oriented X3 Assessment and Plan (1) Angina pectoris Current visit: Yes Status: Acute Category: Medical Code(s): I20.9 - Angina pectoris, unspecified (2) Acute on chronic diastolic (congestive) heart failure Current visit: Yes Status: Acute Category: Medical Code(s): I50.33 - Acute on chronic diastolic (congestive) heart failure (3) CAD (coronary artery disease) Current visit: No Status: Chronic Qualifiers: Coronary Disease-Associated Artery/Lesion type: [place] artery [place] vs. transplanted heart: [place] heart Associated angina: with other forms of angina Qualified Code(s): I25.118 - Atherosclerotic heart disease of [place] coronary artery with other forms of angina pectoris Category: Medical Code(s): I25.10 - Atherosclerotic heart disease of [place] coronary artery without angina pectoris (4) Acute exacerbation of chronic obstructive airways disease Current visit: Yes Status: Acute Category: Medical Code(s): J44.1 - Chronic obstructive pulmonary disease with (acute) exacerbation (5) Acute respiratory failure with hypoxia and hypercapnia Current visit: Yes Status: Acute Category: Medical Code(s): J96.01 - Acute respiratory failure with hypoxia; J96.02 - Acute respiratory failure with hype rcapnia (6) Diabetes mellitus Current visit: Yes Status: Chronic Qualifiers: Category: Medical Code(s): E11.9 - Type 2 diabetes mellitus without complications (7) Renal insufficiency Current visit: No Status: Acute Category: Medical Code(s): N28.9 - Disorder of kidney and ureter, unspecified (8) Tobacco use disorder Current visit: No Status: Chronic Category: Medical Code(s): F17.200 - Nicotine dependence, unspecified, uncomplicated (9) Anxiety Current visit: No Status: Chronic Category: Medical Code(s): F41.9 - Anxiety disorder, unspecified (10) Bipolar disorder Current visit: No Status: Chronic Category: Medical Code(s): F31.9 - Bipolar disorder, unspecified (11) Skin candidiasis Current visit: Yes Status: Acute Category: Medical Code(s): B37.2 - Candidiasis of skin and nail (12) HLD (hyperlipidemia) Current visit: No Status: Chronic Qualifiers: Hyperlipidemia type: other hyperlipidemia Category: Medical Code(s): E78.5 - Hyperlipidemia, unspecified (13) HTN (hypertension) Current visit: No Status: Chronic Qualifiers: Hypertension type: essential hypertension Qualified Code(s): I10 - Essential (primary) hypertension Category: Medical Code(s): I10 - Essential (primary) hypertension - Assessment and plan all Dx Assessment and Plan for all problems:: Possible discharge today. Will need to increase her Lantus.
--- NOTE | 2018-07-25 10:18 | Pharmacy Consult Notes ---
- Pharmacy Consult Date: 07/25/18 Time: 10:16 Referring provider: DR. VALENCIA Reason for Consult:: VANCOMYCIN TROUGH LEVEL Allergies and ADEs:: Allergies Allergy/AdvReac Type Severity Reaction Status Date / Time bacitracin Allergy Intermediate Rash Verified 05/09/18 14:40 [From NEOSPORIN ([id number])] doxycycline Allergy Mild Rash Verified 05/09/18 14:40 neomycin Allergy Mild Rash Verified 05/09/18 14:40 [From NEOSPORIN ([id number])] Penicillins Allergy Mild Rash Verified 05/09/18 14:40 polymyxin B Allergy Mild Rash Verified 05/09/18 14:40 [From NEOSPORIN ([id number])] sertraline [From Zoloft] AdvReac Severe Hallucinati Verified 05/09/18 14:40 ng tea tree AdvReac Severe Verified 05/18/18 15:00 gabapentin AdvReac Verified 07/20/18 10:35 green tea AdvReac Verified 05/19/18 14:30 Home Medications:: Home Medications Medication Instructions Recorded Confirmed Type alprazolam 0.25 mg tablet 0.25 mg PO TID tab 06/14/17 07/19/18 History insulin aspart (U-100) 100 unit/mL 8 unit SUB-Q TID ml 06/14/17 07/19/18 History (3 mL) subcutaneous pen nitroglycerin 0.4 mg sublingual 0.4 mg SUBLINGUAL Q5MINP PRN 06/14/17 07/19/18 History tablet omega-3 fatty acids 1,000 mg 1,000 mg PO DAILY 06/14/17 07/19/18 History capsule venlafaxine 50 mg tablet 50 mg PO BID 90 Days #180 tab 08/31/17 07/19/18 History Aspirin [Low Dose Aspirin EC] 81 mg PO DAILY 10/27/17 07/19/18 History Clopidogrel Bisulfate [Plavix 75mg 75 mg PO DAILY 10/27/17 07/19/18 History Tab] Dexlansoprazole [Dexilant] 60 mg PO DAILY 02/17/18 07/19/18 History Hydrocod/Acet 5/325 mg [[place] 1 tab PO TIDP PRN 02/17/18 07/19/18 History 5/325mg tablet] Rosuvastatin Calcium 10 mg PO HS 02/17/18 07/19/18 History Trazodone HCl 100 mg PO HS 02/17/18 07/19/18 History quetiapine 200 mg tablet 100 mg PO HS tab 03/15/18 07/20/18 History Furosemide [Furosemide 20mg Tab] 20 mg PO DAILY 05/09/18 07/19/18 History Losartan Potassium 25 mg PO DAILY 05/09/18 07/19/18 History Metoprolol Succinate 50 mg PO DAILY 05/09/18 07/19/18 History Potassium Chloride [Klor-con 20 20 meq PO DAILY 05/10/18 07/19/18 History mEq tablet] Nicotine [Nicoderm 21mg/24hr 21 mg TD DAILY 05/17/18 07/19/18 History patch] dilTIAZem HCl [Diltiazem 240mg 240 mg PO DAILY 05/17/18 07/19/18 History 24Hr ER Cap] Insulin Glargine,Hum.rec.anlog 45 unit SQ HS 07/19/18 07/20/18 History [Insulin Glargine 100 Units/mL 3mL flexpen] Ipratropium/Albuterol Sulfate 3 ml IH QID 07/19/18 07/20/18 History [Duoneb 3mL neb] Amlodipine Besylate [Amlodipine 10 mg PO DAILY 07/20/18 07/20/18 History 10mg Tab] Gabapentin [Gabapentin 100mg Cap] 100 mg PO TID 07/20/18 07/20/18 History Isosorbide Mononitrate [Imdur 30mg 30 mg PO DAILY 07/20/18 07/20/18 History ER tablet] Lactulose [Lactulose 10gm/15ml 10 gm PO QID 07/20/18 07/20/18 History Oral Soln] Mirabegron [Myrbetriq] 50 mg PO DAILY 07/20/18 07/20/18 History Polyethylene Glycol 3350 [Miralax 17 gm PO DAILY 07/20/18 07/20/18 History Powder] predniSONE [Deltasone 10mg 10 mg PO DAILY 07/20/18 07/20/18 History tablet] Height: 1.68 m Weight: 91.7 kg Laboratory Results:: Laboratory Results - last hr 07/22/18 11:28: POC Glucose 580 H* 07/24/18 12:05: POC Glucose 468 H* 07/24/18 16:57: POC Glucose 521 H* 07/24/18 17:20: Random Glucose 513 H* 07/24/18 21:54: POC Glucose 477 H* 07/25/18 09:08: Vancomycin Trough 15.3 Medical History: Reports:: Anxiety, Atherosclerotic Heart Disease, Cancer, Congestive Heart Failure, Chronic Obstructive Pulmonary Disease (COPD), Coronary Artery Disease, Diabetes Mellitus Type 2, Gastroesophageal Reflux Disease(GERD), Hyperlipidemia, Hypertension, Lung Disease, MRSA, Peripheral Vascular Disease, Renal Insufficiency Denies:: Diabetes Mellitus Type 1 Assessment and Plan (1) Angina pectoris Current visit: Yes Status: Acute Category: Medical Code(s): I20.9 - Angina pectoris, unspecified (2) Acute on chronic diastolic (congestive) heart failure Current visit: Yes Status: Acute Category: Medical Code(s): I50.33 - Acute on chronic diastolic (congestive) heart failure (3) CAD (coronary artery disease) Current visit: No Status: Chronic Qualifiers: Coronary Disease-Associated Artery/Lesion type: [place] artery [place] vs. transplanted heart: [place] heart Associated angina: with other forms of angina Qualified Code(s): I25.118 - Atherosclerotic heart disease of [place] coronary artery with other forms of angina pectoris Category: Medical Code(s): I25.10 - Atherosclerotic heart disease of [place] coronary artery without angina pectoris (4) Acute exacerbation of chronic obstructive airways disease Current visit: Yes Status: Acute Category: Medical Code(s): J44.1 - Chronic obstructive pulmonary disease with (acute) exacerbation (5) Acute respiratory failure with hypoxia and hypercapnia Current visit: Yes Status: Acute Category: Medical Code(s): J96.01 - Acute respiratory failure with hypoxia; J96.02 - Acute respiratory failure with hypercapnia (6) Diabetes mellitus Current visit: Yes Status: Chronic Qualifiers: Category: Medical Code(s): E11.9 - Type 2 diabetes mellitus without complications (7) Renal insufficiency Current visit: No Status: Acute Category: Medical Code(s): N28.9 - Disorder of kidney and ureter, unspecified (8) Tobacco use disorder Current visit: No Status: Chronic Category: Medical Code(s): F17.200 - Nicotine dependence, unspecified, uncomplicated (9) Anxiety Current visit: No Status: Chronic Category: Medical Code(s): F41.9 - Anxiety disorder, unspecified (10) Bipolar disorder Current visit: No Status: Chronic Category: Medical Code(s): F31.9 - [place] disorder, unspecified (11) Skin candidiasis Current visit: Yes Status: Acute Category: Medical Code(s): B37.2 - Candidiasis of skin and nail (12) HLD (hyperlipidemia) Current visit: No Status: Chronic Qualifiers: Hyperlipidemia type: other hyperlipidemia Category: Medical Code(s): E78.5 - Hyperlipidemia, unspecified (13) HTN (hypertension) Current visit: No Status: Chronic Qualifiers: Hypertension type: essential hypertension Qualified Code(s): I10 - Essential (primary) hypertension Category: Medical Code(s): I10 - Essential (primary) hypertension - Assessment and plan all Dx Assessment and Plan for all problems:: BASED ON PATIENT FACTORS AND VANCOMYCIN TROUGH LEVEL, RECOMMEND CONTINUING VANCOMYCIN 1750 MG IV Q18H. PHARMACY WILL CONTINUE TO MONITOR DAILY AND ADJUST APPROPRIATE.
== END 2018-07-25 15:47 | disposition home health service (06) | DRG 189 ==
LOC: ER 13:38 → 2ND 15:35
PROVIDERS: ADMIT Family Medicine; ATTEND Family Medicine
CPT/HCPCS: 36415; 36569; 71010; 71020; 71045; 71046; 80048; 80061; 80202; 81001; 82803; 82810; 82947; 82962; 83605; 83880; 84484; 85007; 85025; 87040; 87070; 87077; 87086; 87088; 87186; 87205; 93005; 93460; 94640; 94660; 94761; 96365; 96375; 97162; 99152; 99153; 99285; C1725; C1751; C1769; C1894; J1644; J1956; J3370; Q9967

== ENCOUNTER 2018-08-09 16:09 | Inpatient (IN) ==
[2018-08-09 16:52] LABS: ABG Base Excess 13.3 mmol/L (-2.4-2.3); ABG HCO3 40.3 mmhg (22.0-26.0); ABG Oxygen Saturation 99 % (90-100); ABG PH 7.26 mmol/L (7.35-7.45); ABG PO2 340.1 mmhg (80-100); ABG TCO2 43.1 mmhg (23-27)
[2018-08-09 16:55] LABS: ABG PCO2 91.2 mmhg (35.0-45.0); Allen's Test Acceptable; Oxygen 100 %
--- NOTE | 2018-08-09 17:08 | Emergency Department Note ---
ED Disposition Clinical Impression: COPD exacerbation Respiratory failure with hypoxia and hypercapnia Qualifiers: Chronicity: acute Qualified Code(s): J96.01 - Acute respiratory failure with hypoxia; J96.02 - Acute respiratory failure with hypercapnia DKA (diabetic ketoacidoses) Qualifiers: Diabetes mellitus type: type 2 Diabetes mellitus complication detail: without coma Qualified Code(s): E11.10 - Type 2 diabetes mellitus with ketoacidosis without coma Disposition: Admitted As Inpatient Condition on Discharge: Serious Referrals: Petty Bass MD [Primary Care Provider] - - Critical Care Critical Care Time: Yes Attestation: On 08/09/18, the high probability of a clinically significant, sudden or life threatening deterioration of the following system(s) required my full and direct attention, intervention and personal management. The time I documented below is in addition to time spent performing reported procedures but includes the following listed in this critical care notation. Total Critical Care Time: 40 Vital system(s) involved:: Metabolic Failure, Respiratory Failure My critical care processes included: Assessment & monitoring of V/S, Initial and Re-exams, Data Review/Interpretation, Coordinating Care, Medication Orders and management, Documentation Medical Decision Making - Zak Inquiry Pt receiving controlled substance: No Vital Signs: 08/09/18 16:10 08/09/18 16:24 08/09/18 16:40 Temperature 98.1 F 98.0 F 98.0 F Temperature Source Oral Oral Axillary Pulse Rate Pulse Rate [Right Brachial] 90 76 84 Respiratory Rate 20 24 22 Blood Pressure [Right Arm] 125/75 103/63 L 114/64 Blood Pressure Mean [Right Arm] 91 76 80 Blood Pressure Source [Right Arm] Automatic Cuff Automatic Cuff Automatic Cuff Blood Pressure Position [Right Arm] Supine Sitting Sitting 02 Sat by Pulse Oximetry 95 76 L 98 Oxygen Delivery Method Nasal Cannula Nasal Cannula BiPAP 08/09/18 17:10 08/09/18 17:15 08/09/18 17:30 Temperature 98.2 F 98.2 F Temperature Source Axillary Axillary Pulse Rate 94 H Pulse Rate [Right Brachial] 89 88 Respiratory Rate 20 20 Blood Pressure [Right Arm] 106/63 L 125/75 Blood Pressure Mean [Right Arm] 77 91 Blood Pressure Source [Right Arm] Automatic Cuff Automatic Cuff Blood Pressure Position [Right Arm] Sitting Supine 02 Sat by Pulse Oximetry 95 96 Oxygen Delivery Method BiPAP BiPAP 08/09/18 18:30 Temperature 98.2 F Temperature Source Axillary Pulse Rate Pulse Rate [Right Brachial] 95 H Respiratory Rate 22 Blood Pressure [Right Arm] 116/61 Blood Pressure Mean [Right Arm] 79 Blood Pressure Source [Right Arm] Automatic Cuff Blood Pressure Position [Right Arm] Supine 02 Sat by Pulse Oximetry 95 Oxygen Delivery Method BiPAP - Lab Data Lab Results 08/09/18 16:50: Specimen Source Right brachial, O2 % 100, ABG pH 7.26 L, ABG pCO2 91.2 H, ABG pO2 340.1 H, ABG HCO3 40.3 H, ABG Total CO2 43.1 H, ABG O2 Saturation 99, ABG Base Excess 13.3 H, Chandler Test Acceptable 08/09/18 17:10: WBC 5.7, RBC 3.80 L, Hgb 10.1 L, Hct 34.9 L, MCV 91.7, MCH 26.5 L, MCHC 28.9 L, RDW 18.4 H, Plt Count 79 L, MPV 10.7 H, Neut % (Auto) 88.5 H, Lymph % (Auto) 6.4 L, [place] % (Auto) 4.7, Eos % (Auto) 0.2, Baso % (Auto) 0.2, Neut # (Auto) 5.1, Lymph # (Auto) 0.4 L, [place] # (Auto) 0.3, Eos # (Auto) 0.0, Baso # (Auto) 0.0, Total Counted 100, Neutrophils % (Manual) 88 H, Band Neutrophils % 2.0, Lymphocytes % (Manual) 8 L, Monocytes % (Manual) 2, Platelet Estimate Slight decrease, Hypochromasia 2+ 08/09/18 17:10: Sodium 135 L, Potassium 4.8, Chloride 96 L, Carbon Dioxide 38 H, Anion Gap 5.8, BUN 17, Creatinine 1.02, Estimated Creat Clear 93, Estimated GFR 55 L, Est GFR ( Amer) 67, Glucose 643 H*, Calcium 8.4 L, Total Bilirubin 0.8, AST 4 L, ALT 16, Alkaline Phosphatase 82, Troponin I < 0.02, Total Protein 6.4, Albumin 2.6 L, Globulin 3.8 H, Albumin/Globulin Ratio 0.7 L 08/09/18 17:10: Lactate 1.0 08/09/18 17:10: B-Natriuretic Peptide 176 H 08/09/18 17:10: Acetone Level Moderate 08/09/18 19:01: Specimen Source Right brachial, O2 % 40, ABG pH 7.32 L, ABG pCO2 82.4 H, ABG pO2 87.6, ABG HCO3 41.9 H, ABG Total CO2 44.4 H, ABG O2 Saturation 96, ABG Base Excess 15.9 H, [place] Test Acceptable, Vent Rate 14, Tidal Volume Bipap 16/8 Result diagrams: 08/09/18 17:10 08/09/18 17:10 Orders (Tests/Meds): ED MEDICATIONS Generic Name Dose Route Start Last Admin Trade Name Freq PRN Reason Stop Dose Admin Sodium Chloride 3 ml 08/09/18 17:14 Sodium Chloride 3% 15ml [facility] 09/08/18 17:13 ONCE PRN INDUCE SPUTUM COLLECTION Discontinued Medications Generic Name Dose Route Start Last Admin Trade Name Freq PRN Reason Stop Dose Admin Albuterol/Ipratropium 3 ml 08/09/18 17:13 08/09/18 17:15 Duoneb 3ml [facility] 08/09/18 17:14 3 ml ONCE ONE Administration Insulin Human Regular 5 unit 08/09/18 18:14 08/09/18 18:25 Humulin R Insulin 100 Units/Ml 10ml Vial IVP 08/09/18 18:15 5 unit ONCE ONE Administration Methylprednisolone Sodium Succinate 125 mg 08/09/18 17:13 08/09/18 18:25 Solu-Medrol 125mg/2ml Vial IV 08/09/18 17:14 125 mg ONCE ONE Administration ORDERS Category Date Time Status Blood Culture Stat Micro 08/09/18 17:10 Received Sputum Culture & Gram Stain Stat [place] 08/09/18 18:45 Received - Radiology Data #1 Image(s): Chest Image Reviewed: Yes I reviewed the patient's radiology image Compared to multiple priors, improved bilateral basilar airspace disease, left base appears resolved, minimal residual right base - ECG Data Tracing #1 EKG interpreted by Mickey Stauffer MD: Rhythm: sinus Rate: 80 [place]: normal Ectopy: none Conduction: normal ST Segment Changes: none T Wave Changes: none Q Waves: none No evidence of acute ischemia or injury Low voltage QRS - Physician Consults Physician Consulted: Brian Bass Time: 19:23 Reason -: Admission Comment/Response: Agrees to admit the patient to the hospital. We discussed the patient's clinical information, including history, exam, laboratory and radiology results and ED course. Per hospital procedure, I will write temporary bridge inpatient orders on the patient. Specific orders requested by the admitting physician: DKA protocol, continue BiPAP, nebulizer treatments, steroids. No antibiotics at this time. General Adult HPI - General Chief complaint: Shortness of Breath/Dyspnea Stated complaint: O2 low to be checked Home Nurse Time Seen by Provider: 08/09/18 16:55 Mode of Arrival: Family Vehicle Limitations: No Limitations Description of Symptoms (Recalled from ER Triage Doc. by RN): increased sputum production, decreased oxygen saturation; normally 2lpm o2 at home, sent in by hh nurse for eval - History of Present Illness HPI narrative: Brought in for shortness of breath which patient says is been going on for 4 to 5 days. Cough with ramos sputum. Denies fever. Has some chest pains in the sternal area that increases with cough. She uses Trilogy at night and oxygen at 2 L during the day. Home health nurse reported low oxygen saturation today and sent to the emergency room for evaluation. States recently admitted here 2 to 3 weeks ago for congestive heart failure. - Related Data Home Medications Medication Instructions Recorded Confirmed alprazolam 0.25 mg tablet 0.25 mg PO TID tab 06/14/17 07/19/18 insulin aspart (U-100) 100 unit/mL 8 unit SUB-Q TID ml 06/14/17 07/19/18 (3 mL) subcutaneous pen nitroglycerin 0.4 mg sublingual 0.4 mg SUBLINGUAL Q5MINP PRN 06/14/17 07/19/18 tablet omega-3 fatty acids 1,000 mg 1,000 mg PO DAILY 06/14/17 07/19/18 capsule venlafaxine 50 mg tablet 50 mg PO BID 90 Days #180 tab 08/31/17 07/19/18 Aspirin [Low Dose Aspirin EC] 81 mg PO DAILY 10/27/17 07/19/18 Clopidogrel Bisulfate [Plavix 75mg 75 mg PO DAILY 10/27/17 07/19/18 Tab] Dexlansoprazole [Dexilant] 60 mg PO DAILY 02/17/18 07/19/18 Hydrocod/Acet 5/325 mg [[place] 1 tab PO TIDP PRN 02/17/18 07/19/18 5/325mg tablet] Rosuvastatin Calcium 10 mg PO HS 02/17/18 07/19/18 Trazodone HCl 100 mg PO HS 02/17/18 07/19/18 quetiapine 200 mg tablet 100 mg PO HS tab 03/15/18 07/20/18 Furosemide [Furosemide 20mg Tab] 20 mg PO DAILY 05/09/18 07/19/18 Losartan Potassium 25 mg PO DAILY 05/09/18 07/19/18 Metoprolol Succinate 50 mg PO DAILY 05/09/18 07/19/18 Potassium Chloride [Klor-con 20 20 meq PO DAILY 05/10/18 07/19/18 mEq tablet] Nicotine [Nicoderm 21mg/24hr 21 mg TD DAILY 05/17/18 07/19/18 patch] dilTIAZem HCl [Diltiazem 240mg 240 mg PO DAILY 05/17/18 07/19/18 24Hr ER Cap] Insulin Glargine,Hum.rec.anlog 45 unit SQ HS 07/19/18 07/20/18 [Insulin Glargine 100 Units/mL 3mL flexpen] Ipratropium/Albuterol Sulfate 3 ml IH QID 07/19/18 07/20/18 [Duoneb 3mL neb] Amlodipine Besylate [Amlodipine 10 mg PO DAILY 07/20/18 07/20/18 10mg Tab] Gabapentin [Gabapentin 100mg Cap] 100 mg PO TID 07/20/18 07/20/18 Isosorbide Mononitrate [Imdur 30mg 30 mg PO DAILY 07/20/18 07/20/18 ER tablet] Lactulose [Lactulose 10gm/15ml 10 gm PO QID 07/20/18 07/20/18 Oral Soln] Mirabegron [Myrbetriq] 50 mg PO DAILY 07/20/18 07/20/18 Polyethylene Glycol 3350 [Miralax 17 gm PO DAILY 07/20/18 07/20/18 Powder] Previous Rx's Medication Instructions Recorded Nystatin [Nystatin Cr 100,000 30 gm TP QID tube 07/25/18 Units/GM 30GM] Vancomycin HCl [Vancomycin 1000mg 1,750 mg IV Q18H #10 vial 07/25/18 Vial] predniSONE [Prednisone 20mg 20 mg PO DAILY #30 tab 07/25/18 Tab] Allergies Allergy/AdvReac Type Severity Reaction Status Date / Time bacitracin Allergy Intermediate Rash Verified 05/09/18 14:40 [From NEOSPORIN ([id number])] doxycycline Allergy Mild Rash Verified 05/09/18 14:40 neomycin Allergy Mild Rash Verified 05/09/18 14:40 [From NEOSPORIN ([id number])] Penicillins Allergy Mild Rash Verified 05/09/18 14:40 polymyxin B Allergy Mild Rash Verified 05/09/18 14:40 [From NEOSPORIN ([id number])] sertraline [From Zoloft] AdvReac Severe Hallucinati Verified 05/09/18 14:40 ng tea tree AdvReac Severe Verified 05/18/18 15:00 gabapentin AdvReac Verified 07/20/18 10:35 green tea AdvReac Verified 05/19/18 14:30 [facility] History - Hepatitis A Screen Drug use history?: No High risk sexual behaviors?: No History of sexually transmitted infection?: No Currently employed?: No Childcare worker?: No Do you have indoor plumbing?: Yes Do you have electricity?: Yes Attestation statement:: This patient has been screened for Hepatitis A risk factors. I have reviewed the patient's past medical history: Yes Medical History: Reports:: Anxiety, Atherosclerotic Heart Disease, Cancer, Congestive Heart Failure, Chronic Obstructive Pulmonary Disease (COPD), Coronary Artery Disease, Diabetes Mellitus Type 2, Gastroesophageal Reflux Disease(GERD), Hyperlipidemia, Hypertension, Lung Disease, MRSA, Peripheral Vascular Disease, Renal Insufficiency Denies:: Diabetes Mellitus Type 1 Other Medical History: Reports: Anemia, Arthritis Comment: bipolar disorder Laterality Cases: Left: Total Hip Replacement, Right: Other, Bilateral: Tonsillectomy Other Surgeries: Yes: Cancer Surgery, Cholecystectomy, Coronary Stent, Hy sterectomy-Total, Other Amputation: No Fractures: Yes (fractured lt hip october 27 2017) Comment: left hip surgery - Social History Educational Level: Completed High School Smoking Status: Unknown if ever smoked Tobacco Type: cigarettes # Packs/Day (cigarettes): 1 Alcohol Intake: never Alcohol Intake Frequency:: other Substance Use Type: denies use Occupational Status: disabled Housing: house Household Members: family, children - Psychiatric History Expresses thoughts of harming self/others: None Suicide Plan Description: No Plan Pschychiatric History:: Reports:: Anxiety, Bipolar Disorder Family Hx:: Hypertension, Heart Attack, Diabetes, Hyperlipidemia, Kidney Disease ROS Obtained: Yes All systems reviewed & no additional complaints - Constitutional Constitutional: Denies fever(s) - Cardiovascular Cardiovascular: Reports chest pain, Reports leg edema - Respiratory Respiratory: Yes cough, Yes dyspnea, Yes wheezing - Gastrointestinal Gastrointestingal: Reports: diarrhea (Off and on, none today). Denies: vomiting Physical Exam - General General appearance: alert, in no apparent distress - Head Head exam: atraumatic, normocephalic - Eye Eye exam: Present: normal appearance, EOMI - ENT ENT exam: Present: mucous membranes moist - Neck Neck exam: Present: normal inspection, trachea midline - Chest Chest inspection: Present: normal inspection, symmetric chest wall rise - Respiratory Respiratory exam: Present: other (Decreased breath sounds) - Cardiovascular Cardiovascular exam: Present: regular rate, normal rhythm, normal heart sounds - Abdominal Exam Abdominal exam: Present: soft. Absent: distention, tenderness - Extremities Exam Extremities exam: Present: other (1+ pitting pretibial edema, bandage on her right lateral malleolus where she "has an ulcer") - Neurological Exam Neurological exam: Present: alert, oriented X3 - Psychiatric Psychiatric exam: Present: normal affect, normal mood - Skin Skin exam: Present: warm, dry
[2018-08-09 17:32] LABS: Basophils % 0.2 % (0.1-2.0); Eosinophils % 0.2 % (0.1-12.0); Hematocrit 34.9 % (37.0-47.0); Hemoglobin 10.1 g/dL (12.2-16.2); Lymphocytes # 0.4 K/mm3 (0.7-4.5); Lymphocytes % 6.4 % (10-50); Mean Corpuscular HGB Conc 28.9 g/dL (31.8-35.4); Mean Corpuscular Hemoglobin 26.5 pg (27.0-31.2); Mean Corpuscular Volume 91.7 fl (81-99); Mean Platelet Volume 10.7 fl (7.4-10.4); Monocytes # 0.3 K/mm3 (0.1-1.0); Monocytes % 4.7 % (1.7-9.3); Neutrophils # 5.1 K/mm3 (1.8-7.8); Neutrophils % 88.5 % (37.0-80.0); Platelet Count 79 K/mm3 (142-424); Red Cell Distribution Width 18.4 % (11.5-17.5); White Blood Count 5.7 K/mm3 (4.8-10.8)
[2018-08-09 17:39] LABS: Alanine Aminotransferase 16 U/L (12-78); Albumin Level 2.6 gm/dL (3.4-5.0); Albumin/Globulin Ratio 0.7 (1.1-1.8); Alkaline Phosphatase 82 U/L (46-116); Anion Gap 5.8 mEq/L (5-15); Aspartate Amino Transferase 4 U/L (15-37); Bilirubin,Total 0.8 mg/dL (0.2-1.0); Blood Urea Nitrogen 17 mg/dL (7-18); Calcium 8.4 mg/dL (8.5-10.1); Carbon Dioxide 38 mmol/L (21.0-32.0); Chloride 96 mmol/L (98-107); Globulin 3.8 gm/dl (1.3-3.2); Potassium 4.8 mmoL/L (3.5-5.1); Sodium 135 mmol/L (136-145); Total Protein,Serum 6.4 gm/dL (6.4-8.2)
[2018-08-09 17:49] LABS: Glucose 643 mg/dL (74-106)
[2018-08-09 18:38] LABS: Hypochromasia 2+; Lymphocytes % 8 % (10-50); Monocytes % 2 % (2-9); Neutrophils % 88 % (42-76); Total Cells Counted 100
[2018-08-09 19:04] LABS: ABG Base Excess 15.9 mmol/L (-2.4-2.3); ABG HCO3 41.9 mmhg (22.0-26.0); ABG Oxygen Saturation 96 % (90-100); ABG PH 7.32 mmol/L (7.35-7.45); ABG PO2 87.6 mmhg (80-100); ABG TCO2 44.4 mmhg (23-27)
[2018-08-09 19:05] LABS: Oxygen 40 %
[2018-08-09 19:06] LABS: Allen's Test Acceptable
[2018-08-09 19:07] LABS: ABG PCO2 82.4 mmhg (35.0-45.0)
[2018-08-09 20:08] LABS: Anion Gap 4.4 mEq/L (5-15); Calcium 8.6 mg/dL (8.5-10.1); Potassium 4.4 mmoL/L (3.5-5.1)
[2018-08-10 05:05] LABS: Calcium 8.7 mg/dL (8.5-10.1)
[2018-08-10 05:14] LABS: Anion Gap 3.4 mEq/L (5-15); Calcium 8.5 mg/dL (8.5-10.1); Potassium 4.4 mmoL/L (3.5-5.1)
[2018-08-10 05:58] LABS: ABG Base Excess 11.1 mmol/L (-2.4-2.3); ABG Oxygen Saturation 90 % (90-100); ABG PH 7.33 mmol/L (7.35-7.45); ABG PO2 67.4 mmhg (80-100); ABG TCO2 39.2 mmhg (23-27)
[2018-08-10 06:00] LABS: Oxygen 40% %
[2018-08-10 06:01] LABS: Allen's Test Acceptable
[2018-08-10 06:02] LABS: ABG PCO2 71.4 mmhg (35.0-45.0)
--- NOTE | 2018-08-10 07:55 | Pharmacy Consult Notes ---
[facility] Pharmacy VTE Monitoring - Patient Demographics Admission date: 08/09/18 Report Date: 08/10/18 Time: 07:55 Allergies/Adverse Reactions: Patient Allergies bacitracin [From NEOSPORIN ([id number])] Allergy (Intermediate, Verified 05/09/18 14:40) Rash doxycycline Allergy (Mild, Verified 05/09/18 14:40) Rash neomycin [From NEOSPORIN ([id number])] Allergy (Mild, Verified 05/09/18 14:40) Rash Penicillins Allergy (Mild, Verified 05/09/18 14:40) Rash polymyxin B [From NEOSPORIN ([id number])] Allergy (Mild, Verified 05/09/18 14:40) Rash sertraline [From Zoloft] Adverse Reaction (Severe, Verified 05/09/18 14:40) Hallucinating tea tree Adverse Reaction (Severe, Verified 05/18/18 15:00) gabapentin Adverse Reaction (Verified 07/20/18 10:35) green tea Adverse Reaction (Verified 05/19/18 14:30) Height: 1.68 m Weight: 78.925 kg Patient Problems: Current Active Problems (Updated 08/09/18 @ 19:25 by Mickey Stauffer MD) COPD exacerbation (Acute) Respiratory failure with hypoxia and hypercapnia (Acute) DKA (diabetic ketoacidoses) (Acute) - VTE Risk Labs: VTE Related Lab Results Hgb 10.1 g/dL (12.2-16.2) L 08/09/18 17:10 Hct 34.9 % (37.0-47.0) L 08/09/18 17:10 Plt Count 79 K/mm3 (142-424) L 08/09/18 17:10 BUN 17 mg/dL (7-18) 08/10/18 04:55 Creatinine 0.61 mg/dL (0.55-1.02) 08/10/18 04:55 Estimated Creat Clear 81 mL/min (50-200) 08/10/18 04:55 Was VTE Risk Assessment Performed: Yes VTE Score: 5 VTE Risk Level: Low Risk Clinical Trial Participant: No - Prophylaxis VTE Prophylaxis Ordered?: Yes Types of VTE Prophylaxis: TEDS Knee High
[2018-08-10 08:50] LABS: Anion Gap 6.4 mEq/L (5-15); Calcium 8.4 mg/dL (8.5-10.1); Potassium 4.4 mmoL/L (3.5-5.1)
--- NOTE | 2018-08-10 09:10 | History & Physical Report ---
*Admission Date: 08/09/18 <Marce Lauren - 08/10/18 09:20> *Chief complaint: Shortness of breath <Marce Lauren - 08/10/18 09:20> *History of present illness: Ms. Ramirez is a 62-year-old female with a history of severe oxygen dependent COPD , anxiety, depression, bipolar disorder, CHF, hypertension, diabetes mellitus with hyperglycemia, coronary artery disease, ongoing tobacco usage and renal cancer who presented to [facility] emergency room for evaluation after experiencing worsening shortness of breath at home. Patient states she came short of breath 2 days ago and is progressively felt worse. She has not been able to eat. She did have a fall yesterday morning because her legs are so weak. She has had a minimal cough. She continues to smoke 1/2 packs of cigarettes a day. She denies fever. She denies chest pain. This is the fourth hospital admission since May 17 with COPD related issues. She has been unable to stop smoking. She was scheduled for follow-up visit after her last hospitalization (07/19-07/25/18)on 08/08/2018 but canceled the appointment. Marce Lauren APRN did speak with a home health nurse yesterday due to high blood sugar greater than 500. The home health nurse did then visit her at which time she found her in respiratory distress. Patient was requesting to go to the emergency room which she did. This a.m. patient is feeling better and is able to relate happenings of the last few days. She is off BiPAP and on oxygen at 4 L/min while eating her breakfast. O2 sats did drop during this period of time and she was placed back on BiPAP. Blood sugars controlled on insulin drip and acetone is negative this a.m. <Marce Lauren - 08/10/18 09:28> [facility] History Medical History: Reports:: Anxiety, Atherosclerotic Heart Disease, Cancer, Congestive Heart Failure, Chronic Obstructive Pulmonary Disease (COPD), Coronary Artery Disease, Diabetes Mellitus Type 2, Gastroesophageal Reflux Disease(GERD), Hyperlipidemia, Hypertension, Lung Disease, MRSA, Peripheral Vascular Disease, Renal Insufficiency Denies:: Diabetes Mellitus Type 1 <Naomi Laurenmac Whalen 08/10/18 09:20> *Have you ever received a pneumonia vaccine?: Yes <Marce Lauren 08/10/18 09:20> *Have you received a flu vaccine this season?: Yes <Marce Lauren 08/10/18 09:20> Other Medical History: Reports: Anemia, Arthritis <Marce Lauren 08/10/18 09:20> Laterality Cases: Left: Total Hip Replacement, Right: Other, Bilateral: Tonsillectomy <Marce Lauren 08/10/18 09:20> Other Surgeries: Yes: Cancer Surgery, Cholecystectomy, Coronary Stent, Hysterectomy-Total, Other <Marce Lauren 08/10/18 09:20> Amputation: No <Marce Lauren 08/10/18 09:20> Fractures: Yes (fractured lt hip october 27 2017) <Marce Lauren 08/10/18 09:20> - *Social History Educational Level: Completed High School <Marce Lauren 08/10/18 09:20> Smoking Status: Current every day smoker <Marce Lauren 08/10/18 09:20> Tobacco Type: cigarettes <Marce Lauren 08/10/18 09:20> # Packs/Day (cigarettes): 1 <Marce Lauren 08/10/18 09:20> Alcohol Intake: never <Marce Lauren 08/10/18 09:20> Alcohol Intake Frequency:: other <Marce Lauren 08/10/18 09:20> Substance Use Type: denies use <Marce Lauren 08/10/18 09:20> *Occupational Status:: disabled <Marce Lauren 08/10/18 09:20> Housing: house <Marce Lauren 08/10/18 09:20> Household Members: family, children <Marce Lauren 08/10/18 09:20> *Travel in the last 8 weeks: None <Marce Lauren 08/10/18 09:20> - Psychiatric History Expresses thoughts of harming self/others: None <Marce Lauren 08/10/18 09:20> Suicide Plan Description: No Plan <Marce Lauren 08/10/18 09:20> Pschychiatric History:: Reports:: Anxiety, Bipolar Disorder <Marce Lauren 08/10/18 09:20> Family Hx:: Hypertension, Heart Attack, Diabetes, Hyperlipidemia, Kidney Disease <Marce Lauren 08/10/18 09:20> Review of Systems - Constitutional Reports headache(s) <Marce Lauren 08/10/18 09:20> - ENT Denies ear pain, Denies sore throat <Marce Lauren 08/10/18 09:20> - *Cardiovascular Reports shortness of breath, Denies chest pain, Denies irregular heart rhythm <Marce Lauren 08/10/18 09:20> - *Respiratory Reports cough (Minimal), Reports shortness of breath <Marce Lauren 08/10/18 09:20> - *Gastrointestinal Denies abdominal pain, Denies constipation, Denies loose stools, Denies nausea, Denies vomiting <Marce Lauren 08/10/18 09:20> Comments: Poor oral intake for the past 2 days <Marce Lauren 08/10/18 09:20> - *Genitourinary Denies difficulty urinating <Marce Lauren 08/10/18 09:20> - *Musculoskeletal Reports muscle weakness <Marce Lauren 08/10/18 09:20> Comments: Patient did have a fall yesterday. She states her legs just gave away <Marce Lauren 08/10/18 09:20> - *Neurologic Reports abnormal walking, Reports localized weakness, Reports frequent falls, Denies dizziness, Denies seizure-like activity <Marce Lauren 08/10/18 09:20> - Endocrine Comments: Patient states she checks her blood sugars twice a day. She states they have been okay but has no specific numbers. She continues to take 8 units of regular insulin with her meals 3 times daily. She is currently on Lantus 40 units daily. <Marce Lauren 08/10/18 09:20> Meds Home Medications Medication Instructions Recorded Confirmed Type alprazolam 0.25 mg tablet 0.25 mg PO TID tab 06/14/17 08/09/18 History insulin aspart (U-100) 100 unit/mL 8 unit SUB-Q TID ml 06/14/17 08/09/18 History (3 mL) subcutaneous pen nitroglycerin 0.4 mg sublingual 0.4 mg SUBLINGUAL Q5MINP PRN 06/14/17 08/09/18 History tablet omega-3 fatty acids 1,000 mg 1,000 mg PO DAILY 06/14/17 08/09/18 History capsule venlafaxine 50 mg tablet 50 mg PO BID 90 Days #180 tab 08/31/17 08/09/18 History Aspirin [Low Dose Aspirin EC] 81 mg PO DAILY 10/27/17 08/09/18 History Clopidogrel Bisulfate [Plavix 75mg 75 mg PO DAILY 10/27/17 08/09/18 History Tab] Dexlansoprazole [Dexilant] 60 mg PO DAILY 02/17/18 08/09/18 History Hydrocod/Acet 5/325 mg [[place] 1 tab PO TIDP PRN 02/17/18 08/09/18 History 5/325mg tablet] Rosuvastatin Calcium 10 mg PO HS 02/17/18 08/09/18 History Trazodone HCl 100 mg PO HS 02/17/18 08/09/18 History quetiapine 200 mg tablet 100 mg PO HS tab 03/15/18 08/09/18 History Losartan Potassium 25 mg PO DAILY 05/09/18 08/10/18 History Metoprolol Succinate 50 mg PO DAILY 05/09/18 08/09/18 History Potassium Chloride [Klor-con 20 20 meq PO DAILY 05/10/18 08/09/18 History mEq tablet] Nicotine [Nicoderm 21mg/24hr 21 mg TD DAILY 05/17/18 08/09/18 History patch] dilTIAZem HCl [Diltiazem 240mg 240 mg PO DAILY 05/17/18 08/09/18 History 24Hr ER Cap] Insulin Glargine,Hum.rec.anlog 45 unit SQ HS 07/19/18 08/09/18 History [Insulin Glargine 100 Units/mL 3mL flexpen] Ipratropium/Albuterol Sulfate 3 ml IH QID 07/19/18 08/09/18 History [Duoneb 3mL neb] Isosorbide Mononitrate [Imdur 30mg 30 mg PO DAILY 07/20/18 08/09/18 History ER tablet] Lactulose [Lactulose 10gm/15ml 10 gm PO QID 07/20/18 08/09/18 History Oral Soln] Mirabegron [Myrbetriq] 50 mg PO DAILY 07/20/18 08/09/18 History Polyethylene Glycol 3350 [Miralax 17 gm PO DAILY 07/20/18 08/09/18 History Powder] Nystatin [Nystatin Cr 100,000 30 gm TP QID 08/09/18 08/09/18 History Units/GM 30GM] predniSONE [Prednisone 20mg 20 mg PO DAILY 08/09/18 08/09/18 History Tab] Amlodipine Besylate [Amlodipine 5 mg PO DAILY 08/10/18 08/10/18 History 5mg tab] Furosemide [Furosemide 40MG tAB] 40 mg PO BID 08/10/18 08/10/18 History <Stuart Torres - 08/10/18 23:02> Allergies Allergy/AdvReac Type Severity Reaction Status Date / Time bacitracin Allergy Intermediate Rash Verified 05/09/18 14:40 [From NEOSPORIN ([id number])] doxycycline Allergy Mild Rash Verified 05/09/18 14:40 neomycin Allergy Mild Rash Verified 05/09/18 14:40 [From NEOSPORIN ([id number])] Penicillins Allergy Mild Rash Verified 05/09/18 14:40 polymyxin B Allergy Mild Rash Verified 05/09/18 14:40 [From NEOSPORIN ([id number])] sertraline [From Zoloft] AdvReac Severe Hallucinati Verified 05/09/18 14:40 ng tea tree AdvReac Severe Verified 05/18/18 15:00 gabapentin AdvReac Verified 07/20/18 10:35 green tea AdvReac Verified 05/19/18 14:30 <Stuart Torres - 08/10/18 23:02> Exam Vital signs and Labs for Last 24 Hours: Temp Pulse Resp BP Pulse Ox 98.3 F 74 22 111/58 L 95 08/10/18 20:00 08/10/18 20:00 08/10/18 20:00 08/10/18 20:00 08/10/18 20:00 Laboratory Results - last 24 hr 08/09/18 19:23: POC Glucose > 600 H* 08/09/18 23:36: POC Glucose 167 H 08/09/18 23:45: Sodium 144, Potassium 4.0, Chloride 103, Carbon Dioxide 41 H*, Anion Gap 4.0 L, BUN 16, Creatinine 0.76, Estimated Creat Clear 81, Estimated GFR 77, Est GFR ( Amer) 94 D, Glucose 137 H D, Calcium 8.7 08/10/18 01:57: POC Glucose 135 H 08/10/18 04:00: POC Glucose 108 08/10/18 04:55: Sodium 144, Potassium 4.4, Chloride 104, Carbon Dioxide 41 H*, Anion Gap 3.4 L, BUN 17, Creatinine 0.61, Estimated Creat Clear 81, Estimated GFR 100, Est GFR ( Amer) 121 D, Glucose 137 H, Calcium 8.5 08/10/18 04:55: Acetone Level None detected 08/10/18 05:36: POC Glucose 176 H 08/10/18 06:00: Specimen Source Right brachial, O2 % 40%, ABG pH 7.33 L, ABG pCO2 71.4 H, ABG pO2 67.4 L, ABG HCO3 37.0 H, ABG Total CO2 39.2 H, ABG O2 Satur ation 90, ABG Base Excess 11.1 H, Chandler Test Acceptable 08/10/18 08:20: Sodium 141, Potassium 4.4, Chloride 102, Carbon Dioxide 37 H, Anion Gap 6.4, BUN 18, Creatinine 0.76 D, Estimated Creat Clear 74, Estimated GFR 77, Est GFR ( Amer) 94 D, Glucose 280 H D, Calcium 8.4 L 08/10/18 11:28: POC Glucose 505 H* 08/10/18 11:37: Random Glucose 503 H* 08/10/18 13:26: Sodium 136, Potassium 4.6, Chloride 99, Carbon Dioxide 37 H, Anion Gap 4.6 L, BUN 23 H D, Creatinine 1.12 H D, Estimated Creat Clear 66, Margaret mated GFR 49 L, Est GFR ( Amer) 60 D, Glucose 502 H* D, Calcium 8.2 L 08/10/18 17:06: POC Glucose 547 H* 08/10/18 17:20: Random Glucose 583 H* 08/10/18 20:30: POC Glucose 513 H* 08/10/18 20:40: Random Glucose 485 H <Stuart Torres - 08/10/18 23:02> Temp Pulse Resp BP Pulse Ox 97.7 F 77 18 116/68 98 08/10/18 04:00 08/10/18 06:00 08/10/18 06:00 08/10/18 06:00 08/10/18 06:00 Laboratory Results - last 24 hr 08/09/18 16:50: Specimen Source Right brachial, O2 % 100, ABG pH 7.26 L, ABG pCO2 91.2 H, ABG pO2 340.1 H, ABG HCO3 40.3 H, ABG Total CO2 43.1 H, ABG O2 Saturation 99, ABG Base Excess 13.3 H, Chandler Test Acceptable 08/09/18 17:10: WBC 5.7, RBC 3.80 L, Hgb 10.1 L, Hct 34.9 L, MCV 91.7, MCH 26.5 L, MCHC 28.9 L, RDW 18.4 H, Plt Count 79 L, MPV 10.7 H, Neut % (Auto) 88.5 H, Lymph % (Auto) 6.4 L, [place] % (Auto) 4.7, Eos % (Auto) 0.2, Baso % (Auto) 0.2, Neut # (Auto) 5.1, Lymph # (Auto) 0.4 L, [place] # (Auto) 0.3, Eos # (Auto) 0.0, Baso # (Auto) 0.0, Total Counted 100, Neutrophils % (Manual) 88 H, Band Neutrophils % 2.0, Lymphocytes % (Manual) 8 L, Monocytes % (Manual) 2, Platelet Estimate Slight decrease, Hypochromasia 2+ 08/09/18 17:10: Sodium 135 L, Potassium 4.8, Chloride 96 L, Carbon Dioxide 38 H, Anion Gap 5.8, BUN 17, Creatinine 1.02, Estimated Creat Clear 93, Estimated GFR 55 L, Est GFR ( Amer) 67, Glucose 643 H*, Calcium 8.4 L, Total Bilirubin 0.8, AST 4 L, ALT 16, Alkaline Phosphatase 82, Troponin I < 0.02, Total Protein 6.4, Albumin 2.6 L, Globulin 3.8 H, Albumin/Globulin Ratio 0.7 L 08/09/18 17:10: Lactate 1.0 08/09/18 17:10: B-Natriuretic Peptide 176 H 08/09/18 17:10: Acetone Level Moderate 08/09/18 19:01: Specimen Source Right brachial, O2 % 40, ABG pH 7.32 L, ABG pCO2 82.4 H, ABG pO2 87.6, ABG HCO3 41.9 H, ABG Total CO2 44.4 H, ABG O2 Saturation 96, ABG Base Excess 15.9 H, Chandler Test Acceptable, Vent Rate 14, Tidal Volume Bipap 11/1108/09/18 19:23: POC Glucose > 600 H* 08/09/18 19:30: Random Glucose 570 H* 08/09/18 19:30: Sodium 137, Potassium 4.4, Chloride 97 L, Carbon Dioxide 40 H, Anion Gap 4.4 L, BUN 16, Creatinine 0.93, Estimated Creat Clear 95, Estimated GFR 61, Est GFR ( Amer) 74, Glucose 567 H*, Calcium 8.6 08/09/18 21:12: POC Glucose 379 H* 08/09/18 21:49: POC Glucose 308 H* 08/09/18 23:36: POC Glucose 167 H 08/09/18 23:45: Sodium 144, Potassium 4.0, Chloride 103, Carbon Dioxide 41 H*, Anion Gap 4.0 L, BUN 16, Creatinine 0.76, Estimated Creat Clear 81, Estimated GFR 77, Est GFR ( Amer) 94 D, Glucose 137 H D, Calcium 8.7 08/10/18 01:57: POC Glucose 135 H 08/10/18 04:00: POC Glucose 108 08/10/18 04:55: Sodium 144, Potassium 4.4, Chloride 104, Carbon Dioxide 41 H*, Anion Gap 3.4 L, BUN 17, Creatinine 0.61, Estimated Creat Clear 81, Estimated GFR 100, Est GFR ( Amer) 121 D, Glucose 137 H, Calcium 8.5 08/10/18 04:55: Acetone Level None detected 08/10/18 05:36: POC Glucose 176 H 08/10/18 06:00: Specimen Source Right brachial, O2 % 40%, ABG pH 7.33 L, ABG pCO2 71.4 H, ABG pO2 67.4 L, ABG HCO3 37.0 H, ABG Total CO2 39.2 H, ABG O2 Saturation 90, ABG Base Excess 11.1 H, Chandler Test Acceptable 08/10/18 08:20: Sodium 141, Potassium 4.4, Chloride 102, Carbon Dioxide 37 H, Anion Gap 6.4, BUN 18, Creatinine 0.76 D, Estimated Creat Clear 74, Estimated GFR 77, Est GFR ( Amer) 94 D, Glucose 280 H D, Calcium 8.4 L <Marce Lauren 08/10/18 09:20> I & O for Last 24 hours: Intake & Output 08/08/18 08/09/18 08/10/18 08/11/18 11:59 11:59 11:59 11:59 Intake Total 1621 / 1621 1080 / 1080 Output Total 300 / 300 Balance 1621 / 1621 780 / 780 Weight 174 lb 173 lb 15.997 oz <Stuart Torres - 08/10/18 23:02> Intake & Output 08/07/18 08/08/18 08/09/18 08/10/18 11:59 11:59 11:59 11:59 Intake Total 1021 / 1021 Balance 1021 / 1021 Weight 174 lb <Marce Lauren 08/10/18 09:20> Microbiology Reports for the Last 24 Hours: Microbiology 08/09/18 18:45 Sputum - Expectorated Sputum Gram Stain - Final 08/09/18 18:45 Sputum - Expectorated Sputum Sputum Culture - Preliminary <Stuart Torres - 08/10/18 23:02> Microbiology 08/09/18 18:45 Sputum - Expectorated Sputum Gram Stain - Final 08/09/18 18:45 Sputum - Expectorated Sputum Sputum Culture - Preliminary <Marce Lauren 08/10/18 09:20> Radiology Reports for the Last 24 Hours: Chest x-ray 08/09/2018 IMPRESSION: Cardiomegaly with chronic change in right basilar atelectasis or infiltrate <Marce Lauren 08/10/18 09:20> - Constitutional no acute distress <Marce Lauren 08/10/18 09:20> Comments: She appears comfortable and is breathing easy with O2 at 4 L/min. She is just started to eat her breakfast <Marce Lauren 08/10/18 09:20> - *Routine Respiratory Exam Comments: Bilateral coarse crackles scattered throughout <Marce Lauren 08/10/18 09:20> - *Routine Cardiovascular Exam Present: RRR <Marce Lauren 08/10/18 09:20> - *Routine Abdominal Exam Present: soft, normoactive bowel sounds. Absent: tenderness <Marce Lauren 08/10/18 09:20> - *Routine Extremities Exam Absent: edema, calf tenderness <Marce Lauren 08/10/18 09:20> - *Routine Neurological Exam Present: alert, oriented X3 <aMrce Lauren 08/10/18 09:20> Calls me by name when I first enter the room <Marce Lauren 08/10/18 09:20> Assessment and Plan (1) COPD exacerbation Current visit: Yes Status: Acute Category: Medical Code(s): J44.1 - C hronic obstructive pulmonary disease with (acute) exacerbation (2) DKA (diabetic ketoacidoses) Current visit: Yes Status: Acute Qualifiers: Diabetes mellitus type: type 2 Diabetes mellitus complication detail: without coma Qualified Code(s): E11.10 - Type 2 diabetes mellitus with ketoacidosis without coma Category: Medical Code(s): E11.10 - Type 2 diabetes mellitus with ketoacidosis without coma (3) Respiratory failure with hypoxia and hypercapnia Current visit: Yes Status: Acute Qualifiers: Chronicity: acute Qualified Code(s): J96.01 - Acute respiratory failure with hypoxia; J96.02 - Acute respiratory failure with hypercapnia Category: Medical Code(s): J96.91 - Respiratory failure, unspecified with hypoxia; J96.92 - Respiratory failure, unspecified with hypercapnia (4) Acute exacerbation of chronic obstructive airways disease Current visit: No Status: Acute Category: Medical Code(s): J44.1 - Chronic obstructive pulmonary disease with (acute) exacerbation (5) Acute on chronic diastolic (congestive) heart failure Current visit: No Status: Acute Category: Medical Code(s): I50.33 - Acute on chronic diastolic (congestive) heart failure (6) Fall Current visit: No Status: Acute Category: Medical Code(s): W19.XXXA - Unspecified fall, initial encounter (7) Anxiety Current visit: No Status: Chronic Category: Medical Code(s): F41.9 - Anxiety disorder, unspecified (8) Bipolar disorder Current visit: No Status: Chronic Category: Medical Code(s): F31.9 - Bipolar disorder, unspecified (9) CAD (coronary artery disease) Current visit: No Status: Chronic Qualifiers: Coronary Disease-Associated Artery/Lesion type: [place] artery [place] vs. transplanted heart: [place] heart Associated angina: with other forms of angina Qualified Code(s): I25.118 - Atherosclerotic heart disease of [place] coronary artery with other forms of angina pectoris Category: Medical Code(s): I25.10 - Atherosclerotic heart disease of [place] coronary artery without angina pectoris (10) COPD (chronic obstructive pulmonary disease) Current visit: No Status: Chronic Qualifiers: COPD type: chronic bronchitis Chronic bronchitis type: unspecified Qualified Code(s): J42 - Unspecified chronic bronchitis Category: Medical Code(s): J44.9 - Chronic obstructive pulmonary disease, unspecified (11) Tobacco abuse Current visit: No Status: Chronic Category: Medical Code(s): Z72.0 - Tobacco use <Stuart Torres - 08/10/18 23:02> (1) COPD exacerbation Current visit: Yes Status: Acute Category: Medical Code(s): J44.1 - Chronic obstructive pulmonary disease with (acute) exacerbation (2) DKA (diabetic ketoacidoses) Current visit: Yes Status: Acute Qualifiers: Diabetes mellitus type: type 2 Diabetes mellitus complication detail: without coma Qualified Code(s): E11.10 - Type 2 diabetes mellitus with ketoacidosis without coma Category: Medical Code(s): E11.10 - Type 2 diabetes mellitus with ketoacidosis without coma (3) Respiratory failure with hypoxia and hypercapnia Current visit: Yes Status: Acute Qualifiers: Chronicity: acute Qualified Code(s): J96.01 - Acute respiratory failure with hypoxia; J96.02 - Acute respiratory failure with hypercapnia Category: Medical Code(s): J96.91 - Respiratory failure, unspecified with hypoxia; J96.92 - Respiratory failure, unspecified with hypercapnia (4) Acute exacerbation of chronic obstructive airways disease Current visit: No Status: Acute Category: Medical Code(s): J44.1 - Chronic obstructive pulmonary disease with (acute) exacerbation (5) Acute on chronic diastolic (congestive) heart failure Current visit: No Status: Acute Category: Medical Code(s): I50.33 - Acute on chronic diastolic (congestive) heart failure (6) Fall Current visit: No Status: Acute Category: Medical Code(s): W19.XXXA - Unspecified fall, initial encounter (7) Anxiety Current visit: No Status: Chronic Category: Medical Code(s): F41.9 - Anxiety disorder, unspecified (8) Bipolar disorder Current visit: No Status: Chronic Category: Medical Code(s): F31.9 - Bipolar disorder, unspecified (9) CAD (coronary artery disease) Current visit: No Status: Chronic Qualifiers: Coronary Disease-Associated Artery/Lesion type: [place] artery [place] vs. transplanted heart: [place] heart Associated angina: with other forms of angina Qualified Code(s): I25.118 - Atherosclerotic heart disease of [place] coronary artery with other forms of angina pectoris Category: Medical Code(s): I25.10 - Atherosclerotic heart disease of [place] coronary artery without angina pectoris (10) COPD (chronic obstructive pulmonary disease) Current visit: No Status: Chronic Qualifiers: COPD type: chronic bronchitis Chronic bronchitis type: unspecified Qualified Code(s): J42 - Unspecified chronic bronchitis Category: Medical Code(s): J44.9 - Chronic obstructive pulmonary disease, unspecified (11) Tobacco abuse Current visit: No Status: Chronic Category: Medical Code(s): Z72.0 - Tobacco use <Marce Lauren - 08/10/18 09:28> - Assessment and plan all Dx Assessment and Plan for all problems:: Patient seen and examined this morning. On admission last night she was placed on BiPAP and her blood gases have improved. She was started on insulin drip for her diabetic ketoacidosis and her acetone has cleared overnight. Concur with plan to switch to Vapotherm today. She does have a Trelegy unit at home. We will also discontinue her insulin drip and resume her maintenance insulin along with a sliding scale. <Stuart Torres - 08/10/18 23:02> We will start Vapotherm and discontinue BiPAP. Will discontinue insulin drip and start on sliding scale. We will continue with nicole greer. <Marce Lauren - 08/10/18 09:20>
[2018-08-10 13:49] LABS: Anion Gap 4.6 mEq/L (5-15); Calcium 8.2 mg/dL (8.5-10.1); Potassium 4.6 mmoL/L (3.5-5.1)
[2018-08-11 07:04] LABS: Basophils % 0.2 % (0.1-2.0); Eosinophils % 0.1 % (0.1-12.0); Hematocrit 29.5 % (37.0-47.0); Hemoglobin 8.7 g/dL (12.2-16.2); Lymphocytes # 0.3 K/mm3 (0.7-4.5); Lymphocytes % 8.9 % (10-50); Mean Corpuscular HGB Conc 29.4 g/dL (31.8-35.4); Mean Corpuscular Hemoglobin 25.8 pg (27.0-31.2); Mean Corpuscular Volume 87.7 fl (81-99); Mean Platelet Volume 10.4 fl (7.4-10.4); Monocytes # 0.2 K/mm3 (0.1-1.0); Monocytes % 4.9 % (1.7-9.3); Neutrophils # 2.9 K/mm3 (1.8-7.8); Neutrophils % 85.9 % (37.0-80.0); Platelet Count 72 K/mm3 (142-424); Red Blood Count 3.36 M/mm3 (4.20-5.40); Red Cell Distribution Width 18.6 % (11.5-17.5); White Blood Count 3.4 K/mm3 (4.8-10.8)
[2018-08-11 07:46] LABS: Anion Gap 3.9 mEq/L (5-15); Calcium 8.3 mg/dL (8.5-10.1); Potassium 4.9 mmoL/L (3.5-5.1); Thyroid Stimulating Hormone 0.92 uIU/ml (0.358-3.740)
--- NOTE | 2018-08-11 08:56 | Progress Note ---
<Jaqueline Crespo - Last Filed: 08/11/18 08:54> Internal Medicine - PN: Subj *Date: 08/11/18 *Time: 08:54 Interval history: Patient states she was feeling well this morning until she got choked on her coffee in her cereal. She says she is gotten choked approximately 4 times this morning which is then caused coughing spells. Her sats have been in the 90s on Vapotherm. She denies any pain today. She was able to get up and sit in a chair for breakfast. Exam Vital signs and Labs for Last 24 Hours: Temp Pulse Resp BP Pulse Ox 98.2 F 86 20 118/57 L 100 08/11/18 08:00 08/11/18 08:00 08/11/18 08:00 08/11/18 08:00 08/11/18 08:00 Laboratory Results - last 24 hr 08/10/18 11:28: POC Glucose 505 H* 08/10/18 11:37: Random Glucose 503 H* 08/10/18 13:26: Sodium 136, Potassium 4.6, Chloride 99, Carbon Dioxide 37 H, Anion Gap 4.6 L, BUN 23 H D, Creatinine 1.12 H D, Estimated Creat Clear 66, Estimated GFR 49 L, Est GFR ( Amer) 60 D, Glucose 502 H* D, Calcium 8.2 L 08/10/18 17:06: POC Glucose 547 H* 08/10/18 17:20: Random Glucose 583 H* 08/10/18 20:30: POC Glucose 513 H* 08/10/18 20:40: Random Glucose 485 H 08/11/18 05:39: WBC 3.4 L D, RBC 3.36 L, Hgb 8.7 L, Hct 29.5 L, MCV 87.7, MCH 25.8 L, MCHC 29.4 L, RDW 18.6 H, Plt Count 72 L, MPV 10.4, Neut % (Auto) 85.9 H, Lymph % (Auto) 8.9 L, [place] % (Auto) 4.9, Eos % (Auto) 0.1, Baso % (Auto) 0.2, Neut # (Auto) 2.9, Lymph # (Auto) 0.3 L, [place] # (Auto) 0.2, Eos # (Auto) 0.0, Baso # (Auto) 0.0 08/11/18 05:39: Sodium 138, Potassium 4.9, Chloride 101, Carbon Dioxide 38 H, Anion Gap 3.9 L, BUN 27 H, Creatinine 0.83 D, Estimated Creat Clear 84, Es timated GFR 70, Est GFR ( Amer) 85 D, Glucose 231 H D, Calcium 8.3 L, TSH 0.92 08/11/18 05:39: Hemoglobin A1c 10.1 H 08/11/18 05:40: POC Glucose 258 H I & O for Last 24 hours: Intake & Output 08/08/18 08/09/18 08/10/18 08/11/18 11:59 11:59 11:59 11:59 Intake Total 1621 / 1621 1460 / 1460 Output Total 300 / 300 Balance 1621 / 1621 1160 / 1160 Weight 174 lb 198 lb 6 oz Microbiology Reports for the Last 24 Hours: Microbiology 08/09/18 18:45 Sputum - Expectorated Sputum Gram Stain - Final 08/09/18 18:45 Sputum - Expectorated Sputum Sputum Culture - Preliminary - Constitutional no acute distress (coughing) - *Routine Respiratory Exam Present: decreased breath sounds, rhonchi, wheezes - *Routine Cardiovascular Exam Present: RRR - *Routine Abdominal Exam Present: soft, normoactive bowel sounds. Absent: tenderness - *Routine Extremities Exam Absent: cyanosis, clubbing, edema Assessment and Plan (1) COPD exacerbation Current visit: Yes Status: Acute Category: Medical Code(s): J44.1 - Chronic obstructive pulmonary disease with (acute) exacerbation (2) DKA (diabetic ketoacidoses) Current visit: Yes Status: Acute Qualifiers: Diabetes mellitus type: type 2 Diabetes mellitus complication detail: without coma Qualified Code(s): E11.10 - Type 2 diabetes mellitus with ketoacidosis without coma Category: Medical Code(s): E11.10 - Type 2 diabetes mellitus with ketoacidosis without coma (3) Respiratory failure with hypoxia and hypercapnia Current visit: Yes Status: Acute Qualifiers: Chronicity: acute Qualified Code(s): J96.01 - Acute respiratory failure with hypoxia; J96.02 - Acute respiratory failure with hypercapnia Category: Medical Code(s): J96.91 - Respiratory failure, unspecified with hypoxia; J96.92 - Respiratory failure, unspecified with hypercapnia (4) Acute exacerbation of chronic obstructive airways disease Current visit: No Status: Acute Category: Medical Code(s): J44.1 - Chronic obstructive pulmonary disease with (acute) exacerbation (5) Acute on chronic diastolic (congestive) heart failure Current visit: No Status: Acute Category: Medical Code(s): I50.33 - Acute on chronic diastolic (congestive) heart failure (6) Fall Current visit: No Status: Acute Category: Medical Code(s): W19.XXXA - Unspecified fall, initial encounter (7) Anxiety Current visit: No Status: Chronic Category: Medical Code(s): F41.9 - Anxiety disorder, unspecified (8) Bipolar disorder Current visit: No Status: Chronic Category: Medical Code(s): F31.9 - Bipolar disorder, unspecified (9) CAD (coronary artery disease) Current visit: No Status: Chronic Qualifiers: Coronary Disease-Associated Artery/Lesion type: [place] artery [place] vs. transplanted heart: [place] heart Associated angina: with other forms of angina Qualified Code(s): I25.118 - Atherosclerotic heart disease of [place] coronary artery with other forms of angina pectoris Category: Medical Code(s): I25.10 - Atherosclerotic heart disease of [place] coronary artery without angina pectoris (10) COPD (chronic obstructive pulmonary disease) Current visit: No Status: Chronic Qualifiers: COPD type: chronic bronchitis Chronic bronchitis type: unspecified Qualified Code(s): J42 - Unspecified chronic bronchitis Category: Medical Code(s): J44.9 - Chronic obstructive pulmonary disease, unspecified (11) Tobacco abuse Current visit: No Status: Chronic Category: Medical Code(s): Z72.0 - Tobacco use - Assessment and plan all Dx Assessment and Plan for all problems:: Glucose has improved. Patient's hemoglobin has decreased, therefore we will recheck this tomorrow. Will get a swallowing eval today due to multiple choking episodes. <Stuart Torres - Last Filed: 08/11/18 16:46> Internal Medicine - PN: Subj *Date: 08/11/18 *Time: 16:45 Exam Vital signs and Labs for Last 24 Hours: Temp Pulse Resp BP Pulse Ox 98.5 F 85 19 98/62 L 90 L 08/11/18 16:00 08/11/18 16:00 08/11/18 16:00 08/11/18 16:00 08/11/18 16:00 Laboratory Results - last 24 hr 08/10/18 11:28: POC Glucose 505 H* 08/10/18 17:06: POC Glucose 547 H* 08/10/18 17:20: Random Glucose 583 H* 08/10/18 20:30: POC Glucose 513 H* 08/10/18 20:40: Random Glucose 485 H 08/11/18 05:39: WBC 3.4 L D, RBC 3.36 L, Hgb 8.7 L, Hct 29.5 L, MCV 87.7, MCH 25.8 L, MCHC 29.4 L, RDW 18.6 H, Plt Count 72 L, MPV 10.4, Neut % (Auto) 85.9 H, Lymph % (Auto) 8.9 L, [place] % (Auto) 4.9, Eos % (Auto) 0.1, Baso % (Auto) 0.2, Neut # (Auto) 2.9, Lymph # (Auto) 0.3 L, [place] # (Auto) 0.2, Eos # (Auto) 0.0, Baso # (Auto) 0.0, Total Counted 100, Neutrophils % (Manual) 89 H, Band Neutrophils % 1.0, Lymphocytes % (Manual) 7 L, Monocytes % (Manual) 3, Platelet Estimate Slight decrease, Hypochromasia 2+, Poikilocytosis 1+, Anisocytosis 2+, Microcytosis 1+, Macrocytosis 1+, Tear Drop Cells 1+ 08/11/18 05:39: Sodium 138, Potassium 4.9, Chloride 101, Carbon Dioxide 38 H, Anion Gap 3.9 L, BUN 27 H, Creatinine 0.83 D, Estimated Creat Clear 84, Estima denise GFR 70, Est GFR ( Amer) 85 D, Glucose 231 H D, Calcium 8.3 L, TSH 0.92 08/11/18 05:39: Hemoglobin A1c 10.1 H 08/11/18 05:40: POC Glucose 258 H 08/11/18 13:59: POC Glucose 475 H* I & O for Last 24 hours: Intake & Output 08/09/18 08/10/18 08/11/18 08/12/18 11:59 11:59 11:59 11:59 Intake Total 1621 / 1621 1460 / 1460 0 / 0 Output Total 300 / 300 Balance 1621 / 1621 1160 / 1160 0 / 0 Weight 174 lb 198 lb 6 oz Microbiology Reports for the Last 24 Hours: Microbiology 08/09/18 18:45 Sputum - Expectorated Sputum Gram Stain - Final 08/09/18 18:45 Sputum - Expectorated Sputum Sputum Culture - Final Normal Respiratory Marine Assessment and Plan (1) COPD exacerbation Current visit: Yes Status: Acute Category: Medical Code(s): J44.1 - Chronic obstructive pulmonary disease with (acute) exacerbation (2) DKA (diabetic ketoacidoses) Current visit: Yes Status: Acute Qualifiers: Diabetes mellitus type: type 2 Diabetes mellitus complication detail: without coma Qualified Code(s): E11.10 - Type 2 diabetes mellitus with ketoacidosis without coma Category: Medical Code(s): E11.10 - Type 2 diabetes mellitus with ketoacidosis without coma (3) Respiratory failure with hypoxia and hypercapnia Current visit: Yes Status: Acute Qualifiers: Chronicity: acute Qualified Code(s): J96.01 - Acute respiratory failure with hypoxia; J96.02 - Acute respiratory failure with hypercapnia Category: Medical Code(s): J96.91 - Respiratory failure, unspecified with hypoxia; J96.92 - Respiratory failure, unspecified with hypercapnia (4) Acute exacerbation of chronic obstructive airways disease Current visit: No Status: Acute Category: Medical Code(s): J44.1 - Chronic obstructive pulmonary disease with (acute) exacerbation (5) Acute on chronic diastolic (congestive) heart failure Current visit: No Status: Acute Category: Medical Code(s): I50.33 - Acute on chronic diastolic (congestive) heart failure (6) Fall Current visit: No Status: Acute Category: Medical Code(s): W19.XXXA - Unspecified fall, initial encounter (7) Anxiety Current visit: No Status: Chronic Category: Medical Code(s): F41.9 - Anxiety disorder, unspecified (8) Bipolar disorder Current visit: No Status: Chronic Category: Medical Code(s): F31.9 - Bipolar disorder, unspecified (9) CAD (coronary artery disease) Current visit: No Status: Chronic Qualifiers: Coronary Disease-Associated Artery/Lesion type: [place] artery [place] vs. transplanted heart: [place] heart Associated angina: with other forms of angina Qualified Code(s): I25.118 - Atherosclerotic heart disease of [place] coronary artery with other forms of angina pectoris Category: Medical Code(s): I25.10 - Atherosclerotic heart disease of [place] coronary artery without angina pectoris (10) COPD (chronic obstructive pulmonary disease) Current visit: No Status: Chronic Qualifiers: COPD type: chronic bronchitis Chronic bronchitis type: unspecified Qualified Code(s): J42 - Unspecified chronic bronchitis Category: Medical Code(s): J44.9 - Chronic obstructive pulmonary disease, unspecified (11) Tobacco abuse Current visit: No Status: Chronic Category: Medical Code(s): Z72.0 - Tobacco use (12) Dysphagia Current visit: Yes Status: Acute Category: Medical Code(s): R13.10 - Dysphagia, unspecified - Assessment and plan all Dx Assessment and Plan for all problems:: She is clinically improving with current management. Blood sugars remain high but are improving. She appears much more comfortable with her breathing. Plan is to repeat her chest x-ray today to reassess the findings in the right lower lobe. These appear to be chronic in nature and likely related to atelectasis rather than acute infiltrate. Wean steroids.
[2018-08-11 09:43] LABS: Lymphocytes % 7 % (10-50); Monocytes % 3 % (2-9); Neutrophils % 89 % (42-76); Total Cells Counted 100
[2018-08-11 10:10] LABS: Anisocytosis 2+; Hypochromasia 2+; Macrocytosis 1+
[2018-08-11 10:11] LABS: Tear Drop Cells 1+
[2018-08-12 05:58] LABS: Basophils % 0.6 % (0.1-2.0); Eosinophils % 0.7 % (0.1-12.0); Hematocrit 28.3 % (37.0-47.0); Hemoglobin 8.6 g/dL (12.2-16.2); Lymphocytes # 0.2 K/mm3 (0.7-4.5); Lymphocytes % 6.6 % (10-50); Mean Corpuscular HGB Conc 30.4 g/dL (31.8-35.4); Mean Corpuscular Hemoglobin 26.3 pg (27.0-31.2); Mean Corpuscular Volume 86.6 fl (81-99); Monocytes # 0.2 K/mm3 (0.1-1.0); Monocytes % 5.4 % (1.7-9.3); Neutrophils # 2.6 K/mm3 (1.8-7.8); Neutrophils % 86.7 % (37.0-80.0); Platelet Count 66 K/mm3 (142-424); Red Blood Count 3.26 M/mm3 (4.20-5.40); Red Cell Distribution Width 18.8 % (11.5-17.5)
[2018-08-12 06:08] LABS: Albumin Level 1.9 gm/dL (3.4-5.0); Albumin/Globulin Ratio 0.7 (1.1-1.8); Anion Gap 5.4 mEq/L (5-15); Bilirubin,Total 0.3 mg/dL (0.2-1.0); Calcium 7.5 mg/dL (8.5-10.1); Globulin 2.8 gm/dl (1.3-3.2); Potassium 4.4 mmoL/L (3.5-5.1); Total Protein,Serum 4.7 gm/dL (6.4-8.2)
--- NOTE | 2018-08-12 08:39 | Progress Note ---
<Jaqueline Crespo - Last Filed: 08/12/18 08:38> Internal Medicine - PN: Subj *Date: 08/12/18 *Time: 08:38 Interval history: Patient states she is feeling a little bit better this morning. According to her nurse, she had decreased sats on the Vapotherm and had to be placed on BiPAP during the night. She is back on Vapotherm this morning with sats in the mid 90s. She states she only had one choking episode this morning. She did not have a swallowing evaluation yesterday but will have it this morning. She states she did not rest well last night. She did eat most of her breakfast. Exam Vital signs and Labs for Last 24 Hours: Temp Pulse Resp BP Pulse Ox 98.0 F 111 H 22 112/81 99 08/12/18 07:28 08/12/18 07:28 08/12/18 07:28 08/12/18 07:28 08/12/18 07:28 Laboratory Results - last 24 hr 08/11/18 05:39: Total Counted 100, Neutrophils % (Manual) 89 H, Band Neutrophils % 1.0, Lymphocytes % (Manual) 7 L, Monocytes % (Manual) 3, Platelet Estimate Slight decrease, Hypochromasia 2+, Poikilocytosis 1+, Anisocytosis 2+, Microcytosis 1+, Macrocytosis 1+, Tear Drop Cells 1+ 08/11/18 13:59: POC Glucose 475 H* 08/11/18 16:31: POC Glucose 463 H* 08/11/18 21:01: POC Glucose 387 H* 08/12/18 05:14: POC Glucose 300 H 08/12/18 05:45: WBC 3.0 L, RBC 3.26 L, Hgb 8.6 L, Hct 28.3 L, MCV 86.6, MCH 26.3 L, MCHC 30.4 L, RDW 18.8 H, Plt Count 66 L, MPV 10.0, Neut % (Auto) 86.7 H, Lymph % (Auto) 6.6 L, [place] % (Auto) 5.4, Eos % (Auto) 0.7, Baso % (Auto) 0.6, Neut # (Auto) 2.6, Lymph # (Auto) 0.2 L, [place] # (Auto) 0.2, Eos # (Auto) 0.0, Baso # (Auto) 0.0 08/12/18 05:45: Sodium 143, Potassium 4.4, Chloride 107, Carbon Dioxide 35 H, Anion Gap 5.4, BUN 25 H, Creatinine 0.59 D, Estimated Creat Clear 85, Estimated GFR 104, Est GFR ( Amer) 125 D, Glucose 249 H, Calcium 7.5 L, Total Bilirubin 0.3, AST 5 L, ALT 13, Alkaline Phosphatase 56, Total Protein 4.7 L D, Albumin 1.9 L, Globulin 2.8, Albumin/Globulin Ratio 0.7 L I & O for Last 24 hours: Intake & Output 08/09/18 08/10/18 08/11/18 08/12/18 11:59 11:59 11:59 11:59 Intake Total 1621 / 1621 1460 / 1460 610 / 610 Output Total 300 / 300 Balance 1621 / 1621 1160 / 1160 610 / 610 Weight 174 lb 198 lb 6 oz 201 lb 6 oz Microbiology Reports for the Last 24 Hours: Microbiology 08/09/18 17:10 Blood Blood Culture - Preliminary NO GROWTH AFTER 48 HOURS 08/09/18 17:10 Blood Blood Culture - Preliminary NO GROWTH AFTER 48 HOURS 08/09/18 18:45 Sputum - Expectorated Sputum Gram Stain - Final 08/09/18 18:45 Sputum - Expectorated Sputum Sputum Culture - Final Normal Respiratory Marine - Constitutional no acute distress - *Routine Respiratory Exam Present: decreased breath sounds, rhonchi, wheezes (less) - *Routine Cardiovascular Exam Present: RRR - *Routine Abdominal Exam Present: soft, normoactive bowel sounds. Absent: tenderness - *Routine Extremities Exam Absent: cyanosis, clubbing, edema Assessment and Plan (1) COPD exacerbation Current visit: Yes Status: Acute Category: Medical Code(s): J44.1 - Chronic obstructive pulmonary disease with (acute) exacerbation (2) DKA (diabetic ketoacidoses) Current visit: Yes Status: Acute Qualifiers: Diabetes mellitus type: type 2 Diabetes mellitus complication detail: without coma Qualified Code(s): E11.10 - Type 2 diabetes mellitus with ketoacidosis without coma Category: Medical Code(s): E11.10 - Type 2 diabetes mellitus with ketoacidosis without coma (3) Respiratory failure with hypoxia and hypercapnia Current visit: Yes Status: Acute Qualifiers: Chronicity: acute Qualified Code(s): J96.01 - Acute respiratory failure with hypoxia; J96.02 - Acute respiratory failure with hypercapnia Category: Medical Code(s): J96.91 - Respiratory failure, unspecified with hypoxia; J96.92 - Respiratory failure, unspecified with hypercapnia (4) Acute exacerbation of chronic obstructive airways disease Current visit: No Status: Acute Category: Medical Code(s): J44.1 - Chronic obstructive pulmonary disease with (acute) exacerbation (5) Acute on chronic diastolic (congestive) heart failure Current visit: No Status: Acute Category: Medical Code(s): I50.33 - Acute on chronic diastolic (congestive) heart failure (6) Fall Current visit: No Status: Acute Category: Medical Code(s): W19.XXXA - Unspecified fall, initial encounter (7) Anxiety Current visit: No Status: Chronic Category: Medical Code(s): F41.9 - Anxiety disorder, unspecified (8) Bipolar disorder Current visit: No Status: Chronic Category: Medical Code(s): F31.9 - Bipolar disorder, unspecified (9) CAD (coronary artery disease) Current visit: No Status: Chronic Qualifiers: Coronary Disease-Associated Artery/Lesion type: [place] artery [place] vs. transplanted heart: [place] heart Associated angina: with other forms of angina Qualified Code(s): I25.118 - Atherosclerotic heart disease of [place] coronary artery with other forms of angina pectoris Category: Medical Code(s): I25.10 - Atherosclerotic heart disease of [place] coronary artery without angina pectoris (10) COPD (chronic obstructive pulmonary disease) Current visit: No Status: Chronic Qualifiers: COPD type: chronic bronchitis Chronic bronchitis type: unspecified Qualified Code(s): J42 - Unspecified chronic bronchitis Category: Medical Code(s): J44.9 - Chronic obstructive pulmonary disease, unspecified (11) Tobacco abuse Current visit: No Status: Chronic Category: Medical Code(s): Z72.0 - Tobacco use (12) Dysphagia Current visit: Yes Status: Acute Category: Medical Code(s): R13.10 - Dysphagia, unspecified - Assessment and plan all Dx Assessment and Plan for all problems:: We will get the swallowing evaluation this morning. Will discuss further care with Dr. Torres. <Stuart Torres - Last Filed: 08/12/18 13:13> Internal Medicine - PN: Subj *Date: 08/12/18 *Time: 13:11 Exam Vital signs and Labs for Last 24 Hours: Temp Pulse Resp BP Pulse Ox 97.5 F L 98 H 21 144/70 H 91 L 08/12/18 12:00 08/12/18 12:00 08/12/18 12:00 08/12/18 12:00 08/12/18 12:00 Laboratory Results - last 24 hr 08/11/18 13:59: POC Glucose 475 H* 08/11/18 16:31: POC Glucose 463 H* 08/11/18 21:01: POC Glucose 387 H* 08/12/18 05:14: POC Glucose 300 H 08/12/18 05:45: WBC 3.0 L, RBC 3.26 L, Hgb 8.6 L, Hct 28.3 L, MCV 86.6, MCH 26.3 L, MCHC 30.4 L, RDW 18.8 H, Plt Count 66 L, MPV 10.0, Neut % (Auto) 86.7 H, Lymph % (Auto) 6.6 L, [place] % (Auto) 5.4, Eos % (Auto) 0.7, Baso % (Auto) 0.6, Neut # (Auto) 2.6, Lymph # (Auto) 0.2 L, [place] # (Auto) 0.2, Eos # (Auto) 0.0, Baso # (Auto) 0.0, Total Counted 100, Neutrophils % (Manual) 89 H, Lymphocytes % (Manual) 6 L, Monocytes % (Manual) 4, Eosinophils % (Manual) 1, Platelet Estimate Moderate decrease, Hypochromasia 2+, Anisocytosis 1+ 08/12/18 05:45: Sodium 143, Potassium 4.4, Chloride 107, Carbon Dioxide 35 H, Anion Gap 5.4, BUN 25 H, Creatinine 0.59 D, Estimated Creat Clear 85, Estimated GFR 104, Est GFR ( Amer) 125 D, Glucose 249 H, Calcium 7.5 L, Total Bilirubin 0.3, AST 5 L, ALT 13, Alkaline Phosphatase 56, Total Protein 4.7 L D, Albumin 1.9 L, Globulin 2.8, Albumin/Globulin Ratio 0.7 L 08/12/18 11:07: POC Glucose 460 H* I & O for Last 24 hours: Intake & Output 08/10/18 08/11/18 08/12/18 08/13/18 11:59 11:59 11:59 11:59 Intake Total 1621 / 1621 1460 / 1460 610 / 1090 480 / 480 Output Total 300 / 300 400 / 400 Balance 1621 / 1621 1160 / 1160 610 / 690 80 / 80 Weight 174 lb 198 lb 6 oz 201 lb 6 oz Microbiology Reports for the Last 24 Hours: Microbiology 08/09/18 17:10 Blood Blood Culture - Preliminary NO GROWTH AFTER 48 HOURS 08/09/18 17:10 Blood Blood Culture - Preliminary NO GROWTH AFTER 48 HOURS 08/09/18 18:45 Sputum - Expectorated Sputum Gram Stain - Final 08/09/18 18:45 Sputum - Expectorated Sputum Sputum Culture - Final Normal Respiratory Marine Assessment and Plan (1) COPD exacerbation Current visit: Yes Status: Acute Category: Medical Code(s): J44.1 - Chronic obstructive pulmonary disease with (acute) exacerbation (2) DKA (diabetic ketoacidoses) Current visit: Yes Status: Acute Qualifiers: Diabetes mellitus type: type 2 Diabetes mellitus complication detail: without coma Qualified Code(s): E11.10 - Type 2 diabetes mellitus with ketoacidosis without coma Category: Medical Code(s): E11.10 - Type 2 diabetes mellitus with ketoacidosis without coma (3) Respiratory failure with hypoxia and hypercapnia Current visit: Yes Status: Acute Qualifiers: Chronicity: acute Qualified Code(s): J96.01 - Acute respiratory failure with hypoxia; J96.02 - Acute respiratory failure with hypercapnia Category: Medical Code(s): J96.91 - Respiratory failure, unspecified with hypoxia; J96.92 - Respiratory failure, unspecified with hypercapnia (4) Acute exacerbation of chronic obstructive airways disease Current visit: No Status: Acute Category: Medical Code(s): J44.1 - Chronic obstructive pulmonary disease with (acute) exacerbation (5) Acute on chronic diastolic (congestive) heart failure Current visit: No Status: Acute Category: Medical Code(s): I50.33 - Acute on chronic diastolic (congestive) heart failure (6) Fall Current visit: No Status: Acute Category: Medical Code(s): W19.XXXA - Unspecified fall, initial encounter (7) Anxiety Current visit: No Status: Chronic Category: Medical Code(s): F41.9 - Anxiety disorder, unspecified (8) Bipolar disorder Current visit: No Status: Chronic Category: Medical Code(s): F31.9 - Bipolar disorder, unspecified (9) CAD (coronary artery disease) Current visit: No Status: Chronic Qualifiers: Coronary Disease-Associated Artery/Lesion type: [place] artery [place] vs. transplanted heart: [place] heart Associated angina: with other forms of angina Qualified Code(s): I25.118 - Atherosclerotic heart disease of [place] coronary artery with other forms of angina pectoris Category: Medical Code(s): I25.10 - Atherosclerotic heart disease of [place] coronary artery without angina pectoris (10) COPD (chronic obstructive pulmonary disease) Current visit: No Status: Chronic Qualifiers: COPD type: chronic bronchitis Chronic bronchitis type: unspecified Qualified Code(s): J42 - Unspecified chronic bronchitis Category: Medical Code(s): J44.9 - Chronic obstructive pulmonary disease, unspecified (11) Tobacco abuse Current visit: No Status: Chronic Category: Medical Code(s): Z72.0 - Tobacco use (12) Dysphagia Current visit: Yes Status: Acute Category: Medical Code(s): R13.10 - Dysphagia, unspecified (13) Pancytopenia Current visit: Yes Status: Acute Category: Medical Code(s): D61.818 - Other pancytopenia - Assessment and plan all Dx Assessment and Plan for all problems:: Patient seen and examined this AM. Concur with above. Have been unable to wean Vapotherm. Repeat CXR was unchanged showing chronic infiltrate in RLL likely from atelectasis. Note her CBC is now showing pancytopenia. ?Myelodysplasiia?
[2018-08-12 10:15] LABS: Anisocytosis 1+; Eosinophils % 1 % (0-3); Hypochromasia 2+; Lymphocytes % 6 % (10-50); Monocytes % 4 % (2-9); Neutrophils % 89 % (42-76); Total Cells Counted 100
[2018-08-13 05:56] LABS: Basophils % 0.2 % (0.1-2.0); Hemoglobin 8.8 g/dL (12.2-16.2); Lymphocytes # 0.3 K/mm3 (0.7-4.5); Lymphocytes % 9.3 % (10-50); Mean Corpuscular HGB Conc 30.9 g/dL (31.8-35.4); Mean Corpuscular Hemoglobin 27.1 pg (27.0-31.2); Mean Corpuscular Volume 87.7 fl (81-99); Mean Platelet Volume 9.6 fl (7.4-10.4); Monocytes # 0.1 K/mm3 (0.1-1.0); Neutrophils # 2.3 K/mm3 (1.8-7.8); Neutrophils % 85.4 % (37.0-80.0); Platelet Count 67 K/mm3 (142-424); Red Blood Count 3.23 M/mm3 (4.20-5.40); Red Cell Distribution Width 18.3 % (11.5-17.5); White Blood Count 2.7 K/mm3 (4.8-10.8)
[2018-08-13 05:58] LABS: Hematocrit 28.4 % (37.0-47.0)
[2018-08-13 05:59] LABS: ABG HCO3 43.9 mmhg (22.0-26.0); ABG Oxygen Saturation 95 % (90-100); ABG PH 7.33 mmol/L (7.35-7.45); ABG PO2 84.9 mmhg (80-100); ABG TCO2 46.5 mmhg (23-27)
[2018-08-13 06:02] LABS: Allen's Test Non Applicable; Oxygen 40 %; PEEP bipap 16/8
[2018-08-13 06:05] LABS: ABG PCO2 85.2 mmhg (35.0-45.0)
[2018-08-13 06:20] LABS: Albumin Level 2.3 gm/dL (3.4-5.0); Albumin/Globulin Ratio 0.9 (1.1-1.8); Anion Gap 2.8 mEq/L (5-15); Bilirubin,Total 0.3 mg/dL (0.2-1.0); Globulin 2.6 gm/dl (1.3-3.2); Potassium 4.8 mmoL/L (3.5-5.1); Total Protein,Serum 4.9 gm/dL (6.4-8.2)
[2018-08-13 06:48] LABS: Calcium 8.5 mg/dL (8.5-10.1)
--- NOTE | 2018-08-13 08:31 | Progress Note ---
Internal Medicine - PN: Subj *Date: 08/13/18 *Time: 08:28 Interval history: Patient states she is feeling better this morning and wants to go home. Her nurse states she had to be on BiPAP throughout the night. She is currently on Vapotherm this morning and her sats are in the low 90s. She states her shortness of breath and cough have improved. She has had no choking episodes this morning. Exam Vital signs and Labs for Last 24 Hours: Temp Pulse Resp BP Pulse Ox 98.1 F 98 H 20 129/74 97 08/13/18 07:29 08/13/18 07:29 08/13/18 07:29 08/13/18 07:29 08/13/18 07:29 Laboratory Results - last 24 hr 08/12/18 05:45: Total Counted 100, Neutrophils % (Manual) 89 H, Lymphocytes % (Manual) 6 L, Monocytes % (Manual) 4, Eosinophils % (Manual) 1, Platelet Estimate Moderate decrease, Hypochromasia 2+, Anisocytosis 1+ 08/12/18 11:07: POC Glucose 460 H* 08/12/18 16:40: POC Glucose 550 H* 08/12/18 16:50: Random Glucose 518 H* 08/12/18 21:56: POC Glucose 347 H* 08/13/18 00:46: POC Glucose 312 H* 08/13/18 05:25: WBC 2.7 L, RBC 3.23 L, Hgb 8.8 L, Hct 28.4 L, MCV 87.7, MCH 27.1, MCHC 30.9 L, RDW 18.3 H, Plt Count 67 L, MPV 9.6, Neut % (Auto) 85.4 H, Lymph % (Auto) 9.3 L, [place] % (Auto) 5.0, Eos % (Auto) 0.0 L, Baso % (Auto) 0.2, Neut # (Auto) 2.3, Lymph # (Auto) 0.3 L, [place] # (Auto) 0.1, Eos # (Auto) 0.0, Baso # (Auto) 0.0 08/13/18 05:25: Sodium 140, Potassium 4.8, Chloride 99, Carbon Dioxide 43 H* D, Anion Gap 2.8 L, BUN 26 H, Creatinine 0.65, Estimated Creat Clear 86, Estimated GFR 93, Est GFR ( Amer) 112, Glucose 218 H, Calcium 8.5 D, Total Bilirubin 0.3, AST 4 L, ALT 15, Alkaline Phosphatase 56, Total Protein 4.9 L, Albumin 2.3 L D, Globulin 2.6, Albumin/Globulin Ratio 0.9 L 08/13/18 06:00: Specimen Source Right brachial, O2 % 40, ABG pH 7.33 L, ABG pCO2 85.2 H, ABG pO2 84.9, ABG HCO3 43.9 H, ABG Total CO2 46.5 H, ABG O2 Saturation 95, ABG Base Excess 18.0 H, [place] Test Non applicable, Vent Rate 14, PEEP bipap 11/1108/13/18 06:31: POC Glucose 222 H I & O for Last 24 hours: Intake & Output 08/10/18 08/11/18 08/12/18 08/13/18 11:59 11:59 11:59 11:59 Intake Total 1621 / 1621 1460 / 1460 610 / 1090 1080 / 1080 Output Total 300 / 300 750 / 750 Balance 1621 / 1621 1160 / 1160 610 / 690 330 / 330 Weight 174 lb 198 lb 6 oz 201 lb 6 oz 202 lb 9 oz - Constitutional no acute distress - *Routine Respiratory Exam Present: decreased breath sounds, rhonchi, wheezes - *Routine Cardiovascular Exam Present: RRR - *Routine Abdominal Exam Present: soft, normoactive bowel sounds. Absent: tenderness - *Routine Extremities Exam Absent: cyanosis, clubbing, edema Assessment and Plan (1) COPD exacerbation Current visit: Yes Status: Acute Category: Medical Code(s): J44.1 - Chronic obstructive pulmonary disease with (acute) exacerbation (2) DKA (diabetic ketoacidoses) Current visit: Yes Status: Acute Qualifiers: Diabetes mellitus type: type 2 Diabetes mellitus complication detail: without coma Qualified Code(s): E11.10 - Type 2 diabetes mellitus with ketoacidosis without coma Category: Medical Code(s): E11.10 - Type 2 diabetes mellitus with ketoacidosis without coma (3) Respiratory failure with hypoxia and hypercapnia Current visit: Yes Status: Acute Qualifiers: Chronicity: acute Qualified Code(s): J96.01 - Acute respiratory failure with hypoxia; J96.02 - Acute respiratory failure with hypercapnia Category: Medical Code(s): J96.91 - Respiratory failure, unspecified with hypoxia; J96.92 - Respiratory failure, unspecified with hypercapnia (4) Acute exacerbation of chronic obstructive airways disease Current visit: No Status: Acute Category: Medical Code(s): J44.1 - Chronic obstructive pulmonary disease with (acute) exacerbation (5) Acute on chronic diastolic (congestive) heart failure Current visit: No Status: Acute Category: Medical Code(s): I50.33 - Acute on chronic diastolic (congestive) heart failure (6) Fall Current visit: No Status: Acute Category: Medical Code(s): W19.XXXA - Unspecified fall, initial encounter (7) Anxiety Current visit: No Status: Chronic Category: Medical Code(s): F41.9 - Anxiety disorder, unspecified (8) Bipolar disorder Current visit: No Status: Chronic Category: Medical Code(s): F31.9 - Bipolar disorder, unspecified (9) CAD (coronary artery disease) Current visit: No Status: Chronic Qualifiers: Coronary Disease-Associated Artery/Lesion type: [place] artery [place] vs. transplanted heart: [place] heart Associated angina: with other forms of angina Qualified Code(s): I25.118 - Atherosclerotic heart disease of [place] coronary artery with other forms of angina pectoris Category: Medical Code(s): I25.10 - Atherosclerotic heart disease of [place] coronary artery without angina pectoris (10) COPD (chronic obstructive pulmonary disease) Current visit: No Status: Chronic Qualifiers: COPD type: chronic bronchitis Chronic bronchitis type: unspecified Qualified Code(s): J42 - Unspecified chronic bronchitis Category: Medical Code(s): J44.9 - Chronic obstructive pulmonary disease, unspecified (11) Tobacco abuse Current visit: No Status: Chronic Category: Medical Code(s): Z72.0 - Tobacco use (12) Dysphagia Current visit: Yes Status: Acute Category: Medical Code(s): R13.10 - Dysphagia, unspecified (13) Pancytopenia Current visit: Yes Status: Acute Category: Medical Code(s): D61.818 - Other pancytopenia - Assessment and plan all Dx Assessment and Plan for all problems:: Patient's H&H is low but stable. She required BiPAP throughout the night. She had her swallowing evaluation yesterday and demonstrated no signs of dysphagia or aspiration. Speech therapy did recommend a change to a mechanical soft diet due to absent bottom teeth and ill fitting dentures. She was advised to eat slowly and eat at a 90 degree angle. Will discuss further care with Dr. Alvarado.
[2018-08-13 09:19] LABS: Hypochromasia 2+; Lymphocytes % 10 % (10-50); Monocytes % 5 % (2-9); Neutrophils % 82 % (42-76); Total Cells Counted 100
[2018-08-14 06:33] LABS: Basophils % 0.2 % (0.1-2.0); Hematocrit 32.2 % (37.0-47.0); Hemoglobin 9.6 g/dL (12.2-16.2); Lymphocytes # 0.3 K/mm3 (0.7-4.5); Lymphocytes % 6.6 % (10-50); Mean Corpuscular Hemoglobin 26.5 pg (27.0-31.2); Mean Corpuscular Volume 88.4 fl (81-99); Mean Platelet Volume 9.5 fl (7.4-10.4); Monocytes # 0.2 K/mm3 (0.1-1.0); Monocytes % 4.5 % (1.7-9.3); Neutrophils # 3.7 K/mm3 (1.8-7.8); Neutrophils % 88.7 % (37.0-80.0); Platelet Count 74 K/mm3 (142-424); Red Blood Count 3.64 M/mm3 (4.20-5.40); Red Cell Distribution Width 17.9 % (11.5-17.5); White Blood Count 4.1 K/mm3 (4.8-10.8)
[2018-08-14 06:43] LABS: Albumin Level 2.5 gm/dL (3.4-5.0); Albumin/Globulin Ratio 0.8 (1.1-1.8); Anion Gap 1.4 mEq/L (5-15); Bilirubin,Total 0.4 mg/dL (0.2-1.0); Calcium 8.7 mg/dL (8.5-10.1); Globulin 3.2 gm/dl (1.3-3.2); Potassium 5.4 mmoL/L (3.5-5.1); Total Protein,Serum 5.7 gm/dL (6.4-8.2)
[2018-08-14 06:57] LABS: Lymphocytes % 6 % (10-50); Neutrophils % 94 % (42-76); Total Cells Counted 100
[2018-08-14 06:58] LABS: Hypochromasia 3+; Polychromasia 3+
--- NOTE | 2018-08-14 11:02 | Progress Note ---
Internal Medicine - PN: Subj *Date: 08/14/18 *Time: 10:59 Interval history: Patient did well overnight. Her sugars are still running high. She mentioned that she is eating her honey robbie crackers when she watches TV and when she is bored. She mentioned that her breathing is a lot better today compared to yesterday. Exam Vital signs and Labs for Last 24 Hours: Temp Pulse Resp BP Pulse Ox 97.7 F 93 H 20 159/77 H 90 L 08/14/18 07:47 08/14/18 10:13 08/14/18 07:47 08/14/18 07:47 08/14/18 07:47 Laboratory Results - last 24 hr 08/13/18 11:01: POC Glucose 347 H* 08/13/18 16:38: POC Glucose 479 H* 08/13/18 20:24: POC Glucose 377 H* 08/14/18 06:17: POC Glucose 388 H* 08/14/18 06:21: WBC 4.1 L D, RBC 3.64 L, Hgb 9.6 L, Hct 32.2 L, MCV 88.4, MCH 26.5 L, MCHC 30.0 L, RDW 17.9 H, Plt Count 74 L, MPV 9.5, Neut % (Auto) 88.7 H, Lymph % (Auto) 6.6 L, [place] % (Auto) 4.5, Eos % (Auto) 0.0 L, Baso % (Auto) 0.2, Neut # (Auto) 3.7, Lymph # (Auto) 0.3 L, [place] # (Auto) 0.2, Eos # (Auto) 0.0, Baso # (Auto) 0.0, Total Counted 100, Neutrophils % (Manual) 94 H, Lymphocytes % (Manual) 6 L, Platelet Estimate Moderate decrease, Polychromasia 3+, Hypochromasia 3+, Poikilocytosis 2+, Tear Drop Cells 08/14/18 06:21: Sodium 137, Potassium 5.4 H, Chloride 97 L, Carbon Dioxide 44 H* , Anion Gap 1.4 L, BUN 25 H, Creatinine 0.69, Estimated Creat Clear 86, Estimated GFR 86, Est GFR ( Amer) 105, Glucose 374 H, Calcium 8.7, Total Bilirubin 0.4, AST 8 L D, ALT 22 D, Alkaline Phosphatase 65, Total Protein 5.7 L, Albumin 2.5 L, Globulin 3.2, Albumin/Globulin Ratio 0.8 L I & O for Last 24 hours: Intake & Output 08/11/18 08/12/18 08/13/18 08/14/18 11:59 11:59 11:59 11:59 Intake Total 1460 / 1460 610 / 1090 1080 / 1080 1210 / 1210 Output Total 300 / 300 1350 / 1850 1400 / 1400 Balance 1160 / 1160 610 / 690 -270 / -770 -190 / -190 Weight 198 lb 6 oz 201 lb 6 oz 202 lb 9 oz 202 lb 6 oz - *Routine HEENT Exam Head: Present: normocephalic Eye: Present: EOMI, PERRL ENT: Present: mucous membranes moist - *Routine Neck Exam Present: supple. Absent: lymphadenopathy - *Routine Respiratory Exam Present: decreased breath sounds, wheezes, distant breath sounds, diminished air movement - *Routine Cardiovascular Exam Present: RRR - *Routine Abdominal Exam Present: soft, normoactive bowel sounds. Absent: tenderness - *Routine Extremities Exam Present: edema (2+ pitting). Absent: cyanosis, clubbing - *Routine Skin Exam Present: warm. Absent: rash - *Routine Neurological Exam Present: alert, oriented X3 Assessment and Plan (1) COPD exacerbation Current visit: Yes Status: Acute Category: Medical Code(s): J44.1 - Chronic obstructive pulmonary disease with (acute) exacerbation (2) DKA (diabetic ketoacidoses) Current visit: Yes Status: Acute Qualifiers: Diabetes mellitus type: type 2 Diabetes mellitus complication detail: without coma Qualified Code(s): E11.10 - Type 2 diabetes mellitus with ketoacidosis without coma Category: Medical Code(s): E11.10 - Type 2 diabetes mellitus with ketoacidosis without coma (3) Respiratory failure with hypoxia and hypercapnia Current visit: Yes Status: Acute Qualifiers: Chronicity: acute Qualified Code(s): J96.01 - Acute respiratory failure with hypoxia; J96.02 - Acute respiratory failure with hypercapnia Category: Medical Code(s): J96.91 - Respiratory failure, unspecified with hypoxia; J96.92 - Respiratory failure, unspecified with hypercapnia (4) Acute exacerbation of chronic obstructive airways disease Current visit: No Status: Acute Category: Medical Code(s): J44.1 - Chronic obstructive pulmonary disease with (acute) exacerbation (5) Acute on chronic diastolic (congestive) heart failure Current visit: No Status: Acute Category: Medical Code(s): I50.33 - Acute on chronic diastolic (congestive) heart failure (6) Fall Current visit: No Status: Acute Category: Medical Code(s): W19.XXXA - Unspecified fall, initial encounter (7) Anxiety Current visit: No Status: Chronic Category: Medical Code(s): F41.9 - Anxiety disorder, unspecified (8) Bipolar disorder Current visit: No Status: Chronic Category: Medical Code(s): F31.9 - Bipolar disorder, unspecified (9) CAD (coronary artery disease) Current visit: No Status: Chronic Qualifiers: Coronary Disease-Associated Artery/Lesion type: [place] artery [place] vs. transplanted heart: [place] heart Associated angina: with other forms of angina Qualified Code(s): I25.118 - Atherosclerotic heart disease of [place] coronary artery with other forms of angina pectoris Category: Medical Code(s): I25.10 - Atherosclerotic heart disease of [place] coronary artery without angina pectoris (10) COPD (chronic obstructive pulmonary disease) Current visit: No Status: Chronic Qualifiers: COPD type: chronic bronchitis Chronic bronchitis type: unspecified Qualified Code(s): J42 - Unspecified chronic bronchitis Category: Medical Code(s): J44.9 - Chronic obstructive pulmonary disease, unspecified (11) Tobacco abuse Current visit: No Status: Chronic Category: Medical Code(s): Z72.0 - Tobacco use (12) Dysphagia Current visit: Yes Status: Acute Category: Medical Code(s): R13.10 - Dysphagia, unspecified (13) Pancytopenia Current visit: Yes Status: Acute Category: Medical Code(s): D61.818 - Other pancytopenia - Assessment and plan all Dx Assessment and Plan for all problems:: Continue current management with Vapotherm for COPD exacerbation and new current sq insulin management for Type 2 diabetes mellitus, uncontrolled.
--- NOTE | 2018-08-15 14:13 | Progress Note ---
<Marce Lauren - Last Filed: 08/15/18 14:09> Internal Medicine - PN: Subj *Date: 08/15/18 *Time: 14:09 Interval history: Patient was seen this morning at 9:00 AM. She was awakened from sleep. She states she is comfortable but is tired of the bed. She is ready to try weaning again from the Vapotherm. She denies shortness of breath. She gets up to the bedside commode to void and does well. Bowels are moving regularly. She is eating without problems. Exam Vital signs and Labs for Last 24 Hours: Temp Pulse Resp BP Pulse Ox 98.1 F 89 18 119/61 97 08/15/18 11:14 08/15/18 13:28 08/15/18 11:14 08/15/18 11:14 08/15/18 13:28 Laboratory Results - last 24 hr 08/14/18 16:09: POC Glucose 314 H* 08/14/18 21:59: POC Glucose 286 H 08/15/18 06:31: POC Glucose 306 H* 08/15/18 11:52: POC Glucose 418 H* I & O for Last 24 hours: Intake & Output 08/13/18 08/14/18 08/15/18 08/16/18 11:59 11:59 11:59 11:59 Intake Total 1080 / 1080 1210 / 1210 1320 / 1320 480 / 480 Output Total 1350 / 1850 1400 / 1400 2300 / 2300 Balance -270 / -770 -190 / -190 -980 / -980 480 / 480 Weight 202 lb 9 oz 202 lb 6 oz 202 lb 6 oz Microbiology Reports for the Last 24 Hours: Microbiology 08/09/18 17:10 Blood Blood Culture - Final NO GROWTH AFTER 5 DAYS 08/09/18 17:10 Blood Blood Culture - Final NO GROWTH AFTER 5 DAYS - Constitutional no acute distress (Appears comfortable. Awakened for exam) - *Routine Respiratory Exam Comments: Bilateral scattered rhonchi - *Routine Cardiovascular Exam Present: RRR - *Routine Abdominal Exam Present: soft, normoactive bowel sounds. Absent: tenderness - *Routine Extremities Exam Absent: edema - *Routine Neurological Exam Present: alert, oriented X3 Assessment and Plan (1) COPD exacerbation Current visit: Yes Status: Acute Category: Medical Code(s): J44.1 - Chronic obstructive pulmonary disease with (acute) exacerbation (2) DKA (diabetic ketoacidoses) Current visit: Yes Status: Acute Qualifiers: Diabetes mellitus type: type 2 Diabetes mellitus complication detail: without coma Qualified Code(s): E11.10 - Type 2 diabetes mellitus with ketoacidosis without coma Category: Medical Code(s): E11.10 - Type 2 diabetes mellitus with ketoacidosis without coma (3) Respiratory failure with hypoxia and hypercapnia Current visit: Yes Status: Acute Qualifiers: Chronicity: acute Qualified Code(s): J96.01 - Acute respiratory failure with hypoxia; J96.02 - Acute respiratory failure with hypercapnia Category: Medical Code(s): J96.91 - Respiratory failure, unspecified with hypoxia; J96.92 - Respiratory failure, unspecified with hypercapnia (4) Acute exacerbation of chronic obstructive airways disease Current visit: No Status: Acute Category: Medical Code(s): J44.1 - Chronic obstructive pulmonary disease with (acute) exacerbation (5) Acute on chronic diastolic (congestive) heart failure Current visit: No Status: Acute Category: Medical Code(s): I50.33 - Acute on chronic diastolic (congestive) heart failure (6) Fall Current visit: No Status: Acute Category: Medical Code(s): W19.XXXA - Unspecified fall, initial encounter (7) Anxiety Current visit: No Status: Chronic Category: Medical Code(s): F41.9 - Anxiety disorder, unspecified (8) Bipolar disorder Current visit: No Status: Chronic Category: Medical Code(s): F31.9 - Bipolar disorder, unspecified (9) CAD (coronary artery disease) Current visit: No Status: Chronic Qualifiers: Coronary Disease-Associated Artery/Lesion type: [place] artery [place] vs. transplanted heart: hoh heart Associated angina: with other forms of angina Qualified Code(s): I25.118 - Atherosclerotic heart disease of hoh coronary artery with other forms of angina pectoris Category: Medical Code(s): I25.10 - Atherosclerotic heart disease of hoh coronary artery without angina pectoris (10) COPD (chronic obstructive pulmonary disease) Current visit: No Status: Chronic Qualifiers: COPD type: chronic bronchitis Chronic bronchitis type: unspecified Qualified Code(s): J42 - Unspecified chronic bronchitis Category: Medical Code(s): J44.9 - Chronic obstructive pulmonary disease, unspecified (11) Tobacco abuse Current visit: No Status: Chronic Category: Medical Code(s): Z72.0 - Tobacco use (12) Dysphagia Current visit: Yes Status: Acute Category: Medical Code(s): R13.10 - Dysphagia, unspecified (13) Pancytopenia Current visit: Yes Status: Acute Category: Medical Code(s): D61.818 - Other pancytopenia (14) Debility Current visit: Yes Status: Acute Category: Medical Code(s): R53.81 - Other malaise - Assessment and plan all Dx Assessment and Plan for all problems:: We will continue to try and wean from Vapotherm. <Stuart Torres - Last Filed: 08/15/18 18:28> Internal Medicine - PN: Subj *Date: 08/15/18 *Time: 18:27 Exam Vital signs and Labs for Last 24 Hours: Temp Pulse Resp BP Pulse Ox 98.1 F 103 H 20 123/63 98 08/15/18 15:39 08/15/18 15:39 08/15/18 15:39 08/15/18 15:39 08/15/18 15:39 Laboratory Results - last 24 hr 08/14/18 21:59: POC Glucose 286 H 08/15/18 06:31: POC Glucose 306 H* 08/15/18 11:52: POC Glucose 418 H* 08/15/18 16:32: POC Glucose 378 H* 08/15/18 17:45: Urine Color Yellow, Urine Appearance Sl cloudy, Urine pH 6.5, Ur Specific [place] 1.010, Urine Protein Negative, Urine Glucose (UA) 3+, Urine Ketones Negative, Urine Blood Trace-i, Urine Nitrate Positive, Urine Bilirubin Negative, Urine Urobilinogen 0.2, Ur Leukocyte Esterase Negative, Urine RBC Occasional, Urine WBC 3-5, Ur Squamous Epith Cells 5-10, Urine Bacteria 4+ I & O for Last 24 hours: Intake & Output 08/13/18 08/14/18 08/15/18 08/16/18 11:59 11:59 11:59 11:59 Intake Total 1080 / 1080 1210 / 1210 1320 / 1320 960 / 960 Output Total 1350 / 1850 1400 / 1400 2300 / 2300 Balance -270 / -770 -190 / -190 -980 / -980 960 / 960 Weight 202 lb 9 oz 202 lb 6 oz 202 lb 6 oz Microbiology Reports for the Last 24 Hours: Microbiology 08/09/18 17:10 Blood Blood Culture - Final NO GROWTH AFTER 5 DAYS 08/09/18 17:10 Blood Blood Culture - Final NO GROWTH AFTER 5 DAYS Assessment and Plan (1) COPD exacerbation Current visit: Yes Status: Acute Category: Medical Code(s): J44.1 - Chronic obstructive pulmonary disease with (acute) exacerbation (2) DKA (diabetic ketoacidoses) Current visit: Yes Status: Acute Qualifiers: Diabetes mellitus type: type 2 Diabetes mellitus complication detail: witho ut coma Qualified Code(s): E11.10 - Type 2 diabetes mellitus with ketoacidosis without coma Category: Medical Code(s): E11.10 - Type 2 diabetes mellitus with ketoacidosis without coma (3) Respiratory failure with hypoxia and hypercapnia Current visit: Yes Status: Acute Qualifiers: Chronicity: acute Qualified Code(s): J96.01 - Acute respiratory failure with hypoxia; J96.02 - Acute respiratory failure with hypercapnia Category: Medical Code(s): J96.91 - Respiratory failure, unspecified with hypoxia; J96.92 - Respiratory failure, unspecified with hypercapnia (4) Acute exacerbation of chronic obstructive airways disease Current visit: No Status: Acute Category: Medical Code(s): J44.1 - Chronic obstructive pulmonary disease with (acute) exacerbation (5) Acute on chronic diastolic (congestive) heart failure Current visit: No Status: Acute Category: Medical Code(s): I50.33 - Acute on chronic diastolic (congestive) heart failure (6) Fall Current visit: No Status: Acute Category: Medical Code(s): W19.XXXA - Unspecified fall, initial encounter (7) Anxiety Current visit: No Status: Chronic Category: Medical Code(s): F41.9 - Anxiety disorder, unspecified (8) Bipolar disorder Current visit: No Status: Chronic Category: Medical Code(s): F31.9 - Bipolar disorder, unspecified (9) CAD (coronary artery disease) Current visit: No Status: Chronic Qualifiers: Coronary Disease-Associated Artery/Lesion type: hoh artery [place] vs. transplanted heart: hoh heart Associated angina: with other forms of angina Qualified Code(s): I25.118 - Atherosclerotic heart disease of hoh coronary artery with other forms of angina pectoris Category: Medical Code(s): I25.10 - Atherosclerotic heart disease of hoh coronary artery without angina pectoris (10) COPD (chronic obstructive pulmonary disease) Current visit: No Status: Chronic Qualifiers: COPD type: chronic bronchitis Chronic bronchitis type: unspecified Qualified Code(s): J42 - Unspecified chronic bronchitis Category: Medical Code(s): J44.9 - Chronic obstructive pulmonary disease, unspecified (11) Tobacco abuse Current visit: No Status: Chronic Category: Medical Code(s): Z72.0 - Tobacco use (12) Dysphagia Current visit: Yes Status: Acute Category: Medical Code(s): R13.10 - Dysphagia, unspecified (13) Pancytopenia Current visit: Yes Status: Acute Category: Medical Code(s): D61.818 - Other pancytopenia (14) Debility Current visit: Yes Status: Acute Category: Medical Code(s): R53.81 - Other malaise - Assessment and plan all Dx Assessment and Plan for all problems:: Patient seen and examined this morning. Concur with plan to attempt weaning from Vapotherm. We will also continue to slowly taper her steroids. Per nursing staff she is weak and unsteady when she tries to get around the room. I spoke with her about long-term care placement for additional therapy. She is a bit reluctant but did not refuse. Care management will look into options.
[2018-08-15 18:00] LABS: Microscopic, Urine URINE MICROSCOPIC (MICROSCOPIC)
[2018-08-15 18:03] LABS: Appearance,Urine SL CLOUDY (Clear); Bilirubin,Urine Negative (Negative); Blood, Urine TRACE-I (Negative); Color,Urine YELLOW (Yellow); Glucose,Urine (UA) 3+ (Negative); Ketones,Urine Negative (Negative); Leukocyte Esterase,Urine Negative (Negative); PH,Urine 6.5 (5.0-8.5); Protein,Urine Negative (Negative); Urobilinogen,Urine 0.2 EU/dl (0.2)
[2018-08-15 18:10] LABS: Bacteria,Urine 4+ /lpf; RBC,Urine Occasional #/hpf (0-3)
--- NOTE | 2018-08-16 09:02 | Progress Note ---
<Marce Lauren - Last Filed: 08/16/18 08:58> Internal Medicine - PN: Subj *Date: 08/16/18 *Time: 08:58 Interval history: Patient states she feels great this morning. She states she is breathing without difficulty and is anxious to go home. She is eating without difficulty. She denies chest pain. Patient will be going home today. Again discussed smoking cessation. She seems motivated at the moment. Also discussed low-carb diet. She understands this. She will have continued home health. She notes also that her family is moving today to another home. She lives with her daughter, daughter's and 5-year-old child and the 's mother. Exam Vital signs and Labs for Last 24 Hours: Temp Pulse Resp BP Pulse Ox 97.4 F L 84 20 110/74 96 08/16/18 04:00 08/16/18 05:21 08/16/18 04:00 08/16/18 04:00 08/16/18 05:20 Laboratory Results - last 24 hr 08/15/18 11:52: POC Glucose 418 H* 08/15/18 16:32: POC Glucose 378 H* 08/15/18 17:45: Urine Color Yellow, Urine Appearance Sl cloudy, Urine pH 6.5, Ur Specific [place] 1.010, Urine Protein Negative, Urine Glucose (UA) 3+, Urine Ketones Negative, Urine Blood Trace-i, Urine Nitrate Positive, Urine Bilirubin Negative, Urine Urobilinogen 0.2, Ur Leukocyte Esterase Negative, Urine RBC Occasional, Urine WBC 3-5, Ur Squamous Epith Cells 5-10, Urine Bacteria 4+ 08/15/18 20:50: POC Glucose 309 H* 08/16/18 05:10: POC Glucose 258 H I & O for Last 24 hours: Intake & Output 08/13/18 08/14/18 08/15/18 08/16/18 11:59 11:59 11:59 11:59 Intake Total 1080 / 1080 1210 / 1210 1320 / 1320 980 / 980 Output Total 1350 / 1850 1400 / 1400 2300 / 2300 500 / 500 Balance -270 / -770 -190 / -190 -980 / -980 480 / 480 Weight 202 lb 9 oz 202 lb 6 oz 202 lb 6 oz 202 lb 6.008 oz Microbiology Reports for the Last 24 Hours: Microbiology 08/15/18 17:45 Urine,Clean Catch Urine Culture - Preliminary Gram Negative Rods - Constitutional no acute distress Comments: Sitting in bedside chair eating her breakfast and enjoying. Wearing oxygen per nasal cannula - *Routine Respiratory Exam Comments: Few scattered rhonchi posteriorly - *Routine Cardiovascular Exam Present: RRR - *Routine Abdominal Exam Present: soft, normoactive bowel sounds. Absent: tenderness - *Routine Extremities Exam Absent: edema, calf tenderness - *Routine Neurological Exam Present: alert, oriented X3 Assessment and Plan (1) COPD exacerbation Status: Acute Category: Medical Code(s): J44.1 - Chronic obstructive pulmonary disease with (acute) exacerbation (2) DKA (diabetic ketoacidoses) Status: Acute Qualifiers: Diabetes mellitus type: type 2 Diabetes mellitus complication detail: without coma Qualified Code(s): E11.10 - Type 2 diabetes mellitus with ketoacidosis without coma Category: Medical Code(s): E11.10 - Type 2 diabetes mellitus with ketoacidosis without coma (3) Respiratory failure with hypoxia and hypercapnia Status: Acute Qualifiers: Chronicity: acute Qualified Code(s): J96.01 - Acute respiratory failure with hypoxia; J96.02 - Acute respiratory failure with hypercapnia Category: Medical Code(s): J96.91 - Respiratory failure, unspecified with hypoxia; J96.92 - Respiratory failure, unspecified with hypercapnia (4) Acute exacerbation of chronic obstructive airways disease Status: Acute Category: Medical Code(s): J44.1 - Chronic obstructive pulmonary disease with (acute) exacerbation (5) Acute on chronic diastolic (congestive) heart failure Status: Acute Category: Medical Code(s): I50.33 - Acute on chronic diastolic (congestive) heart failure (6) Fall Status: Acute Category: Medical Code(s): W19.XXXA - Unspecified fall, initial encounter (7) Anxiety Status: Chronic Category: Medical Code(s): F41.9 - Anxiety disorder, unspecified (8) Bipolar disorder Status: Chronic Category: Medical Code(s): F31.9 - Bipolar disorder, unspecified (9) CAD (coronary artery disease) Status: Chronic Qualifiers: Coronary Disease-Associated Artery/Lesion type: [place] artery [place] vs. transplanted heart: [place] heart Associated angina: with other forms of angina Qualified Code(s): I25.118 - Atherosclerotic heart disease of [place] coronary artery with other forms of angina pectoris Category: Medical Code(s): I25.10 - Atherosclerotic heart disease of [place] coronary artery without angina pectoris (10) COPD (chronic obstructive pulmonary disease) Status: Chronic Qualifiers: COPD type: chronic bronchitis Chronic bronchitis type: unspecified Qualified Code(s): J42 - Unspecified chronic bronchitis Category: Medical Code(s): J44.9 - Chronic obstructive pulmonary disease, unspecified (11) Tobacco abuse Status: Chronic Category: Medical Code(s): Z72.0 - Tobacco use (12) Dysphagia Status: Acute Category: Medical Code(s): R13.10 - Dysphagia, unspecified (13) Pancytopenia Status: Acute Category: Medical Code(s): D61.818 - Other pancytopenia (14) Debility Status: Acute Category: Medical Code(s): R53.81 - Other malaise - Assessment and plan all Dx Assessment and Plan for all problems:: Patient to be discharged home today. See discharge orders. She will need continued home health. <Stuart Torres - Last Filed: 08/16/18 19:29> Internal Medicine - PN: Subj *Date: 08/16/18 *Time: 19:27 Exam Vital signs and Labs for Last 24 Hours: Temp Pulse Resp BP Pulse Ox 97.8 F 102 H 23 127/70 90 L 08/16/18 08:00 08/16/18 08:00 08/16/18 08:00 08/16/18 08:00 08/16/18 08:00 Laboratory Results - last 24 hr 08/15/18 17:45: Urine Color Yellow, Urine Appearance Sl cloudy, Urine pH 6.5, Ur Specific [place] 1.010, Urine Protein Negative, Urine Glucose (UA) 3+, Urine Ketones Negative, Urine Blood Trace-i, Urine Nitrate Positive, Urine Bilirubin Negative, Urine Urobilinogen 0.2, Ur Leukocyte Esterase Negative, Urine RBC Occasional, Urine WBC 3-5, Ur Squamous Epith Cells 5-10, Urine Bacteria 4+ 08/15/18 20:50: POC Glucose 309 H* 08/16/18 05:10: POC Glucose 258 H I & O for Last 24 hours: Intake & Output 08/14/18 08/15/18 08/16/18 08/17/18 11:59 11:59 11:59 11:59 Intake Total 1210 / 1210 1320 / 1320 1460 / 1460 Output Total 1400 / 1400 2300 / 2300 500 / 500 Balance -190 / -190 -980 / -980 960 / 960 Weight 202 lb 6 oz 202 lb 6 oz 202 lb 6.008 oz Microbiology Reports for the Last 24 Hours: Microbiology 08/15/18 17:45 Urine,Clean Catch Urine Culture - Preliminary Gram Negative Rods Assessment and Plan (1) COPD exacerbation Status: Acute Category: Medical Code(s): J44.1 - Chronic obstructive pulmonary disease with (acute) exacerbation (2) DKA (diabetic ketoacidoses) Status: Acute Qualifiers: Diabetes mellitus type: type 2 Diabetes mellitus complication detail: without coma Qualified Code(s): E11.10 - Type 2 diabetes mellitus with ketoacidosis without coma Category: Medical Code(s): E11.10 - Type 2 diabetes mellitus with ketoacidosis without coma (3) Respiratory failure with hypoxia and hypercapnia Status: Acute Qualifiers: Chronicity: acute Qualified Code(s): J96.01 - Acute respiratory failure with hypoxia; J96.02 - Acute respiratory failure with hypercapnia Category: Medical Code(s): J96.91 - Respiratory failure, unspecified with hypoxia; J96.92 - Respiratory failure, unspecified with hypercapnia (4) Acute exacerbation of chronic obstructive airways disease Status: Acute Category: Medical Code(s): J44.1 - Chronic obstructive pulmonary disease with (acute) exacerbation (5) Acute on chronic diastolic (congestive) heart failure Status: Acute Category: Medical Code(s): I50.33 - Acute on chronic diastolic (congestive) heart failure (6) Fall Status: Acute Category: Medical Code(s): W19.XXXA - Unspecified fall, initial encounter (7) Anxiety Status: Chronic Category: Medical Code(s): F41.9 - Anxiety disorder, unspecified (8) Bipolar disorder Status: Chronic Category: Medical Code(s): F31.9 - Bipolar disorder, unspecified (9) CAD (coronary artery disease) Status: Chronic Qualifiers: Coronary Disease-Associated Artery/Lesion type: [place] artery [place] vs. transplanted heart: [place] heart Associated angina: with other forms of angina Qualified Code(s): I25.118 - Atherosclerotic heart disease of [place] coronary artery with other forms of angina pectoris Category: Medical Code(s): I25.10 - Atherosclerotic heart disease of [place] coronary artery without angina pectoris (10) COPD (chronic obstructive pulmonary disease) Status: Chronic Qualifiers: COPD type: chronic bronchitis Chronic bronchitis type: unspecified Qualified Code(s): J42 - Unspecified chronic bronchitis Category: Medical Code(s): J44.9 - Chronic obstructive pulmonary disease, unspecified (11) Tobacco abuse Status: Chronic Category: Medical Code(s): Z72.0 - Tobacco use (12) Dysphagia Status: Acute Category: Medical Code(s): R13.10 - Dysphagia, unspecified (13) Pancytopenia Status: Acute Category: Medical Code(s): D61.818 - Other pancytopenia (14) Debility Status: Acute Category: Medical Code(s): R53.81 - Other malaise - Assessment and plan all Dx Assessment and Plan for all problems:: Patient seen and examined this morning. She did well yesterday and was able to remain off the Vapotherm during the day and only used her nasal oxygen. Her sats do drop into the low 80s with activity but quickly rebounded into the 90s with rest. I have discussed and offered disposition to residential nursing facility for further rehab but both she and her family are insistent that she goes home. She is being discharged home today. She has a trilogy unit at home which she uses at night as needed during the day. She has home oxygen already set up. She is established with home health and this will be resumed. She will be continued on his own 20 mg twice daily to taper gradually over the next couple weeks. She should follow-up with Dr. Bass in 1 week.
--- NOTE | 2018-08-16 13:45 | Discharge Summary ---
General - General Admission date:: 08/09/18 Discharge date: 08/16/18 HPI HPI: Ms. Ramirez is a 62-year-old female with a history of severe oxygen dependent COPD , anxiety, depression, bipolar disorder, CHF, hypertension, diabetes mellitus with hyperglycemia, coronary artery disease, ongoing tobacco usage and renal cancer who presented to [facility] emergency room for evaluation after experiencing worsening shortness of breath at home. Patient states she became short of breath 2 days prior to admission and progressively felt worse. She had not been able to eat. She did have a fall the day prior to admission because her legs were so weak. She had a minimal cough. She continued to smoke 1/2 packs of cigarettes a day. She denied fever. She denied chest pain. This is the fourth hospital admission since May 17 with COPD related issues. She had been unable to stop smoking. She was scheduled for follow-up visit after her last hospitalization (07/19-07/25/18)on 08/08/2018 but canceled the appointment. Marce Lauren ROBERT did speak with a home health nurse the day prior to admission due to high blood sugar greater than 500. The home health nurse did then visit her at which time she found her in respiratory distress. Patient was requesting to go to the emergency room which she did. Hospital Course Hospital Course: The patient's chest x-ray showed cardiomegaly with chronic change in the right base. She was initially placed on BiPAP and was weaned off of this onto oxygen at 4 L/min while eating her breakfast. Her oxygen sats did drop and she had to be placed back on BiPAP. She was started on an insulin drip for her blood sugar and ketoacidosis and her acetone returned negative the day after admission. Of note, it was greater than 600 on admission. Her home medications were resumed. She was switched from BiPAP to Vapotherm. Duo nebs were added. She had a repeat chest x-ray on 08/09/2018 which showed no change in the patchy right lower lobe infiltrate. Dr. Torres felt this was a chronic infiltrate likely from atelectasis. The patient sats were stable in the low 90s on Vapotherm. Her glucose improved. She did have some episodes of choking, therefore a swallowing evaluation was ordered. It demonstrated no signs of dysphasia or aspiration. Speech therapy did recommend a change to a mechanical soft diet due to absent bottom teeth and ill fitting dentures. She was advised to eat slowly and is a 90 degree angle. Her sputum culture returned with normal respiratory velia. She did began having some decreased saturations on the Vapotherm and had to be placed on and off of BiPAP during the night. A repeat CBC was ordered d/t anemia and it returned showing pancytopenia. Dr. Torres questioned myelodysplasia. Her breathing did improve slowly. Her steroids were tapered. The patient was unsteady when moving around the room and Dr. Torres did discuss long-term care placement for additional therapy. The patient was reluctant. Her Vapotherm was weaned and she does have a trilogy device at home. She was stable to be discharged home and smoking cessation was discussed. It was also discussed that she would need a low-carb diet due to her diabetes. She did mention that her family was moving to another home and she currently lives with her daughter and her family, therefore someone will be home to take care of her. She will be discharged home with home health. Of note, upon discharge her urine was growing gram-negative rods, but the culture and sensitivity is still pending. Blood cultures showed no growth. Objective Vital signs: Temp Pulse Resp BP Pulse Ox 97.8 F 102 H 23 127/70 90 L 08/16/18 08:00 08/16/18 08:00 08/16/18 08:00 08/16/18 08:00 08/16/18 08:00 Narrative: - Constitutional no acute distress Comments: Sitting in bedside chair eating her breakfast and enjoying. Wearing oxygen per nasal cannula - *Routine Respiratory Exam Comments: Few scattered rhonchi posteriorly - *Routine Cardiovascular Exam Present: RRR - *Routine Abdominal Exam Present: soft, normoactive bowel sounds. Absent: tenderness - *Routine Extremities Exam Absent: edema, calf tenderness - *Routine Neurological Exam Present: alert, oriented X3 Results Labs on day of discharge: Labs from last 24 hours 08/16/18 08/15/18 08/15/18 05:10 20:50 17:45 POC Glucose 258 H 309 H* Urine Color Yellow Urine Appearance Sl cloudy Urine pH 6.5 Ur Specific [place] 1.010 Urine Protein Negative Urine Glucose (UA) 3+ Urine Ketones Negative Urine Blood Trace-i Urine Nitrate Positive Urine Bilirubin Negative Urine Urobilinogen 0.2 Ur Leukocyte Esterase Negative Urine RBC Occasional Urine WBC 3-5 Ur Squamous Epith Cells 5-10 Urine Bacteria 4+ 08/15/18 16:32 POC Glucose 378 H* Urine Color Urine Appearance Urine pH Ur Specific [place] Urine Protein Urine Glucose (UA) Urine Ketones Urine Blood Urine Nitrate Urine Bilirubin Urine Urobilinogen Ur Leukocyte Esterase Urine RBC Urine WBC Ur Squamous Epith Cells Urine Bacteria Preliminary micro results at discharge 08/15/18 17:45 Urine Culture - Preliminary Urine,Clean Catch Gram Negative Rods DS: Diagnosis - Discharge Diagnosis (1) COPD exacerbation Status: Acute (2) DKA (diabetic ketoacidoses) Status: Acute (3) Respiratory failure with hypoxia and hypercapnia Status: Acute (4) Acute exacerbation of chronic obstructive airways disease Status: Acute (5) Acute on chronic diastolic (congestive) heart failure Status: Acute (6) Fall Status: Acute (7) Anxiety Status: Chronic (8) Bipolar disorder Status: Chronic (9) CAD (coronary artery disease) Status: Chronic (10) COPD (chronic obstructive pulmonary disease) Status: Chronic (11) Tobacco abuse Status: Chronic (12) Dysphagia Status: Acute (13) Pancytopenia Status: Acute (14) Debility Status: Acute Discharge Plan - Patient Discharge Instructions ACTIVITY: Continue current activity DIET: diabetic diet Patient Instructions: Chronic Obstructive Pulmonary Disease, DI for Chronic Obstructive Pulmonary Disease, DI for Hypoxia - Follow up Plan Follow up with: Petty Bass MD [Primary Care Provider] - 1 week Disposition: Home Health Service Home Medications: Home Medications Medication Instructions Recorded Confirmed Type alprazolam 0.25 mg tablet 0.25 mg PO TID tab 06/14/17 08/09/18 History insulin aspart (U-100) 100 unit/mL 8 unit SUB-Q TID ml 06/14/17 08/09/18 History (3 mL) subcutaneous pen nitroglycerin 0.4 mg sublingual 0.4 mg SUBLINGUAL Q5MINP PRN 06/14/17 08/09/18 History tablet omega-3 fatty acids 1,000 mg 1,000 mg PO DAILY 06/14/17 08/09/18 History capsule venlafaxine 50 mg tablet 50 mg PO BID 90 Days #180 tab 08/31/17 08/09/18 History Aspirin [Low Dose Aspirin EC] 81 mg PO DAILY 10/27/17 08/09/18 History Clopidogrel Bisulfate [Plavix 75mg 75 mg PO DAILY 10/27/17 08/09/18 History Tab] Dexlansoprazole [Dexilant] 60 mg PO DAILY 02/17/18 08/09/18 History Hydrocod/Acet 5/325 mg [[place] 1 tab PO TIDP PRN 02/17/18 08/09/18 History 5/325mg tablet] Rosuvastatin Calcium 10 mg PO HS 02/17/18 08/09/18 History Trazodone HCl 100 mg PO HS 02/17/18 08/09/18 History quetiapine 200 mg tablet 100 mg PO HS tab 03/15/18 08/09/18 History Losartan Potassium 25 mg PO DAILY 05/09/18 08/10/18 History Metoprolol Succinate 50 mg PO DAILY 05/09/18 08/09/18 History Potassium Chloride [Klor-con 20 20 meq PO DAILY 05/10/18 08/09/18 History mEq tablet] Nicotine [Nicoderm 21mg/24hr 21 mg TD DAILY 05/17/18 08/09/18 History patch] dilTIAZem HCl [Diltiazem 240mg 240 mg PO DAILY 05/17/18 08/09/18 History 24Hr ER Cap] Insulin Glargine,Hum.rec.anlog 45 unit SQ HS 07/19/18 08/09/18 History [Insulin Glargine 100 Units/mL 3mL flexpen] Ipratropium/Albuterol Sulfate 3 ml IH QID 07/19/18 08/09/18 History [Duoneb 3mL neb] Isosorbide Mononitrate [Imdur 30mg 30 mg PO DAILY 07/20/18 08/09/18 History ER tablet] Lactulose [Lactulose 10gm/15ml 10 gm PO QID 07/20/18 08/09/18 History Oral Soln] Mirabegron [Myrbetriq] 50 mg PO DAILY 07/20/18 08/09/18 History Polyethylene Glycol 3350 [Miralax 17 gm PO DAILY 07/20/18 08/09/18 History Powder] Nystatin [Nystatin Cr 100,000 30 gm TP QID 08/09/18 08/09/18 History Units/GM 30GM] Amlodipine Besylate [Amlodipine 5 mg PO DAILY 08/10/18 08/10/18 History 5mg tab] Furosemide [Furosemide 40MG tAB] 40 mg PO BID 08/10/18 08/10/18 History predniSONE [Prednisone 20mg 20 mg PO DIRECTED #21 tab 08/16/18 Rx Tab] Prescriptions/Medication Reconciliation: Continued alprazolam 0.25 mg tablet 0.25 mg PO TID tab omega-3 fatty acids 1,000 mg capsule 1,000 mg PO DAILY insulin aspart (U-100) 100 unit/mL (3 mL) subcutaneous pen 8 unit SUB-Q TID ml venlafaxine 50 mg tablet 50 mg PO BID 90 Days #180 tab quetiapine 200 mg tablet 100 mg PO HS tab nitroglycerin 0.4 mg sublingual tablet 0.4 mg SUBLINGUAL Q5MINP PRN PRN Reason: Chest Pain Aspirin [Low Dose Aspirin EC] 81 mg PO DAILY Clopidogrel Bisulfate [Plavix 75mg Tab] 75 mg PO DAILY Rosuvastatin Calcium 10 mg PO HS Trazodone HCl 100 mg PO HS Hydrocod/Acet 5/325 mg [[place] 5/325mg tablet] 1 tab PO TIDP PRN PRN Reason: PAIN Losartan Potassium 25 mg PO DAILY Metoprolol Succinate 50 mg PO DAILY Insulin Glargine,Hum.rec.anlog [Insulin Glargine 100 Units/mL 3mL flexpen] 45 unit SQ HS Mirabegron [Myrbetriq] 50 mg PO DAILY Isosorbide Mononitrate [Imdur 30mg ER tablet] 30 mg PO DAILY Lactulose [Lactulose 10gm/15ml Oral Soln] 10 gm PO QID Polyethylene Glycol 3350 [Miralax Powder] 17 gm PO DAILY Nystatin [Nystatin Cr 100,000 Units/GM 30GM] 30 gm TP QID Furosemide [Furosemide 40MG tAB] 40 mg PO BID Dexlansoprazole [Dexilant] 60 mg PO DAILY Potassium Chloride [Klor-con 20 mEq tablet] 20 meq PO DAILY Nicotine [Nicoderm 21mg/24hr patch] 21 mg TD DAILY dilTIAZem HCl [Diltiazem 240mg 24Hr ER Cap] 240 mg PO DAILY Ipratropium/Albuterol Sulfate [Duoneb 3mL neb] 3 ml IH QID Amlodipine Besylate [Amlodipine 5mg tab] 5 mg PO DAILY Changed predniSONE [Prednisone 20mg Tab] 20 mg PO DIRECTED #21 tab
== END 2018-08-16 10:49 | disposition home health service (06) | DRG 189 ==
LOC: ER 16:09 → 2ND 19:31
PROVIDERS: ADMIT Family Medicine; ATTEND Family Medicine

== ENCOUNTER 2018-08-30 19:12 | Inpatient (IN) ==
[2018-08-30 19:42] LABS: Basophils % 0.2 % (0.1-2.0); Eosinophils % 0.1 % (0.1-12.0); Hematocrit 32.5 % (37.0-47.0); Lymphocytes # 1.1 K/mm3 (0.7-4.5); Lymphocytes % 5.4 % (10-50); Mean Corpuscular HGB Conc 30.8 g/dL (31.8-35.4); Mean Corpuscular Hemoglobin 25.5 pg (27.0-31.2); Mean Platelet Volume 9.2 fl (7.4-10.4); Monocytes % 4.9 % (1.7-9.3); Neutrophils # 17.7 K/mm3 (1.8-7.8); Neutrophils % 89.4 % (37.0-80.0); Platelet Count 127 K/mm3 (142-424); Red Blood Count 3.92 M/mm3 (4.20-5.40); White Blood Count 19.8 K/mm3 (4.8-10.8)
[2018-08-30 19:57] LABS: Albumin Level 2.7 gm/dL (3.4-5.0); Albumin/Globulin Ratio 0.8 (1.1-1.8); Anion Gap 7.2 mEq/L (5-15); Bilirubin,Total 0.7 mg/dL (0.2-1.0); Calcium 8.6 mg/dL (8.5-10.1); Globulin 3.4 gm/dl (1.3-3.2); Potassium 4.2 mmoL/L (3.5-5.1); Total Protein,Serum 6.1 gm/dL (6.4-8.2)
[2018-08-30 20:12] LABS: ABG Base Excess 13.8 mmol/L (-2.4-2.3); ABG HCO3 37.8 mmhg (22.0-26.0); ABG Oxygen Saturation 88 % (90-100); ABG PH 7.45 mmol/L (7.35-7.45); ABG PO2 56.7 mmhg (80-100); ABG TCO2 39.5 mmhg (23-27)
[2018-08-30 20:13] LABS: ABG PCO2 55.8 mmhg (35.0-45.0); Allen's Test Y; Oxygen 3 %
--- NOTE | 2018-08-30 20:47 | Emergency Department Note ---
ED Disposition Clinical Impression: Acute respiratory failure with hypoxia and hypercapnia, Tobacco abuse, Acute exacerbation of chronic obstructive airways disease, Renal insufficiency, Pancytopenia Diabetes mellitus Qualifiers: Diabetes mellitus type: type 1 Diabetes mellitus complication status: with unspecified complications Qualified Code(s): E10.8 - Type 1 diabetes mellitus with unspecified complications Disposition: Admitted as Observation Condition on Discharge: Good Referrals: Petty Bass MD [Primary Care Provider] - - Critical Care Critical Care Time: No Attestation: On 08/30/18, the high probability of a clinically significant, sudden or life threatening deterioration of the following system(s) required my full and direct attention, intervention and personal management. The time I documented below is in addition to time spent performing reported procedures but includes the following listed in this critical care notation. Medical Decision Making - Medical Records Medical records reviewed: Yes: I reviewed the patient's medical records. - Zak Inquiry Pt receiving controlled substance: No Vital Signs: 08/30/18 19:13 08/30/18 20:43 Temperature 99.6 F 99.4 F Temperature Source Oral Oral Pulse Rate [Right] 101 H 82 Respiratory Rate 22 20 Blood Pressure [Right Arm] 99/49 L 99/66 L Blood Pressure Mean [Right Arm] 65 77 Blood Pressure Source [Right Arm] Automatic Cuff Manual Cuff/ Auscultation Blood Pressure Position [Right Arm] Sitting Supine 02 Sat by Pulse Oximetry 89 L 90 L Oxygen Delivery Method Nasal Cannula Nasal Cannula Oxygen Flow Rate (LPM) 3 3 - Lab Data Lab results reviewed: Yes: I reviewed the patient's lab results. Lab Results 08/30/18 19:30: WBC 19.8 H, RBC 3.92 L, Hgb 10.0 L, Hct 32.5 L, MCV 83.0, MCH 25.5 L, MCHC 30.8 L, RDW 19.0 H, Plt Count 127 L, MPV 9.2, Neut % (Auto) 89.4 H, Lymph % (Auto) 5.4 L, [place] % (Auto) 4.9, Eos % (Auto) 0.1, Baso % (Auto) 0.2, Neut # (Auto) 17.7 H, Lymph # (Auto) 1.1, [place] # (Auto) 1.0, Eos # (Auto) 0.0, Baso # (Auto) 0.0, Total Counted 100, Neutrophils % (Manual) 87 H, Lymphocytes % (Manual) 8 L, Monocytes % (Manual) 5, Platelet Estimate Slight decrease, Hypochromasia 2+ 08/30/18 19:30: Sodium 140, Potassium 4.2, Chloride 97 L, Carbon Dioxide 40 H, Anion Gap 7.2, BUN 20 H, Creatinine 1.05 H, Estimated Creat Clear 73, Estimated GFR 53 L, Est GFR ( Amer) 64, Glucose 70 L, Calcium 8.6, Total Bilirubin 0.7, AST 21, ALT 22, Alkaline Phosphatase 69, Troponin I 0.03, Total Protein 6.1 L, Albumin 2.7 L, Globulin 3.4 H, Albumin/Globulin Ratio 0.8 L 08/30/18 19:30: Lactate 1.1 08/30/18 19:30: B-Natriuretic Peptide 174 H 08/30/18 19:30: TSH 1.39 D, Thyroxine (T4) 4.7 08/30/18 20:11: Specimen Source R/r, O2 % 3, ABG pH 7.45, ABG pCO2 55.8 H, ABG pO2 56.7 L, ABG HCO3 37.8 H, ABG Total CO2 39.5 H, ABG O2 Saturation 88 L, ABG Base Excess 13.8 H, Chandler Test Y Result diagrams: 08/30/18 19:30 08/30/18 19:30 Orders (Tests/Meds): ED MEDICATIONS Generic Name Dose Route Start Last Admin Trade Name Freq PRN Reason Stop Dose Admin Tobramycin Sulfate 400 mg/ 110 mls @ 110 mls/hr 08/30/18 21:45 Sodium Chloride IV 09/13/18 21:44 Q12H [facility] Protocol Vancomycin HCl 1,500 mg/ 250 mls @ 125 mls/hr 08/30/18 21:45 Sodium Chloride IV 09/13/18 21:44 Q12H [facility] Miscellaneous 1 each 08/30/18 21:45 Tobramycin Consult Request * 09/29/18 21:44 CONSULT PHARMACY [facility] Miscellaneous 1 each 08/30/18 21:45 Vancomycin Consult Request * 09/29/18 21:44 CONSULT PHARMACY [facility] Sodium Chloride 3 ml 08/30/18 19:40 Sodium Chloride 3% 15ml Neb IH 09/29/18 19:39 ONCE PRN INDUCE SPUTUM COLLECTION ORDERS Category Date Time Status Blood Culture Stat Micro 08/30/18 19:41 Received Sputum Culture & Gram Stain Stat Micro 08/30/18 19:41 Results ABG [Arterial Blood Gas] Stat RT 08/30/18 19:29 Ordered - Radiology Data #1 Image(s): Chest Image Reviewed: Yes I reviewed the patient's radiology image Preliminary Findings: Abnormal (chronic changes ) - ECG Data Tracing #1 Arrhythmias present: MAT, wandering atrial pacemaker Ischemic changes: non-specific ST-T wave changes ECG compared to prior tracings: there are no significant changes - Physician Consults Physician Consulted: pito Reason -: Admission Resp/SOB HPI - General Chief Complaint: Shortness of Breath/Dyspnea Stated Complaint: SOA Time Seen by Provider: 08/30/18 20:00 Mode of Arrival: EMS Source of Information: Patient, EMS, Medical Record Limitations: No Limitations Description of Symptoms (Recalled from ER Triage Doc. by RN): Pt states she has had diff breathing since this AM and fell out of her chair [employer], 100mg Solu- medrol and Duoneb in route - History of Present Illness pt with hx of chf and copd on o2 and no chest pain or fever - no prod cough MD Complaint: shortness of breath Onset (ago): hour(s) Severity: moderate Known history of: COPD, congestive heart failure, diabetes Associated symptoms: denies other symptoms Treatment prior to arrival: oxygen - Related Data Home oxygen amount: 2 liters Home Medications Medication Instructions Recorded Confirmed alprazolam 0.25 mg tablet 0.25 mg PO TID tab 06/14/17 08/30/18 insulin aspart (U-100) 100 unit/mL 8 unit SUB-Q TID ml 06/14/17 08/30/18 (3 mL) subcutaneous pen nitroglycerin 0.4 mg sublingual 0.4 mg SUBLINGUAL Q5MINP PRN 06/14/17 08/30/18 tablet omega-3 fatty acids 1,000 mg 1,000 mg PO DAILY 06/14/17 08/30/18 capsule venlafaxine 50 mg tablet 50 mg PO BID 90 Days #180 tab 08/31/17 08/30/18 RX: Aspirin [Low Dose Aspirin EC] 81 mg PO DAILY 10/27/17 08/30/18 RX: Clopidogrel Bisulfate [Plavix 75 mg PO DAILY 10/27/17 08/30/18 75mg Tab] RX: Dexlansoprazole [Dexilant] 60 mg PO DAILY 02/17/18 08/30/18 RX: Hydrocod/Acet 5/325 mg [[place] 1 tab PO TIDP PRN 02/17/18 08/30/18 5/325mg tablet] RX: Rosuvastatin Calcium 10 mg PO HS 02/17/18 08/30/18 RX: Trazodone HCl 100 mg PO HS 02/17/18 08/30/18 quetiapine 200 mg tablet 100 mg PO HS tab 03/15/18 08/30/18 RX: Losartan Potassium 25 mg PO DAILY 05/09/18 08/30/18 RX: Metoprolol Succinate 50 mg PO DAILY 05/09/18 08/30/18 RX: Potassium Chloride [Klor-con 20 meq PO DAILY 05/10/18 08/30/18 20 mEq tablet] RX: Nicotine [Nicoderm 21mg/24hr 21 mg TD DAILY 05/17/18 08/30/18 patch] RX: dilTIAZem HCl [Diltiazem 240mg 240 mg PO DAILY 05/17/18 08/30/18 24Hr ER Cap] RX: Insulin Glargine,Hum.rec.anlog 45 unit SQ HS 07/19/18 08/30/18 [Insulin Glargine 100 Units/mL 3mL flexpen] RX: Ipratropium/Albuterol Sulfate 3 ml IH QID 07/19/18 08/30/18 [Duoneb 3mL neb] RX: Lactulose [Lactulose 10gm/15ml 10 gm PO QID 07/20/18 08/30/18 Oral Soln] RX: Mirabegron [Myrbetriq] 50 mg PO DAILY 07/20/18 08/30/18 RX: Polyethylene Glycol 3350 17 gm PO DAILY 07/20/18 08/30/18 [Miralax Powder] RX: Nystatin [Nystatin Cr 100,000 30 gm TP QID 08/09/18 08/30/18 Units/GM 30GM] RX: Amlodipine Besylate 5 mg PO DAILY 08/10/18 08/30/18 [Amlodipine 5mg tab] RX: Furosemide [Furosemide 40MG 40 mg PO BID 08/10/18 08/30/18 tAB] Previous Rx's Medication Instructions Recorded RX: predniSONE [Prednisone 20mg 20 mg PO DIRECTED #21 tab 08/16/18 Tab] Allergies Allergy/AdvReac Type Severity Reaction Status Date / Time bacitracin Allergy Intermediate Rash Verified 05/09/18 14:40 [From NEOSPORIN ([id number])] doxycycline Allergy Mild Rash Verified 05/09/18 14:40 neomycin Allergy Mild Rash Verified 05/09/18 14:40 [From NEOSPORIN ([id number])] Penicillins Allergy Mild Rash Verified 05/09/18 14:40 polymyxin B Allergy Mild Rash Verified 05/09/18 14:40 [From NEOSPORIN ([id number])] sertraline [From Zoloft] AdvReac Severe Hallucinati Verified 05/09/18 14:40 ng tea tree AdvReac Severe Verified 05/18/18 15:00 gabapentin AdvReac Verified 07/20/18 10:35 green tea AdvReac Verified 05/19/18 14:30 [facility] History - Hepatitis A Screen Drug use history?: No High risk sexual behaviors?: No History of sexually transmitted infection?: No Currently employed?: No Childcare worker?: No Do you have indoor plumbing?: Yes Do you have electricity?: Yes Attestation statement:: This patient has been screened for Hepatitis A risk factors. I have reviewed the patient's past medical history: Yes Medical History: Reports:: Anxiety, Atherosclerotic Heart Disease, Cancer, Congestive Heart Failure, Chronic Obstructive Pulmonary Disease (COPD), Coronary Artery Disease, Diabetes Mellitus Type 2, Gastroesophageal Reflux Disease(GERD), Home Oxygen, Hyperlipidemia, Hypertension, Lung Disease, MRSA, Peripheral Vascular Disease, Renal Insufficiency Denies:: Diabetes Mellitus Type 1 Other Medical History: Reports: Anemia, Arthritis Comment: bipolar disorder Laterality Cases: Left: Total Hip Replacement, Right: Other, Bilateral: Tonsillectomy Other Surgeries: Yes: Cancer Surgery, Cholecystectomy, Coronary Stent, Hysterectomy-Total, Other Amputation: No Fractures: Yes (fractured lt hip october 27 2017) Comment: left hip surgery - Social History Smoking Status: Current every day smoker Tobacco Type: cigarettes # Packs/Day (cigarettes): 1 Alcohol Intake: never Alcohol Intake Frequency:: other Substance Use Type: denies use Occupational Status: disabled Housing: house Household Members: family, children - Psychiatric History Expresses thoughts of harming self/others: None Suicide Plan Description: No Plan Pschychiatric History:: Reports:: Anxiety, Bipolar Disorder Family Hx:: Hypertension, Heart Attack, Diabetes, Hyperlipidemia, Kidney Disease ROS Obtained: Yes All systems reviewed & no additional complaints - Constitutional Constitutional: Denies fever(s) - Eyes Eyes: Denies change in vision - ENT Ears, Nose, Mouth, and Throat: Denies sore throat - Cardiovascular Cardiovascular: Denies chest pain, Reports dyspnea - Respiratory Respiratory: Yes cough - Gastrointestinal Gastrointestingal: Denies: abdominal pain - Genitourinary Female Genitourinary: Denies hematuria - Musculoskeletal Musculoskeletal: Denies joint pain - Integumentary/Breasts Skin/Breast: Denies rash - Neurologic Neurologic: Denies seizure-like activity Physical Exam - General General appearance: alert, in no apparent distress, other (overweight) - Head Head exam: atraumatic - Eye Eye exam: Present: PERRL, EOMI. Absent: scleral icterus - ENT ENT exam: Present: mucous membranes dry - Neck Neck exam: Present: trachea midline - Respiratory Respiratory exam: Present: wheezes, other (dec bs bilat ). Absent: respiratory distress - Cardiovascular Cardiovascular exam: Present: regular rate, systolic murmur, +S4 - Abdominal Exam Abdominal exam: Present: soft - Extremities Exam Extremities exam: Present: pedal edema. Absent: calf tenderness - Neurological Exam Neurological exam: Present: alert, oriented X3, CN II-XII intact. Absent: motor sensory deficit - Psychiatric Psychiatric exam: Present: normal affect - Skin Skin exam: Present: other (skin tear to lower ext lt and pressure ulcer rt lat ankle )
[2018-08-30 21:05] LABS: Hypochromasia 2+; Lymphocytes % 8 % (10-50); Monocytes % 5 % (2-9); Neutrophils % 87 % (42-76); Total Cells Counted 100
[2018-08-30 21:29] LABS: Thyroid Stimulating Hormone 1.39 uIU/ml (0.358-3.740)
[2018-08-31 07:03] LABS: Basophils % 0.2 % (0.1-2.0); Eosinophils % 0.1 % (0.1-12.0); Hematocrit 31.2 % (37.0-47.0); Lymphocytes # 0.2 K/mm3 (0.7-4.5); Lymphocytes % 3.6 % (10-50); Mean Corpuscular HGB Conc 28.5 g/dL (31.8-35.4); Mean Corpuscular Hemoglobin 25.2 pg (27.0-31.2); Mean Corpuscular Volume 88.4 fl (81-99); Mean Platelet Volume 8.9 fl (7.4-10.4); Monocytes # 0.2 K/mm3 (0.1-1.0); Monocytes % 2.9 % (1.7-9.3); Neutrophils % 93.2 % (37.0-80.0); Platelet Count 77 K/mm3 (142-424); Red Blood Count 3.53 M/mm3 (4.20-5.40); Red Cell Distribution Width 19.2 % (11.5-17.5); White Blood Count 6.5 K/mm3 (4.8-10.8)
--- NOTE | 2018-08-31 07:22 | Pharmacy Consult Notes ---
[facility] Pharmacy VTE Monitoring - Patient Demographics Admission date: 08/30/18 Report Date: 08/31/18 Time: 07:21 Allergies/Adverse Reactions: Patient Allergies bacitracin [From NEOSPORIN ([id number])] Allergy (Intermediate, Verified 05/09/18 14:40) Rash doxycycline Allergy (Mild, Verified 05/09/18 14:40) Rash neomycin [From NEOSPORIN ([id number])] Allergy (Mild, Verified 05/09/18 14:40) Rash Penicillins Allergy (Mild, Verified 05/09/18 14:40) Rash polymyxin B [From NEOSPORIN ([id number])] Allergy (Mild, Verified 05/09/18 14:40) Rash sertraline [From Zoloft] Adverse Reaction (Severe, Verified 05/09/18 14:40) Hallucinating tea tree Adverse Reaction (Severe, Verified 05/18/18 15:00) gabapentin Adverse Reaction (Verified 07/20/18 10:35) green tea Adverse Reaction (Verified 05/19/18 14:30) Height: 1.68 m Weight: 85.2 kg Patient Problems: Current Active Problems (Updated 08/30/18 @ 21:07 by Dom Hamilton MD) Acute respiratory failure with hypoxia and hypercapnia (Acute) Tobacco abuse (Chronic) Renal insufficiency (Acute) Acute exacerbation of chronic obstructive airways disease (Acute) Pancytopenia (Acute) Diabetes mellitus (Chronic) - VTE Risk Labs: VTE Related Lab Results Hgb 9.0 g/dL (12.2-16.2) L 08/31/18 06:28 Hct 31.2 % (37.0-47.0) L 08/31/18 06:28 Plt Count 77 K/mm3 (142-424) L D 08/31/18 06:28 BUN 20 mg/dL (7-18) H 08/30/18 19:30 Creatinine 1.05 mg/dL (0.55-1.02) H 08/30/18 19:30 Estimated Creat Clear 73 mL/min (50-200) 08/30/18 19:30 Was VTE Risk Assessment Performed: Yes VTE Score: 11 VTE Risk Level: Moderate Risk - Prophylaxis VTE Prophylaxis Ordered?: Yes Types of VTE Prophylaxis: TEDS Knee High Location of Applied Device: Bilateral Lower Extremeties - VTE Diagnosis Confirmed Treatment or plan recommended: Continue Current Treatment
[2018-08-31 08:07] LABS: Anion Gap 9.1 mEq/L (5-15); Calcium 8.2 mg/dL (8.5-10.1); Potassium 4.1 mmoL/L (3.5-5.1)
--- NOTE | 2018-08-31 09:18 | Pharmacy Consult Notes ---
- Pharmacy Consult Date: 08/31/18 Time: 09:15 Referring provider: DR. VALENCIA Reason for Consult:: VANCOMYCIN AND TOBRAMYCIN DOSING Allergies and ADEs:: Allergies Allergy/AdvReac Type Severity Reaction Status Date / Time bacitracin Allergy Intermediate Rash Verified 05/09/18 14:40 [From NEOSPORIN ([id number])] doxycycline Allergy Mild Rash Verified 05/09/18 14:40 neomycin Allergy Mild Rash Verified 05/09/18 14:40 [From NEOSPORIN ([id number])] Penicillins Allergy Mild Rash Verified 05/09/18 14:40 polymyxin B Allergy Mild Rash Verified 05/09/18 14:40 [From NEOSPORIN ([id number])] sertraline [From Zoloft] AdvReac Severe Hallucinati Verified 05/09/18 14:40 ng tea tree AdvReac Severe Verified 05/18/18 15:00 gabapentin AdvReac Verified 07/20/18 10:35 green tea AdvReac Verified 05/19/18 14:30 Home Medications:: Home Medications Medication Instructions Recorded Confirmed Type alprazolam 0.25 mg tablet 0.25 mg PO TID tab 06/14/17 08/31/18 History insulin aspart (U-100) 100 unit/mL 8 unit SUB-Q TID ml 06/14/17 08/31/18 History (3 mL) subcutaneous pen nitroglycerin 0.4 mg sublingual 0.4 mg SUBLINGUAL Q5MINP PRN 06/14/17 08/31/18 History tablet omega-3 fatty acids 1,000 mg 1,000 mg PO DAILY 06/14/17 08/31/18 History capsule venlafaxine 50 mg tablet 50 mg PO BID 90 Days #180 tab 08/31/17 08/31/18 History Aspirin [Low Dose Aspirin EC] 81 mg PO DAILY 10/27/17 08/31/18 History Clopidogrel Bisulfate [Plavix 75mg 75 mg PO DAILY 10/27/17 08/31/18 History Tab] Dexlansoprazole [Dexilant] 60 mg PO DAILY 02/17/18 08/31/18 History Hydrocod/Acet 5/325 mg [[place] 1 tab PO TIDP PRN 02/17/18 08/31/18 History 5/325mg tablet] Rosuvastatin Calcium 10 mg PO HS 02/17/18 08/31/18 History Trazodone HCl 100 mg PO HS 02/17/18 08/31/18 History quetiapine 200 mg tablet 100 mg PO HS tab 03/15/18 08/31/18 History Losartan Potassium 25 mg PO DAILY 05/09/18 08/31/18 History Metoprolol Succinate 50 mg PO DAILY 05/09/18 08/31/18 History Potassium Chloride [Klor-con 20 20 meq PO DAILY 05/10/18 08/31/18 History mEq tablet] Nicotine [Nicoderm 21mg/24hr 21 mg TD DAILY 05/17/18 08/31/18 History patch] dilTIAZem HCl [Diltiazem 240mg 240 mg PO DAILY 05/17/18 08/31/18 History 24Hr ER Cap] Insulin Glargine,Hum.rec.anlog 45 unit SQ HS 07/19/18 08/31/18 History [Insulin Glargine 100 Units/mL 3mL flexpen] Ipratropium/Albuterol Sulfate 3 ml IH QID 07/19/18 08/31/18 History [Duoneb 3mL neb] Lactulose [Lactulose 10gm/15ml 10 gm PO QID 07/20/18 08/31/18 History Oral Soln] Mirabegron [Myrbetriq] 50 mg PO DAILY 07/20/18 08/31/18 History Polyethylene Glycol 3350 [Miralax 17 gm PO DAILY 07/20/18 08/31/18 History Powder] Nystatin [Nystatin Cr 100,000 30 gm TP QID 08/09/18 08/31/18 History Units/GM 30GM] Amlodipine Besylate [Amlodipine 5 mg PO DAILY 08/10/18 08/31/18 History 5mg tab] Furosemide [Furosemide 40MG tAB] 40 mg PO BID 08/10/18 08/31/18 History predniSONE [Prednisone 20mg 20 mg PO DIRECTED #21 tab 08/16/18 08/31/18 Rx Tab] Height: 1.68 m Weight: 85.2 kg Laboratory Results:: Laboratory Results - last 24 hr 08/30/18 19:30: WBC 19.8 H, RBC 3.92 L, Hgb 10.0 L, Hct 32.5 L, MCV 83.0, MCH 25.5 L, MCHC 30.8 L, RDW 19.0 H, Plt Count 127 L, MPV 9.2, Neut % (Auto) 89.4 H, Lymph % (Auto) 5.4 L, [place] % (Auto) 4.9, Eos % (Auto) 0.1, Baso % (Auto) 0.2, Neut # (Auto) 17.7 H, Lymph # (Auto) 1.1, [place] # (Auto) 1.0, Eos # (Auto) 0.0, Baso # (Auto) 0.0, Total Counted 100, Neutrophils % (Manual) 87 H, Lymphocytes % (Manual) 8 L, Monocytes % (Manual) 5, Platelet Estimate Slight decrease, Hypochromasia 2+ 08/30/18 19:30: Sodium 140, Potassium 4.2, Chloride 97 L, Carbon Dioxide 40 H, Anion Gap 7.2, BUN 20 H, Creatinine 1.05 H, Estimated Creat Clear 73, Estimated GFR 53 L, Est GFR ( Amer) 64, Glucose 70 L, Calcium 8.6, Total Bilirubin 0.7, AST 21, ALT 22, Alkaline Phosphatase 69, Troponin I 0.03, Total Protein 6.1 L, Albumin 2.7 L, Globulin 3.4 H, Albumin/Globulin Ratio 0.8 L 08/30/18 19:30: Lactate 1.1 08/30/18 19:30: B-Natriuretic Peptide 174 H 08/30/18 19:30: TSH 1.39 D, Thyroxine (T4) 4.7 08/30/18 20:11: Specimen Source R/r, O2 % 3, ABG pH 7.45, ABG pCO2 55.8 H, ABG pO2 56.7 L, ABG HCO3 37.8 H, ABG Total CO2 39.5 H, ABG O2 Saturation 88 L, ABG Base Excess 13.8 H, Chandler Test Y 08/30/18 23:38: POC Glucose 120 H 08/31/18 00:50: Troponin I 0.03 08/31/18 03:45: Troponin I 0.02 08/31/18 06:10: POC Glucose 183 H 08/31/18 06:28: WBC 6.5 D, RBC 3.53 L, Hgb 9.0 L, Hct 31.2 L, MCV 88.4, MCH 25.2 L, MCHC 28.5 L, RDW 19.2 H, Plt Count 77 L D, MPV 8.9, Neut % (Auto) 93.2 H , Lymph % (Auto) 3.6 L, [place] % (Auto) 2.9, Eos % (Auto) 0.1, Baso % (Auto) 0.2, Neut # (Auto) 6.0, Lymph # (Auto) 0.2 L, [place] # (Auto) 0.2, Eos # (Auto) 0.0, Baso # (Auto) 0.0 08/31/18 06:28: Sodium 142, Potassium 4.1, Chloride 99, Carbon Dioxide 38 H, An ion Gap 9.1, BUN 23 H, Creatinine 0.99, Estimated Creat Clear 79, Estimated GFR 57 L, Est GFR ( Amer) 69, Glucose 177 H D, Calcium 8.2 L, Magnesium 2.1 08/31/18 06:28: Random Tobramycin 10.1 Medical History: Reports:: Anxiety, Atherosclerotic Heart Disease, Cancer, Congestive Heart Failure, Chronic Obstructive Pulmonary Disease (COPD), Coronary Artery Disease, Diabetes Mellitus Type 2, Gastroesophageal Reflux Disease(GERD), Home Oxygen, Hyperlipidemia, Hypertension, Lung Disease, MRSA, Peripheral Vascular Disease, Renal Insufficiency Denies:: Diabetes Mellitus Type 1 Assessment and Plan - Assessment and plan all Dx Assessment and Plan for all problems:: PATIENT RECEIVED VANCOMYCIN 1500 MG X1 IN ER OVERNIGHT AT 2200. SHE ALSO RECEIVED TOBRAMYCIN 400 MG X1 DOSE AT 0100 THIS AM. RECOMMEND CONTINUING WITH VANCOMYCIN 1500 MG Q12H STARTING TODAY AND TOBRAMYCIN 320 MG Q24H STARTING IN THE AM. WILL OBTAIN 4 AND 12 HOUR POST INFUSION LEVELS FOR THE TOBRAMYCIN AND W ILL ADJUST IF INDICATED. PHARMACY WILL FOLLOW DAILY AND ADJUST IF APPROPRIATE. BESS AGUAYO, CARRILLOD
[2018-08-31 09:28] LABS: Lymphocytes % 2 % (10-50); Monocytes % 2 % (2-9); Myelocytes % 1 (0-1); Neutrophils % 91 % (42-76); Total Cells Counted 100
[2018-08-31 09:29] LABS: Anisocytosis 2+; Hypochromasia 2+
--- NOTE | 2018-08-31 09:42 | History & Physical Report ---
*Admission Date: 08/30/18 *Chief complaint: Shortness of breath *History of present illness: Ms. Ramirez is a 62yo WF with history of DM, HTN, CHF, COPD on home O2, CAD with stent, and renal cancer. She reports some increasing shortness of breath at home over the past week with productive cough. Yesterday she was not able to get any relief with nebulizer treatments and presented to the [facility] ED for evaluation after SOB caused her to fall out of her chair. She also noted some mild chest discomfort. Upon arrival, EKG showed non-specific changes. CXR was negative for acute findings. Her WBC count was elevated and renal function was decreased. ABG's showed acute respiratory failure with hypoxia and hypercapnia. She was admitted for further evaluation and treatment. This morning, she reports her breathing has improved. She denies any pain and tolerated breakfast well. She continues with productive cough and remains short of breath at rest. [facility] History Medical History: Reports:: Anxiety, Atherosclerotic Heart Disease, Cancer, Congestive Heart Failure, Chronic Obstructive Pulmonary Disease (COPD), Coronary Artery Disease, Depression, Diabetes Mellitus Type 2, Gall Bladder Disease, Gastroesophageal Reflux Disease(GERD), Home Oxygen, Hyperlipidemia, Hypertens ion, Lung Disease, MRSA, Peripheral Vascular Disease, Renal Insufficiency Denies:: Diabetes Mellitus Type 1 *Have you ever received a pneumonia vaccine?: Yes *Have you received a flu vaccine this season?: Yes Other Medical History: Reports: Anemia, Arthritis Laterality Cases: Left: Total Hip Replacement, Right: Other, Bilateral: Tonsillectomy Other Surgeries: Yes: Cancer Surgery, Cholecystectomy, Coronary Stent, Hysterectomy-Total, Other Amputation: No Fractures: Yes (fractured lt hip october 27 2017) - *Social History Educational Level: Attended College Smoking Status: Current every day smoker Tobacco Type: cigarettes # Packs/Day (cigarettes): 1 Alcohol Intake: never Alcohol Intake Frequency:: other Substance Use Type: denies use *Occupational Status:: disabled Housing: house Household Members: family, children *Travel in the last 8 weeks: None - Psychiatric History Expresses thoughts of harming self/others: None Suicide Plan Description: No Plan Pschychiatric History:: Reports:: Anxiety, Bipolar Disorder, Depression Family Hx:: Hypertension, Heart Attack, Diabetes, Hyperlipidemia, Kidney Disease Review of Systems - Constitutional Reports weakness, Denies fever(s), Denies headache(s) - ENT Reports nasal congestion, Reports nasal discharge, Reports sore throat, Reports dizziness - *Cardiovascular Reports chest pain, Reports shortness of breath, Reports shortness of breath with activity, Reports leg swelling, Reports lightheadedness - *Respiratory Reports chest congestion, Reports cough, Reports shortness of breath, Reports shortness of breath with activity, Reports excessive phlegm production, Reports wheezing - *Gastrointestinal Denies abdominal pain, Denies change in stools, Denies loose stools, Denies nausea, Denies vomiting - *Genitourinary Denies difficulty urinating - *Neurologic Reports dizziness, Reports weakness, Denies headache(s), Denies seizure-like activity Meds Home Medications Medication Instructions Recorded Confirmed Type alprazolam 0.25 mg tablet 0.25 mg PO TID tab 06/14/17 08/31/18 History insulin aspart (U-100) 100 unit/mL 8 unit SUB-Q TID ml 06/14/17 08/31/18 History (3 mL) subcutaneous pen nitroglycerin 0.4 mg sublingual 0.4 mg SUBLINGUAL Q5MINP PRN 06/14/17 08/31/18 History tablet omega-3 fatty acids 1,000 mg 1,000 mg PO DAILY 06/14/17 08/31/18 History capsule venlafaxine 50 mg tablet 50 mg PO BID 90 Days #180 tab 08/31/17 08/31/18 History Aspirin [Low Dose Aspirin EC] 81 mg PO DAILY 10/27/17 08/31/18 History Clopidogrel Bisulfate [Plavix 75mg 75 mg PO DAILY 10/27/17 08/31/18 History Tab] Dexlansoprazole [Dexilant] 60 mg PO DAILY 02/17/18 08/31/18 History Hydrocod/Acet 5/325 mg [[place] 1 tab PO TIDP PRN 02/17/18 08/31/18 History 5/325mg tablet] Rosuvastatin Calcium 10 mg PO HS 02/17/18 08/31/18 History Trazodone HCl 100 mg PO HS 02/17/18 08/31/18 History quetiapine 200 mg tablet 100 mg PO HS tab 03/15/18 08/31/18 History Losartan Potassium 25 mg PO DAILY 05/09/18 08/31/18 History Metoprolol Succinate 50 mg PO DAILY 05/09/18 08/31/18 History Potassium Chloride [Klor-con 20 20 meq PO DAILY 05/10/18 08/31/18 History mEq tablet] Nicotine [Nicoderm 21mg/24hr 21 mg TD DAILY 05/17/18 08/31/18 History patch] dilTIAZem HCl [Diltiazem 240mg 240 mg PO DAILY 05/17/18 08/31/18 History 24Hr ER Cap] Insulin Glargine,Hum.rec.anlog 45 unit SQ HS 07/19/18 08/31/18 History [Insulin Glargine 100 Units/mL 3mL flexpen] Ipratropium/Albuterol Sulfate 3 ml IH QID 07/19/18 08/31/18 History [Duoneb 3mL neb] Lactulose [Lactulose 10gm/15ml 10 gm PO QID 07/20/18 08/31/18 History Oral Soln] Mirabegron [Myrbetriq] 50 mg PO DAILY 07/20/18 08/31/18 History Polyethylene Glycol 3350 [Miralax 17 gm PO DAILY 07/20/18 08/31/18 History Powder] Nystatin [Nystatin Cr 100,000 30 gm TP QID 08/09/18 08/31/18 History Units/GM 30GM] Amlodipine Besylate [Amlodipine 5 mg PO DAILY 08/10/18 08/31/18 History 5mg tab] Furosemide [Furosemide 40MG tAB] 40 mg PO BID 08/10/18 08/31/18 History predniSONE [Prednisone 20mg 20 mg PO DIRECTED #21 tab 08/16/18 08/31/18 Rx Tab] Allergies Allergy/AdvReac Type Severity Reaction Status Date / Time bacitracin Allergy Intermediate Rash Verified 05/09/18 14:40 [From NEOSPORIN ([id number])] doxycycline Allergy Mild Rash Verified 05/09/18 14:40 neomycin Allergy Mild Rash Verified 05/09/18 14:40 [From NEOSPORIN ([id number])] Penicillins Allergy Mild Rash Verified 05/09/18 14:40 polymyxin B Allergy Mild Rash Verified 05/09/18 14:40 [From NEOSPORIN ([id number])] sertraline [From Zoloft] AdvReac Severe Hallucinati Verified 05/09/18 14:40 ng tea tree AdvReac Severe Verified 05/18/18 15:00 gabapentin AdvReac Verified 07/20/18 10:35 green tea AdvReac Verified 05/19/18 14:30 Exam Vital signs and Labs for Last 24 Hours: Temp Pulse Resp BP Pulse Ox 97.5 F L 86 22 86/54 L 94 L 08/31/18 08:00 08/31/18 08:00 08/31/18 08:00 08/31/18 08:00 08/31/18 08:00 Laboratory Results - last 24 hr 08/30/18 19:30: WBC 19.8 H, RBC 3.92 L, Hgb 10.0 L, Hct 32.5 L, MCV 83.0, MCH 25.5 L, MCHC 30.8 L, RDW 19.0 H, Plt Count 127 L, MPV 9.2, Neut % (Auto) 89.4 H, Lymph % (Auto) 5.4 L, [place] % (Auto) 4.9, Eos % (Auto) 0.1, Baso % (Auto) 0.2, Neut # (Auto) 17.7 H, Lymph # (Auto) 1.1, [place] # (Auto) 1.0, Eos # (Auto) 0.0, Baso # (Auto) 0.0, Total Counted 100, Neutrophils % (Manual) 87 H, Lymphocytes % (Manual) 8 L, Monocytes % (Manual) 5, Platelet Estimate Slight decrease, Hypochromasia 2+ 08/30/18 19:30: Sodium 140, Potassium 4.2, Chloride 97 L, Carbon Dioxide 40 H, Anion Gap 7.2, BUN 20 H, Creatinine 1.05 H, Estimated Creat Clear 73, Estimated GFR 53 L, Est GFR ( Amer) 64, Glucose 70 L, Calcium 8.6, Total Bilirubin 0.7, AST 21, ALT 22, Alkaline Phosphatase 69, Troponin I 0.03, Total Protein 6.1 L, Albumin 2.7 L, Globulin 3.4 H, Albumin/Globulin Ratio 0.8 L 08/30/18 19:30: Lactate 1.1 08/30/18 19:30: B-Natriuretic Peptide 174 H 08/30/18 19:30: TSH 1.39 D, Thyroxine (T4) 4.7 08/30/18 20:11: Specimen Source R/r, O2 % 3, ABG pH 7.45, ABG pCO2 55.8 H, ABG pO2 56.7 L, ABG HCO3 37.8 H, ABG Total CO2 39.5 H, ABG O2 Saturation 88 L, ABG Base Excess 13.8 H, Chandler Test Y 08/30/18 23:38: POC Glucose 120 H 08/31/18 00:50: Troponin I 0.03 08/31/18 03:45: Troponin I 0.02 08/31/18 06:10: POC Glucose 183 H 08/31/18 06:28: WBC 6.5 D, RBC 3.53 L, Hgb 9.0 L, Hct 31.2 L, MCV 88.4, MCH 25. 2 L, MCHC 28.5 L, RDW 19.2 H, Plt Count 77 L D, MPV 8.9, Neut % (Auto) 93.2 H, Lymph % (Auto) 3.6 L, [place] % (Auto) 2.9, Eos % (Auto) 0.1, Baso % (Auto) 0.2, Neut # (Auto) 6.0, Lymph # (Auto) 0.2 L, [place] # (Auto) 0.2, Eos # (Auto) 0.0, Baso # (Auto) 0.0, Total Counted 100, Neutrophils % (Manual) 91 H, Band Neutrophils % 4.0, Lymphocytes % (Manual) 2 L, Monocytes % (Manual) 2, Myelocytes % 1, Hypersegmented Neuts 1+, Platelet Estimate Slight decrease, RBC Morphology Not Reportable, Hypochromasia 2+, Anisocytosis 2+ 08/31/18 06:28: Sodium 142, Potassium 4.1, Chloride 99, Carbon Dioxide 38 H, Anion Gap 9.1, BUN 23 H, Creatinine 0.99, Estimated Creat Clear 79, Estimated GFR 57 L, Est GFR ( Amer) 69, Glucose 177 H D, Calcium 8.2 L, Magnesium 2.1 08/31/18 06:28: Random Tobramycin 10.1 I & O for Last 24 hours: Intake & Output 08/28/18 08/29/18 08/30/18 06/05/19 11:59 11:59 11:59 11:59 Intake Total 996 / 996 Balance 996 / 996 Weight 187 lb 13.341 oz Microbiology Reports for the Last 24 Hours: Microbiology 08/30/18 19:41 Sputum - Expectorated Sputum Gram Stain - Final 08/30/18 19:41 Sputum - Expectorated Sputum Sputum Culture - Preliminary - Constitutional no acute distress - *Routine HEENT Exam Head: Present: normocephalic, atraumatic Eye: Present: PERRL, normal accommodation ENT: Present: mucous membranes moist, oropharynx clear - *Routine Neck Exam Present: supple, full ROM. Absent: lymphadenopathy - *Routine Respiratory Exam Comments: diminished with wheezes throughout, bibasilar rales, mildly tachypneic without d istress - *Routine Cardiovascular Exam Present: irregularly irregular - *Routine Abdominal Exam Present: soft, normoactive bowel sounds. Absent: tenderness, distended, rebound, guarding, rigid - *Routine Extremities Exam Present: full ROM, pulses intact. Absent: calf tenderness Comments: trace BLE edema R > L - *Routine Neurological Exam Present: alert, oriented X3, moving all extremities Assessment and Plan - Assessment and plan all Dx Assessment and Plan for all problems:: further per Dr. Bass.
--- NOTE | 2018-09-01 08:11 | Pharmacy Consult Notes ---
- Pharmacy Consult Date: 09/01/18 Time: 08:08 Referring provider: DR. VALENCIA Reason for Consult:: TOBRAMYCIN LEVELS Allergies and ADEs:: Allergies Allergy/AdvReac Type Severity Reaction Status Date / Time bacitracin Allergy Intermediate Rash Verified 05/09/18 14:40 [From NEOSPORIN ([id number])] doxycycline Allergy Mild Rash Verified 05/09/18 14:40 neomycin Allergy Mild Rash Verified 05/09/18 14:40 [From NEOSPORIN ([id number])] Penicillins Allergy Mild Rash Verified 05/09/18 14:40 polymyxin B Allergy Mild Rash Verified 05/09/18 14:40 [From NEOSPORIN ([id number])] sertraline [From Zoloft] AdvReac Severe Hallucinati Verified 05/09/18 14:40 ng tea tree AdvReac Severe Verified 05/18/18 15:00 gabapentin AdvReac Verified 07/20/18 10:35 green tea AdvReac Verified 05/19/18 14:30 Home Medications:: Home Medications Medication Instructions Recorded Confirmed Type alprazolam 0.25 mg tablet 0.25 mg PO TID tab 06/14/17 08/31/18 History insulin aspart (U-100) 100 unit/mL 8 unit SQ TID ml 06/14/17 08/31/18 History (3 mL) subcutaneous pen nitroglycerin 0.4 mg sublingual 0.4 mg SUBLINGUAL Q5MINP PRN 06/14/17 08/31/18 History tablet omega-3 fatty acids 1,000 mg 1,000 mg PO DAILY 06/14/17 08/31/18 History capsule venlafaxine 50 mg tablet 50 mg PO BID 90 Days #180 tab 08/31/17 08/31/18 History Aspirin [Low Dose Aspirin EC] 81 mg PO DAILY 10/27/17 08/31/18 History Clopidogrel Bisulfate [Plavix 75mg 75 mg PO DAILY 10/27/17 08/31/18 History Tab] Dexlansoprazole [Dexilant] 60 mg PO DAILY 02/17/18 08/31/18 History Hydrocod/Acet 5/325 mg [[place] 1 tab PO TIDP PRN 02/17/18 08/31/18 History 5/325mg tablet] Rosuvastatin Calcium 10 mg PO HS 02/17/18 08/31/18 History Trazodone HCl 100 mg PO HS 02/17/18 08/31/18 History quetiapine 200 mg tablet 100 mg PO HS tab 03/15/18 08/31/18 History Losartan Potassium 25 mg PO DAILY 05/09/18 08/31/18 History Metoprolol Succinate 50 mg PO DAILY 05/09/18 08/31/18 History Potassium Chloride [Klor-con 20 20 meq PO DAILY 05/10/18 08/31/18 History mEq tablet] Nicotine [Nicoderm 21mg/24hr 21 mg TD DAILY 05/17/18 08/31/18 History patch] dilTIAZem HCl [Diltiazem 240mg 240 mg PO DAILY 05/17/18 08/31/18 History 24Hr ER Cap] Insulin Glargine,Hum.rec.anlog 45 unit SQ HS 07/19/18 08/31/18 History [Insulin Glargine 100 Units/mL 3mL flexpen] Ipratropium/Albuterol Sulfate 3 ml IH QID 07/19/18 08/31/18 History [Duoneb 3mL neb] Lactulose [Lactulose 10gm/15ml 10 gm PO QID 07/20/18 08/31/18 History Oral Soln] Mirabegron [Myrbetriq] 50 mg PO DAILY 07/20/18 08/31/18 History Polyethylene Glycol 3350 [Miralax 17 gm PO DAILY 07/20/18 08/31/18 History Powder] Nystatin [Nystatin Cr 100,000 30 gm TP QID 08/09/18 08/31/18 History Units/GM 30GM] Amlodipine Besylate [Amlodipine 5 mg PO DAILY 08/10/18 08/31/18 History 5mg tab] Furosemide [Furosemide 40MG tAB] 40 mg PO BID 08/10/18 08/31/18 History predniSONE [Prednisone 20mg 20 mg PO DIRECTED #21 tab 08/16/18 08/31/18 Rx Tab] Isosorbide Mononitrate [Imdur 30mg 30 mg PO DAILY 08/31/18 08/31/18 History ER tablet] Height: 1.68 m Weight: 85.304 kg Laboratory Results:: Laboratory Results - last 24 hr 08/31/18 06:28: Total Counted 100, Neutrophils % (Manual) 91 H, Band Neutrophils % 4.0, Lymphocytes % (Manual) 2 L, Monocytes % (Manual) 2, Myelocytes % 1, Hypersegmented Neuts 1+, Platelet Estimate Slight decrease, RBC Morphology Not Reportable, Hypochromasia 2+, Anisocytosis 2+ 08/31/18 06:28: Sodium 142, Potassium 4.1, Chloride 99, Carbon Dioxide 38 H, Anion Gap 9.1, BUN 23 H, Creatinine 0.99, Estimated Creat Clear 79, Estimated GFR 57 L, Est GFR ( Amer) 69, Glucose 177 H D, Calcium 8.2 L, Magnesium 2.1 08/31/18 11:57: POC Glucose 479 H* 08/31/18 15:00: Random Tobramycin 4.1 08/31/18 17:27: Random Glucose 702 H* D 08/31/18 21:01: Random Glucose 601 H* 09/01/18 01:22: POC Glucose 386 H* 09/01/18 06:27: POC Glucose 340 H* Medical History: Reports:: Anxiety, Atherosclerotic Heart Disease, Cancer, Congestive Heart Failure, Chronic Obstructive Pulmonary Disease (COPD), Coronary Artery Disease, Depression, Diabetes Mellitus Type 2, Gall Bladder Disease, Gastroesophageal Reflux Disease(GERD), Home Oxygen, Hyperlipidemia, Hypertension, Lung Disease, MRSA, Peripheral Vascular Disease, Renal Insufficien cy Denies:: Diabetes Mellitus Type 1 Assessment and Plan - Assessment and plan all Dx Assessment and Plan for all problems:: BASED ON PATIENT'S TOBRAMYCIN LEVELS 4 AND 12 HOUR POST INFUSION LEVELS OF 10.1 MCG/ML AND 4.1 MCG/ML RESPECTIVELY, RECOMMEND CONTINUING WITH TOBRAMYCIN 320 MG Q24H AT THIS TIME. WBC HAS SIGNIFICANTLY IMPROVED SINCE ADMISSION. WILL OBTAIN TOBRAMYCIN TROUGH LEVEL PRIOR TO NEXT DOSE TO CHECK PATIENT'S CLEARANCE. BESS AGUAYO, PHARMD
--- NOTE | 2018-09-01 08:21 | Progress Note ---
Internal Medicine - PN: Subj *Date: 09/01/18 *Time: 08:23 Interval history: Pt sitting up in bed eating breakfast. She reports feeling worse this morning after an episode overnight where she woke up very SOA. She reports her breathing improved after nebs and vapotherm, although she remains SOB at rest at this time. She continues with productive cough. She has been up to BR with assist. Exam Vital signs and Labs for Last 24 Hours: Temp Pulse Resp BP Pulse Ox 98.3 F 91 H 20 98/58 L 89 L 09/01/18 07:25 09/01/18 07:25 09/01/18 07:25 09/01/18 07:25 09/01/18 07:25 Laboratory Results - last 24 hr 08/31/18 06:28: Total Counted 100, Neutrophils % (Manual) 91 H, Band Neutrophils % 4.0, Lymphocytes % (Manual) 2 L, Monocytes % (Manual) 2, Myelocytes % 1, Hypersegmented Neuts 1+, Platelet Estimate Slight decrease, RBC Morphology Not Reportable, Hypochromasia 2+, Anisocytosis 2+ 08/31/18 11:57: POC Glucose 479 H* 08/31/18 15:00: Random Tobramycin 4.1 08/31/18 17:27: Random Glucose 702 H* D 08/31/18 21:01: Random Glucose 601 H* 09/01/18 01:22: POC Glucose 386 H* 09/01/18 06:27: POC Glucose 340 H* I & O for Last 24 hours: Intake & Output 08/29/18 08/30/18 08/31/18 09/01/18 11:59 11:59 11:59 11:59 Intake Total 996 / 996 3070 / 3070 Balance 996 / 996 3070 / 3070 Weight 187 lb 13.341 oz 188 lb 1 oz Microbiology Reports for the Last 24 Hours: Microbiology 08/30/18 19:41 Sputum - Expectorated Sputum Gram Stain - Final 08/30/18 19:41 Sputum - Expectorated Sputum Sputum Culture - Preliminary - Constitutional no acute distress - *Routine HEENT Exam Head: Present: normocephalic ENT: Present: mucous membranes moist - *Routine Respiratory Exam Comments: tachypneic without distress, diminished with wheezes and rhonchi throughout, coarse rales right base, further diminished left base with few fine rales - *Routine Cardiovascular Exam Present: RRR - *Routine Abdominal Exam Present: soft, normoactive bowel sounds. Absent: tenderness, distended, rebound, guarding, rigid - *Routine Extremities Exam Present: full ROM, pulses intact. Absent: calf tenderness Comments: trace BLE edema - *Routine Neurological Exam Present: alert, oriented X3, moving all extremities Assessment and Plan (1) Acute exacerbation of chronic obstructive airways disease Current visit: Yes Status: Acute Category: Medical Code(s): J44.1 - Chronic obstructive pulmonary disease with (acute) exacerbation (2) Acute respiratory failure with hypoxia and hypercapnia Current visit: Yes Status: Acute Category: Medical Code(s): J96.01 - Acute respiratory failure with hypoxia; J96.02 - Acute respiratory failure with hypercapnia (3) Pancytopenia Current visit: Yes Status: Acute Category: Medical Code(s): D61.818 - Other pancytopenia (4) Renal insufficiency Current visit: Yes Status: Acute Category: Medical Code(s): N28.9 - Disorder of kidney and ureter, unspecified (5) Diabetes mellitus Current visit: Yes Status: Chronic Qualifiers: Diabetes mellitus type: type 1 Diabetes mellitus complication status: with unspecified complications Qualified Code(s): E10.8 - Type 1 diabetes mellitus with unspecified complications Category: Medical Code(s): E11.9 - Type 2 diabetes mellitus without complications (6) Tobacco abuse Current visit: Yes Status: Chronic Category: Medical Code(s): Z72.0 - Tobacco use - Assessment and plan all Dx Assessment and Plan for all problems:: Glucose levels have improved, remain elevated. CXR today. Further per Dr. Elena jacob.
[2018-09-02 06:35] LABS: Basophils % 0.1 % (0.1-2.0); Hemoglobin 8.3 g/dL (12.2-16.2); Lymphocytes # 0.4 K/mm3 (0.7-4.5); Lymphocytes % 7.1 % (10-50); Mean Corpuscular HGB Conc 27.7 g/dL (31.8-35.4); Mean Corpuscular Volume 86.7 fl (81-99); Mean Platelet Volume 10.6 fl (7.4-10.4); Monocytes # 0.4 K/mm3 (0.1-1.0); Monocytes % 6.8 % (1.7-9.3); Neutrophils # 4.4 K/mm3 (1.8-7.8); Platelet Count 77 K/mm3 (142-424); Red Blood Count 3.47 M/mm3 (4.20-5.40); Red Cell Distribution Width 18.4 % (11.5-17.5); White Blood Count 5.2 K/mm3 (4.8-10.8)
[2018-09-02 06:49] LABS: Anion Gap 8.5 mEq/L (5-15); Calcium 8.4 mg/dL (8.5-10.1); Potassium 4.5 mmoL/L (3.5-5.1)
[2018-09-02 08:15] LABS: Lymphocytes % 11 % (10-50); Monocytes % 2 % (2-9); Neutrophils % 84 % (42-76); Total Cells Counted 100
--- NOTE | 2018-09-02 08:15 | Pharmacy Consult Notes ---
- Pharmacy Consult Date: 09/02/18 Time: 08:12 Referring provider: DR. VALENCIA Reason for Consult:: TOBRAMYCIN AND VANCOMYCIN TROUGH LEVELS Allergies and ADEs:: Allergies Allergy/AdvReac Type Severity Reaction Status Date / Time bacitracin Allergy Intermediate Rash Verified 05/09/18 14:40 [From NEOSPORIN ([id number])] doxycycline Allergy Mild Rash Verified 05/09/18 14:40 neomycin Allergy Mild Rash Verified 05/09/18 14:40 [From NEOSPORIN ([id number])] Penicillins Allergy Mild Rash Verified 05/09/18 14:40 polymyxin B Allergy Mild Rash Verified 05/09/18 14:40 [From NEOSPORIN ([id number])] sertraline [From Zoloft] AdvReac Severe Hallucinati Verified 05/09/18 14:40 ng tea tree AdvReac Severe Verified 05/18/18 15:00 gabapentin AdvReac Verified 07/20/18 10:35 green tea AdvReac Verified 05/19/18 14:30 Home Medications:: Home Medications Medication Instructions Recorded Confirmed Type alprazolam 0.25 mg tablet 0.25 mg PO TID tab 06/14/17 08/31/18 History insulin aspart (U-100) 100 unit/mL 8 unit SQ TID ml 06/14/17 08/31/18 History (3 mL) subcutaneous pen nitroglycerin 0.4 mg sublingual 0.4 mg SUBLINGUAL Q5MINP PRN 06/14/17 08/31/18 History tablet omega-3 fatty acids 1,000 mg 1,000 mg PO DAILY 06/14/17 08/31/18 History capsule venlafaxine 50 mg tablet 50 mg PO BID 90 Days #180 tab 08/31/17 08/31/18 History Aspirin [Low Dose Aspirin EC] 81 mg PO DAILY 10/27/17 08/31/18 History Clopidogrel Bisulfate [Plavix 75mg 75 mg PO DAILY 10/27/17 08/31/18 History Tab] Dexlansoprazole [Dexilant] 60 mg PO DAILY 02/17/18 08/31/18 History Hydrocod/Acet 5/325 mg [[place] 1 tab PO TIDP PRN 02/17/18 08/31/18 History 5/325mg tablet] Rosuvastatin Calcium 10 mg PO HS 02/17/18 08/31/18 History Trazodone HCl 100 mg PO HS 02/17/18 08/31/18 History quetiapine 200 mg tablet 100 mg PO HS tab 03/15/18 08/31/18 History Losartan Potassium 25 mg PO DAILY 05/09/18 08/31/18 History Metoprolol Succinate 50 mg PO DAILY 05/09/18 08/31/18 History Potassium Chloride [Klor-con 20 20 meq PO DAILY 05/10/18 08/31/18 History mEq tablet] Nicotine [Nicoderm 21mg/24hr 21 mg TD DAILY 05/17/18 08/31/18 History patch] dilTIAZem HCl [Diltiazem 240mg 240 mg PO DAILY 05/17/18 08/31/18 History 24Hr ER Cap] Insulin Glargine,Hum.rec.anlog 45 unit SQ HS 07/19/18 08/31/18 History [Insulin Glargine 100 Units/mL 3mL flexpen] Ipratropium/Albuterol Sulfate 3 ml IH QID 07/19/18 08/31/18 History [Duoneb 3mL neb] Lactulose [Lactulose 10gm/15ml 10 gm PO QID 07/20/18 08/31/18 History Oral Soln] Mirabegron [Myrbetriq] 50 mg PO DAILY 07/20/18 08/31/18 History Polyethylene Glycol 3350 [Miralax 17 gm PO DAILY 07/20/18 08/31/18 History Powder] Nystatin [Nystatin Cr 100,000 30 gm TP QID 08/09/18 08/31/18 History Units/GM 30GM] Amlodipine Besylate [Amlodipine 5 mg PO DAILY 08/10/18 08/31/18 History 5mg tab] Furosemide [Furosemide 40MG tAB] 40 mg PO BID 08/10/18 08/31/18 History predniSONE [Prednisone 20mg 20 mg PO DIRECTED #21 tab 08/16/18 08/31/18 Rx Tab] Isosorbide Mononitrate [Imdur 30mg 30 mg PO DAILY 08/31/18 08/31/18 History ER tablet] Height: 1.68 m Weight: 100 kg Laboratory Results:: Laboratory Results - last 24 hr 08/31/18 17:05: POC Glucose > 600 H* 08/31/18 20:49: POC Glucose > 600 H* 09/01/18 11:39: POC Glucose 457 H* 09/01/18 17:06: POC Glucose 582 H* 09/01/18 17:21: Random Glucose 530 H* 09/01/18 21:05: Vancomycin Trough 19.5 09/01/18 22:19: POC Glucose 453 H* 09/02/18 06:16: Tobramycin Trough 1.8 09/02/18 06:16: WBC 5.2, RBC 3.47 L, Hgb 8.3 L, Hct 30.0 L, MCV 86.7, MCH 24.0 L , MCHC 27.7 L, RDW 18.4 H, Plt Count 77 L, MPV 10.6 H, Neut % (Auto) 86.0 H, Lymph % (Auto) 7.1 L, [place] % (Auto) 6.8, Eos % (Auto) 0.0 L, Baso % (Auto) 0.1, Neut # (Auto) 4.4, Lymph # (Auto) 0.4 L, [place] # (Auto) 0.4, Eos # (Auto) 0.0, Baso # (Auto) 0.0 09/02/18 06:16: Sodium 140, Potassium 4.5, Chloride 97 L, Carbon Dioxide 39 H, Anion Gap 8.5, BUN 30 H D, Creatinine 1.14 H, Estimated Creat Clear 82, Estimated GFR 48 L, Est GFR ( Amer) 59, Glucose 303 H, Calcium 8.4 L 09/02/18 06:34: POC Glucose 386 H* Medical History: Reports:: Anxiety, Atherosclerotic Heart Disease, Cancer, Congestive Heart Failure, Chronic Obstructive Pulmonary Disease (COPD), Coronary Artery Disease, Depression, Diabetes Mellitus Type 2, Gall Bladder Disease, Gastroesophageal Reflux Disease(GERD), Home Oxygen, Hyperlipidemia, Hypertension , Lung Disease, MRSA, Peripheral Vascular Disease, Renal Insufficiency Denies:: Diabetes Mellitus Type 1 Assessment and Plan (1) Acute exacerbation of chronic obstructive airways disease Current visit: Yes Status: Acute Category: Medical Code(s): J44.1 - Chronic obstructive pulmonary disease with (acute) exacerbation (2) Acute respiratory failure with hypoxia and hypercapnia Current visit: Yes Status: Acute Category: Medical Code(s): J96.01 - Acute respiratory failure with hypoxia; J96.02 - Acute respiratory failure with hypercapnia (3) Pancytopenia Current visit: Yes Status: Acute Category: Medical Code(s): D61.818 - Other pancytopenia (4) Renal insufficiency Current visit: Yes Status: Acute Category: Medical Code(s): N28.9 - Disorder of kidney and ureter, unspecified (5) Diabetes mellitus Current visit: Yes Status: Chronic Qualifiers: Category: Medical Code(s): E11.9 - Type 2 diabetes mellitus without complications (6) Tobacco abuse Current visit: Yes Status: Chronic Category: Medical Code(s): Z72.0 - Tobacco use - Assessment and plan all Dx Assessment and Plan for all problems:: PATIENT IS CURRENTLY RECEIVING TOBRAMYCIN AND VANCOMYCIN. TOBRAMYCIN TROUGH LEVEL THIS AM WAS 1.8 MCG/ML. RECOMMEND CHANGING DOSING INTERVAL TO Q36H FROM Q24H AT THIS TIME. WILL RE-TIME NEXT DOSE FOR 2100 TONIGHT. VANCOMYCIN TROUGH LEVEL OVERNIGHT WAS 19.5 MCG/ML. RECOMMEND CHANGING DOSING INTERVAL FROM Q18H TO Q24H AT THIS TIME. WILL RETIME NEXT DOSE FOR 2200 TONIGHT. PHARMACY WILL FOLLOW DAILY AND ADJUST APPROPRIATE. BESS AGUAYO, PHARMD
--- NOTE | 2018-09-02 08:15 | Progress Note ---
<Zita Rendon - Last Filed: 09/02/18 08:12> Internal Medicine - PN: Subj *Date: 09/02/18 *Time: 07:45 Interval history: Pt is resting quietly in bed, increased WOB with O2 in place per nasal cannula. She denies any pain but notes that she did not rest well overnight due to SOB. She required Bipap to maintain sats in the 80's. Nursing reports increased chest congestion and weight gain. Exam Vital signs and Labs for Last 24 Hours: Temp Pulse Resp BP Pulse Ox 97.7 F 90 32 H 114/66 90 L 09/02/18 08:00 09/02/18 08:00 09/02/18 08:00 09/02/18 08:00 09/02/18 08:00 Laboratory Results - last 24 hr 08/31/18 17:05: POC Glucose > 600 H* 08/31/18 20:49: POC Glucose > 600 H* 09/01/18 11:39: POC Glucose 457 H* 09/01/18 17:06: POC Glucose 582 H* 09/01/18 17:21: Random Glucose 530 H* 09/01/18 21:05: Vancomycin Trough 19.5 09/01/18 22:19: POC Glucose 453 H* 09/02/18 06:16: Tobramycin Trough 1.8 09/02/18 06:16: WBC 5.2, RBC 3.47 L, Hgb 8.3 L, Hct 30.0 L, MCV 86.7, MCH 24.0 L , MCHC 27.7 L, RDW 18.4 H, Plt Count 77 L, MPV 10.6 H, Neut % (Auto) 86.0 H, Lymph % (Auto) 7.1 L, [place] % (Auto) 6.8, Eos % (Auto) 0.0 L, Baso % (Auto) 0.1, Neut # (Auto) 4.4, Lymph # (Auto) 0.4 L, [place] # (Auto) 0.4, Eos # (Auto) 0.0, Baso # (Auto) 0.0 09/02/18 06:16: Sodium 140, Potassium 4.5, Chloride 97 L, Carbon Dioxide 39 H, Anion Gap 8.5, BUN 30 H D, Creatinine 1.14 H, Estimated Creat Clear 82, Estimated GFR 48 L, Est GFR ( Amer) 59, Glucose 303 H, Calcium 8.4 L 09/02/18 06:34: POC Glucose 386 H* I & O for Last 24 hours: Intake & Output 08/30/18 08/31/18 09/01/18 09/02/18 11:59 11:59 11:59 11:59 Intake Total 996 / 996 3070 / 3070 1260 / 1260 Output Total 2150 / 2150 Balance 996 / 996 3070 / 2720 -890 / -890 Weight 187 lb 13.341 oz 188 lb 1 oz 220 lb 7.396 oz Microbiology Reports for the Last 24 Hours: Microbiology 08/30/18 19:41 Blood Blood Culture - Preliminary NO GROWTH AFTER 48 HOURS 08/30/18 19:41 Blood Blood Culture - Preliminary NO GROWTH AFTER 48 HOURS 08/30/18 19:41 Sputum - Expectorated Sputum Gram Stain - Final 08/30/18 19:41 Sputum - Expectorated Sputum Sputum Culture - Preliminary Radiology Reports for the Last 24 Hours: 09/01/18 CXR: 1. Mild CHF. 2. Right lower lobe pneumonia. - Constitutional no acute distress Comments: increased WOB - *Routine Respiratory Exam Comments: diminished throughout with coarse rhonchi and wheezes, bibasilar rales - *Routine Cardiovascular Exam Present: RRR - *Routine Abdominal Exam Present: soft, normoactive bowel sounds. Absent: tenderness, distended, rebound, guarding, rigid - *Routine Extremities Exam Present: full ROM, pulses intact. Absent: calf tenderness Comments: 1+ edema mildly increased from yesterday - *Routine Neurological Exam Present: alert, oriented X3, moving all extremities Assessment and Plan (1) Acute exacerbation of chronic obstructive airways disease Current visit: Yes Status: Acute Category: Medical Code(s): J44.1 - Chronic obstructive pulmonary disease with (acute) exacerbation (2) Acute respiratory failure with hypoxia and hypercapnia Current visit: Yes Status: Acute Category: Medical Code(s): J96.01 - Acute respiratory failure with hypoxia; J96.02 - Acute respiratory failure with hypercapnia (3) Pancytopenia Current visit: Yes Status: Acute Category: Medical Code(s): D61.818 - Other pancytopenia (4) Renal insufficiency Current visit: Yes Status: Acute Category: Medical Code(s): N28.9 - Disorder of kidney and ureter, unspecified (5) Diabetes mellitus Current visit: Yes Status: Chronic Qualifiers: Diabetes mellitus type: type 1 Diabetes mellitus complication status: with unspecified complications Category: Medical Code(s): E11.9 - Type 2 diabetes mellitus without complications (6) Tobacco abuse Current visit: Yes Status: Chronic Category: Medical Code(s): Z72.0 - Tobacco use - Assessment and plan all Dx Assessment and Plan for all problems:: further per Dr. Torres. <Stuart Torres - Last Filed: 09/02/18 08:43> Internal Medicine - PN: Subj *Date: 09/02/18 *Time: 08:41 Exam Vital signs and Labs for Last 24 Hours: Temp Pulse Resp BP Pulse Ox 97.7 F 90 32 H 114/66 90 L 09/02/18 08:00 09/02/18 08:00 09/02/18 08:00 09/02/18 08:00 09/02/18 08:23 Laboratory Results - last 24 hr 08/31/18 17:05: POC Glucose > 600 H* 08/31/18 20:49: POC Glucose > 600 H* 09/01/18 11:39: POC Glucose 457 H* 09/01/18 17:06: POC Glucose 582 H* 09/01/18 17:21: Random Glucose 530 H* 09/01/18 21:05: Vancomycin Trough 19.5 09/01/18 22:19: POC Glucose 453 H* 09/02/18 06:16: Tobramycin Trough 1.8 09/02/18 06:16: WBC 5.2, RBC 3.47 L, Hgb 8.3 L, Hct 30.0 L, MCV 86.7, MCH 24.0 L , MCHC 27.7 L, RDW 18.4 H, Plt Count 77 L, MPV 10.6 H, Neut % (Auto) 86.0 H, Lymph % (Auto) 7.1 L, [place] % (Auto) 6.8, Eos % (Auto) 0.0 L, Baso % (Auto) 0.1, Neut # (Auto) 4.4, Lymph # (Auto) 0.4 L, [place] # (Auto) 0.4, Eos # (Auto) 0.0, Baso # (Auto) 0.0, Total Counted 100, Neutrophils % (Manual) 84 H, Band Neutrophils % 3.0, Lymphocytes % (Manual) 11, Monocytes % (Manual) 2, Platelet Estimate Marked decrease, Hypochromasia 1+, Tear Drop Cells 1+, Stomatocytes 2+ 09/02/18 06:16: Sodium 140, Potassium 4.5, Chloride 97 L, Carbon Dioxide 39 H, Anion Gap 8.5, BUN 30 H D, Creatinine 1.14 H, Estimated Creat Clear 82, Estimated GFR 48 L, Est GFR ( Amer) 59, Glucose 303 H, Calcium 8.4 L 09/02/18 06:34: POC Glucose 386 H* I & O for Last 24 hours: Intake & Output 08/30/18 08/31/18 09/01/18 09/02/18 11:59 11:59 11:59 11:59 Intake Total 996 / 996 3070 / 3070 1260 / 1260 Output Total 2150 / 2150 Balance 996 / 996 3070 / 2720 -890 / -890 Weight 187 lb 13.341 oz 188 lb 1 oz 220 lb 7.396 oz Microbiology Reports for the Last 24 Hours: Microbiology 08/30/18 19:41 Blood Blood Culture - Preliminary NO GROWTH AFTER 48 HOURS 08/30/18 19:41 Blood Blood Culture - Preliminary NO GROWTH AFTER 48 HOURS 08/30/18 19:41 Sputum - Expectorated Sputum Gram Stain - Final 08/30/18 19:41 Sputum - Expectorated Sputum Sputum Culture - Preliminary Assessment and Plan (1) Acute exacerbation of chronic obstructive airways disease Current visit: Yes Status: Acute Category: Medical Code(s): J44.1 - Chronic obstructive pulmonary disease with (acute) exacerbation (2) Acute respiratory failure with hypoxia and hypercapnia Current visit: Yes Status: Acute Category: Medical Code(s): J96.01 - Acute respiratory failure with hypoxia; J96.02 - Acute respiratory failure with hypercapnia (3) Pancytopenia Current visit: Yes Status: Acute Category: Medical Code(s): D61.818 - Other pancytopenia (4) Renal insufficiency Current visit: Yes Status: Acute Category: Medical Code(s): N28.9 - Disorder of kidney and ureter, unspecified (5) Diabetes mellitus Current visit: Yes Status: Chronic Qualifiers: Diabetes mellitus type: type 1 Diabetes mellitus complication status: with unspecified complications Category: Medical Code(s): E11.9 - Type 2 diabetes mellitus without complications (6) Tobacco abuse Current visit: Yes Status: Chronic Category: Medical Code(s): Z72.0 - Tobacco use - Assessment and plan all Dx Assessment and Plan for all problems:: Patient seen and examined. Nursing staff note she rested well but patient states otherwise. Still feels SOA. No pain. Some cough that is mostly nonproductive. Noted with continued weight gain, likely CHF from pulmonary hypertension. Will increase Lasix. Felix to monitor accurate I&Os.
[2018-09-02 08:16] LABS: Hypochromasia 1+
[2018-09-02 08:17] LABS: Stomatocytes 2+
[2018-09-02 08:18] LABS: Tear Drop Cells 1+
[2018-09-02 12:48] LABS: Microscopic, Urine URINE MICROSCOPIC (MICROSCOPIC)
[2018-09-02 14:45] LABS: Appearance,Urine CLOUDY (Clear); Bilirubin,Urine Negative (Negative); Blood, Urine Negative (Negative); Color,Urine YELLOW (Yellow); Glucose,Urine (UA) 2+ (Negative); Ketones,Urine Negative (Negative); Leukocyte Esterase,Urine Negative (Negative); Protein,Urine Negative (Negative); Specific Gravity, Urine 1.015 (1.005-1.030); Urobilinogen,Urine 0.2 EU/dl (0.2)
[2018-09-02 15:48] LABS: Squamous Epithelial Cell,Urine Occasional #/hpf (0-5)
[2018-09-02 15:49] LABS: Yeast,Urine 4+ /lpf
[2018-09-03 07:14] LABS: Basophils % 0.3 % (0.1-2.0); Eosinophils % 0.1 % (0.1-12.0); Hematocrit 26.8 % (37.0-47.0); Lymphocytes # 0.3 K/mm3 (0.7-4.5); Lymphocytes % 8.3 % (10-50); Mean Corpuscular HGB Conc 28.9 g/dL (31.8-35.4); Mean Corpuscular Hemoglobin 24.4 pg (27.0-31.2); Mean Corpuscular Volume 84.5 fl (81-99); Mean Platelet Volume 9.1 fl (7.4-10.4); Monocytes # 0.3 K/mm3 (0.1-1.0); Monocytes % 8.6 % (1.7-9.3); Neutrophils % 82.7 % (37.0-80.0); Platelet Count 58 K/mm3 (142-424); Red Blood Count 3.17 M/mm3 (4.20-5.40); Red Cell Distribution Width 18.1 % (11.5-17.5); White Blood Count 3.6 K/mm3 (4.8-10.8)
[2018-09-03 07:20] LABS: Hemoglobin 7.7 g/dL (12.2-16.2)
[2018-09-03 07:29] LABS: Albumin Level 2.3 gm/dL (3.4-5.0); Albumin/Globulin Ratio 0.9 (1.1-1.8); Anion Gap 2.4 mEq/L (5-15); Bilirubin,Total 0.4 mg/dL (0.2-1.0); Calcium 8.3 mg/dL (8.5-10.1); Globulin 2.7 gm/dl (1.3-3.2); Potassium 3.4 mmoL/L (3.5-5.1)
--- NOTE | 2018-09-03 08:17 | Progress Note ---
Internal Medicine - PN: Subj *Date: 09/03/18 *Time: 08:36 Interval history: States she slept some last night and feels a little better this morning with her breathing. She denies significant cough. No chest pain. Exam Vital signs and Labs for Last 24 Hours: Temp Pulse Resp BP Pulse Ox 98.2 F 103 H 20 142/58 H 99 09/03/18 08:00 09/03/18 08:00 09/03/18 08:00 09/03/18 08:00 09/03/18 08:00 Laboratory Results - last 24 hr 09/02/18 06:16: Total Counted 100, Neutrophils % (Manual) 84 H, Band Neutrophils % 3.0, Lymphocytes % (Manual) 11, Monocytes % (Manual) 2, Platelet Estimate Marked decrease, Hypochromasia 1+, Tear Drop Cells 1+, Stomatocytes 2+ 09/02/18 11:11: POC Glucose 447 H* 09/02/18 13:25: Urine Color Yellow, Urine Appearance Cloudy, Urine pH 6.0, Ur Specific [place] 1.015, Urine Protein Negative, Urine Glucose (UA) 2+, Urine Ketones Negative, Urine Blood Negative, Urine Nitrate Negative, Urine Bilirubin Negative, Urine Urobilinogen 0.2, Ur Leukocyte Esterase Negative, Ur Squamous Epith Cells Occasional, Urine Yeast 4+ 09/02/18 15:49: POC Glucose 305 H* 09/02/18 20:19: POC Glucose 326 H* 09/03/18 06:10: WBC 3.6 L D, RBC 3.17 L, Hgb 7.7 L*, Hct 26.8 L, MCV 84.5, MCH 24.4 L, MCHC 28.9 L, RDW 18.1 H, Plt Count 58 L, MPV 9.1, Neut % (Auto) 82.7 H, Lymph % (Auto) 8.3 L, [place] % (Auto) 8.6, Eos % (Auto) 0.1, Baso % (Auto) 0.3, Neut # (Auto) 3.0, Lymph # (Auto) 0.3 L, [place] # (Auto) 0.3, Eos # (Auto) 0.0, Baso # (Auto) 0.0 09/03/18 06:10: Sodium 142, Potassium 3.4 L D, Chloride 97 L, Carbon Dioxide 46 H*, Anion Gap 2.4 L, BUN 31 H, Creatinine 1.01, Estimated Creat Clear 84, Estimated GFR 56 L, Est GFR ( Amer) 67, Glucose 300 H, Calcium 8.3 L, Total Bilirubin 0.4, AST 13 L, ALT 22, Alkaline Phosphatase 62, Total Protein 5.0 L, Albumin 2.3 L, Globulin 2.7, Albumin/Globulin Ratio 0.9 L 09/03/18 06:26: POC Glucose 375 H* I & O for Last 24 hours: Intake & Output 08/31/18 09/01/18 09/02/18 09/03/18 11:59 11:59 11:59 11:59 Intake Total 996 / 996 3070 / 3070 1260 / 1260 1440 / 1440 Output Total 3150 / 3150 4000 / 4000 Balance 996 / 996 3070 / 2720 -1890 / -1890 -2560 / -2560 Weight 187 lb 13.341 oz 188 lb 1 oz 220 lb 7.396 oz 201 lb 11.567 oz Microbiology Reports for the Last 24 Hours: Microbiology 08/30/18 19:41 Sputum - Expectorated Sputum Gram Stain - Final 08/30/18 19:41 Sputum - Expectorated Sputum Sputum Culture - Final Normal Respiratory Marine Narrative: She is awakened from sleep. She is wearing nasal cannula. No respiratory distress. Chest reveals generally diminished breath sounds with scattered rhonchi and a few faint wheezes. Heart is regular with no ectopy. Abdomen is obese soft and nondistended with no tenderness. Extremities no edema. Assessment and Plan (1) Pneumonia Current visit: No Status: Acute Category: Medical Code(s): J18.9 - Pneumonia, unspecified organism (2) Acute exacerbation of chronic obstructive airways disease Current visit: Yes Status: Acute Category: Medical Code(s): J44.1 - Chronic obstructive pulmonary disease with (acute) exacerbation (3) Acute respiratory failure with hypoxia and hypercapnia Current visit: Yes Status: Acute Category: Medical Code(s): J96.01 - Acute respiratory failure with hypoxia; J96.02 - Acute respiratory failure with hypercapnia (4) Pancytopenia Current visit: Yes Status: Acute Category: Medical Code(s): D61.818 - Other pancytopenia (5) Renal insufficiency Current visit: Yes Status: Acute Category: Medical Code(s): N28.9 - Disorder of kidney and ureter, unspecified (6) Diabetes mellitus Current visit: Yes Status: Chronic Qualifiers: Diabetes mellitus type: type 1 Diabetes mellitus complication status: with unspecified complications Category: Medical Code(s): E11.9 - Type 2 diabetes mellitus without complications (7) Tobacco abuse Current visit: Yes Status: Chronic Category: Medical Code(s): Z72.0 - Tobacco use (8) CHF (congestive heart failure) Current visit: No Status: Chronic Qualifiers: Heart failure type: diastolic Heart failure chronicity: chronic Qualified Code(s): I50.32 - Chronic diastolic (congestive) heart failure Category: Medical Code(s): I50.9 - Heart failure, unspecified (9) Hypokalemia Current visit: Yes Status: Acute Category: Medical Code(s): E87.6 - Hypokalemia - Assessment and plan all Dx Assessment and Plan for all problems:: She had good diuresis yesterday and her weight is down 19 pounds. Hemoglobin has dropped to 7.7 but she is hemodynamically stable. Note leukopenia and thrombocytopenia as well. Will defer blood transfusion for now. Her blood sugars are marginally improved with weaning of the steroids. We will add supplemental potassium for her hypokalemia. Renal function is stable. Continue diuresis. She is encouraged to be out of bed and up in the chair as much as possible. Her sputum culture was nonrevealing. With her past history of MRSA, we will continue current antibiotic regimen.
[2018-09-04 07:44] LABS: Calcium 8.1 mg/dL (8.5-10.1); Potassium 3.8 mmoL/L (3.5-5.1)
[2018-09-04 07:50] LABS: Anion Gap 0.8 mEq/L (5-15)
[2018-09-04 07:55] LABS: Basophils % 0.2 % (0.1-2.0); Hematocrit 29.4 % (37.0-47.0); Hemoglobin 8.2 g/dL (12.2-16.2); Lymphocytes # 0.4 K/mm3 (0.7-4.5); Lymphocytes % 8.2 % (10-50); Mean Corpuscular HGB Conc 27.9 g/dL (31.8-35.4); Mean Corpuscular Hemoglobin 23.8 pg (27.0-31.2); Mean Corpuscular Volume 85.2 fl (81-99); Mean Platelet Volume 10.2 fl (7.4-10.4); Monocytes # 0.3 K/mm3 (0.1-1.0); Monocytes % 5.7 % (1.7-9.3); Neutrophils # 3.8 K/mm3 (1.8-7.8); Platelet Count 58 K/mm3 (142-424); Red Blood Count 3.46 M/mm3 (4.20-5.40); White Blood Count 4.4 K/mm3 (4.8-10.8)
--- NOTE | 2018-09-04 08:40 | Progress Note ---
Internal Medicine - PN: Subj *Date: 09/04/18 *Time: 08:37 Interval history: She is sitting up in the chair this morning and states she feels much better. She feels her breathing is getting back to normal. She is talking about going home. Staff reports that she slept well through the night but almost every time they entered the room she had removed her Trilogy unit. She states she is eating better and having less difficulty with swallowing. She still chokes occasionally. Exam Vital signs and Labs for Last 24 Hours: Temp Pulse Resp BP Pulse Ox 97.2 F L 107 H 24 104/67 L 92 L 09/04/18 07:55 09/04/18 07:55 09/04/18 07:55 09/04/18 07:55 09/04/18 07:55 Laboratory Results - last 24 hr 09/03/18 11:33: POC Glucose 430 H* 09/03/18 16:34: POC Glucose 443 H* 09/03/18 20:47: POC Glucose 437 H* 09/04/18 06:09: POC Glucose 379 H* 09/04/18 06:15: WBC 4.4 L, RBC 3.46 L, Hgb 8.2 L, Hct 29.4 L, MCV 85.2, MCH 23.8 L, MCHC 27.9 L, RDW 18.0 H, Plt Count 58 L, MPV 10.2, Neut % (Auto) 86.0 H, [place] % (Auto) 8.2 L, [place] % (Auto) 5.7, Eos % (Auto) 0.0 L, Baso % (Auto) 0.2, Neut # (Auto) 3.8, Lymph # (Auto) 0.4 L, [place] # (Auto) 0.3, Eos # (Auto) 0.0, Baso # (Auto) 0.0 09/04/18 06:15: Sodium 143, Potassium 3.8, Chloride 95 L, Carbon Dioxide 51 H*, Anion Gap 0.8 L, BUN 27 H, Creatinine 0.96, Estimated Creat Clear 86, Estimated GFR 59, Est GFR ( Amer) 71, Glucose 329 H, Calcium 8.1 L I & O for Last 24 hours: Intake & Output 09/01/18 09/02/18 09/03/18 09/04/18 11:59 11:59 11:59 11:59 Intake Total 3070 / 3070 1260 / 1260 1440 / 1440 3901 / 3901 Output Total 3150 / 3150 5450 / 5450 5450 / 5450 Balance 3070 / 2720 -1890 / -1890 -4010 / -4010 -1549 / -1549 Weight 188 lb 1 oz 220 lb 7.396 oz 201 lb 11.567 oz 203 lb 7.787 oz Narrative: She is sitting up in the chair and is very alert and smiling. No respiratory distress. She is wearing supplemental oxygen at 3 L/min. Chest reveals generally diminished breath sounds with coarse rales and rhonchi in the right base. No wheezes. Heart is regular. Extremities showed no edema. Assessment and Plan (1) Pneumonia Current visit: No Status: Acute Category: Medical Code(s): J18.9 - Pneumonia, unspecified organism (2) Acute exacerbation of chronic obstructive airways disease Current visit: Yes Status: Acute Category: Medical Code(s): J44.1 - Chronic obstructive pulmonary disease with (acute) exacerbation (3) Acute respiratory failure with hypoxia and hypercapnia Current visit: Yes Status: Acute Category: Medical Code(s): J96.01 - Acute respiratory failure with hypoxia; J96.02 - Acute respiratory failure with hypercapnia (4) Pancytopenia Current visit: Yes Status: Acute Category: Medical Code(s): D61.818 - Other pancytopenia (5) Renal insufficiency Current visit: Yes Status: Acute Category: Medical Code(s): N28.9 - Disorder of kidney and ureter, unspecified (6) Diabetes mellitus Current visit: Yes Status: Chronic Qualifiers: Diabetes mellitus type: type 1 Diabetes mellitus complication status: with unspecified complications Category: Medical Code(s): E11.9 - Type 2 diabetes mellitus without complications (7) Tobacco abuse Current visit: Yes Status: Chronic Category: Medical Code(s): Z72.0 - Tobacco use (8) CHF (congestive heart failure) Current visit: No Status: Chronic Qualifiers: Heart failure type: diastolic Heart failure chronicity: chronic Qualified Code(s): I50.32 - Chronic diastolic (congestive) heart failure Category: Medical Code(s): I50.9 - Heart failure, unspecified (9) Hypokalemia Current visit: Yes Status: Acute Category: Medical Code(s): E87.6 - Hypokalemia - Assessment and plan all Dx Assessment and Plan for all problems:: She continues to diurese well. This in turn has improved her shortness of breath. Labs show her white count and hemoglobin to be improved. Platelet count is stable. Electrolytes are normal. Her carbon dioxide has increased a bit more probably because she is not wearing her Trilogy consistently at night. Otherwise clinically she looks and feels much better. We will discontinue her [place] today and decrease her Lasix. We will switch from IV to oral prednisone. We will also switch her pantoprazole and Reglan to oral dosing.
[2018-09-04 09:29] LABS: Anisocytosis 1+; Hypochromasia 3+; Lymphocytes % 9 % (10-50); Monocytes % 5 % (2-9); Neutrophils % 85 % (42-76); Total Cells Counted 100
[2018-09-04 20:40] LABS: ABG Base Excess 25.5 mmol/L (-2.4-2.3); ABG HCO3 50.2 mmhg (22.0-26.0); ABG Oxygen Saturation 84 % (90-100); ABG PO2 52.2 mmhg (80-100); ABG TCO2 52.8 mmhg (23-27)
[2018-09-04 20:41] LABS: Allen's Test Y; Oxygen 4 %
[2018-09-04 20:42] LABS: ABG PCO2 82.6 mmhg (35.0-45.0)
[2018-09-05 07:02] LABS: Calcium 8.8 mg/dL (8.5-10.1); Potassium 4.6 mmoL/L (3.5-5.1)
[2018-09-05 07:18] LABS: Anion Gap 0.6 mEq/L (5-15)
--- NOTE | 2018-09-05 07:30 | Progress Note ---
Internal Medicine - PN: Subj *Date: 09/05/18 *Time: 07:30 Exam Vital signs and Labs for Last 24 Hours: Temp Pulse Resp BP Pulse Ox 98.2 F 97 H 24 102/60 L 93 L 09/05/18 04:00 09/05/18 06:24 09/05/18 04:00 09/05/18 04:00 09/05/18 06:24 Laboratory Results - last 24 hr 09/04/18 06:15: WBC 4.4 L, RBC 3.46 L, Hgb 8.2 L, Hct 29.4 L, MCV 85.2, MCH 23.8 L, MCHC 27.9 L, RDW 18.0 H, Plt Count 58 L, MPV 10.2, Neut % (Auto) 86.0 H, Lymph % (Auto) 8.2 L, [place] % (Auto) 5.7, Eos % (Auto) 0.0 L, Baso % (Auto) 0.2, Neut # (Auto) 3.8, Lymph # (Auto) 0.4 L, [place] # (Auto) 0.3, Eos # (Auto) 0.0, Baso # (Auto) 0.0, Total Counted 100, Neutrophils % (Manual) 85 H, Band Neutrophils % 1.0, Lymphocytes % (Manual) 9 L, Monocytes % (Manual) 5, Platelet Estimate Moderate decrease, Hypochromasia 3+, Anisocytosis 1+ 09/04/18 06:15: Sodium 143, Potassium 3.8, Chloride 95 L, Carbon Dioxide 51 H*, Anion Gap 0.8 L, BUN 27 H, Creatinine 0.96, Estimated Creat Clear 86, Estimated GFR 59, Est GFR ( Amer) 71, Glucose 329 H, Calcium 8.1 L 09/04/18 11:29: POC Glucose 364 H* 09/04/18 16:45: POC Glucose 233 H 09/04/18 20:21: POC Glucose 325 H* 09/04/18 20:39: Specimen Source R/r, O2 % 4, ABG pH 7.40, ABG pCO2 82.6 H, ABG pO2 52.2 L, ABG HCO3 50.2 H, ABG Total CO2 52.8 H, ABG O2 Saturation 84 L*, ABG Base Excess 25.5 H, [place] Test Y 09/05/18 06:10: POC Glucose 214 H 09/05/18 06:32: Sodium 143, Potassium 4.6 D, Chloride 95 L, Carbon Dioxide 52 H*, Anion Gap 0.6 L, BUN 25 H, Creatinine 0.83, Estimated Creat Clear 86, Estimated GFR 70, Est GFR ( Amer) 85, Glucose 207 H, Calcium 8.8 I & O for Last 24 hours: Intake & Output 09/02/18 09/03/18 09/04/18 09/05/18 23:59 23:59 23:59 23:59 Intake Total 1979 / 1979 2447 / 2447 3044 / 3044 Output Total 4700 / 4700 7150 / 7150 3600 / 3600 600 / 600 Balance -2720 / -2720 -4703 / -4703 -556 / -556 -600 / -600 Weight 100 kg 91.5 kg 92.3 kg 92.5 kg Microbiology Reports for the Last 24 Hours: Microbiology 08/30/18 19:41 Blood Blood Culture - Final NO GROWTH AFTER 5 DAYS 08/30/18 19:41 Blood Blood Culture - Final NO GROWTH AFTER 5 DAYS Assessment and Plan (1) Pneumonia Current visit: No Status: Acute Category: Medical Code(s): J18.9 - Pneumonia, unspecified organism (2) Acute exacerbation of chronic obstructive airways disease Current visit: Yes Status: Acute Category: Medical Code(s): J44.1 - Chronic obstructive pulmonary disease with (acute) exacerbation (3) Acute respiratory failure with hypoxia and hypercapnia Current visit: Yes Status: Acute Category: Medical Code(s): J96.01 - Acute respiratory failure with hypoxia; J96.02 - Acute respiratory failure with hypercapnia (4) Pancytopenia Current visit: Yes Status: Acute Category: Medical Code(s): D61.818 - Other pancytopenia (5) Renal insufficiency Current visit: Yes Status: Acute Category: Medical Code(s): N28.9 - Disorder of kidney and ureter, unspecified (6) Diabetes mellitus Current visit: Yes Status: Chronic Qualifiers: Diabetes mellitus type: type 1 Diabetes mellitus complication status: with unspecified complications Category: Medical Code(s): E11.9 - Type 2 diabetes mellitus without complications (7) Tobacco abuse Current visit: Yes Status: Chronic Category: Medical Code(s): Z72.0 - Tobacco use (8) CHF (congestive heart failure) Current visit: No Status: Chronic Qualifiers: Heart failure type: diastolic Heart failure chronicity: chronic Qualified Code(s): I50.32 - Chronic diastolic (congestive) heart failure Category: Medical Code(s): I50.9 - Heart failure, unspecified (9) Hypokalemia Current visit: Yes Status: Acute Category: Medical Code(s): E87.6 - Hypokalemia The patient's infection will respond to the chosen ABx?: Yes Is the patient receiving the right drug, dose, and route?: Yes Could a more targeted ABx be ordered?: No (HX OF MRSA)
[2018-09-05 07:59] LABS: Basophils % 0.5 % (0.1-2.0); Eosinophils % 0.2 % (0.1-12.0); Hematocrit 30.5 % (37.0-47.0); Hemoglobin 8.9 g/dL (12.2-16.2); Lymphocytes # 0.5 K/mm3 (0.7-4.5); Lymphocytes % 8.5 % (10-50); Mean Corpuscular HGB Conc 29.1 g/dL (31.8-35.4); Mean Corpuscular Hemoglobin 24.8 pg (27.0-31.2); Mean Corpuscular Volume 85.3 fl (81-99); Mean Platelet Volume 9.8 fl (7.4-10.4); Monocytes # 0.3 K/mm3 (0.1-1.0); Monocytes % 6.2 % (1.7-9.3); Neutrophils # 4.4 K/mm3 (1.8-7.8); Neutrophils % 84.5 % (37.0-80.0); Platelet Count 65 K/mm3 (142-424); Red Blood Count 3.58 M/mm3 (4.20-5.40); Red Cell Distribution Width 18.1 % (11.5-17.5); White Blood Count 5.3 K/mm3 (4.8-10.8)
--- NOTE | 2018-09-05 08:10 | Progress Note ---
<Marce Lauren - Last Filed: 09/05/18 08:20> Internal Medicine - PN: Subj *Date: 09/05/18 *Time: 08:20 Interval history: Not doing as well this a.m. Required BiPAP during the night. Nursing states when off BiPAP off any time O2 sats decrease. Patient has been incontinent of urine and wishes to have [place] catheter placed. She denies pain. ABGs yesterday p.m. as follows Laboratory Tests 09/04/18 20:39 Specimen Source R/r O2 % 4 ABG pH 7.40 ABG pCO2 82.6 H ABG pO2 52.2 L ABG HCO3 50.2 H ABG Total CO2 52.8 H ABG O2 Saturation 84 L* ABG Base Excess 25.5 H Exam Vital signs and Labs for Last 24 Hours: Temp Pulse Resp BP Pulse Ox 98.2 F 91 H 28 H 114/63 91 L 09/05/18 07:59 09/05/18 07:59 09/05/18 07:59 09/05/18 07:59 09/05/18 07:59 Laboratory Results - last 24 hr 09/04/18 06:15: Total Counted 100, Neutrophils % (Manual) 85 H, Band Neutrophils % 1.0, Lymphocytes % (Manual) 9 L, Monocytes % (Manual) 5, Platelet Estimate Moderate decrease, Hypochromasia 3+, Anisocytosis 1+ 09/04/18 11:29: POC Glucose 364 H* 09/04/18 16:45: POC Glucose 233 H 09/04/18 20:21: POC Glucose 325 H* 09/04/18 20:39: Specimen Source R/r, O2 % 4, ABG pH 7.40, ABG pCO2 82.6 H, ABG pO2 52.2 L, ABG HCO3 50.2 H, ABG Total CO2 52.8 H, ABG O2 Saturation 84 L*, ABG Base Excess 25.5 H, Chandler Test Y 09/05/18 06:10: POC Glucose 214 H 09/05/18 06:32: Sodium 143, Potassium 4.6 D, Chloride 95 L, Carbon Dioxide 52 H*, Anion Gap 0.6 L, BUN 25 H, Creatinine 0.83, Estimated Creat Clear 86, Estimated GFR 70, Est GFR ( Amer) 85, Glucose 207 H, Calcium 8.8 I & O for Last 24 hours: Intake & Output 09/02/18 09/03/18 09/04/18 09/05/18 11:59 11:59 11:59 11:59 Intake Total 1260 / 1260 1440 / 1440 3901 / 3901 1350 / 1350 Output Total 3150 / 3150 5450 / 5450 5450 / 5450 2350 / 2350 Balance -1890 / -1890 -4010 / -4010 -1549 / -1549 -1000 / -1000 Weight 220 lb 7.396 oz 201 lb 11.567 oz 203 lb 7.787 oz 203 lb 14.841 oz Microbiology Reports for the Last 24 Hours: Microbiology 08/30/18 19:41 Blood Blood Culture - Final NO GROWTH AFTER 5 DAYS 08/30/18 19:41 Blood Blood Culture - Final NO GROWTH AFTER 5 DAYS - Constitutional Comments: Patient is working hard. She remains on BiPAP at 35%. Sitting up leaning over bedside table. - *Routine Respiratory Exam Comments: Diminished breath sounds in upper lobes. Bilateral basilar crackles. - *Routine Cardiovascular Exam Comments: Unable to hear heart due to BiPAP noises. Will place on telemetry - *Routine Extremities Exam Absent: edema Comments: Cyanosis of bilateral feet - *Routine Neurological Exam Present: alert Lethargic Assessment and Plan (1) Pneumonia Status: Acute Category: Medical Code(s): J18.9 - Pneumonia, unspecified organism (2) Acute exacerbation of chronic obstructive airways disease Status: Acute Category: Medical Code(s): J44.1 - Chronic obstructive pulmonary disease with (acute) exacerbation (3) Acute respiratory failure with hypoxia and hypercapnia Status: Acute Category: Medical Code(s): J96.01 - Acute respiratory failure with hypoxia; J96.02 - Acute respiratory failure with hypercapnia (4) Pancytopenia Status: Acute Category: Medical Code(s): D61.818 - Other pancytopenia (5) Renal insufficiency Status: Acute Category: Medical Code(s): N28.9 - Disorder of kidney and ureter, unspecified (6) Diabetes mellitus Status: Chronic Qualifiers: Diabetes mellitus type: type 1 Diabetes mellitus complication status: with unspecified complications Category: Medical Code(s): E11.9 - Type 2 diabetes mellitus without comp lications (7) Tobacco abuse Status: Chronic Category: Medical Code(s): Z72.0 - Tobacco use (8) CHF (congestive heart failure) Status: Chronic Qualifiers: Heart failure type: diastolic Heart failure chronicity: chronic Qualified Code(s): I50.32 - Chronic diastolic (congestive) heart failure Category: Medical Code(s): I50.9 - Heart failure, unspecified (9) Hypokalemia Status: Acute Category: Medical Code(s): E87.6 - Hypokalemia - Assessment and plan all Dx Assessment and Plan for all problems:: Will replace [place] catheter. Stat chest x-ray. Add CBC to labs. Pulmonary and cardiac consultation. Telemetry <Stuart Torres - Last Filed: 09/11/18 22:35> Internal Medicine - PN: Subj *Date: 09/11/18 *Time: 22:35 Exam Vital signs and Labs for Last 24 Hours: Temp Pulse Resp BP Pulse Ox 97.9 F 117 H 24 149/73 H 88 L 09/08/18 07:58 09/08/18 07:58 09/08/18 07:58 09/08/18 07:58 09/08/18 07:58 Assessment and Plan (1) Pneumonia Status: Acute Category: Medical Code(s): J18.9 - Pneumonia, unspecified organism (2) Acute exacerbation of chronic obstructive airways disease Status: Acute Category: Medical Code(s): J44.1 - Chronic obstructive pulmonary disease with (acute) exacerbation (3) Acute respiratory failure with hypoxia and hypercapnia Status: Acute Category: Medical Code(s): J96.01 - Acute respiratory failure with hypoxia; J96.02 - Acute respiratory failure with hypercapnia (4) Pancytopenia Status: Acute Category: Medical Code(s): D61.818 - Other pancytopenia (5) Renal insufficiency Status: Acute Category: Medical Code(s): N28.9 - Disorder of kidney and ureter, unspecified (6) Diabetes mellitus Status: Chronic Qualifiers: Diabetes mellitus type: type 1 Diabetes mellitus complication status: with unspecified complications Category: Medical Code(s): E11.9 - Type 2 diabetes mellitus without complications (7) Tobacco abuse Status: Chronic Category: Medical Code(s): Z72.0 - Tobacco use (8) CHF (congestive heart failure) Status: Chronic Qualifiers: Category: Medical Code(s): I50.9 - Heart failure, unspecified (9) Hypokalemia Status: Acute Category: Medical Code(s): E87.6 - Hypokalemia - Assessment and plan all Dx Assessment and Plan for all problems:: Concur with above.
--- NOTE | 2018-09-05 09:34 | Consult Report ---
History of Present Illness Consult date: 09/05/18 Requesting physician: Stuart Torres Consult reason: shortness of breath Chief complaint: Shortness of breath Additional Medical History:: 1. End-stage COPD A. Tobacco use continued 2. Coronary artery disease A. [facility], 12/2016 B. [facility], 02/2017, Patent stent in ramus with evidence of intermittent coronary artery spasm in the LAD causing complete blood loss from the mid LAD distally. Normal LVEF C. [facility],06/2018,ANGIOGRAPHIC RESULTS: 1. The left main artery normal 2. The left anterior descending artery has diffuse vascular ectasia with no focal stenosis greater than 20% and its entire course. 3. The circumflex artery is a large dominant vessel with mild diffuse vascular ectasia. The circumflex artery has an ostial 20% stenosis. The terminal obtuse marginal artery is a large vessel and has an ostial 30% stenosis followed by moderate zone of vascular ectasia 4. The right coronary artery is a nondominant vessel and has a proximal 50- 60% stenosis however this is a small vessel 5. The DEL CID ventriculogram reveals hyperdynamic estimated at 75-85% 6. The left ventricular end-diastolic pressure severely elevated at 25 mmHg Right atrial pressure 10 mmHg Pulmonary artery pressure 48/25 mmHg Pulmonary artery occlusion pressure 25 mmHg Right atrial saturation 49% Pulmonary artery saturation 52% IMPRESSION: Severe diastolic dysfunction with hyperdynamic ventricle Nonflow limiting coronary artery disease Moderate to severe pulmonary hypertension Severely elevated left-sided filling pressures consistent with diastolic dysfunction and decompensated state PLAN: 1. Patient needs aggressive therapy with negative inotropes such as verapamil combined with high dose of a beta 1 selective beta derick. I would recommend starting patient on bisoprolol 10 mg daily and possibly up titrating. Also start patient on verapamil 240 mg daily 2. Judicious use of diuretics 3. Coronary artery disease we managed medically 4. Severe lung disease requires possible intermittent steroids while implementing beta derick therapy 3. Hypertension 4. Hyperlipidemia 5. Congestive heart failure, diastolic 6. Diabetes mellitus 7. History of renal cancer, right kidney 8. Pancytopenia, 08/2018 History of present illness: 62-year-old white female with history of coronary artery disease and COPD presented to [facility] ER for evaluation of progressive shortness of breath. Patient was admitted with respiratory failure with hypoxia and hypercapnia. Patient has been treated intermittently with BiPAP therapy but is currently on Vapotherm. Chest x-rays have shown questionable infiltrates for which she is on antibiotics. Patient's shortness of breath has not significantly improved during her hospital stay. Today's lab work shows increasing carbon dioxide level with decreasing anion gap. Blood gas from 09/04/2018 shows pH of 7.4 with PCO2 of 82.6 and a PO2 of 52.2. Patient denies any chest pain but states her shortness of breath is getting worse. She has had a net negative diuresis during her stay of 4 L. [facility] History Medical History: Reports:: Anxiety, Atherosclerotic Heart Disease, Cancer, Congestive Heart Failure, Chronic Obstructive Pulmonary Disease (COPD), Coronary Artery Disease, Depression, Diabetes Mellitus Type 2, Gall Bladder Disease, Gastroesophageal Reflux Disease(GERD), Home Oxygen, Hyperlipidemia, Hypertension, Lung Disease, MRSA, Peripheral Vascular Disease, Renal Insufficiency Denies:: Diabetes Mellitus Type 1 *Have you ever received a pneumonia vaccine?: Yes *Have you received a flu vaccine this season?: Yes Other Medical History: Reports: Anemia, Arthritis Laterality Cases: Left: Total Hip Replacement, Right: Other, Bilateral: Tonsillectomy Other Surgeries: Yes: Cancer Surgery, Cholecystectomy, Coronary Stent, Hysterectomy-Total, Other Amputation: No Fractures: Yes (fractured lt hip october 27 2017) - *Social History Educational Level: Attended College Smoking Status: Current every day smoker Tobacco Type: cigarettes # Packs/Day (cigarettes): 1 Alcohol Intake: never Alcohol Intake Frequency:: other Substance Use Type: denies use *Occupational Status:: disabled Housing: house Household Members: family, children *Travel in the last 8 weeks: None - Psychiatric History Expresses thoughts of harming self/others: None Suicide Plan Description: No Plan Pschychiatric History:: Reports:: Anxiety, Bipolar Disorder, Depression Family Hx:: Hypertension, Heart Attack, Diabetes, Hyperlipidemia, Kidney Disease Meds Home Medications Medication Instructions Recorded Confirmed Type alprazolam 0.25 mg tablet 0.25 mg PO TID tab 06/14/17 08/31/18 History insulin aspart (U-100) 100 unit/mL 8 unit SQ TID ml 06/14/17 08/31/18 History (3 mL) subcutaneous pen nitroglycerin 0.4 mg sublingual 0.4 mg SUBLINGUAL Q5MINP PRN 06/14/17 08/31/18 History tablet omega-3 fatty acids 1,000 mg 1,000 mg PO DAILY 06/14/17 08/31/18 History capsule venlafaxine 50 mg tablet 50 mg PO BID 90 Days #180 tab 08/31/17 08/31/18 History Aspirin [Low Dose Aspirin EC] 81 mg PO DAILY 10/27/17 08/31/18 History Clopidogrel Bisulfate [Plavix 75mg 75 mg PO DAILY 10/27/17 08/31/18 History Tab] Dexlansoprazole [Dexilant] 60 mg PO DAILY 02/17/18 08/31/18 History Hydrocod/Acet 5/325 mg [[place] 1 tab PO TIDP PRN 02/17/18 08/31/18 History 5/325mg tablet] Rosuvastatin Calcium 10 mg PO HS 02/17/18 08/31/18 History Trazodone HCl 100 mg PO HS 02/17/18 08/31/18 History quetiapine 200 mg tablet 100 mg PO HS tab 03/15/18 08/31/18 History Losartan Potassium 25 mg PO DAILY 05/09/18 08/31/18 History Metoprolol Succinate 50 mg PO DAILY 05/09/18 08/31/18 History Potassium Chloride [Klor-con 20 20 meq PO DAILY 05/10/18 08/31/18 History mEq tablet] Nicotine [Nicoderm 21mg/24hr 21 mg TD DAILY 05/17/18 08/31/18 History patch] Insulin Glargine,Hum.rec.anlog 45 unit SQ HS 07/19/18 08/31/18 History [Insulin Glargine 100 Units/mL 3mL flexpen] Ipratropium/Albuterol Sulfate 3 ml IH QID 07/19/18 08/31/18 History [Duoneb 3mL neb] Lactulose [Lactulose 10gm/15ml 10 gm PO QID 07/20/18 08/31/18 History Oral Soln] Mirabegron [Myrbetriq] 50 mg PO DAILY 07/20/18 08/31/18 History Polyethylene Glycol 3350 [Miralax 17 gm PO DAILY 07/20/18 08/31/18 History Powder] Nystatin [Nystatin Cr 100,000 30 gm TP QID 08/09/18 08/31/18 History Units/GM 30GM] Furosemide [Furosemide 40MG tAB] 40 mg PO BID 08/10/18 08/31/18 History predniSONE [Prednisone 20mg 20 mg PO DIRECTED #21 tab 08/16/18 08/31/18 Rx Tab] Isosorbide Mononitrate [Imdur 30mg 30 mg PO DAILY 08/31/18 08/31/18 History ER tablet] Allergies Allergy/AdvReac Type Severity Reaction Status Date / Time bacitracin Allergy Intermediate Rash Verified 05/09/18 14:40 [From NEOSPORIN ([id number])] doxycycline Allergy Mild Rash Verified 05/09/18 14:40 neomycin Allergy Mild Rash Verified 05/09/18 14:40 [From NEOSPORIN ([id number])] Penicillins Allergy Mild Rash Verified 05/09/18 14:40 polymyxin B Allergy Mild Rash Verified 05/09/18 14:40 [From NEOSPORIN ([id number])] sertraline [From Zoloft] AdvReac Severe Hallucinati Verified 05/09/18 14:40 ng tea tree AdvReac Severe Verified 05/18/18 15:00 gabapentin AdvReac Verified 07/20/18 10:35 green tea AdvReac Verified 05/19/18 14:30 Review of Systems - *Cardiovascular Reports shortness of breath, Reports shortness of breath with activity, Denies chest pain - *Respiratory Reports cough, Reports shortness of breath - *Gastrointestinal Denies abdominal pain, Denies nausea, Denies vomiting - *Genitourinary Denies blood in urine - *Musculoskeletal Reports joint pain, Reports back pain - *Neurologic Reports dizziness, Reports weakness, Denies headache(s), Denies seizure-like activity Exam Vital signs and Labs for Last 24 Hours: Temp Pulse Resp BP Pulse Ox 98.2 F 91 H 28 H 114/63 91 L 09/05/18 07:59 09/05/18 07:59 09/05/18 07:59 09/05/18 07:59 09/05/18 07:59 Laboratory Results - last 24 hr 09/04/18 11:29: POC Glucose 364 H* 09/04/18 16:45: POC Glucose 233 H 09/04/18 20:21: POC Glucose 325 H* 09/04/18 20:39: Specimen Source R/r, O2 % 4, ABG pH 7.40, ABG pCO2 82.6 H, ABG pO2 52.2 L, ABG HCO3 50.2 H, ABG Total CO2 52.8 H, ABG O2 Saturation 84 L*, ABG Base Excess 25.5 H, Chandler Test Y 09/05/18 06:10: POC Glucose 214 H 09/05/18 06:32: Sodium 143, Potassium 4.6 D, Chloride 95 L, Carbon Dioxide 52 H*, Anion Gap 0.6 L, BUN 25 H, Creatinine 0.83, Estimated Creat Clear 86, Estimated GFR 70, Est GFR ( Amer) 85, Glucose 207 H, Calcium 8.8 09/05/18 06:37: WBC 5.3, RBC 3.58 L, Hgb 8.9 L, Hct 30.5 L, MCV 85.3, MCH 24.8 L , MCHC 29.1 L, RDW 18.1 H, Plt Count 65 L, MPV 9.8, Neut % (Auto) 84.5 H, Lymph % (Auto) 8.5 L, [place] % (Auto) 6.2, Eos % (Auto) 0.2, Baso % (Auto) 0.5, Neut # (Auto) 4.4, Lymph # (Auto) 0.5 L, Gonzales # (Auto) 0.3, Eos # (Auto) 0.0, Baso # (Auto) 0.0 I & O for Last 24 hours: Intake & Output 09/02/18 09/03/18 09/04/18 09/05/18 11:59 11:59 11:59 11:59 Intake Total 1260 / 1260 1440 / 1440 3901 / 3901 1350 / 1350 Output Total 3150 / 3150 5450 / 5450 5450 / 5450 2350 / 2350 Balance -1890 / -1890 -4010 / -4010 -1549 / -1549 -1000 / -1000 Weight 220 lb 7.396 oz 201 lb 11.567 oz 203 lb 7.787 oz 203 lb 14.841 oz Microbiology Reports for the Last 24 Hours: Microbiology 08/30/18 19:41 Blood Blood Culture - Final NO GROWTH AFTER 5 DAYS 08/30/18 19:41 Blood Blood Culture - Final NO GROWTH AFTER 5 DAYS - *Routine HEENT Exam Head: Present: normocephalic Eye: Present: EOMI, PERRL ENT: Present: mucous membranes moist - *Routine Neck Exam Present: supple. Absent: JVD, carotid bruit - *Routine Respiratory Exam Present: decreased breath sounds, diminished air movement. Absent: accessory muscle use, rales, rhonchi, wheezes - *Routine Cardiovascular Exam Present: RRR. Absent: murmur, gallop, rubs - *Routine Abdominal Exam Present: soft. Absent: tenderness, distended, guarding - *Routine Extremities Exam Present: edema. Absent: calf tenderness - *Routine Neurological Exam Present: alert, oriented X3, moving all extremities Assessment and Plan (1) Pneumonia Current visit: No Status: Acute Category: Medical Code(s): J18.9 - Pneumonia, unspecified organism (2) Acute exacerbation of chronic obstructive airways disease Current visit: Yes Status: Acute Category: Medical Code(s): J44.1 - Chronic obstructive pulmonary disease with (acute) exacerbation (3) Acute respiratory failure with hypoxia and hypercapnia Current visit: Yes Status: Acute Category: Medical Code(s): J96.01 - Acute respiratory failure with hypoxia; J96.02 - Acute respiratory failure with hypercapnia (4) Pancytopenia Current visit: Yes Status: Acute Category: Medical Code(s): D61.818 - Other pancytopenia (5) Renal insufficiency Current visit: Yes Status: Acute Category: Medical Code(s): N28.9 - Disorder of kidney and ureter, unspecified (6) Diabetes mellitus Current visit: Yes Status: Chronic Qualifiers: Diabetes mellitus type: type 1 Diabetes mellitus complication status: with unspecified complications Category: Medical Code(s): E11.9 - Type 2 diabetes mellitus without complications (7) Tobacco abuse Current visit: Yes Status: Chronic Category: Medical Code(s): Z72.0 - Tobacco use (8) CHF (congestive heart failure) Current visit: No Status: Chronic Qualifiers: Heart failure type: diastolic Heart failure chronicity: chronic Qualified Code(s): I50.32 - Chronic diastolic (congestive) heart failure Category: Medical Code(s): I50.9 - Heart failure, unspecified (9) Hypokalemia Current visit: Yes Status: Acute Category: Medical Code(s): E87.6 - Hypokalemia - Assessment and plan all Dx Assessment and Plan for all problems:: 1. SOA not felt to be cardiac in etiology at this time. 2. Due to elevated pCO2 in setting of contraction metabolic alkalosis from diuresis combined with chronic respiratory acidosis, would recommend stopping lasix and replacing some fluids (1-2 liters) slowly. 3. No further cardiac workup needed at this time. Continue combo of metoprolol and diltiazem for hypertensive heart disease.
[2018-09-06 06:34] LABS: Calcium 8.6 mg/dL (8.5-10.1)
--- NOTE | 2018-09-06 07:16 | Progress Note ---
Subjective Date: 09/06/18 Time: 07:13 Principal diagnosis: SOA Interval history: 62 yo WF at bedside in NAD. States her breathing may be a little better but seems more upset and irritated about the lack of sleep due to frequent interruptions day and night. She admits that the nurses are doing their job but she has not been able to rest. Exam Vital signs and Labs for Last 24 Hours: Temp Pulse Resp BP Pulse Ox 97.3 F L 81 20 100/55 L 87 L 09/06/18 04:00 09/06/18 06:05 09/06/18 04:00 09/06/18 04:00 09/06/18 06:05 Laboratory Results - last 24 hr 09/05/18 06:32: Sodium 143, Potassium 4.6 D, Chloride 95 L, Carbon Dioxide 52 H*, Anion Gap 0.6 L, BUN 25 H, Creatinine 0.83, Estimated Creat Clear 86, Estimated GFR 70, Est GFR ( Amer) 85, Glucose 207 H, Calcium 8.8 09/05/18 06:37: WBC 5.3, RBC 3.58 L, Hgb 8.9 L, Hct 30.5 L, MCV 85.3, MCH 24.8 L , MCHC 29.1 L, RDW 18.1 H, Plt Count 65 L, MPV 9.8, Neut % (Auto) 84.5 H, Lymph % (Auto) 8.5 L, [place] % (Auto) 6.2, Eos % (Auto) 0.2, Baso % (Auto) 0.5, Neut # (Auto) 4.4, Lymph # (Auto) 0.5 L, [place] # (Auto) 0.3, Eos # (Auto) 0.0, Baso # (Auto) 0.0 09/05/18 11:46: POC Glucose 400 H* 09/05/18 16:27: POC Glucose 259 H 09/05/18 20:30: Tobramycin Trough 0.5 09/05/18 20:30: Vancomycin Trough 14.2 09/05/18 21:26: POC Glucose 322 H* 09/06/18 06:06: POC Glucose 238 H 09/06/18 06:12: Sodium 143, Potassium 5.0, Chloride 99, Carbon Dioxide 48 H*, Anion Gap 1.0 L, BUN 25 H, Creatinine 0.79, Estimated Creat Clear 89, Estimated GFR 74, Est GFR ( Amer) 90, Glucose 246 H, Calcium 8.6 I & O for Last 24 hours: Intake & Output 09/03/18 09/04/18 09/05/18 09/06/18 11:59 11:59 11:59 11:59 Intake Total 1440 / 1440 3901 / 3901 1350 / 1350 3640 / 3640 Output Total 5450 / 5450 5450 / 5450 2350 / 2350 4300 / 4300 Balance -4010 / -4010 -1549 / -1549 -1000 / -1000 -660 / -660 Weight 201 lb 11.567 oz 203 lb 7.787 oz 203 lb 14.841 oz 211 lb 4 oz - *Routine HEENT Exam Head: Present: normocephalic Eye: Present: EOMI, PERRL ENT: Present: mucous membranes moist - *Routine Respiratory Exam Present: decreased breath sounds, diminished air movement. Absent: accessory muscle use, rales, rhonchi, wheezes - *Routine Cardiovascular Exam Present: RRR. Absent: murmur, gallop, rubs - *Routine Neurological Exam Present: alert, oriented X3, moving all extremities Progress Note: A&P (1) Pneumonia Status: Acute Current Visit: No (2) Acute exacerbation of chronic obstructive airways disease Status: Acute Current Visit: Yes (3) Acute respiratory failure with hypoxia and hypercapnia Status: Acute Current Visit: Yes (4) Pancytopenia Status: Acute Current Visit: Yes (5) Renal insufficiency Status: Acute Current Visit: Yes (6) Diabetes mellitus Status: Chronic Current Visit: Yes (7) Tobacco abuse Status: Chronic Current Visit: Yes (8) CHF (congestive heart failure) Status: Chronic Current Visit: No (9) Hypokalemia Status: Acute Current Visit: Yes Assessment and Plan for All Diagnoses:: 1. Continue current meds for hypertensive heart disease. 2. Continue ASA and plavix for history of CAD and coronary stenting. 3. No need for lasix at this time. 4. Nothing further to add from a cardiology standpoint. Please call again if needed.
--- NOTE | 2018-09-06 07:48 | Progress Note ---
<Marce Lauren - Last Filed: 09/06/18 07:45> Internal Medicine - PN: Subj *Date: 09/06/18 *Time: 07:45 Interval history: Per nursing: Patient was irritable during the night. O2 sats dropped while sleeping and staff had to replace BiPAP to bring O2 sats into satisfactory range. She did call her daughter to come in in the middle of the night. The daughter did come and seemed to calm her. Patient states she just wanted to sleep. She does not know that she feels any better. She is eating without difficulty. He is on Vapotherm this morning and eating her breakfast. Exam Vital signs and Labs for Last 24 Hours: Temp Pulse Resp BP Pulse Ox 97.3 F L 81 20 100/55 L 87 L 09/06/18 04:00 09/06/18 06:05 09/06/18 04:00 09/06/18 04:00 09/06/18 06:05 Laboratory Results - last 24 hr 09/05/18 06:37: WBC 5.3, RBC 3.58 L, Hgb 8.9 L, Hct 30.5 L, MCV 85.3, MCH 24.8 L , MCHC 29.1 L, RDW 18.1 H, Plt Count 65 L, MPV 9.8, Neut % (Auto) 84.5 H, Lymph % (Auto) 8.5 L, [place] % (Auto) 6.2, Eos % (Auto) 0.2, Baso % (Auto) 0.5, Neut # (Auto) 4.4, Lymph # (Auto) 0.5 L, [place] # (Auto) 0.3, Eos # (Auto) 0.0, Baso # (Auto) 0.0 09/05/18 11:46: POC Glucose 400 H* 09/05/18 16:27: POC Glucose 259 H 09/05/18 20:30: Tobramycin Trough 0.5 09/05/18 20:30: Vancomycin Trough 14.2 09/05/18 21:26: POC Glucose 322 H* 09/06/18 06:06: POC Glucose 238 H 09/06/18 06:12: Sodium 143, Potassium 5.0, Chloride 99, Carbon Dioxide 48 H*, Anion Gap 1.0 L, BUN 25 H, Creatinine 0.79, Estimated Creat Clear 89, Estimated GFR 74, Est GFR ( Amer) 90, Glucose 246 H, Calcium 8.6 I & O for Last 24 hours: Intake & Output 09/03/18 09/04/18 09/05/18 09/06/18 11:59 11:59 11:59 11:59 Intake Total 1440 / 1440 3901 / 3901 1350 / 1350 3640 / 3640 Output Total 5450 / 5450 5450 / 5450 2350 / 2350 4300 / 4300 Balance -4010 / -4010 -1549 / -1549 -1000 / -1000 -660 / -660 Weight 201 lb 11.567 oz 203 lb 7.787 oz 203 lb 14.841 oz 211 lb 4 oz Radiology Reports for the Last 24 Hours: 09/05/2018 chest x-ray IMPRESSION: Slight worsening bibasilar airspace disease - Constitutional no acute distress Comments: She looks better today. She is sitting on the side of the bed with Vapotherm on and eating her breakfast. - *Routine Respiratory Exam Comments: Bibasilar crackles. Better air movement in upper lobes. - *Routine Cardiovascular Exam Present: RRR Comments: Monitor showing sinus rhythm to sinus tach. - *Routine Abdominal Exam Present: soft, normoactive bowel sounds. Absent: tenderness - *Routine Extremities Exam Present: edema (Trace) - *Routine Skin Exam Comments: Ecchymosis bilateral arms and some on the legs. - *Routine Neurological Exam Present: alert, oriented X3 Assessment and Plan (1) Pneumonia Current visit: No Status: Acute Category: Medical Code(s): J18.9 - Pneumonia, unspecified organism (2) Acute exacerbation of chronic obstructive airways disease Current visit: Yes Status: Acute Category: Medical Code(s): J44.1 - Ch ronic obstructive pulmonary disease with (acute) exacerbation (3) Acute respiratory failure with hypoxia and hypercapnia Current visit: Yes Status: Acute Category: Medical Code(s): J96.01 - Acute respiratory failure with hypoxia; J96.02 - Acute respiratory failure with hypercapnia (4) Pancytopenia Current visit: Yes Status: Acute Category: Medical Code(s): D61.818 - Other pancytopenia (5) Renal insufficiency Current visit: Yes Status: Acute Category: Medical Code(s): N28.9 - Disorder of kidney and ureter, unspecified (6) Diabetes mellitus Current visit: Yes Status: Chronic Qualifiers: Diabetes mellitus type: type 1 Diabetes mellitus complication status: with unspecified complications Category: Medical Code(s): E11.9 - Type 2 diabetes mellitus without complications (7) Tobacco abuse Current visit: Yes Status: Chronic Category: Medical Code(s): Z72.0 - Tobacco use (8) CHF (congestive heart failure) Current visit: No Status: Chronic Qualifiers: Heart failure type: diastolic Heart failure chronicity: chronic Qualified Code(s): I50.32 - Chronic diastolic (congestive) heart failure Category: Medical Code(s): I50.9 - Heart failure, unspecified (9) Hypokalemia Current visit: Yes Status: Acute Category: Medical Code(s): E87.6 - Hypokalemia - Assessment and plan all Dx Assessment and Plan for all problems:: Continue with current care. Will discontinue telemetry. Restart Venlafaxine <Stuart Torres - Last Filed: 09/06/18 08:56> Internal Medicine - PN: Subj *Date: 09/06/18 *Time: 08:52 Exam Vital signs and Labs for Last 24 Hours: Temp Pulse Resp BP Pulse Ox 98.0 F 93 H 18 96/44 L 92 L 09/06/18 08:00 09/06/18 08:00 09/06/18 08:00 09/06/18 08:00 09/06/18 08:00 Laboratory Results - last 24 hr 09/05/18 11:46: POC Glucose 400 H* 09/05/18 16:27: POC Glucose 259 H 09/05/18 20:30: Tobramycin Trough 0.5 09/05/18 20:30: Vancomycin Trough 14.2 09/05/18 21:26: POC Glucose 322 H* 09/06/18 06:06: POC Glucose 238 H 09/06/18 06:12: Sodium 143, Potassium 5.0, Chloride 99, Carbon Dioxide 48 H*, Anion Gap 1.0 L, BUN 25 H, Creatinine 0.79, Estimated Creat Clear 89, Estimated GFR 74, Est GFR ( Amer) 90, Glucose 246 H, Calcium 8.6 I & O for Last 24 hours: Intake & Output 0609/04/18 09/05/18 09/06/18 11:59 11:59 11:59 11:59 Intake Total 1440 / 1440 3901 / 3901 1350 / 1350 4240 / 4240 Output Total 5450 / 5450 5450 / 5450 2350 / 2350 4300 / 4300 Balance -4010 / -4010 -1549 / -1549 -1000 / -1000 -60 / -60 Weight 201 lb 11.567 oz 203 lb 7.787 oz 203 lb 14.841 oz 211 lb 4 oz Assessment and Plan (1) Pneumonia Current visit: No Status: Acute Category: Medical Code(s): J18.9 - Pneumo kimani, unspecified organism (2) Acute exacerbation of chronic obstructive airways disease Current visit: Yes Status: Acute Category: Medical Code(s): J44.1 - Chronic obstructive pulmonary disease with (acute) exacerbation (3) Acute respiratory failure with hypoxia and hypercapnia Current visit: Yes Status: Acute Category: Medical Code(s): J96.01 - Acute respiratory failure with hypoxia; J96.02 - Acute respiratory failure with hypercapnia (4) Pancytopenia Current visit: Yes Status: Acute Category: Medical Code(s): D61.818 - Other pancytopenia (5) Renal insufficiency Current visit: Yes Status: Acute Category: Medical Code(s): N28.9 - Disorder of kidney and ureter, unspecified (6) Diabetes mellitus Current visit: Yes Status: Chronic Qualifiers: Diabetes mellitus type: type 1 Diabetes mellitus complication status: with unspecified complications Category: Medical Code(s): E11.9 - Type 2 diabetes mellitus without complica tions (7) Tobacco abuse Current visit: Yes Status: Chronic Category: Medical Code(s): Z72.0 - Tobacco use (8) CHF (congestive heart failure) Current visit: No Status: Chronic Qualifiers: Heart failure type: diastolic Heart failure chronicity: chronic Qualified Code(s): I50.32 - Chronic diastolic (congestive) heart failure Category: Medical Code(s): I50.9 - Heart failure, unspecified (9) Hypokalemia Current visit: Yes Status: Acute Category: Medical Code(s): E87.6 - Hypokalemia - Assessment and plan all Dx Assessment and Plan for all problems:: Patient seen and examined. Concur with above. SHe seems to be breathing comfotable with the Vaportherm. Lung sounds still show bilateral faint wheezes and coarse rhonchi in right base. CBC is marginally improved and blood sugar has imprived. IVF and Lasix discontinued per cardiology. Will continue per orders. Encouraged OOB and into chair.
--- NOTE | 2018-09-06 08:04 | Pharmacy Consult Notes ---
- Pharmacy Consult Date: 09/06/18 Time: 08:02 Referring provider: DR. VALENCIA Reason for Consult:: VANCOMYCIN AND TOBRAMYCIN TROUGH LEVELS Allergies and ADEs:: Allergies Allergy/AdvReac Type Severity Reaction Status Date / Time bacitracin Allergy Intermediate Rash Verified 05/09/18 14:40 [From NEOSPORIN ([id number])] doxycycline Allergy Mild Rash Verified 05/09/18 14:40 neomycin Allergy Mild Rash Verified 05/09/18 14:40 [From NEOSPORIN ([id number])] Penicillins Allergy Mild Rash Verified 05/09/18 14:40 polymyxin B Allergy Mild Rash Verified 05/09/18 14:40 [From NEOSPORIN ([id number])] sertraline [From Zoloft] AdvReac Severe Hallucinati Verified 05/09/18 14:40 ng tea tree AdvReac Severe Verified 05/18/18 15:00 gabapentin AdvReac Verified 07/20/18 10:35 green tea AdvReac Verified 05/19/18 14:30 Home Medications:: Home Medications Medication Instructions Recorded Confirmed Type alprazolam 0.25 mg tablet 0.25 mg PO TID tab 06/14/17 08/31/18 History insulin aspart (U-100) 100 unit/mL 8 unit SQ TID ml 06/14/17 08/31/18 History (3 mL) subcutaneous pen nitroglycerin 0.4 mg sublingual 0.4 mg SUBLINGUAL Q5MINP PRN 06/14/17 08/31/18 History tablet omega-3 fatty acids 1,000 mg 1,000 mg PO DAILY 06/14/17 08/31/18 History capsule venlafaxine 50 mg tablet 50 mg PO BID 90 Days #180 tab 08/31/17 08/31/18 History Aspirin [Low Dose Aspirin EC] 81 mg PO DAILY 10/27/17 08/31/18 History Clopidogrel Bisulfate [Plavix 75mg 75 mg PO DAILY 10/27/17 08/31/18 History Tab] Dexlansoprazole [Dexilant] 60 mg PO DAILY 02/17/18 08/31/18 History Hydrocod/Acet 5/325 mg [[place] 1 tab PO TIDP PRN 02/17/18 08/31/18 History 5/325mg tablet] Rosuvastatin Calcium 10 mg PO HS 02/17/18 08/31/18 History Trazodone HCl 100 mg PO HS 02/17/18 08/31/18 History quetiapine 200 mg tablet 100 mg PO HS tab 03/15/18 08/31/18 History Losartan Potassium 25 mg PO DAILY 05/09/18 08/31/18 History Metoprolol Succinate 50 mg PO DAILY 05/09/18 08/31/18 History Potassium Chloride [Klor-con 20 20 meq PO DAILY 05/10/18 08/31/18 History mEq tablet] Nicotine [Nicoderm 21mg/24hr 21 mg TD DAILY 05/17/18 08/31/18 History patch] Insulin Glargine,Hum.rec.anlog 45 unit SQ HS 07/19/18 08/31/18 History [Insulin Glargine 100 Units/mL 3mL flexpen] Ipratropium/Albuterol Sulfate 3 ml IH QID 07/19/18 08/31/18 History [Duoneb 3mL neb] Lactulose [Lactulose 10gm/15ml 10 gm PO QID 07/20/18 08/31/18 History Oral Soln] Mirabegron [Myrbetriq] 50 mg PO DAILY 07/20/18 08/31/18 History Polyethylene Glycol 3350 [Miralax 17 gm PO DAILY 07/20/18 08/31/18 History Powder] Nystatin [Nystatin Cr 100,000 30 gm TP QID 08/09/18 08/31/18 History Units/GM 30GM] Furosemide [Furosemide 40MG tAB] 40 mg PO BID 08/10/18 08/31/18 History predniSONE [Prednisone 20mg 20 mg PO DIRECTED #21 tab 08/16/18 08/31/18 Rx Tab] Isosorbide Mononitrate [Imdur 30mg 30 mg PO DAILY 08/31/18 08/31/18 History ER tablet] Height: 1.68 m Weight: 95.821 kg Laboratory Results:: Laboratory Results - last 24 hr 09/05/18 06:37: WBC 5.3, RBC 3.58 L, Hgb 8.9 L, Hct 30.5 L, MCV 85.3, MCH 24.8 L , MCHC 29.1 L, RDW 18.1 H, Plt Count 65 L, MPV 9.8, Neut % (Auto) 84.5 H, Lymph % (Auto) 8.5 L, [place] % (Auto) 6.2, Eos % (Auto) 0.2, Baso % (Auto) 0.5, Neut # (Auto) 4.4, Lymph # (Auto) 0.5 L, [place] # (Auto) 0.3, Eos # (Auto) 0.0, Baso # (Auto) 0.0 09/05/18 11:46: POC Glucose 400 H* 09/05/18 16:27: POC Glucose 259 H 09/05/18 20:30: Tobramycin Trough 0.5 09/05/18 20:30: Vancomycin Trough 14.2 09/05/18 21:26: POC Glucose 322 H* 09/06/18 06:06: POC Glucose 238 H 09/06/18 06:12: Sodium 143, Potassium 5.0, Chloride 99, Carbon Dioxide 48 H*, Anion Gap 1.0 L, BUN 25 H, Creatinine 0.79, Estimated Creat Clear 89, Estimated GFR 74, Est GFR ( Amer) 90, Glucose 246 H, Calcium 8.6 Medical History: Reports:: Anxiety, Atherosclerotic Heart Disease, Cancer, Congestive Heart Failure, Chronic Obstructive Pulmonary Disease (COPD), Coronary Artery Disease, Depression, Diabetes Mellitus Type 2, Gall Bladder Disease, Gastroesophageal Reflux Disease(GERD), Home Oxygen, Hyperlipidemia, Hypertension, Lung Disease, MRSA, Peripheral Vascular Disease, Renal Insufficiency Denies:: Diabetes Mellitus Type 1 Assessment and Plan (1) Pneumonia Current visit: No Status: Acute Category: Medical Code(s): J18.9 - Pneumonia, unspecified organism (2) Acute exacerbation of chronic obstructive airways disease Current visit: Yes Status: Acute Category: Medical Code(s): J44.1 - Chroni c obstructive pulmonary disease with (acute) exacerbation (3) Acute respiratory failure with hypoxia and hypercapnia Current visit: Yes Status: Acute Category: Medical Code(s): J96.01 - Acute respiratory failure with hypoxia; J96.02 - Acute respiratory failure with hypercapnia (4) Pancytopenia Current visit: Yes Status: Acute Category: Medical Code(s): D61.818 - Other pancytopenia (5) Renal insufficiency Current visit: Yes Status: Acute Category: Medical Code(s): N28.9 - Disorder of kidney and ureter, unspecified (6) Diabetes mellitus Current visit: Yes Status: Chronic Qualifiers: Diabetes mellitus type: type 1 Diabetes mellitus complication status: with unspecified complications Category: Medical Code(s): E11.9 - Type 2 diabetes mellitus without complications (7) Tobacco abuse Current visit: Yes Status: Chronic Category: Medical Code(s): Z72.0 - Tobacco use (8) CHF (congestive heart failure) Current visit: No Status: Chronic Qualifiers: Heart failure type: diastolic Heart failure chronicity: chronic Qualified Code(s): I50.32 - Chronic diastolic (congestive) heart failure Category: Medical Code(s): I50.9 - Heart failure, unspecified (9) Hypokalemia Current visit: Yes Status: Acute Category: Medical Code(s): E87.6 - Hypokalemia - Assessment and plan all Dx Assessment and Plan for all problems:: VANCOMYCIN TROUGH LEVEL: 14.2 MCG/ML TOBRAMYCIN TROUGH LEVEL: 0.5 MCG/ML BASED ON LEVELS AND PATIENT FACTORS, RECOMMEND CONTINUING VANCOMYCIN 1500 MG IV Q24H AND TOBRAMYCIN 320 MG IV Q36H. PHARMACY WILL CONTINUE TO MONITOR DAILY AND ADJUST APPROPRIATE.
--- NOTE | 2018-09-07 08:00 | Progress Note ---
<Jaqueline Crespo - Last Filed: 09/07/18 07:58> Internal Medicine - PN: Subj *Date: 09/07/18 *Time: 07:58 Interval history: Patient states she is feeling better today. She is less short of breath and has less wheezing. She slept well last night and is eating breakfast this morning. She denies any pain. Exam Vital signs and Labs for Last 24 Hours: Temp Pulse Resp BP Pulse Ox 98.6 F 86 22 121/67 94 L 09/07/18 07:49 09/07/18 07:49 09/07/18 07:49 09/07/18 07:49 09/07/18 07:49 Laboratory Results - last 24 hr 09/06/18 11:32: POC Glucose 383 H* 09/06/18 16:25: POC Glucose 271 H 09/06/18 20:35: POC Glucose 260 H 09/07/18 06:26: POC Glucose 150 H I & O for Last 24 hours: Intake & Output 09/04/18 09/05/18 09/06/18 09/07/18 11:59 11:59 11:59 11:59 Intake Total 3901 / 3901 1350 / 1350 4240 / 4240 1440 / 1440 Output Total 5450 / 5450 2350 / 2350 4300 / 4300 2600 / 2600 Balance -1549 / -1549 -1000 / -1000 -60 / -60 -1160 / -1160 Weight 203 lb 7.787 oz 203 lb 14.841 oz 211 lb 4 oz 210 lb 6 oz - Constitutional no acute distress - *Routine Respiratory Exam Present: decreased breath sounds, wheezes - *Routine Cardiovascular Exam Present: RRR - *Routine Abdominal Exam Present: soft, normoactive bowel sounds. Absent: tenderness - *Routine Extremities Exam Absent: cyanosis, clubbing, edema - *Routine Neurological Exam Present: alert, oriented X3 Assessment and Plan (1) Pneumonia Current visit: No Status: Acute Category: Medical Code(s): J18.9 - Pneumonia, unspecified organism (2) Acute exacerbation of chronic obstructive airways disease Current visit: Yes Status: Acute Category: Medical Code(s): J44.1 - Chronic obstructive pulmonary disease with (acute) exacerbation (3) Acute respiratory failure with hypoxia and hypercapnia Current visit: Yes Status: Acute Category: Medical Code(s): J96.01 - Acute respiratory failure with hypoxia; J96.02 - Acute respiratory failure with hypercapnia (4) Pancytopenia Current visit: Yes Status: Acute Category: Medical Code(s): D61.818 - Other pancytopenia (5) Renal insufficiency Current visit: Yes Status: Acute Category: Medical Code(s): N28.9 - Disorder of kidney and ureter, unspecified (6) Diabetes mellitus Current visit: Yes Status: Chronic Qualifiers: Diabetes mellitus type: type 1 Diabetes mellitus complication status: with unspecified complications Category: Medical Code(s): E11.9 - Type 2 diabetes mellitus without complications (7) Tobacco abuse Current visit: Yes Status: Chronic Category: Medical Code(s): Z72.0 - Tobacco use (8) CHF (congestive heart failure) Current visit: No Status: Chronic Qualifiers: Heart failure type: diastolic Heart failure chronicity: chronic Qualified Code(s): I50.32 - Chronic diastolic (congestive) heart failure Category: Medical Code(s): I50.9 - Heart failure, unspecified (9) Hypokalemia Current visit: Yes Status: Acute Category: Medical Code(s): E87.6 - Hypokalemia - Assessment and plan all Dx Assessment and Plan for all problems:: Patient is improving. Will discuss further care with Dr. Torres. <Stuart Torres - Last Filed: 09/07/18 08:50> Internal Medicine - PN: Subj *Date: 09/07/18 *Time: 08:48 Exam Vital signs and Labs for Last 24 Hours: Temp Pulse Resp BP Pulse Ox 98.6 F 86 22 121/67 94 L 09/07/18 07:49 09/07/18 07:49 09/07/18 07:49 09/07/18 07:49 09/07/18 07:49 Laboratory Results - last 24 hr 09/06/18 11:32: POC Glucose 383 H* 09/06/18 16:25: POC Glucose 271 H 09/06/18 20:35: POC Glucose 260 H 09/07/18 06:26: POC Glucose 150 H I & O for Last 24 hours: Intake & Output 09/04/18 09/05/18 09/06/18 09/07/18 11:59 11:59 11:59 11:59 Intake Total 3901 / 3901 1350 / 1350 4240 / 4240 1440 / 1440 Output Total 5450 / 5450 2350 / 2350 4300 / 4300 2600 / 2600 Balance -1549 / -1549 -1000 / -1000 -60 / -60 -1160 / -1160 Weight 203 lb 7.787 oz 203 lb 14.841 oz 211 lb 4 oz 210 lb 6 oz Assessment and Plan (1) Pneumonia Current visit: No Status: Acute Category: Medical Code(s): J18.9 - Pneumonia, unspecified organism (2) Acute exacerbation of chronic obstructive airways disease Current visit: Yes Status: Acute Category: Medical Code(s): J44.1 - Chronic obstructive pulmonary disease with (acute) exacerbation (3) Acute respiratory failure with hypoxia and hypercapnia Current visit: Yes Status: Acute Category: Medical Code(s): J96.01 - Acute respiratory failure with hypoxia; J96.02 - Acute respiratory failure with hypercapnia (4) Pancytopenia Current visit: Yes Status: Acute Category: Medical Code(s): D61.818 - Other pancytopenia (5) Renal insufficiency Current visit: Yes Status: Acute Category: Medical Code(s): N28.9 - Disorder of kidney and ureter, unspecified (6) Diabetes mellitus Current visit: Yes Status: Chronic Qualifiers: Diabetes mellitus type: type 1 Diabetes mellitus complication status: with unspecified complications Category: Medical Code(s): E11.9 - Type 2 diabetes mellitus without complications (7) Tobacco abuse Current visit: Yes Status: Chronic Category: Medical Code(s): Z72.0 - Tobacco use (8) CHF (congestive heart failure) Current visit: No Status: Chronic Qualifiers: Heart failure type: diastolic Heart failure chronicity: chronic Qualified Code(s): I50.32 - Chronic diastolic (congestive) heart failure Category: Medical Code(s): I50.9 - Heart failure, unspecified (9) Hypokalemia Current visit: Yes Status: Acute Category: Medical Code(s): E87.6 - Hypokalemia - Assessment and plan all Dx Assessment and Plan for all problems:: Patient seen and examined. SHe looks and feels better. She is eager to go home but is still requiring BiPAP at night and Vapotherm during the day. Will begin weaning to nasal cannula during the day and back on her home Trilogy unit at night.
--- NOTE | 2018-09-08 08:14 | Progress Note ---
<Jaqueline Crespo - Last Filed: 09/08/18 08:12> Internal Medicine - PN: Subj *Date: 09/08/18 *Time: 08:12 Interval history: Patient states she is feeling better this morning. She has been weaned down to 3 L of nasal oxygen and her sats are in the mid to upper 80s. She states this is normal for her. She still is wheezing but her shortness of breath has improved. She denies a cough. She states she slept well last night and ate a good breakfast this morning. She states she is going home today. Exam Vital signs and Labs for Last 24 Hours: Temp Pulse Resp BP Pulse Ox 97.9 F 117 H 24 149/73 H 88 L 09/08/18 07:58 09/08/18 07:58 09/08/18 07:58 09/08/18 07:58 09/08/18 07:58 Laboratory Results - last 24 hr 09/07/18 11:41: POC Glucose 269 H 09/07/18 17:03: POC Glucose 396 H* 09/07/18 20:00: POC Glucose 329 H* 09/08/18 06:01: POC Glucose 333 H* I & O for Last 24 hours: Intake & Output 09/05/18 09/06/18 09/07/18 09/08/18 11:59 11:59 11:59 11:59 Intake Total 1350 / 1350 4240 / 4240 1440 / 1440 1330 / 1330 Output Total 2350 / 2350 4300 / 4300 2600 / 2600 3200 / 3200 Balance -1000 / -1000 -60 / -60 -1160 / -1160 -1870 / -1870 Weight 203 lb 14.841 oz 211 lb 4 oz 210 lb 6 oz 206 lb 4 oz - Constitutional no acute distress - *Routine Respiratory Exam Present: wheezes (bilaterally) - *Routine Cardiovascular Exam Present: RRR - *Routine Abdominal Exam Present: soft, normoactive bowel sounds. Absent: tenderness - *Routine Extremities Exam Absent: cyanosis, clubbing, edema Assessment and Plan (1) Pneumonia Status: Acute Category: Medical Code(s): J18.9 - Pneumonia, unspecified organism (2) Acute exacerbation of chronic obstructive airways disease Status: Acute Category: Medical Code(s): J44.1 - Chronic obstructive pulmonary disease with (acute) exacerbation (3) Acute respiratory failure with hypoxia and hypercapnia Status: Acute Category: Medical Code(s): J96.01 - Acute respiratory failure with hypoxia; J96.02 - Acute respiratory failure with hypercapnia (4) Pancytopenia Status: Acute Category: Medical Code(s): D61.818 - Other pancytopenia (5) Renal insufficiency Status: Acute Category: Medical Code(s): N28.9 - Disorder of kidney and ureter, unspecified (6) Diabetes mellitus Status: Chronic Qualifiers: Diabetes mellitus type: type 1 Diabetes mellitus complication status: with unspecified complications Category: Medical Code(s): E11.9 - Type 2 diabetes mellitus without complications (7) Tobacco abuse Status: Chronic Category: Medical Code(s): Z72.0 - Tobacco use (8) CHF (congestive heart failure) Status: Chronic Qualifiers: Heart failure type: diastolic Heart failure chronicity: chronic Qualified Code(s): I50.32 - Chronic diastolic (congestive) heart failure Category: Medical Code(s): I50.9 - Heart failure, unspecified (9) Hypokalemia Status: Acute Category: Medical Code(s): E87.6 - Hypokalemia - Assessment and plan all Dx Assessment and Plan for all problems:: Patient is stable to be discharged home today. Will discharge her on Bactrim as well as 20 mg of prednisone daily. She will need to continue her trilogy device and nebs at home. She will follow-up with Dr. Bass. <Stuart Torres - Last Filed: 09/09/18 08:39> Internal Medicine - PN: Subj *Date: 09/09/18 *Time: 08:36 Exam Vital signs and Labs for Last 24 Hours: Temp Pulse Resp BP Pulse Ox 97.9 F 117 H 24 149/73 H 88 L 09/08/18 07:58 09/08/18 07:58 09/08/18 07:58 09/08/18 07:58 09/08/18 07:58 I & O for Last 24 hours: Intake & Output 09/06/18 09/07/18 09/08/18 09/09/18 11:59 11:59 11:59 11:59 Intake Total 4240 / 4240 1440 / 1440 1330 / 1330 Output Total 4300 / 4300 2600 / 2600 3800 / 3800 Balance -60 / -60 -1160 / -1160 -2470 / -2470 Weight 211 lb 4 oz 210 lb 6 oz 206 lb 4 oz Assessment and Plan (1) Pneumonia Status: Acute Category: Medical Code(s): J18.9 - Pneumonia, unspecified organism (2) Acute exacerbation of chronic obstructive airways disease Status: Acute Category: Medical Code(s): J44.1 - Chronic obstructive pulmonary disease with (acute) exacerbation (3) Acute respiratory failure with hypoxia and hypercapnia Status: Acute Category: Medical Code(s): J96.01 - Acute respiratory failure with hypoxia; J96.02 - Acute respiratory failure with hypercapnia (4) Pancytopenia Status: Acute Category: Medical Code(s): D61.818 - Other pancytopenia (5) Renal insufficiency Status: Acute Category: Medical Code(s): N28.9 - Disorder of kidney and ureter, unspecified (6) Diabetes mellitus Status: Chronic Qualifiers: Diabetes mellitus type: type 1 Diabetes mellitus complication status: with unspecified complications Category: Medical Code(s): E11.9 - Type 2 diabetes mellitus without complications (7) Tobacco abuse Status: Chronic Category: Medical Code(s): Z72.0 - Tobacco use (8) CHF (congestive heart failure) Status: Chronic Qualifiers: Heart failure type: diastolic Heart failure chronicity: chronic Qualified Code(s): I50.32 - Chronic diastolic (congestive) heart failure Category: Medical Code(s): I50.9 - Heart failure, unspecified (9) Hypokalemia Status: Acute Category: Medical Code(s): E87.6 - Hypokalemia - Assessment and plan all Dx Assessment and Plan for all problems:: Patient seen and examined this AM. She is feeling much better and insistent on going home. Events of yesterday regarding family issues reviewed with patient and Reuse Technician. SHe has been offered help to get out of her situation but she insists she can handle it herself. Will discharge home and f/u with Dr. Bass next week.
--- NOTE | 2018-09-08 13:19 | Discharge Summary ---
General - General Admission date:: 09/01/18 <Stuart Torres - 09/11/18 22:37> 09/01/18 <Jaqueline Crespo - 09/08/18 13:19> Discharge date: 09/08/18 <Jaqueline Crespo - 09/08/18 13:19> HPI HPI: Ms. Ramirez is a 62yo WF with history of DM, HTN, CHF, COPD on home O2, CAD with stent, and renal cancer. She reports some increasing shortness of breath at home over the past week with productive cough. She was not able to get any relief with nebulizer treatments and presented to the [facility] ED for evaluation after SOB caused her to fall out of her chair. She also noted some mild chest discomfort. Upon arrival, EKG showed non-specific changes. CXR was negative for acute findings. Her WBC count was elevated and renal function was decreased. ABG's showed acute respiratory failure with hypoxia and hypercapnia. She was admitted for further evaluation and treatment. <Jaqueline Crespo - 09/08/18 13:19> Hospital Course Hospital Course: The patient was started on steroids, nebs, and antibiotics. She was also started on Vapotherm. She did get more short of breath and her weight increased, therefore she was given Lasix. A repeat chest x-ray was ordered showing right lower lobe pneumonia and mild CHF. She was continued on antibiotics with cultures pending. Her Lasix dose was increased. She did require BiPAP to maintain oxygen saturations in the 80s. Her blood cultures were normal and her sputum returned normal as well. She had good diuresis and her weight decreased by 19 pounds. Her hemoglobin dropped, but she was hemodynamically stable. Her steroids were weaned and her blood sugar, which was initially elevated, improved. She was started on supplemental potassium for hypokalemia. She did have some choking episodes on 09/02/18. She was on Dexilant and this was changed to Protonix IV and Reglan was added as well. This did improve her symptoms. The patient's breathing did improve and she felt it was back to normal. She was using her home trilogy unit at night but the staff reported that almost every time they entered the room, she had removed the unit. Her white blood cell count and hemoglobin improved. Her IV steroids were weaned to p.o. steroids and her Lasix dose was decreased. Pantoprazole and Reglan were changed to oral dosing as well. She required BiPAP and off and on throughout her stay to keep her oxygen saturations up. She did have an episode of increasing shortness of breath on 09/05/2018 as well as increased agitation. She had a repeat chest x-ray on 09/05/2018 showing slight worsening bibasilar airspace disease. She had been weaned off of BiPAP onto the Vapotherm. It was discovered that she had been off of her venlafaxine, therefore this was restarted. Cardiology was consulted and they felt her shortness of breath was not cardiac in etiology. They recommended stopping her Lasix and replacing some fluids slowly. The patient's symptoms improved and she began feeling much better. She was less short of breath and had less wheezing. She was sleeping and eating well. She was weaned off of the Vapotherm onto nasal oxygen at 3 L/min with sats in the upper 80s. She was anxious to go home and was stable to be discharged on Bactrim as well as 20 mg of prednisone daily. She will continue her trilogy device and nebulizer treatments at home and will follow up with Dr. Bass. <Jauqeline Crespo - 09/08/18 14:47> Objective Vital signs: Temp Pulse Resp BP Pulse Ox 97.9 F 117 H 24 149/73 H 88 L 09/08/18 07:58 09/08/18 07:58 09/08/18 07:58 09/08/18 07:58 09/08/18 07:58 <Stuart Torres - 09/11/18 22:37> Temp Pulse Resp BP Pulse Ox 97.9 F 117 H 24 149/73 H 88 L 09/08/18 07:58 09/08/18 07:58 09/08/18 07:58 09/08/18 07:58 09/08/18 07:58 <Jaqueline Crespo - 09/08/18 13:19> Narrative: - Constitutional no acute distress - *Routine Respiratory Exam Present: wheezes (bilaterally) - *Routine Cardiovascular Exam Present: RRR - *Routine Abdominal Exam Present: soft, normoactive bowel sounds. Absent: tenderness - *Routine Extremities Exam Absent: cyanosis, clubbing, edema <Jaqueline Crespo - 09/08/18 13:19> Results Labs on day of discharge: Labs from last 24 hours 09/08/18 09/07/18 09/07/18 06:01 20:00 17:03 POC Glucose 333 H* 329 H* 396 H* 09/07/18 11:41 POC Glucose 269 H <Jaqueline Crespo - 09/08/18 13:19> DS: Diagnosis - Discharge Diagnosis (1) Pneumonia Status: Acute (2) Acute exacerbation of chronic obstructive airways disease Status: Acute (3) Acute respiratory failure with hypoxia and hypercapnia Status: Acute (4) Pancytopenia Status: Acute (5) Renal insufficiency Status: Acute (6) Diabetes mellitus Status: Chronic (7) Tobacco abuse Status: Chronic (8) CHF (congestive heart failure) Status: Chronic (9) Hypokalemia Status: Acute <Jaqueline Crespo - 09/08/18 14:44> (1) Pneumonia Status: Acute (2) Acute exacerbation of chronic obstructive airways disease Status: Acute (3) Acute respiratory failure with hypoxia and hypercapnia Status: Acute (4) Pancytopenia Status: Acute (5) Renal insufficiency Status: Acute (6) Diabetes mellitus Status: Chronic (7) Tobacco abuse Status: Chronic (8) CHF (congestive heart failure) Status: Chronic (9) Hypokalemia Status: Acute <Stuart Torres - 09/11/18 22:37> Discharge Plan - Patient Discharge Instructions ACTIVITY: Continue current activity (javad) <Jaqueline Crespo - 09/08/18 13:19> DIET: continue same diet <Jaqueline Crespo - 09/08/18 13:19> Patient Instructions: Oxygen Therapy, DI for Chronic Obstructive Pulmonary Disease, How to Measure Oxygen Saturation via Pulse Oximetry, Respiratory Failure, How to Quit Tobacco Products <Stuart Torres - 09/11/18 22:37> Forms: <Stuart Torres - 09/11/18 22:37> - Follow up Plan Follow up with: Petty Bass MD [Primary Care Provider] - 09/14/18 10:00 am <Stuart Torres - 09/11/18 22:37> Disposition: Home, Self-Care <Stuart Torres - 09/11/18 22:37> Home Medications: Home Medications Medication Instructions Recorded Confirmed Type alprazolam 0.25 mg tablet 0.25 mg PO TID tab 06/14/17 09/10/18 History insulin aspart (U-100) 100 unit/mL 8 unit SQ TID ml 06/14/17 09/10/18 History (3 mL) subcutaneous pen nitroglycerin 0.4 mg sublingual 0.4 mg SUBLINGUAL Q5MINP PRN 06/14/17 09/10/18 History tablet omega-3 fatty acids 1,000 mg 1,000 mg PO DAILY 06/14/17 09/10/18 History capsule venlafaxine 50 mg tablet 50 mg PO BID 90 Days #180 tab 08/31/17 09/10/18 History Aspirin [Low Dose Aspirin EC] 81 mg PO DAILY 10/27/17 09/10/18 History Clopidogrel Bisulfate [Plavix 75mg 75 mg PO DAILY 10/27/17 09/10/18 History Tab] Dexlansoprazole [Dexilant] 60 mg PO DAILY 02/17/18 09/10/18 History Hydrocod/Acet 5/325 mg [[place] 1 tab PO TIDP PRN 02/17/18 09/10/18 History 5/325mg tablet] Rosuvastatin Calcium 10 mg PO HS 02/17/18 09/10/18 History Trazodone HCl 100 mg PO HS 02/17/18 09/10/18 History quetiapine 200 mg tablet 100 mg PO HS tab 03/15/18 09/10/18 History Losartan Potassium 25 mg PO DAILY 05/09/18 09/10/18 History Metoprolol Succinate 50 mg PO DAILY 05/09/18 09/10/18 History Potassium Chloride [Klor-con 20 20 meq PO DAILY 05/10/18 09/10/18 History mEq tablet] Nicotine [Nicoderm 21mg/24hr 21 mg TD DAILY 05/17/18 09/10/18 History patch] Insulin Glargine,Hum.rec.anlog 45 unit SQ HS 07/19/18 09/10/18 History [Insulin Glargine 100 Units/mL 3mL flexpen] Ipratropium/Albuterol Sulfate 3 ml IH QID 07/19/18 09/10/18 History [Duoneb 3mL neb] Lactulose [Lactulose 10gm/15ml 10 gm PO QID 07/20/18 09/10/18 History Oral Soln] Mirabegron [Myrbetriq] 50 mg PO DAILY 07/20/18 09/10/18 History Polyethylene Glycol 3350 [Miralax 17 gm PO DAILY 07/20/18 09/10/18 History Powder] Nystatin [Nystatin Cr 100,000 30 gm TP QID 08/09/18 09/10/18 History Units/GM 30GM] Isosorbide Mononitrate [Imdur 30mg 30 mg PO DAILY 08/31/18 09/10/18 History ER tablet] Furosemide [Furosemide 40MG tAB] 40 mg PO DAILY #0 09/08/18 09/10/18 Rx predniSONE [Prednisone 20mg 20 mg PO DIRECTED #21 tab 09/08/18 09/10/18 Rx Tab] Sulfamethoxazole/Trimethoprim 1 each PO BID 09/10/18 09/10/18 History [Bactrim DS tablet] <Stuart Torres - 09/11/18 22:37> Prescriptions/Medication Reconciliation: Continued alprazolam 0.25 mg tablet 0.25 mg PO TID tab omega-3 fatty acids 1,000 mg capsule 1,000 mg PO DAILY insulin aspart (U-100) 100 unit/mL (3 mL) subcutaneous pen 8 unit SQ TID ml venlafaxine 50 mg tablet 50 mg PO BID 90 Days #180 tab quetiapine 200 mg tablet 100 mg PO HS tab nitroglycerin 0.4 mg sublingual tablet 0.4 mg SUBLINGUAL Q5MINP PRN PRN Reason: Chest Pain Aspirin [Low Dose Aspirin EC] 81 mg PO DAILY Clopidogrel Bisulfate [Plavix 75mg Tab] 75 mg PO DAILY Rosuvastatin Calcium 10 mg PO HS Trazodone HCl 100 mg PO HS Hydrocod/Acet 5/325 mg [[place] 5/325mg tablet] 1 tab PO TIDP PRN PRN Reason: PAIN Losartan Potassium 25 mg PO DAILY Metoprolol Succinate 50 mg PO DAILY Insulin Glargine,Hum.rec.anlog [Insulin Glargine 100 Units/mL 3mL flexpen] 45 unit SQ HS Mirabegron [Myrbetriq] 50 mg PO DAILY Lactulose [Lactulose 10gm/15ml Oral Soln] 10 gm PO QID Polyethylene Glycol 3350 [Miralax Powder] 17 gm PO DAILY Nystatin [Nystatin Cr 100,000 Units/GM 30GM] 30 gm TP QID Isosorbide Mononitrate [Imdur 30mg ER tablet] 30 mg PO DAILY predniSONE [Prednisone 20mg Tab] 20 mg PO DIRECTED #21 tab Dexlansoprazole [Dexilant] 60 mg PO DAILY Potassium Chloride [Klor-con 20 mEq tablet] 20 meq PO DAILY Nicotine [Nicoderm 21mg/24hr patch] 21 mg TD DAILY Ipratropium/Albuterol Sulfate [Duoneb 3mL neb] 3 ml IH QID Changed Furosemide [Furosemide 40MG tAB] 40 mg PO DAILY #0 No Action Sulfamethoxazole/Trimethoprim [Bactrim DS tablet] 1 each PO BID <Stuart Torres - 09/11/18 22:37> - Additional Information Additional Information: Concur with plan for discharge as outlined above. <Stuart Torres - 09/11/18 22:37>
== END 2018-09-08 11:45 | disposition home health service (06) | DRG 189 ==
LOC: ER 19:12 → 2ND 19:12
PROVIDERS: ADMIT Family Medicine; ATTEND Family Medicine
DX: I50.32 Chronic diastolic (congestive) heart failure; J96.01 Acute respiratory failure with hypoxia; Z87.01 Personal history of pneumonia (recurrent); E87.6 Hypokalemia; J44.0 Chronic obstructive pulmonary disease with (acute) lower respiratory infection; Z79.899 Other long term (current) drug therapy; I11.0 Hypertensive heart disease with heart failure; Z88.0 Allergy status to penicillin; Z79.4 Long term (current) use of insulin; Z88.1 Allergy status to other antibiotic agents; J18.9 Pneumonia, unspecified organism; I25.10 Atherosclerotic heart disease of native coronary artery without angina pectoris; Z99.81 Dependence on supplemental oxygen; J96.02 Acute respiratory failure with hypercapnia; Z79.82 Long term (current) use of aspirin; J44.1 Chronic obstructive pulmonary disease with (acute) exacerbation; Z85.53 Personal history of malignant neoplasm of renal pelvis; Z88.8 Allergy status to other drugs, medicaments and biological substances; Z91.81 History of falling; Z72.0 Tobacco use
CPT/HCPCS: 36415; 71010; 71020; 71045; 71046; 80048; 80053; 80200; 80202; 81001; 82803; 82947; 82962; 83605; 83735; 83880; 84436; 84443; 84484; 85007; 85025; 87040; 87070; 87205; 93005; 94640; 94660; 94760; 94761; 99284; G0378; J2405; J3370

== ENCOUNTER 2018-09-10 18:06 | Observation (INO) ==
--- NOTE | 2018-09-10 18:07 | Emergency Department Note ---
ED Disposition Clinical Impression: COPD exacerbation, CHF (congestive heart failure), CAD (coronary artery disease), Tobacco use disorder, Respiratory failure Disposition: Still a Patient Condition on Discharge: Fair Referrals: Provider,Referral, [Referring] - - Critical Care Critical Care Time: No Attestation: On , the high probability of a clinically significant, sudden or life threatening deterioration of the following system(s) required my full and direct attention, intervention and personal management. The time I documented below is in addition to time spent performing reported procedures but includes the following listed in this critical care notation. Medical Decision Making - Medical Records Medical records reviewed: Yes: I reviewed the patient's medical records. - Zak Inquiry Pt receiving controlled substance: No Zak was queried for this patient: No Vital Signs: 09/10/18 17:56 09/10/18 18:26 09/10/18 18:46 Temperature 99.2 F Temperature Source Oral Pulse Rate 117 H Pulse Rate [Right Brachial] 101 H 86 Respiratory Rate 27 H Blood Pressure [Right Arm] 109/54 L 125/64 Blood Pressure Mean [Right Arm] 72 84 Blood Pressure Source [Right Arm] Automatic Cuff Blood Pressure Position [Right Arm] Sitting 02 Sat by Pulse Oximetry 82 L 90 L Oxygen Delivery Method Nasal Cannula Oxygen Flow Rate (LPM) 4 - Lab Data Lab Results 09/10/18 18:07: WBC 9.2, RBC 3.55 L, Hgb 8.5 L, Hct 30.7 L, MCV 86.5, MCH 24.0 L , MCHC 27.8 L, RDW 18.4 H, Plt Count 172, MPV 9.2, Neut % (Auto) 85.2 H, Lymph % (Auto) 8.3 L, [place] % (Auto) 6.0, Eos % (Auto) 0.1, Baso % (Auto) 0.5, Neut # (Auto) 7.8, Lymph # (Auto) 0.8, [place] # (Auto) 0.6, Eos # (Auto) 0.0, Baso # (Auto) 0.1, Total Counted 100, Neutrophils % (Manual) 85 H, Lymphocytes % (Manual) 13, Monocytes % (Manual) 2, Platelet Estimate Normal, Hypochromasia 2+ 09/10/18 18:07: Sodium 141, Potassium 5.0, Chloride 97 L, Carbon Dioxide 48 H*, Anion Gap 1.0 L, BUN 23 H, Creatinine 0.89, Estimated Creat Clear 85, Estimated GFR 64, Est GFR ( Amer) 78, Glucose 251 H, Calcium 8.6, Total Bilirubin 0.4, AST 35, ALT 61, Alkaline Phosphatase 112, Troponin I 0.04, Total Protein 6.0 L, Albumin 2.6 L, Globulin 3.4 H, Albumin/Globulin Ratio 0.8 L 09/10/18 18:07: B-Natriuretic Peptide 212 H 09/10/18 18:07: Lactate 0.8 09/10/18 18:22: Specimen Source R/r, O2 % 4, ABG pH 7.29 L, ABG pCO2 115.6 H, ABG pO2 64.6 L, ABG HCO3 54.7 H, ABG Total CO2 58.3 H, ABG O2 Saturation 90, ABG Base Excess 28.2 H, Chandler Test Y Result diagrams: 09/10/18 18:07 09/10/18 18:07 Orders (Tests/Meds): ED MEDICATIONS Generic Name Dose Route Start Last Admin Trade Name Freq PRN Reason Stop Dose Admin Insulin Lispro Protam/Lispro Human 4 unit 09/10/18 19:00 Humalog Mix 75/25 3ml Flexpen SQ 10/10/18 18:59 DIRECTED ARIANNE Nitroglycerin 1 gm 09/10/18 18:15 09/10/18 18:36 Nitroglycerin 1 Inch Oint Udp TD 10/10/18 18:14 1 gm Q8H ARIANNE Administration ORDERS Category Date Time Status Chest XR -- portable [XR chest portable] Stat Exams 09/10/18 18:24 Taken Blood Culture Stat Micro 09/10/18 18:07 Received Sputum Culture & Gram Stain Stat Micro 09/10/18 18:07 Results Arterial Blood Gas Stat RT 09/10/18 17:58 Ordered Medical Decision Narrative: Patient underwent work-up and she was found to be in respiratory failure with hypercarbia. BiPAP started in the ED. The patient wanted to be transferred to [facility] to be seen by Dr. Spears her quality assurance supervisor. [address]KHosovi Lee attending [facility] who accepted the patient but he has no available ICU beds. He advised the patient to be admitted at [facility] on a waiting list for transfer to [facility] hopefully tomorrow. 0 spoke with the patient who agreed for this plan. [address] Alvarado was on-call for Dr. Bass and she agreed to admit her under Dr. Bass service. [facility] a [facility] service with a pulmonary consultation. Resp/SOB HPI - General Chief Complaint: Shortness of Breath/Dyspnea Stated Complaint: COPD RESP DISTRESS Time Seen by Provider: 09/10/18 18:04 - History of Present Illness 62 years old white female active smoker with multiple medical problems including CHF, COPD, coronary artery disease s/p stenting, and diabetes mellitus. The patient was admitted to the hospital for 9 days and released yesterday. Her daughter called EMS service today because she is short of breath, upon arrival her oxygen saturation was in the 80s and she was placed on 6 L nasal cannula, the patient admitted for recent use of cigarettes, she is staying in and out side house with a window unit air conditioning sitting on a bucket with a 10 feet of tubing. Patient has prior history of being on a ventilator and she is willing to go back on the ventilator if needed. She is a patient of Dr. Spears from [facility] pulmonary department and she wants to be transferred to a tertiary center. Upon arrival to the ED the patient's was satting 90% on 6 L, she is tachypneic with coarse wheezing, multiple ecchymosis from prior admission. She received immediate DuoNeb and obtain blood gases. MD Complaint: shortness of breath, cough Onset (ago): day(s) Context: recent illness, smoke/fume exposure Severity: moderate Consistency/Duration: constant Relieving factors: oxygen, rest, bronchodilators, upright position Exacerbating factors: lying flat, exertion Known history of: COPD, congestive heart failure, diabetes, recurrent pneumonia Associated symptoms: cough, wheezing, sputum production, orthopnea Treatment prior to arrival: oxygen, bronchodilator - Related Data Home Medications Medication Instructions Recorded Confirmed alprazolam 0.25 mg tablet 0.25 mg PO TID tab 06/14/17 08/31/18 insulin aspart (U-100) 100 unit/mL 8 unit SQ TID ml 06/14/17 08/31/18 (3 mL) subcutaneous pen nitroglycerin 0.4 mg sublingual 0.4 mg SUBLINGUAL Q5MINP PRN 06/14/17 08/31/18 tablet omega-3 fatty acids 1,000 mg 1,000 mg PO DAILY 06/14/17 08/31/18 capsule venlafaxine 50 mg tablet 50 mg PO BID 90 Days #180 tab 08/31/17 08/31/18 Aspirin [Low Dose Aspirin EC] 81 mg PO DAILY 10/27/17 08/31/18 Clopidogrel Bisulfate [Plavix 75mg 75 mg PO DAILY 10/27/17 08/31/18 Tab] Dexlansoprazole [Dexilant] 60 mg PO DAILY 02/17/18 08/31/18 Hydrocod/Acet 5/325 mg [[place] 1 tab PO TIDP PRN 02/17/18 08/31/18 5/325mg tablet] Rosuvastatin Calcium 10 mg PO HS 02/17/18 08/31/18 Trazodone HCl 100 mg PO HS 02/17/18 08/31/18 quetiapine 200 mg tablet 100 mg PO HS tab 03/15/18 08/31/18 Losartan Potassium 25 mg PO DAILY 05/09/18 08/31/18 Metoprolol Succinate 50 mg PO DAILY 05/09/18 08/31/18 Potassium Chloride [Klor-con 20 20 meq PO DAILY 05/10/18 08/31/18 mEq tablet] Nicotine [Nicoderm 21mg/24hr 21 mg TD DAILY 05/17/18 08/31/18 patch] Insulin Glargine,Hum.rec.anlog 45 unit SQ HS 07/19/18 08/31/18 [Insulin Glargine 100 Units/mL 3mL flexpen] Ipratropium/Albuterol Sulfate 3 ml IH QID 07/19/18 08/31/18 [Duoneb 3mL neb] Lactulose [Lactulose 10gm/15ml 10 gm PO QID 07/20/18 08/31/18 Oral Soln] Mirabegron [Myrbetriq] 50 mg PO DAILY 07/20/18 08/31/18 Polyethylene Glycol 3350 [Miralax 17 gm PO DAILY 07/20/18 08/31/18 Powder] Nystatin [Nystatin Cr 100,000 30 gm TP QID 08/09/18 08/31/18 Units/GM 30GM] Isosorbide Mononitrate [Imdur 30mg 30 mg PO DAILY 08/31/18 08/31/18 ER tablet] Previous Rx's Medication Instructions Recorded Furosemide [Furosemide 40MG tAB] 40 mg PO DAILY #0 09/08/18 Sulfamethoxazole/Trimethoprim 1 each PO BID #14 tab 09/08/18 [Bactrim DS tablet] predniSONE [Prednisone 20mg 20 mg PO DIRECTED #21 tab 09/08/18 Tab] Allergies Allergy/AdvReac Type Severity Reaction Status Date / Time bacitracin Allergy Intermediate Rash Verified 05/09/18 14:40 [From NEOSPORIN ([id number])] doxycycline Allergy Mild Rash Verified 05/09/18 14:40 neomycin Allergy Mild Rash Verified 05/09/18 14:40 [From NEOSPORIN ([id number])] Penicillins Allergy Mild Rash Verified 05/09/18 14:40 polymyxin B Allergy Mild Rash Verified 05/09/18 14:40 [From NEOSPORIN ([id number])] sertraline [From Zoloft] AdvReac Severe Hallucinati Verified 05/09/18 14:40 ng tea tree AdvReac Severe Verified 05/18/18 15:00 gabapentin AdvReac Verified 07/20/18 10:35 green tea AdvReac Verified 05/19/18 14:30 [facility] History - Hepatitis A Screen Attestation statement:: This patient has been screened for Hepatitis A risk factors. I have reviewed the patient's past medical history: Yes (I reviewed her patient list and discharge instructions) Medical History: Reports:: Anxiety, Atherosclerotic Heart Disease, Cancer, Congestive Heart Failure, Chronic Obstructive Pulmonary Disease (COPD), Coronary Artery Disease, Depression, Diabetes Mellitus Type 2, Gall Bladder Disease, Gastroesophageal Reflux Disease(GERD), Home Oxygen, Hyperlipidemia, Hypertension, Lung Disease, MRSA, Peripheral Vascular Disease, Renal Insuf ficiency Denies:: Diabetes Mellitus Type 1 Other Medical History: Reports: Anemia, Arthritis Comment: bipolar disorder Laterality Cases: Left: Total Hip Replacement, Right: Other, Bilateral: Tonsillectomy Other Surgeries: Yes: Cancer Surgery, Cholecystectomy, Coronary Stent, Hysterectomy-Total, Other Amputation: No Fractures: Yes (fractured lt hip october 27 2017) Comment: left hip surgery - Social History Smoking Status: Current every day smoker Tobacco Type: cigarettes # Packs/Day (cigarettes): 1 Alcohol Intake: never Alcohol Intake Frequency:: other Substance Use Type: denies use Occupational Status: disabled Housing: house Household Members: family, children - Psychiatric History Pschychiatric History:: Reports:: Anxiety, Bipolar Disorder, Depression Family Hx:: Hypertension, Heart Attack, Diabetes, Hyperlipidemia, Kidney Disease ROS Obtained: Yes All systems reviewed & no additional complaints Physical Exam - General General appearance: alert, in distress, other (Patient is in moderate respiratory distress & receiving DuoNeb. ) - Head Head exam: atraumatic, normocephalic, normal inspection - Eye Eye exam: Present: normal appearance, PERRL, EOMI - ENT ENT exam: Present: normal exam, normal oropharynx, mucous membranes moist, TM's normal bilaterally, normal external ear exam, other (The patient has dentures. ) - Neck Neck exam: Present: normal inspection, full ROM, trachea midline. Absent: meningismus, lymphadenopathy - Chest Chest inspection: Present: normal inspection, symmetric chest wall rise. Absent: tenderness - Respiratory Respiratory exam: Present: normal lung sounds bilaterally, respiratory distress, wheezes - Cardiovascular Cardiovascular exam: Present: regular rate, normal rhythm. Absent: JVD - Abdominal Exam Abdominal exam: Present: soft, normal bowel sounds. Absent: distention, tenderness, guarding, rebound, rigidity - External exam: Present: normal external exam - Extremities Exam Extremities exam: Present: normal capillary refill, pedal edema - Back Exam Back exam: Absent: CVA tenderness (R), CVA tenderness (L) - Neurological Exam Neurological exam: Present: alert, oriented X3, CN II-XII intact, motor sensory deficit, reflexes normal - Psychiatric Psychiatric exam: Present: depressed - Skin Skin exam: Present: other (The patient has multiple ecchymosis. ) - Lymphatic Lymphatic Findings: no adenopathy
[2018-09-10 18:24] LABS: ABG Base Excess 28.2 mmol/L (-2.4-2.3); ABG HCO3 54.7 mmhg (22.0-26.0); ABG Oxygen Saturation 90 % (90-100); ABG PH 7.29 mmol/L (7.35-7.45); ABG PO2 64.6 mmhg (80-100); ABG TCO2 58.3 mmhg (23-27)
[2018-09-10 18:28] LABS: Basophils # 0.1 K/mm3 (0-0.2); Basophils % 0.5 % (0.1-2.0); Eosinophils % 0.1 % (0.1-12.0); Hematocrit 30.7 % (37.0-47.0); Hemoglobin 8.5 g/dL (12.2-16.2); Lymphocytes # 0.8 K/mm3 (0.7-4.5); Lymphocytes % 8.3 % (10-50); Mean Corpuscular HGB Conc 27.8 g/dL (31.8-35.4); Mean Corpuscular Volume 86.5 fl (81-99); Mean Platelet Volume 9.2 fl (7.4-10.4); Monocytes # 0.6 K/mm3 (0.1-1.0); Neutrophils # 7.8 K/mm3 (1.8-7.8); Neutrophils % 85.2 % (37.0-80.0); Platelet Count 172 K/mm3 (142-424); Red Blood Count 3.55 M/mm3 (4.20-5.40); Red Cell Distribution Width 18.4 % (11.5-17.5); White Blood Count 9.2 K/mm3 (4.8-10.8)
[2018-09-10 18:42] LABS: Albumin Level 2.6 gm/dL (3.4-5.0); Albumin/Globulin Ratio 0.8 (1.1-1.8); Bilirubin,Total 0.4 mg/dL (0.2-1.0); Calcium 8.6 mg/dL (8.5-10.1); Globulin 3.4 gm/dl (1.3-3.2)
[2018-09-10 18:45] LABS: ABG PCO2 115.6 mmhg (35.0-45.0); Allen's Test Y; Oxygen 4 %
[2018-09-10 18:46] LABS: Hypochromasia 2+; Lymphocytes % 13 % (10-50); Monocytes % 2 % (2-9); Neutrophils % 85 % (42-76); Total Cells Counted 100
[2018-09-10 22:13] LABS: Calcium 8.6 mg/dL (8.5-10.1)
[2018-09-10 22:15] LABS: Anion Gap 1.9 mEq/L (5-15)
[2018-09-10 23:02] LABS: ABG Base Excess 25.5 mmol/L (-2.4-2.3); ABG HCO3 50.3 mmhg (22.0-26.0); ABG Oxygen Saturation 93 % (90-100); ABG PO2 69.5 mmhg (80-100); ABG TCO2 52.9 mmhg (23-27)
[2018-09-10 23:03] LABS: Allen's Test Y; Oxygen 45 %
[2018-09-10 23:04] LABS: ABG PCO2 84.1 mmhg (35.0-45.0)
[2018-09-11 06:49] LABS: Basophils % 0.4 % (0.1-2.0); Eosinophils % 0.4 % (0.1-12.0); Lymphocytes # 1.6 K/mm3 (0.7-4.5); Lymphocytes % 17.9 % (10-50); Mean Corpuscular HGB Conc 29.2 g/dL (31.8-35.4); Mean Corpuscular Volume 85.7 fl (81-99); Mean Platelet Volume 9.4 fl (7.4-10.4); Monocytes # 0.9 K/mm3 (0.1-1.0); Monocytes % 10.2 % (1.7-9.3); Neutrophils # 6.2 K/mm3 (1.8-7.8); Neutrophils % 71.1 % (37.0-80.0); Platelet Count 137 K/mm3 (142-424); Red Blood Count 3.21 M/mm3 (4.20-5.40); White Blood Count 8.8 K/mm3 (4.8-10.8)
[2018-09-11 06:50] LABS: Hematocrit 27.5 % (37.0-47.0)
--- NOTE | 2018-09-11 10:04 | Pharmacy Consult Notes ---
[facility] Pharmacy VTE Monitoring - Patient Demographics Admission date: 09/10/18 Report Date: 09/11/18 Time: 10:03 Allergies/Adverse Reactions: Patient Allergies bacitracin [From NEOSPORIN ([id number])] Allergy (Intermediate, Verified 05/09/18 14:40) Rash doxycycline Allergy (Mild, Verified 05/09/18 14:40) Rash neomycin [From NEOSPORIN ([id number])] Allergy (Mild, Verified 05/09/18 14:40) Rash Penicillins Allergy (Mild, Verified 05/09/18 14:40) Rash polymyxin B [From NEOSPORIN ([id number])] Allergy (Mild, Verified 05/09/18 14:40) Rash sertraline [From Zoloft] Adverse Reaction (Severe, Verified 05/09/18 14:40) Hallucinating tea tree Adverse Reaction (Severe, Verified 05/18/18 15:00) gabapentin Adverse Reaction (Verified 07/20/18 10:35) green tea Adverse Reaction (Verified 05/19/18 14:30) Height: 1.68 m Weight: 94.801 kg Patient Problems: Current Active Problems (Updated 09/10/18 @ 19:31 by Sven Gaytan MD) COPD exacerbation (Acute) Tobacco use disorder (Chronic) Respiratory failure (Acute) CHF (congestive heart failure) (Chronic) CAD (coronary artery disease) (Chronic) - VTE Risk Labs: VTE Related Lab Results Hgb 8.0 g/dL (12.2-16.2) L 09/11/18 06:21 Hct 27.5 % (37.0-47.0) L 09/11/18 06:21 Plt Count 137 K/mm3 (142-424) L 09/11/18 06:21 BUN 22 mg/dL (7-18) H 09/10/18 21:59 Creatinine 0.82 mg/dL (0.55-1.02) 09/10/18 21:59 Estimated Creat Clear 89 mL/min (50-200) 09/10/18 21:59 VTE Risk Level: Moderate Risk - Prophylaxis VTE Prophylaxis Ordered?: Yes Types of VTE Prophylaxis: Pharmacological Pharmacologic Type: Enoxaparin
--- NOTE | 2018-09-11 14:49 | History & Physical Report ---
*Admission Date: 09/10/18 *Chief complaint: Chronic respiratory failure *History of present illness: This 62-year-old white female has chronic respiratory failure. She was discharged from the hospital 2 days ago and returned with shortness of breath and low oxygen saturations. Blood gas shows elevated pCO2 of 115 and her pH at 7.29. She was readmitted and placed on BiPAP. She is diabetic. He has recently shown MRSA in her sputum. She also has an element of chronic heart failure. See recent hospitalization. See home medication list. She uses the trilogy device at home. She has responded well to Vapotherm during hospitalizations recently. She was on the BiPAP through the night. [facility] History Medical History: Reports:: Anxiety, Atherosclerotic Heart Disease, Cancer, Congestive Heart Failure, Chronic Obstructive Pulmonary Disease (COPD), Coronary Artery Disease, Depression, Diabetes Mellitus Type 2, Gall Bladder Disease, Gastroesophageal Reflux Disease(GERD), Home Oxygen, Hyperlipidemia, Hypertension, Lung Disease, MRSA, Peripheral Vascular Disease, Renal Insufficiency Denies:: Diabetes Mellitus Type 1 *Have you ever received a pneumonia vaccine?: Yes *Have you received a flu vaccine this season?: Yes Other Medical History: Reports: Anemia, Arthritis Laterality Cases: Left: Arthroscopy Hip, Total Hip Replacement, Right: Other, Bilateral: Tonsillectomy Other Surgeries: Yes: Cancer Surgery, Cardiac Catheterization, Cholecystectomy, Coronary Stent, Hysterectomy-Total, Other Amputation: No Fractures: Yes (fractured lt hip october 27 2017) - *Social History Educational Level: Completed High School Smoking Status: Current every day smoker Tobacco Type: cigarettes # Packs/Day (cigarettes): 1 Alcohol Intake: never Alcohol Intake Frequency:: other Substance Use Type: denies use *Occupational Status:: disabled Housing: house Household Members: family, children *Travel in the last 8 weeks: None - Psychiatric History Expresses thoughts of harming self/others: None Suicide Plan Description: No Plan Pschychiatric History:: Reports:: Anxiety, Bipolar Disorder, Depression Family Hx:: Hypertension, Heart Attack, Diabetes, Hyperlipidemia, Kidney Disease Review of Systems - Constitutional Reports daytime sleepiness, Reports weakness, Denies body ache(s), Denies chills - Eyes Denies change in vision - ENT Denies bleeding gums, Denies change in voice, Denies mouth lesions - *Cardiovascular Denies chest pain, Denies irregular heart rhythm - *Respiratory Reports chest congestion, Reports cough, Reports shortness of breath (She resumes smoking when she returns home.), Denies change in phlegm color - *Gastrointestinal Denies abdominal pain - *Genitourinary Reports dribbling after urination, Reports urinary urgency, Denies painful urination - *Musculoskeletal Denies abnormal walking - Integumentary/Breasts Reports new lesions, Reports unusual bruising - *Neurologic Denies abnormal walking - Psychiatric Denies behavioral changes - Hematologic/Lymphatic Reports easy bleeding, Reports easy bruising Meds Home Medications Medication Instructions Recorded Confirmed Type alprazolam 0.25 mg tablet 0.25 mg PO TID tab 06/14/17 09/10/18 History insulin aspart (U-100) 100 unit/mL 8 unit SQ TID ml 06/14/17 09/10/18 History (3 mL) subcutaneous pen nitroglycerin 0.4 mg sublingual 0.4 mg SUBLINGUAL Q5MINP PRN 06/14/17 09/10/18 History tablet omega-3 fatty acids 1,000 mg 1,000 mg PO DAILY 06/14/17 09/10/18 History capsule venlafaxine 50 mg tablet 50 mg PO BID 90 Days #180 tab 08/31/17 09/10/18 History Aspirin [Low Dose Aspirin EC] 81 mg PO DAILY 10/27/17 09/10/18 History Clopidogrel Bisulfate [Plavix 75mg 75 mg PO DAILY 10/27/17 09/10/18 History Tab] Dexlansoprazole [Dexilant] 60 mg PO DAILY 02/17/18 09/10/18 History Hydrocod/Acet 5/325 mg [[place] 1 tab PO TIDP PRN 02/17/18 09/10/18 History 5/325mg tablet] Rosuvastatin Calcium 10 mg PO HS 02/17/18 09/10/18 History Trazodone HCl 100 mg PO HS 02/17/18 09/10/18 History quetiapine 200 mg tablet 100 mg PO HS tab 03/15/18 09/10/18 History Losartan Potassium 25 mg PO DAILY 05/09/18 09/10/18 History Metoprolol Succinate 50 mg PO DAILY 05/09/18 09/10/18 History Potassium Chloride [Klor-con 20 20 meq PO DAILY 05/10/18 09/10/18 History mEq tablet] Nicotine [Nicoderm 21mg/24hr 21 mg TD DAILY 05/17/18 09/10/18 History patch] Insulin Glargine,Hum.rec.anlog 45 unit SQ HS 07/19/18 09/10/18 History [Insulin Glargine 100 Units/mL 3mL flexpen] Ipratropium/Albuterol Sulfate 3 ml IH QID 07/19/18 09/10/18 History [Duoneb 3mL neb] Lactulose [Lactulose 10gm/15ml 10 gm PO QID 07/20/18 09/10/18 History Oral Soln] Mirabegron [Myrbetriq] 50 mg PO DAILY 07/20/18 09/10/18 History Polyethylene Glycol 3350 [Miralax 17 gm PO DAILY 07/20/18 09/10/18 History Powder] Nystatin [Nystatin Cr 100,000 30 gm TP QID 08/09/18 09/10/18 History Units/GM 30GM] Isosorbide Mononitrate [Imdur 30mg 30 mg PO DAILY 08/31/18 09/10/18 History ER tablet] Furosemide [Furosemide 40MG tAB] 40 mg PO DAILY #0 09/08/18 09/10/18 Rx predniSONE [Prednisone 20mg 20 mg PO DIRECTED #21 tab 09/08/18 09/10/18 Rx Tab] Sulfamethoxazole/Trimethoprim 1 each PO BID 09/10/18 09/10/18 History [Bactrim DS tablet] Allergies Allergy/AdvReac Type Severity Reaction Status Date / Time bacitracin Allergy Intermediate Rash Verified 05/09/18 14:40 [From NEOSPORIN ([id number])] doxycycline Allergy Mild Rash Verified 05/09/18 14:40 neomycin Allergy Mild Rash Verified 05/09/18 14:40 [From NEOSPORIN ([id number])] Penicillins Allergy Mild Rash Verified 05/09/18 14:40 polymyxin B Allergy Mild Rash Verified 05/09/18 14:40 [From NEOSPORIN ([id number])] sertraline [From Zoloft] AdvReac Severe Hallucinati Verified 05/09/18 14:40 ng tea tree AdvReac Severe Verified 05/18/18 15:00 gabapentin AdvReac Verified 07/20/18 10:35 green tea AdvReac Verified 05/19/18 14:30 Exam Vital signs and Labs for Last 24 Hours: Temp Pulse Resp BP Pulse Ox 98.5 F 83 18 91/53 L 90 L 09/11/18 07:57 09/11/18 13:22 09/11/18 07:57 09/11/18 07:57 09/11/18 08:00 Laboratory Results - last 24 hr 09/10/18 18:07: WBC 9.2, RBC 3.55 L, Hgb 8.5 L, Hct 30.7 L, MCV 86.5, MCH 24.0 L , MCHC 27.8 L, RDW 18.4 H, Plt Count 172, MPV 9.2, Neut % (Auto) 85.2 H, Lymph % (Auto) 8.3 L, [place] % (Auto) 6.0, Eos % (Auto) 0.1, Baso % (Auto) 0.5, Neut # (Auto) 7.8, Lymph # (Auto) 0.8, [place] # (Auto) 0.6, Eos # (Auto) 0.0, Baso # (Auto) 0.1, Total Counted 100, Neutrophils % (Manual) 85 H, Lymphocytes % (Manual) 13, Monocytes % (Manual) 2, Platelet Estimate Normal, Hypochromasia 2+ 09/10/18 18:07: Sodium 141, Potassium 5.0, Chloride 97 L, Carbon Dioxide 48 H*, Anion Gap 1.0 L, BUN 23 H, Creatinine 0.89, Estimated Creat Clear 85, Estimated GFR 64, Est GFR ( Amer) 78, Glucose 251 H, Calcium 8.6, Total Bilirubin 0.4, AST 35, ALT 61, Alkaline Phosphatase 112, Troponin I 0.04, Total Protein 6.0 L, Albumin 2.6 L, Globulin 3.4 H, Albumin/Globulin Ratio 0.8 L 09/10/18 18:07: B-Natriuretic Peptide 212 H 09/10/18 18:07: Lactate 0.8 09/10/18 18:22: Specimen Source R/r, O2 % 4, ABG pH 7.29 L, ABG pCO2 115.6 H, ABG pO2 64.6 L, ABG HCO3 54.7 H, ABG Total CO2 58.3 H, ABG O2 Saturation 90, ABG Base Excess 28.2 H, Chandler Test Y 09/10/18 21:59: Sodium 143, Potassium 4.9, Chloride 98, Carbon Dioxide 48 H*, Anion Gap 1.9 L, BUN 22 H, Creatinine 0.82, Estimated Creat Clear 89, Estimated GFR 71, Est GFR ( Amer) 86, Glucose 175 H D, Calcium 8.6 09/10/18 22:44: POC Glucose 174 H 09/10/18 23:01: Specimen Source R/r, O2 % 45, ABG pH 7.40, ABG pCO2 84.1 H, ABG pO2 69.5 L, ABG HCO3 50.3 H, ABG Total CO2 52.9 H, ABG O2 Saturation 93, ABG Base Excess 25.5 H, Chandler Test Y 09/11/18 06:07: POC Glucose 70 09/11/18 06:21: WBC 8.8, RBC 3.21 L, Hgb 8.0 L, Hct 27.5 L, MCV 85.7, MCH 25.0 L , MCHC 29.2 L, RDW 18.0 H, Plt Count 137 L, MPV 9.4, Neut % (Auto) 71.1, Lymph % (Auto) 17.9, [place] % (Auto) 10.2 H, Eos % (Auto) 0.4, Baso % (Auto) 0.4, Neut # (Auto) 6.2, Lymph # (Auto) 1.6, [place] # (Auto) 0.9, Eos # (Auto) 0.0, Baso # (Auto) 0.0 09/11/18 11:01: POC Glucose 227 H I & O for Last 24 hours: Intake & Output 09/09/18 09/10/18 09/11/18 09/12/18 11:59 11:59 11:59 11:59 Intake Total 360 / 360 240 / 240 Output Total 450 / 450 Balance -90 / -90 240 / 240 Weight 209 lb Microbiology Reports for the Last 24 Hours: Microbiology 09/10/18 18:07 Sputum - Expectorated Sputum Gram Stain - Final 09/10/18 18:07 Sputum - Expectorated Sputum Sputum Culture - Preliminary - Constitutional Comments: At the time of exam she is in no acute distress but she is short of breath. She has just eaten lunch. She is sitting on the edge of the bed. She has multiple ecchymoses on her arms. - *Routine HEENT Exam Head: Present: normocephalic Eye: Present: PERRL ENT: Present: mucous membranes moist - *Routine Neck Exam Present: supple. Absent: lymphadenopathy - *Routine Respiratory Exam Present: decreased breath sounds, rhonchi, wheezes - *Routine Cardiovascular Exam Present: RRR - *Routine Abdominal Exam Present: soft. Absent: tenderness - *Routine Extremities Exam Present: edema (At least 1+.) - *Routine Skin Exam Present: pallor, ecchymosis - *Routine Neurological Exam Present: alert, oriented X3 - Routine Psychiatric Exam Present: anxious Assessment and Plan (1) COPD exacerbation Current visit: Yes Status: Acute Category: Medical Code(s): J44.1 - Chronic obstructive pulmonary disease with (acute) exacerbation (2) Respiratory failure Current visit: Yes Status: Acute Category: Medical Code(s): J96.90 - Respiratory failure, unspecified, unspecified whether with hypoxia or hypercapnia (3) CAD (coronary artery disease) Current visit: Yes Status: Chronic Qualifiers: Category: Medical Code(s): I25.10 - Atherosclerotic heart disease of [place] coronary artery without angina pectoris (4) CHF (congestive heart failure) Current visit: Yes Status: Chronic Qualifiers: Category: Medical Code(s): I50.9 - Heart failure, unspecified (5) Tobacco use disorder Current visit: Yes Status: Chronic Category: Medical Code(s): F17.200 - Nicotine dependence, unspecified, uncomplicated (6) Acute on chronic diastolic (congestive) heart failure Current visit: No Status: Acute Category: Medical Code(s): I50.33 - Acute on chronic diastolic (congestive) heart failure (7) Acute respiratory failure with hypoxia and hypercapnia Current visit: No Status: Acute Category: Medical Code(s): J96.01 - Acute respiratory failure with hypoxia; J96.02 - Acute respiratory failure with hypercapnia - Assessment and plan all Dx Assessment and Plan for all problems:: See orders. If a bed becomes available [facility] she may be transferred.
--- NOTE | 2018-09-13 07:27 | Progress Note ---
Internal Medicine - PN: Subj *Date: 09/13/18 *Time: 07:27 Exam Vital signs and Labs for Last 24 Hours: Temp Pulse Resp BP Pulse Ox 98.4 F 95 H 22 123/72 96 09/13/18 04:00 09/13/18 06:10 09/13/18 04:00 09/13/18 04:00 09/13/18 04:00 Laboratory Results - last 24 hr 09/12/18 11:02: POC Glucose 365 H* 09/12/18 16:48: POC Glucose 453 H* 09/12/18 19:56: POC Glucose 457 H* 09/13/18 05:50: POC Glucose 118 H I & O for Last 24 hours: Intake & Output 09/10/18 09/11/18 09/12/18 09/13/18 23:59 23:59 23:59 23:59 Intake Total 1200 / 1680 1680 / 1680 Output Total 1850 / 1850 3200 / 3200 2400 / 2400 Balance -650 / -170 -1520 / -1520 -2400 / -2400 Weight 95.963 kg 94.801 kg 96.615 kg 97.069 kg Microbiology Reports for the Last 24 Hours: Microbiology 09/10/18 18:07 Blood Blood Culture - Preliminary NO GROWTH AFTER 48 HOURS 09/10/18 18:07 Blood Blood Culture - Preliminary NO GROWTH AFTER 48 HOURS 09/10/18 18:07 Sputum - Expectorated Sputum Gram Stain - Final 09/10/18 18:07 Sputum - Expectorated Sputum Sputum Culture - Preliminary Assessment and Plan (1) COPD exacerbation Current visit: Yes Status: Acute Category: Medical Code(s): J44.1 - Chronic obstructive pulmonary disease with (acute) exacerbation (2) Respiratory failure Current visit: Yes Status: Acute Category: Medical Code(s): J96.90 - Respiratory failure, unspecified, unspecified whether with hypoxia or hyperc apnia (3) CAD (coronary artery disease) Current visit: Yes Status: Chronic Qualifiers: Category: Medical Code(s): I25.10 - Atherosclerotic heart disease of [place] coronary artery without angina pectoris (4) CHF (congestive heart failure) Current visit: Yes Status: Chronic Qualifiers: Category: Medical Code(s): I50.9 - Heart failure, unspecified (5) Tobacco use disorder Current visit: Yes Status: Chronic Category: Medical Code(s): F17.200 - Nicotine dependence, unspecified, uncomplicated (6) Acute on chronic diastolic (congestive) heart failure Current visit: No Status: Acute Category: Medical Code(s): I50.33 - Acute on chronic diastolic (congestive) heart failure (7) Acute respiratory failure with hypoxia and hypercapnia Current visit: No Status: Acute Category: Medical Code(s): J96.01 - Acute respiratory failure with hypoxia; J96.02 - Acute respiratory failure with hypercapnia The patient's infection will respond to the chosen ABx?: Yes Is the patient receiving the right drug, dose, and route?: Yes Could a more targeted ABx be ordered?: No (HX OF MRSA IN SPUTUM. TAKING BACTRIM)
[2018-09-13 07:52] LABS: Anion Gap 0.6 mEq/L (5-15); Calcium 8.4 mg/dL (8.5-10.1)
[2018-09-13 08:34] LABS: Basophils % 0.3 % (0.1-2.0); Eosinophils % 0.4 % (0.1-12.0); Hematocrit 24.7 % (37.0-47.0); Lymphocytes # 0.6 K/mm3 (0.7-4.5); Lymphocytes % 11.6 % (10-50); Mean Corpuscular HGB Conc 27.6 g/dL (31.8-35.4); Mean Corpuscular Volume 85.8 fl (81-99); Mean Platelet Volume 8.7 fl (7.4-10.4); Monocytes # 0.5 K/mm3 (0.1-1.0); Monocytes % 9.6 % (1.7-9.3); Neutrophils # 3.8 K/mm3 (1.8-7.8); Neutrophils % 78.1 % (37.0-80.0); Platelet Count 112 K/mm3 (142-424); Red Blood Count 2.89 M/mm3 (4.20-5.40); Red Cell Distribution Width 18.2 % (11.5-17.5); White Blood Count 4.9 K/mm3 (4.8-10.8)
--- NOTE | 2018-09-13 08:47 | Progress Note ---
Internal Medicine - PN: Subj *Date: 09/13/18 *Time: 08:44 Interval history: Reports that she is doing okay this morning. Although she states she has vomited her breakfast. But she continues to eat. She states she is not nauseated. She is concerned because she bumped her knee and it is bleeding. Breathing is about the same. She slept with BiPAP on last night. She denies chest pain. Exam Vital signs and Labs for Last 24 Hours: Temp Pulse Resp BP Pulse Ox 97.2 F L 77 22 135/69 88 L 09/13/18 08:00 09/13/18 08:00 09/13/18 08:00 09/13/18 08:00 09/13/18 08:00 Laboratory Results - last 24 hr 09/12/18 11:02: POC Glucose 365 H* 09/12/18 16:48: POC Glucose 453 H* 09/12/18 19:56: POC Glucose 457 H* 09/13/18 05:50: POC Glucose 118 H 09/13/18 07:13: Sodium 143, Potassium 4.6, Chloride 102, Carbon Dioxide 45 H*, Anion Gap 0.6 L, BUN 18, Creatinine 0.88, Estimated Creat Clear 91, Estimated GFR 65, Est GFR ( Amer) 79, Glucose 119 H, Calcium 8.4 L I & O for Last 24 hours: Intake & Output 09/10/18 09/11/18 09/12/18 09/13/18 11:59 11:59 11:59 11:59 Intake Total 360 / 360 2040 / 2040 960 / 960 Output Total 450 / 450 3300 / 3300 3700 / 3700 Balance -90 / -90 -1260 / -1260 -2740 / -2740 Weight 209 lb 213 lb 214 lb Microbiology Reports for the Last 24 Hours: Microbiology 09/10/18 18:07 Blood Blood Culture - Preliminary NO GROWTH AFTER 48 HOURS 09/10/18 18:07 Blood Blood Culture - Preliminary NO GROWTH AFTER 48 HOURS 09/10/18 18:07 Sputum - Expectorated Sputum Gram Stain - Final 09/10/18 18:07 Sputum - Expectorated Sputum Sputum Culture - Preliminary - Constitutional no acute distress Comments: Sitting on the bedside eating her breakfast. - *Routine Respiratory Exam Comments: Bilateral crackles greater on the right. Periodic wheezing. - *Routine Cardiovascular Exam Present: RRR - *Routine Abdominal Exam Present: soft, normoactive bowel sounds. Absent: tenderness - *Routine Extremities Exam Absent: edema, calf tenderness Comments: Multiple ecchymotic areas on both arms and legs. Band-Aid placed over right knee abrasion. - *Routine Neurological Exam Present: alert Seems oriented Assessment and Plan (1) COPD exacerbation Current visit: Yes Status: Acute Category: Medical Code(s): J44.1 - Chronic obstructive pulmonary disease with (acute) exacerbation (2) Respiratory failure Current visit: Yes Status: Acute Category: Medical Code(s): J96.90 - Respiratory failure, unspecified, unspecified whether with hypoxia or hypercapnia (3) CAD (coronary artery disease) Current visit: Yes Status: Chronic Qualifiers: Category: Medical Code(s): I25.10 - Atherosclerotic heart disease of [place] coronary artery without angina pectoris (4) CHF (congestive heart failure) Current visit: Yes Status: Chronic Qualifiers: Category: Medical Code(s): I50.9 - Heart failure, unspecified (5) Tobacco use disorder Current visit: Yes Status: Chronic Category: Medical Code(s): F17.200 - Nicotine dependence, unspecified, uncomplicated (6) Acute on chronic diastolic (congestive) heart failure Current visit: No Status: Acute Category: Medical Code(s): I50.33 - Acute on chronic diastolic (congestive) heart failure (7) Acute respiratory failure with hypoxia and hypercapnia Current visit: No Status: Acute Category: Medical Code(s): J96.01 - Acute respiratory failure with hypoxia; J96.02 - Acute respiratory failure with hypercapnia (8) Depression with anxiety Current visit: Yes Status: Chronic Category: Medical Code(s): F41.8 - Other specified anxiety disorders - Assessment and plan all Dx Assessment and Plan for all problems:: Patient states she just vomited but has no nausea. We will continue with current care.
[2018-09-13 08:55] LABS: Hemoglobin 6.8 g/dL (12.2-16.2)
[2018-09-13 09:37] LABS: Basophils % 0.2 % (0.1-2.0); Eosinophils % 0.4 % (0.1-12.0); Hematocrit 27.9 % (37.0-47.0); Lymphocytes # 0.5 K/mm3 (0.7-4.5); Lymphocytes % 6.9 % (10-50); Mean Corpuscular HGB Conc 27.4 g/dL (31.8-35.4); Mean Corpuscular Volume 86.8 fl (81-99); Mean Platelet Volume 9.7 fl (7.4-10.4); Monocytes # 0.4 K/mm3 (0.1-1.0); Monocytes % 5.7 % (1.7-9.3); Neutrophils # 6.3 K/mm3 (1.8-7.8); Neutrophils % 86.9 % (37.0-80.0); Platelet Count 132 K/mm3 (142-424); Red Blood Count 3.22 M/mm3 (4.20-5.40); Red Cell Distribution Width 18.4 % (11.5-17.5); White Blood Count 7.3 K/mm3 (4.8-10.8)
[2018-09-13 09:41] LABS: Hemoglobin 7.7 g/dL (12.2-16.2)
[2018-09-13 10:36] LABS: Lymphocytes % 10 % (10-50); Monocytes % 4 % (2-9); Neutrophils % 86 % (42-76); Total Cells Counted 100
[2018-09-13 10:42] LABS: Hypochromasia 1+
[2018-09-14 01:42] LABS: Hematocrit 31.3 % (37.0-47.0)
[2018-09-14 01:56] LABS: Hemoglobin 9.1 g/dL (12.2-16.2)
[2018-09-14 07:05] LABS: Basophils % 0.1 % (0.1-2.0); Eosinophils % 0.2 % (0.1-12.0); Hematocrit 33.6 % (37.0-47.0); Hemoglobin 9.5 g/dL (12.2-16.2); Lymphocytes # 0.6 K/mm3 (0.7-4.5); Lymphocytes % 9.1 % (10-50); Mean Corpuscular HGB Conc 28.3 g/dL (31.8-35.4); Mean Corpuscular Volume 88.1 fl (81-99); Mean Platelet Volume 8.7 fl (7.4-10.4); Monocytes # 0.4 K/mm3 (0.1-1.0); Monocytes % 6.7 % (1.7-9.3); Neutrophils # 5.2 K/mm3 (1.8-7.8); Neutrophils % 83.8 % (37.0-80.0); Platelet Count 105 K/mm3 (142-424); Red Blood Count 3.82 M/mm3 (4.20-5.40); Red Cell Distribution Width 17.3 % (11.5-17.5); White Blood Count 6.2 K/mm3 (4.8-10.8)
[2018-09-14 07:12] LABS: Anion Gap 0.4 mEq/L (5-15); Calcium 8.6 mg/dL (8.5-10.1)
--- NOTE | 2018-09-14 08:11 | Progress Note ---
Internal Medicine - PN: Subj *Date: 09/14/18 *Time: 08:08 Interval history: Patient states she is feeling much better this morning. She is less short of breath. She has been sitting up in a chair eating breakfast. She states she slept well last night. She states she wants to go home today. Exam Vital signs and Labs for Last 24 Hours: Temp Pulse Resp BP Pulse Ox 99.0 F 101 H 22 107/60 L 93 L 09/14/18 07:54 09/14/18 07:54 09/14/18 07:54 09/14/18 07:54 09/14/18 07:54 Laboratory Results - last 24 hr 09/13/18 07:13: WBC 4.9 D, RBC 2.89 L, Hgb 6.8 L*, Hct 24.7 L, MCV 85.8, MCH 23.7 L, MCHC 27.6 L, RDW 18.2 H, Plt Count 112 L, MPV 8.7, Neut % (Auto) 78.1, Lymph % (Auto) 11.6, [place] % (Auto) 9.6 H, Eos % (Auto) 0.4, Baso % (Auto) 0.3, Neut # (Auto) 3.8, Lymph # (Auto) 0.6 L, [place] # (Auto) 0.5, Eos # (Auto) 0.0, Baso # (Auto) 0.0 09/13/18 09:30: WBC 7.3 D, RBC 3.22 L, Hgb 7.7 L*, Hct 27.9 L, MCV 86.8, MCH 23.8 L, MCHC 27.4 L, RDW 18.4 H, Plt Count 132 L, MPV 9.7, Neut % (Auto) 86.9 H, Lymph % (Auto) 6.9 L, [place] % (Auto) 5.7, Eos % (Auto) 0.4, Baso % (Auto) 0.2, Neut # (Auto) 6.3, Lymph # (Auto) 0.5 L, [place] # (Auto) 0.4, Eos # (Auto) 0.0, Baso # (Auto) 0.0, Total Counted 100, Neutrophils % (Manual) 86 H, Lymphocytes % (Manual) 10, Monocytes % (Manual) 4, Platelet Estimate Slight decrease, Hypochromasia 1+ 09/13/18 09:30: Blood Type O Positive, Antibody Screen Negative, Crossmatch (AHG) See Detail 09/13/18 10:51: POC Glucose 369 H* 09/13/18 16:17: POC Glucose 448 H* 09/13/18 16:27: Blood Type Confirm O Positive 09/13/18 21:58: POC Glucose 395 H* 09/14/18 01:34: Hgb 9.1 L D, Hct 31.3 L 09/14/18 06:18: WBC 6.2, RBC 3.82 L, Hgb 9.5 L, Hct 33.6 L, MCV 88.1, MCH 24.9 L , MCHC 28.3 L, RDW 17.3, Plt Count 105 L, MPV 8.7, Neut % (Auto) 83.8 H, Lymph % (Auto) 9.1 L, [place] % (Auto) 6.7, Eos % (Auto) 0.2, Baso % (Auto) 0.1, Neut # (Auto) 5.2, Lymph # (Auto) 0.6 L, [place] # (Auto) 0.4, Eos # (Auto) 0.0, Baso # (Auto) 0.0 09/14/18 06:18: Sodium 135 L, Potassium 5.4 H, Chloride 96 L, Carbon Dioxide 44 H*, Anion Gap 0.4 L, BUN 22 H, Creatinine 0.95, Estimated Creat Clear 90, Estimated GFR 60, Est GFR ( Amer) 72, Glucose 329 H D, Calcium 8.6 09/14/18 06:18: POC Glucose 403 H* I & O for Last 24 hours: Intake & Output 09/11/18 09/12/18 09/13/18 09/14/18 11:59 11:59 11:59 11:59 Intake Total 360 / 360 2040 / 2040 960 / 960 840 / 840 Output Total 450 / 450 3300 / 3300 3700 / 3700 4700 / 4700 Balance -90 / -90 -1260 / -1260 -2740 / -2740 -3860 / -3860 Weight 209 lb 213 lb 214 lb 212 lb 3 oz Microbiology Reports for the Last 24 Hours: Microbiology 09/10/18 18:07 Sputum - Expectorated Sputum Gram Stain - Final 09/10/18 18:07 Sputum - Expectorated Sputum Sputum Culture - Preliminary Haemophilus influenzae - Constitutional no acute distress - *Routine Respiratory Exam Present: decreased breath sounds, wheezes (faint) - *Routine Cardiovascular Exam Present: RRR - *Routine Abdominal Exam Present: soft, normoactive bowel sounds. Absent: tenderness - *Routine Extremities Exam Present: edema (trace bilateral LE edema). Absent: cyanosis, clubbing - *Routine Neurological Exam Present: alert, oriented X3 Assessment and Plan (1) COPD exacerbation Current visit: Yes Status: Acute Category: Medical Code(s): J44.1 - Chronic obstructive pulmonary disease with (acute) exacerbation (2) Respiratory failure Current visit: Yes Status: Acute Category: Medical Code(s): J96.90 - Respiratory failure, unspecified, unspecified whether with hypoxia or hypercapnia (3) CAD (coronary artery disease) Current visit: Yes Status: Chronic Qualifiers: Category: Medical Code(s): I25.10 - Atherosclerotic heart disease of [place] coronary artery without angina pectoris (4) CHF (congestive heart failure) Current visit: Yes Status: Chronic Qualifiers: Category: Medical Code(s): I50.9 - Heart failure, unspecified (5) Tobacco use disorder Current visit: Yes Status: Chronic Category: Medical Code(s): F17.200 - Nicotine dependence, unspecified, uncomplicated (6) Acute on chronic diastolic (congestive) heart failure Current visit: No Status: Acute Category: Medical Code(s): I50.33 - Acute on chronic diastolic (congestive) heart failure (7) Acute respiratory failure with hypoxia and hypercapnia Current visit: No Status: Acute Category: Medical Code(s): J96.01 - Acute respiratory failure with hypoxia; J96.02 - Acute respiratory failure with hyper capnia (8) Depression with anxiety Current visit: Yes Status: Chronic Category: Medical Code(s): F41.8 - Other specified anxiety disorders (9) Haemophilus influenzae infection Current visit: Yes Status: Acute Category: Medical Code(s): A49.2 - Hemophilus influenzae infection, unspecified site - Assessment and plan all Dx Assessment and Plan for all problems:: H&H has improved with transfusion. Her potassium is elevated, therefore we will discontinue potassium supplementation. Her oxygen sat is currently 86-87% on 4 L while eating breakfast. Her sputum culture is positive for Haemophilus influenza which is resistant to Bactrim and sensitive to Augmentin, Rocephin, and Zithromax. The patient does have an allergy to penicillin. We will need to change antibiotics. Will discuss further care with Dr. Bass.
--- NOTE | 2018-09-14 13:44 | Discharge Summary ---
General - General Admission date:: 09/10/18 Discharge date: 09/14/18 HPI HPI: This 62-year-old white female has chronic respiratory failure. She was discharged from the hospital 2 days ago and returned with shortness of breath and low oxygen saturations. Blood gas shows elevated pCO2 of 115 and her pH at 7.29. She was readmitted and placed on BiPAP. She is diabetic. He has recently shown MRSA in her sputum. She also has an element of chronic heart failure. See recent hospitalization. See home medication list. She uses the trilogy device at home. She has responded well to Vapotherm during hospitalizations recently. She was on the BiPAP through the night. Hospital Course Hospital Course: The patient's chest x-ray showed mild CHF with patchy infiltrate in the left lung base. 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 Spears is at , however a bed was not available. She was admitted and started on BiPAP, nebs, Lasix, and prednisone. She was also continued on her Bactrim. The patient's hemoglobin was initially low at 8.5 and it dropped to 6.8. It was rechecked and was 7.7, therefore she was given a blood transfusion. It improved to 9.1 and remained stable. Her shortness of breath improved and she was able to sit up in a chair and eat breakfast. She was sleeping well and wearing BiPAP at night. She was on 4L of nasal oxygen with sats in the upper 80's. She w anted to go home. Dr. Bass did speak with Dr. Spears and they both agreed that hospice would be a good option for the patient. She was agreeable and hospice saw the patient and accepted her. Her sputum did return positive for Haemophilus influenza. She was given a dose of IV Zithromax while in the hospital and was discharged home on Zithromax 500 mg for 2 more days. She will also need to remain on her Bactrim once a day. She will f/u with Dr. Bass in 1 week. Objective Vital signs: Temp Pulse Resp BP Pulse Ox 99.0 F 93 H 22 107/60 L 92 L 09/14/18 07:54 09/14/18 13:30 09/14/18 07:54 09/14/18 07:54 09/14/18 08:37 Narrative: - Constitutional Comments: At the time of exam she is in no acute distress but she is short of breath. She has just eaten lunch. She is sitting on the edge of the bed. She has multiple ecchymoses on her arms. - *Routine HEENT Exam Head: Present: normocephalic Eye: Present: PERRL ENT: Present: mucous membranes moist - *Routine Neck Exam Present: supple. Absent: lymphadenopathy - *Routine Respiratory Exam Present: decreased breath sounds, rhonchi, wheezes - *Routine Cardiovascular Exam Present: RRR - *Routine Abdominal Exam Present: soft. Absent: tenderness - *Routine Extremities Exam Present: edema (At least 1+.) - *Routine Skin Exam Present: pallor, ecchymosis - *Routine Neurological Exam Present: alert, oriented X3 - Routine Psychiatric Exam Present: anxious Results Labs on day of discharge: Labs from last 24 hours 09/14/18 09/14/18 09/14/18 10:48 06:18 06:18 WBC RBC Hgb Hct MCV MCH MCHC RDW Plt Count MPV Neut % (Auto) Lymph % (Auto) [place] % (Auto) Eos % (Auto) Baso % (Auto) Neut # (Auto) Lymph # (Auto) [place] # (Auto) Eos # (Auto) Baso # (Auto) Sodium 135 L Potassium 5.4 H Chloride 96 L Carbon Dioxide 44 H* Anion Gap 0.4 L BUN 22 H Creatinine 0.95 Estimated Creat Clear 90 Estimated GFR 60 Est GFR ( Amer) 72 Glucose 329 H D POC Glucose 415 H* 403 H* Calcium 8.6 Blood Type Blood Type Confirm Antibody Screen Crossmatch (AHG) 09/14/18 09/14/18 09/13/18 06:18 01:34 21:58 WBC 6.2 RBC 3.82 L Hgb 9.5 L 9.1 L D Hct 33.6 L 31.3 L MCV 88.1 MCH 24.9 L MCHC 28.3 L RDW 17.3 Plt Count 105 L MPV 8.7 Neut % (Auto) 83.8 H Lymph % (Auto) 9.1 L [place] % (Auto) 6.7 Eos % (Auto) 0.2 Baso % (Auto) 0.1 Neut # (Auto) 5.2 Lymph # (Auto) 0.6 L [place] # (Auto) 0.4 Eos # (Auto) 0.0 Baso # (Auto) 0.0 Sodium Potassium Chloride Carbon Dioxide Anion Gap BUN Creatinine Estimated Creat Clear Estimated GFR Est GFR ( Amer) Glucose POC Glucose 395 H* Calcium Blood Type Blood Type Confirm Antibody Screen Crossmatch (AHG) 09/13/18 09/13/18 09/13/18 16:27 16:17 09:30 WBC RBC Hgb Hct MCV MCH MCHC RDW Plt Count MPV Neut % (Auto) Lymph % (Auto) [place] % (Auto) Eos % (Auto) Baso % (Auto) Neut # (Auto) Lymph # (Auto) [place] # (Auto) Eos # (Auto) Baso # (Auto) Sodium Potassium Chloride Carbon Dioxide Anion Gap BUN Creatinine Estimated Creat Clear Estimated GFR Est GFR ( Amer) Glucose POC Glucose 448 H* Calcium Blood Type O Positive Blood Type Confirm O Positive Antibody Screen Negative Crossmatch (G) See Detail Preliminary micro results at discharge 09/10/18 18:07 Blood Culture - Preliminary Blood NO GROWTH AFTER 48 HOURS 09/10/18 18:07 Blood Culture - Preliminary Blood NO GROWTH AFTER 48 HOURS DS: Diagnosis - Discharge Diagnosis (1) COPD exacerbation Status: Acute (2) Respiratory failure Status: Acute (3) CAD (coronary artery disease) Status: Chronic (4) CHF (congestive heart failure) Status: Chronic (5) Tobacco use disorder Status: Chronic (6) Acute on chronic diastolic (congestive) heart failure Status: Acute (7) Acute respiratory failure with hypoxia and hypercapnia Status: Acute (8) Depression with anxiety Status: Chronic (9) Haemophilus influenzae infection Status: Acute Discharge Plan - Patient Discharge Instructions ACTIVITY: Limited activity DIET: diabetic diet Patient Instructions: Chronic Obstructive Pulmonary Disease, Coronary Artery Disease, DI for Chronic Obstructive Pulmonary Disease, DI for Coronary Artery Disease, DI for Respiratory Failure, Respiratory Failure - Follow up Plan Follow up with: Petty Bass MD [Primary Care Provider] - 1 week Disposition: Hospice - Home Home Medications: Home Medications Medication Instructions Recorded Confirmed Type alprazolam 0.25 mg tablet 0.25 mg PO TID tab 06/14/17 09/10/18 History insulin aspart (U-100) 100 unit/mL 8 unit SQ TID ml 06/14/17 09/10/18 History (3 mL) subcutaneous pen nitroglycerin 0.4 mg sublingual 0.4 mg SUBLINGUAL Q5MINP PRN 06/14/17 09/10/18 History tablet omega-3 fatty acids 1,000 mg 1,000 mg PO DAILY 06/14/17 09/10/18 History capsule venlafaxine 50 mg tablet 50 mg PO BID 90 Days #180 tab 08/31/17 09/10/18 History Aspirin [Low Dose Aspirin EC] 81 mg PO DAILY 10/27/17 09/10/18 History Clopidogrel Bisulfate [Plavix 75mg 75 mg PO DAILY 10/27/17 09/10/18 History Tab] Dexlansoprazole [Dexilant] 60 mg PO DAILY 02/17/18 09/10/18 History Hydrocod/Acet 5/325 mg [[place] 1 tab PO TIDP PRN 02/17/18 09/10/18 History 5/325mg tablet] Rosuvastatin Calcium 10 mg PO HS 02/17/18 09/10/18 History Trazodone HCl 100 mg PO HS 02/17/18 09/10/18 History quetiapine 200 mg tablet 100 mg PO HS tab 03/15/18 09/10/18 History Losartan Potassium 25 mg PO DAILY 05/09/18 09/10/18 History Metoprolol Succinate 50 mg PO DAILY 05/09/18 09/10/18 History Potassium Chloride [Klor-con 20 20 meq PO DAILY 05/10/18 09/10/18 History mEq tablet] Nicotine [Nicoderm 21mg/24hr 21 mg TD DAILY 05/17/18 09/10/18 History patch] Insulin Glargine,Hum.rec.anlog 45 unit SQ HS 07/19/18 09/10/18 History [Insulin Glargine 100 Units/mL 3mL flexpen] Ipratropium/Albuterol Sulfate 3 ml IH QID 07/19/18 09/10/18 History [Duoneb 3mL neb] Lactulose [Lactulose 10gm/15ml 10 gm PO QID 07/20/18 09/10/18 History Oral Soln] Mirabegron [Myrbetriq] 50 mg PO DAILY 07/20/18 09/10/18 History Polyethylene Glycol 3350 [Miralax 17 gm PO DAILY 07/20/18 09/10/18 History Powder] Nystatin [Nystatin Cr 100,000 30 gm TP QID 08/09/18 09/10/18 History Units/GM 30GM] Isosorbide Mononitrate [Imdur 30mg 30 mg PO DAILY 08/31/18 09/10/18 History ER tablet] predniSONE [Prednisone 20mg 20 mg PO DIRECTED #21 tab 09/08/18 09/10/18 Rx Tab] Azithromycin [Zithromax 500mg Tab] 500 mg PO DAILY #2 tab 09/14/18 Rx Furosemide [Furosemide 40MG tAB] 40 mg PO BID #60 tab 09/14/18 Rx Sulfamethoxazole/Trimethoprim 1 each PO DAILY #10 tab 09/14/18 Rx [Bactrim DS tablet] Prescriptions/Medication Reconciliation: New Azithromycin [Zithromax 500mg Tab] 500 mg PO DAILY #2 tab Continued alprazolam 0.25 mg tablet 0.25 mg PO TID tab omega-3 fatty acids 1,000 mg capsule 1,000 mg PO DAILY insulin aspart (U-100) 100 unit/mL (3 mL) subcutaneous pen 8 unit SQ TID ml venlafaxine 50 mg tablet 50 mg PO BID 90 Days #180 tab quetiapine 200 mg tablet 100 mg PO HS tab nitroglycerin 0.4 mg sublingual tablet 0.4 mg SUBLINGUAL Q5MINP PRN PRN Reason: Chest Pain Aspirin [Low Dose Aspirin EC] 81 mg PO DAILY Clopidogrel Bisulfate [Plavix 75mg Tab] 75 mg PO DAILY Rosuvastatin Calcium 10 mg PO HS Trazodone HCl 100 mg PO HS Hydrocod/Acet 5/325 mg [[place] 5/325mg tablet] 1 tab PO TIDP PRN PRN Reason: PAIN Losartan Potassium 25 mg PO DAILY Metoprolol Succinate 50 mg PO DAILY Insulin Glargine,Hum.rec.anlog [Insulin Glargine 100 Units/mL 3mL flexpen] 45 unit SQ HS Mirabegron [Myrbetriq] 50 mg PO DAILY Lactulose [Lactulose 10gm/15ml Oral Soln] 10 gm PO QID Polyethylene Glycol 3350 [Miralax Powder] 17 gm PO DAILY Nystatin [Nystatin Cr 100,000 Units/GM 30GM] 30 gm TP QID Isosorbide Mononitrate [Imdur 30mg ER tablet] 30 mg PO DAILY predniSONE [Prednisone 20mg Tab] 20 mg PO DIRECTED #21 tab Dexlansoprazole [Dexilant] 60 mg PO DAILY Potassium Chloride [Klor-con 20 mEq tablet] 20 meq PO DAILY Nicotine [Nicoderm 21mg/24hr patch] 21 mg TD DAILY Ipratropium/Albuterol Sulfate [Duoneb 3mL neb] 3 ml IH QID Changed Sulfamethoxazole/Trimethoprim [Bactrim DS tablet] 1 each PO DAILY #10 tab Furosemide [Furosemide 40MG tAB] 40 mg PO BID #60 tab
== END 2018-09-14 15:38 | disposition hospice, home (50) ==
LOC: ER 18:06 → 2ND 18:06
PROVIDERS: ADMIT Family Medicine; ATTEND Family Medicine
DX: J96.01 Acute respiratory failure with hypoxia; E11.22 Type 2 diabetes mellitus with diabetic chronic kidney disease; Z91.018 Allergy to other foods; J44.1 Chronic obstructive pulmonary disease with (acute) exacerbation; I11.0 Hypertensive heart disease with heart failure; Z99.81 Dependence on supplemental oxygen; K21.9 Gastro-esophageal reflux disease without esophagitis; I13.0 Hypertensive heart and chronic kidney disease with heart failure and stage 1 through stage 4 chronic kidney disease, or unspecified chronic kidney disease; Z79.4 Long term (current) use of insulin; I25.10 Atherosclerotic heart disease of native coronary artery without angina pectoris; Z88.0 Allergy status to penicillin; N18.9 Chronic kidney disease, unspecified; A49.2 Hemophilus influenzae infection, unspecified site; Z79.899 Other long term (current) drug therapy; Z86.14 Personal history of Methicillin resistant Staphylococcus aureus infection; Z79.02 Long term (current) use of antithrombotics/antiplatelets; Z88.8 Allergy status to other drugs, medicaments and biological substances; F17.210 Nicotine dependence, cigarettes, uncomplicated; J96.02 Acute respiratory failure with hypercapnia; I50.33 Acute on chronic diastolic (congestive) heart failure; Z79.82 Long term (current) use of aspirin; F41.8 Other specified anxiety disorders
CPT/HCPCS: 36415; 71010; 71045; 80048; 80053; 82803; 82962; 83605; 83880; 84484; 85007; 85014; 85018; 85025; 86850; 87040; 87070; 87077; 87184; 87205; 93005; 94640; 94660; 94761; 99285; G0378; J0456; P9016